=== PATIENT | female | born 1950 | race Caucasian/White ===

== ENCOUNTER 2022-03-14 08:00 | Outpatient (RCR) | payer MEDICARE, BC, SELFPAY | END 2022-05-22 15:00 | disposition home or self-care (01) | PROVIDERS: Visit Provider Orthopaedic Surgery | DX: M17.0 Bilateral primary osteoarthritis of knee (principal); Z51.89 Encounter for other specified aftercare | CPT/HCPCS: 97110; 97162; 97535 ==

== ENCOUNTER 2022-03-28 15:24 | Outpatient (CLI) | payer MEDICARE, BC, SELFPAY ==
[2022-03-28 12:07] LABS: Iron* 64 ug/dL (37-170)
[2022-03-28 12:11] LABS: Albumin* 3.7 g/dL (3.3-5.0); Chloride* 104 mmol/L (96-114); Sodium* 138 mmol/L (135-149)
[2022-03-28 12:12] LABS: Potassium* 4.8 mmol/L (3.6-5.1)
[2022-03-28 12:14] LABS: Carbon Dioxide* 26 mmol/L (20-32); Creatinine* 1.6 mg/dL (0.5-1.5); Estimated Glomerular Filt Rate 34 ml/min
[2022-03-28 12:15] LABS: Blood Urea Nitrogen* 35 mg/dL (7-30); Calcium* 9.3 mg/dL (8.4-10.6); Glucose* 98 mg/dL (60-115); Uric Acid* 5.7 mg/dL (2.2-8.4)
[2022-03-28 12:17] LABS: Percent Iron Saturation 17 % (20-50); Total Iron Binding Capacity 381 ug/dL (265-497)
[2022-03-28 13:12] LABS: Creatinine Urine 82.2 mg/dL
[2022-03-28 13:17] LABS: Microalbumin Creatinine Ratio 20 mg/g (0-30); Microalbumin Urine 2 mg/dL
== END 2022-03-28 15:25 | disposition home or self-care (01) ==
PROVIDERS: Visit Provider Internal Medicine Nephrology
DX: I12.9 Hypertensive chronic kidney disease with stage 1 through stage 4 chronic kidney disease, or unspecified chronic kidney disease (principal); N18.4 Chronic kidney disease, stage 4 (severe); E11.22 Type 2 diabetes mellitus with diabetic chronic kidney disease; D64.9 Anemia, unspecified; N25.0 Renal osteodystrophy; R82.90 Unspecified abnormal findings in urine
CPT/HCPCS: 80069; 82043; 82570; 83540; 83550; 84550; 87086

== ENCOUNTER 2022-09-18 08:14 | Outpatient (CLI) | payer MEDICARE, BC, SELFPAY ==
[2022-09-18 10:08] LABS: Albumin* 4.1 g/dL (3.3-5.0); Chloride* 108 mmol/L (96-114)
[2022-09-18 10:09] LABS: Potassium* 4.6 mmol/L (3.6-5.1); Sodium* 142 mmol/L (135-149)
[2022-09-18 10:11] LABS: Carbon Dioxide* 26 mmol/L (20-32); Cholesterol* 185 mg/dL (90-199); Creatinine* 1.7 mg/dL (0.5-1.5); Estimated Glomerular Filt Rate 31 ml/min
[2022-09-18 10:12] LABS: Alanine Aminotransferase* 14 U/L (4-35); Aspartate Amino Transferase* 26 U/L (12-35); Blood Urea Nitrogen* 37 mg/dL (7-30); Glucose* 128 mg/dL (60-115); Uric Acid* 4.6 mg/dL (2.2-8.4)
[2022-09-18 10:13] LABS: Calcium* 9.7 mg/dL (8.4-10.6); HDL Cholesterol* 91 mg/dL (>=50); LDL Cholesterol Calculated 69 mg/dL (<100); Phosphorus* 4.9 mg/dL (2.5-4.5); Triglycerides* 123 mg/dL (40-149)
[2022-09-18 10:19] LABS: C Reactive Protein* < 0.5 mg/dL (0.5-1.0)
== END 2022-09-18 08:15 | disposition home or self-care (01) ==
PROVIDERS: Visit Provider Internal Medicine Nephrology
DX: D64.9 Anemia, unspecified (principal); E11.9 Type 2 diabetes mellitus without complications; N18.9 Chronic kidney disease, unspecified; Z13.6 Encounter for screening for cardiovascular disorders; R82.90 Unspecified abnormal findings in urine
CPT/HCPCS: 80061; 80069; 84450; 84460; 84550; 86140; 87086

== ENCOUNTER 2023-03-25 07:36 | Outpatient (CLI) | payer MEDICARE, BC, SELFPAY | END 2023-03-25 07:37 | disposition home or self-care (01) | LOC: NFLDREF 03-27 12:29 | PROVIDERS: Visit Provider Internal Medicine Nephrology | DX: D64.9 Anemia, unspecified (principal); E11.9 Type 2 diabetes mellitus without complications; N18.9 Chronic kidney disease, unspecified; R82.90 Unspecified abnormal findings in urine | CPT/HCPCS: 80061; 80069; 82043; 82306; 82310; 82570; 82728; 83540; 83550; 83970; 84450; 84460; 84550; 87086 ==

== ENCOUNTER 2023-09-30 07:42 | Outpatient (CLI) | payer MEDICARE, BC, SELFPAY ==
--- OUTSIDE RECORDS SUMMARY | 2023-09-30 11:36 | XMS_ITS | Clinical Summary ---
Author Name Unknown Organization [facility] Address [address] [place] [address] Care Team Providers Care College Service Officer Name Role Phone Brennen Winchester M.D. Primary Care Provider Source Comments Patient records contain information from all sites at [facility]. For routine questions regarding patient records, call [phone] during business hours, M-F 8:00 AM - 5:00 PM Central Time. 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 Test once daily. 1 each 0 08/22/2020 Active blood glucose ctl high,nml,low solutionIndications :Diabetes Mellitus Type 2 With Diabetic Chronic Kidney Disease (HCC) Glucose control solution provides an easy way to ensure accurate blood glucose testing. 1 each 0 08/22/2020 Active blood sugar diagnostic strips (Contour Next Test Strips)Indications: Diabetes Mellitus Type 2 With Diabetic Chronic Kidney Disease (HCC) 1 test daily. 90 test 3 10/18/2022 10/18/2023 Active acetaminophen (TYLENOL) 500 mg capsule Take 2 capsules (1,000 mg total) by mouth every 6 (six) hours as needed for pain. Take on a schedule while using opioids. Once opioid use has stopped, adjust to as needed 0 12/08/2022 Active lancets (Microlet Lancet)Indications: Diabetes Mellitus Type 2 With Diabetic Chronic Kidney Disease (HCC) Use to test glucose once daily 100 each 3 01/16/2023 Active simvastatin (ZOCOR) 20 mg tabletIndications:H ypercholesterolemia Take 1 tablet (20 mg total) by mouth at bedtime. 90 tablet 3 01/31/2023 Active lisinopril-hydroCHL OROthiazide (PRINZIDE,ZESTORETI C) 10-12.5 mg per tabletIndications:H ypertension And Chronic Kidney Disease Stage 4 (HCC) Take 1 tablet by mouth at bedtime. HOLD until follow up with primary care provider 90 tablet 3 01/31/2023 Active metFORMIN XR (GLUCOPHAGE-XR) 500 mg 24 hr tabletIndications:D iabetes Mellitus Type 2 With Diabetic Chronic Kidney Disease (HCC) Take 2 tablets (1,000 mg total) by mouth daily with breakfast. 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 10/11/2020 Spondylosis Lumbar Without Myelopathy 09/26/2020 Anxiety 03/30/2020 Constipation 03/30/2020 History Of Falling 03/08/2020 Trigger Finger Ring Right 08/09/2019 Primary Osteoarthritis Knee Bilateral 08/03/2019 Anemia Iron Deficiency 12/09/2018 Hypertensive Chronic Kidney Disease (CKD) Stage 3b Glomerular Filtration Rate (GFR) 30 To 44 11/21/2016 Diabetes Mellitus Type 2 Wit h Diabetic Chronic Kidney Disease 11/21/2016 Hypercholesterolemia 11/21/2016 Keratosis Seborrheic 08/10/2016 Vitiligo 08/10/2016 Loss Hearing Sensorineural Bilateral 10/26/2015 Tinnitus Bilateral 10/20/2015 Stenosis Spinal 12/30/2013 Overview: epidural injections Arthropathy 10/17/2011 Osteopenia 09/27/2009 Pain Low Back Unspecified Resolved Problems Problem Noted Date Diagnosed Date Resolved Date Alzheimer's Disease 09/07/2021 04/01/20 Diabetes Mellitus Type 2 03/23/202009/2020 Unspecified Dislocation Of Right Hip Initial 0 02/17/2020 Fracture Femur Trochanteric Closed Initial Right 02/10/2020 03/08/2020 Fracture Femur Neck Closed Initial Right 01/18/2020 02/09/2020 Tear Knee Lateral Meniscus C urrent Subsequent Right 06/01/2019 02/01/2020 Primary Osteoarthritis Knee Right 03/23/2019 02/01/2020 Encounters Date Type Department Care Team Description 09/06/2023 2:45 PM SWIMMER Office Visit Department of Orthopedic Surgery in [place], [place] [address] [place] [address] Latrell Antunez M.D. Trigger Finger Ring Right (Primary Dx) 09/02/2023 10:09 AM SWIMMER - 09/02/2023 11:59 PM SWIMMER Hospital Encounter Department of Laboratory Medicine in [address] [phone] Brennen Winchester M.D. Diabetes Mellitus Type 2 With Diabetic Chronic Kidney Disease (HCC) Discharge Disposition: Home or Self Care 09/02/2023 Clinical Communication Department of [facility], [address] [phone] Brennen Winchester M.D. Results 08/20/2023 Orders Only [facility] PCP TH OCTAVIOT Brennen Winchester M.D. Screening Mammogram Breast Cancer; Diabetes Mellitus Type 2 With Diabetic Chronic Kidney Disease (HCC) 08/15/2023 Refill Department of [facility], in [address] [address] Brennen Winchester M.D. Med Refill 08/13/2023 Clinical Communication Department of [facility], in [address] [phone] Angela Spivey P.A.-C. 08/13/2023 Clinical Communication Department of [facility], [facility], in [place], [place] [address] [place] [phone] Brennen Winchester M.D. Results 08/09/2023 2:00 PM SWIMMER Telemedicine Department of Family Medicine, [facility], in [address] [address] Angela Spivey P.A.-C. No Show 08/09/2023 9:10 AM SWIMMER - 08/09/2023 11:59 PM SWIMMER Hospital Encounter Department of Laboratory Medicine in [place], [place] [address] [place] [address] Angela Spivey P.A.-CJuan Dysuria Discharge Disposition: Home or Self Care 08/09/2023 Orders Only Department of Family Medicine, [facility], in [place], [place] [address] [address] [place] [address] Angela Spivey P.A.-CJuan Dysuria (Primary Dx) 08/09/2023 Nurse Triage Department of Family Medicine, [facility], in [place], [place] [address] [place] [address] Michelle Fountain, RJuanN. Urinary Symptom 07/24/2023 11:00 AM SWIMMER Office Visit Department of Orthopedic Surgery in [place], [place] [address] [place] [address] Latrell Antunez M.D. Trigger Finger Ring Right (Primary Dx) from Last 3 Months Immunizations Name Administration Dates Next Due DT, Pediatric 09/25/2004 H1N1 All Forms 07/03/2009 HZV (ZOSTAVAX) 03/30/2013 Influenza high dose QV(65 ye ars or older) (PF) 05/10/2020 Influenza, Quadrivalent, Adj uvanted, Preservative Free 04/30/2022 Influenza, Seasonal, Injectable 05/14/20 11,05/19/2010,07/12/2008,2006 Influenza, Unspecified 05/22/2017,2015,05/03/2016,2014,05/09/2015,05/28/2014,06/02/2013,1 ,06/02/2011,07/03/2010, 010,07/03/2009 PCV13 04/13/2015 PPSV23(Discontinued) 11/25/2017,10/14/2007 RZV (SHINGRIX) 01/07/2019,05/01/2018 SARS-COV-2 (COVID-19) - MODERNA(Discontinued) 11/18/2020,10/19/2020 Td (Adult), adsorbed 12/08/1988 Tdap 12/06/2012 influenza high dose (65 year s or older) (PF) 05/28/2018 influenza vaccine quad (FLUZONE/FLUARIX) (6 months and older)(PF) 05/19/2021,05/27/2019,05/20/2014,2012 Family History Medical History Relation Name Comments Diabetes Brother Richie Crespo Hyperlipidemia Brother Richie Crespo Hypertension Brother Richie Crespo Arthritis Father Clark Crespo Coronary artery disease Father Clark Crespo ca use of Dementia Father Clark Crespo Heart attack Father Clark Crespo Arthritis Mother Damaris Crespo Back pain Mother Damaris Crespo Breast cancer Mother Damaris Crespo age 63 Depression Mother Damaris Crespo Hypertension Mother Damaris Crespo Lung cancer Mother Damaris Crespo Cause of jesus th Nicotine dependence Mother Damaris Crespo Ovarian cancer Paternal Grandmother Britney Crespo ca use of ADD Son Justin Sands Relation Name Status Comments Brother Richie Crespo Father Clark Crespo Mother Damaris Crespo Paternal Grandmother Britney Crespo Son Justin Sands Social History Tobacco Use Types Packs/Day Years Used Date Smoking Tobacco: Never Smokeless Tobacco: Never Tobacco Cessation:Counseling Given: Not Answered Comments:None! Alcohol Use Standard Drinks/Week Comments No 0 (1 standard drink = 0.6 oz pur e alcohol) Humiliation, Afraid, Rape, and Kick questionnair e Answer Date Recorded Within the last year, have y ou been afraid of your partner or ex-partner? No 09/07/2022 Within the last year, have y ou been humiliated or emotionally abused in other ways by your partner or ex-partner? No Within the last year, have y ou been kicked, hit, slapped, or otherwise physically hurt by your partner or ex-partner? No 09/07/2022 Within the last year, have y ou been raped or forced to have any kind of sexual activity by your partner or ex-partner? No 09/07/2022 Social Connection and Isolat ion Panel [NHANES] Answer Date Recorded In a typical week, how many times do you talk on the phone with family, friends, or neighbors? Twice a week 09/07/2022 How often do you get togethe r with friends or relatives? Three times a week 09/07/2022 How often do you attend chur ch or yarsanism services? More than 4 times per year 09/07/2022 Do you belong to any clubs o r organizations such as mormonism groups, unions, fraternal or athletic groups, or school groups? Yes 09/07/2022 How often do you attend meet ings of the clubs or organizations you belong to? More than 4 times per year 09/07/2022 Are you , , di vorced, , never , or living with a partner? 09/07/2022 AUDIT-C Answer Date Recorded Q1: How often do you have a drink containing alc ohol? Never 09/07/2022 Average Number of Drinks Not on file 023 Frequency of Binge Drinking Not on file 08/20 Overall Financial Resource Strain (CARDIA) Answe r Date Recorded How hard is it for you to pa y for the very basics like food, housing, medical care, and heating? Not hard at all 09/07/2022 PHQ-2 Answer Date Recorded PHQ-2 Score 0 01/18/2021 [facility] [place] [facility] Occupat ional Health - Occupational Stress Questionnaire Answer Date Recorded Do you feel stress - tense, restless, nervous, or anxious, or unable to sleep at night because your mind is troubled all the time - these days? To some extent 09/07/2022 Exercise Vital Sign Answer Date Recorde d On average, how many days pe r week do you engage in moderate to strenuous exercise (like a brisk walk)? 5 days 09/07/2022 On average, how many minutes do you engage in exercise at this level? 30 min 09/07/2022 Hunger Vital Sign Answer Date Recorded Within the past 12 months, y ou worried that your food would run out before you got the money to buy more. Never true 09/07/19 23 Within the past 12 months, t he food you bought just didn't last and you didn't have money to get more. Never true 09/07/2022 PRAPARE - Transportation Answer Date Re corded In the past 12 months, has l ack of transportation kept you from medical appointments or from getting medications? Yes 08/20 In the past 12 months, has l ack of transportation kept you from meetings, work, or from getting things needed for daily living? No 09/07/2022 Housing Stability Vital Sign Answer Clarke e Recorded In the last 12 months, was t here a time when you were not able to pay the mortgage or rent on time? No 09/07/2022 In the last 12 months, how many places have you lived? 1 09/07/2022 In the last 12 months, was t here a time when you did not have a steady place to sleep or slept in a chcf (including now)? No 09/07/2022 Nutrition Answer Date Recorded Nutrition: EVOO Fat Source No 09/07 On average, how many serving s of fruits and vegetables do you eat per day (serving size is equal to 1 cup or approximately the size of a tennis ball)? 2-3 09/07/2022 Dental Answer Date Recorded Dental: Regular Dentist Yes 10/10/19 Employment Answer Date Recorded Employment status Retired 09/07/2022 Education Answer Date Recorded What is the highest level of school you have completed or the highest degree you have received? Doctorate 03/19/2019 Sex and Gender Information Value Date Recorded Sex Assigned at Female 05/16/2020 4:06 PM CDT Gender Identity Female 11/20/2017 8:45 PM CDT Sexual Orientation Straight 11/20/2017 8: 45 PM CDT Last Filed Vital Signs Vital Sign Reading Time Taken Comments Blood Pressure 140/80 2023 12:58 PM CDT Pulse 78 2023 12:58 PM CDT Temperature 36.5 ??C (97.7 ??F) 03/29/2023 8:50 AM CD T Respiratory Rate 19 03/29/2023 9:15 AM CDT Oxygen Saturation 100% 03/29/2023 9:15 AM CDT Inhaled Oxygen Concentration - - Weight 58.5 kg (128 lb 15.5 oz) 023 12:58 PM CDT Height 167.6 cm (5' 5.98) 2023 1 2:58 PM CDT Body Mass Index 20.83 2023 12:58 PM CDT Plan of Treatment Upcoming Encounters Date Type Department Care Team (Latest Contact Info) Description 10/02/2023 1:30 PM SWIMMER Appointment Department of Radiology in [place], [place] [address] [place] [phone] Brennen Winchester M.D. [address] [place] [address] Discharge Disposition: Home or Self Care 11/08/2023 10:00 AM CDT Office Visit Department of Family Medicine, [facility], in [place], [place] [address] [place] [address] Brennen Winchester M.D. [address] [place] [phone] 11/22/2023 9:15 AM CDT Clinical Communication Virtual Review in [place], [place] [address] [place] [address] 11/25/2023 10:15 AM CDT Office Visit Department of Orthopedic Surgery in [place], [place] [address] [place] [phone] Latrell Antunez M.D. [address] [place] [phone] 11/28/2023 8:00 AM CDT Appointment Department of Laboratory Medicine and Pathology, [facility], in [place], [place] [address] [place] [phone] Sam Coburn M.D. [address] [place] [phone] 11/28/2023 8:45 AM CDT Appointment Department of Radiology, [facility], in [place], [place] [address] [place] [phone] Sam Coburn M.D. [address] [place] [phone] 11/28/2023 9:00 AM CDT Appointment Department of Radiology, [facility], in [place], [place] [address] [place] [phone] Sam Coburn M.D. [address] [place] [phone] 11/28/2023 10:00 AM CDT Office Visit Department of Orthopedic Surgery in [place], [place] [address] [place] [phone] Sam Coburn M.D. [address] [place] [phone] 11/29/2023 10:48 AM CDT Hospital Encounter [facility] 02 4 AM ADMIT [address] [place] [phone] Sam Coburn M.D. [address] [place] [phone] 11/29/2023 10:48 AM CDT - 11/29/2023 1:43 PM CDT Surgery [facility] [address] [place] [address] Sam Coburn M.D. [address] [place] [phone] ARTHROPLASTY REPLACEMENT TOTAL KNEE Scheduled Procedures Name Priority Associated Diagnoses Date/Ti me ARTHROPLASTY REPLACEMENT TOTAL KNEE Primary Osteoarthritis Knee Right 11/29/2023 10:48 AM CDT Health Maintenance Due Date Last Done Comments CT Colonography 1950 Cologuard 1950 Hepatitis C Screening 1950 Visit: Medicare Annual Wellness 1950 Hepatitis B Vaccines (1 of 3 - Risk 3-dose series) 2009 FIT 03/10/2019 03/10/2018 COVID-19 Vaccine ( - 2022-2 4 season) 2023 12/15/2022, 04/30/2022, 11/23/2021, Additional history exists Office Visit for Blood Press ure Check / Re-check 07/02/2023 2023 Mammogram 08/01/2023 08/01/2022, 02/2021, 07/20/2020, Additional history exists Fall Risk Screen (Annual) 08/19/2023 Diabetic Office Visit with F oot Exam 10/19/2023 10/18/2022, 08/08/2021, 07/18/2020, Additional history exists Creatinine Level (Kidney Fun ction Test) 01/31/2024 01/30/2023, 11/22/2022, 10/30/2022, Additional history exists Potassium Level 01/31/2024 01/30/2023, 04/0 01/2023, 10/30/2022, Additional history exists Sodium Level 01/31/2024 01/30/2023, 04/0 01/2023, 10/30/2022, Additional history exists Urine Albumin 01/31/2024 01/30/2023, 06/0 01/2022, 01/18/2021, Additional history exists Diabetes Education 02/01/2024 01/31/2023, 1 10/09/2020, 07/18/2020, Additional history exists Visit: Chronic Disease, age 18+ 02/01/2024 , 01/31/2023 Hemoglobin A1C 03/02/2024 09/02/2023, 04/19, 11/22/2022, Additional history exists Dilated Eye Exam 09/12/2024 09/12/2023 (Per formed elsewhere), 09/10/2022 (Performed elsewhere), 09/07/2021 (Performed elsewhere), Additional history exists Lipid (Cholesterol) Screening 11/23/2027, 06/16/2019, 11/25/2017, Additional history exists Colonoscopy 10/03/2031 10/03/2021, 12/11/2007 Colorectal Cancer Screening 10/03/2031 DTaP,Tdap,and Td Vaccines (4 - Td or Tdap) 01/31/2033 01/31/2023, 12/06/2012, 09/25/2004, Additional history exists Pneumococcal vaccine (65+ years) Completed 11/25/2017, 04/13/2015, 10/14/2007 Zoster Vaccines Completed 01/07/2019, 04/19, 03/30/2013 Influenza Vaccine Completed 05/06/2023, , 05/19/2021, Additional history exists Medical Devices Implanted Type Area Instructor Hairspring Device Identifier Shelf Expiration Date Model / Serial / Lot Cmnt Bn Smp 20gm - [id number] Implanted:Qty: 1 on 12/07/2022 by Sam Coburn M.D. at [facility] Bone Cement Left: Knee Goyo 6188-1-00 1 / / K-Wire-Ss 4 Smooth .045 - [id number] Implanted:Qty: 1 on 01/05/2014 Hardware e.g. pins/screws/ rods Mouth [place] [place] Description:Device Manufactu [facility] - [place] [place] Jr.. Device Status Text - [id number]. Hip Implant Hip Implant Right: Hip Description:2019 Persona Viavacit E Highly Crosslinked Polyethylene Left 10mm Use With Tibia E-F Cr Femur 8-11 Implanted:Qty: 1 on 12/07/2022 by Sam Coburn M.D. at [facility] Knee Implant Left: Knee [employer] [id number] 05/15/2027 [id number] Procedures Procedure Name Priority Date/Time Associated Diagnosis Comments HEMOGLOBIN A1C, B Routine 09/02/2023 10: 16 AM SWIMMER Diabetes Mellitus Type 2 With Diabetic Chronic Kidney Disease (HCC) URINALYSIS WITH MICROSCOPIC Routine 08/09/2023 9:18 AM SWIMMER Dysuria BACTERIAL CULTURE, AEROBIC + SUSC, URINE Routine 08/09/2023 9:18 AM SWIMMER Dysuria from Last 3 Months Results * (ABNORMAL) Hemoglobin A1c (09/02/2023 10:16 AM SWIMMER) Hemoglobin A1c, B 6.7(H) 4.2 - 5.6 % 09/02/2023 2:25 PM SWIMMER OWAT Comment: Hemoglobin A1c values greater than or equal to 6.5 percent are diagnostic for diabetes mellitus. ??Diagnosis should be confirmed by repeat testing. ??In diabetic patients, HbA1c goals should be discussed with healthcare provider. Blood (Blood, Venous) 09/02/2023 10:16 AM SWIMMER 09/02/2023 1:31 PM SWIMMER Brennen Winchester M.D. LAB BLOOD ADD-ON Performing Organization Address City/State/[facility] Co de Phone Number [facility] [address] [place] [address], [facility] OWAT [facility] in [place] [address] [place] [address] * (ABNORMAL) Bacterial Culture, Aerobic + Susceptibility, Urine (08/09/2023 9:18 AM SWIMMER) Urine Culture with mixed microbiota(A) 08/12/2023 6:59 AM SWIMMER MKTO Urine Culture ENTEROCOCCUS FAECALIS 10,000-100,000 cfu/mL (A) 08/12/2023 6:59 AM SWIMMER MKTO Urine (Urine, Midstream) 08/09/2023 9:18 AM SWIMMER 08/09/2023 2:27 PM SWIMMER Comment:Specimen Source Site : Urine Narrative Organism Antibiotic Method Susceptibility Enterococcus faecalis Ampicillin SUSCEPTIBI LITY, SHARRI (MCG/ML) <=2 mcg/mL: Susceptible Enterococcus faecalis Gent Synergy SUSCEPTIBI LITY, SHARRI (MCG/ML) SYN-S mcg/mL: Susceptible Enterococcus faecalis Strep Synergy SUSCEPTIBI LITY, SHARRI (MCG/ML) SYN-R mcg/mL: Resistant Enterococcus faecalis Ciprofloxacin SUSCEPTIBI LITY, SHARRI (MCG/ML) <=0.5 mcg/mL: Susceptible Enterococcus faecalis Levofloxacin SUSCEPTIBI LITY, SHARRI (MCG/ML) 1 mcg/mL: Susceptible Enterococcus faecalis Linezolid SUSCEPTIBI LITY, SHARRI (MCG/ML) 2 mcg/mL: Susceptible Enterococcus faecalis Daptomycin SUSCEPTIBI LITY, SHARRI (MCG/ML) 2 mcg/mL: Susceptible Enterococcus faecalis Vancomycin SUSCEPTIBI LITY, SHARRI (MCG/ML) 2 mcg/mL: Susceptible Enterococcus faecalis Tetracycline SUSCEPTIBI LITY, SHARRI (MCG/ML) >=16 mcg/mL: Resistant Enterococcus faecalis Nitrofurantoin SUSCEPTIBI LITY, SHARRI (MCG/ML) <=16 mcg/mL: Susceptible Angela Spivey P.A.-C. LAB MICROBIOLOGY - GENERAL ORDERABLES [facility] [place] [address], [facility] in [place] [address] [place] [address] * (ABNORMAL) Urinalysis with Microscopic: Urine, Midstream (08/09/2023 9:18 AM SWIMMER) Source Urine, Urine, Midstream 08/09/2023 9:45 AM SWIMMER FB60 Clarity Clear Clear 08/09/2023 9:47 AM SWIMMER FB60 Color Yellow 08/09/2023 9:47 AM SWIMMER FB60 Comment: ----REFERENCE VALUE---- Colorless Yellow Jaida Blood Trace(A) Negative 08/09/2023 9:47 AM SWIMMER FB60 Nitrite Negative Negative 08/09/2023 9:47 AM SWIMMER FB60 Leukocyte Esterase Trace(A) Negative 08/09/2023 9:47 AM SWIMMER FB60 Protein Trace mg/dL 08/09/2023 9:47 AM SWIMMER FB60 Comment: ----REFERENCE VALUE---- Negative Trace Glucose Negative Negative mg/dL 08/09/2023 9:47 AM SWIMMER FB60 Ketones, QI(U) Negative Negative mg/dL 08/09/2023 9:47 AM SWIMMER FB60 Bilirubin Negative Negative 08/09/2023 9:47 AM SWIMMER FB60 pH 5.0 5.0 - 8.0 08/09/2023 9:47 AM SWIMMER FB60 Specific Randolph 1.020 1.001 - 1.035 08/09/2023 9:47 AM SWIMMER FB60 Urobilinogen 0.2 0.2 - 1.0 mg/dL 08/09/2023 9:47 AM SWIMMER FB60 White Blood Cells Occ-3 /hpf 08/09/2023 9:56 AM SWIMMER FB60 Comment: ----REFERENCE VALUE---- Males: 0-3 Females: 0-10 Unknown: 0-10 Red Blood Cells None Seen 0 - 2 /hpf 9:56 AM SWIMMER FB60 Urine (Urine, Midstream) 08/09/2023 9:18 AM SWIMMER 08/09/2023 9:44 AM SWIMMER Angela Spivey P.A.-C. LAB URINE ORDERAB LES [facility] [address] [place] [address], [place] FB60 [facility] in [place] [address] [place] [address] from Last 3 Months Care Teams College Service Officer Relationship Specialty Start Date End Date Brennen Winchester M.D. [address] [place] [phone] PCP - General 04/05/22
--- OUTSIDE RECORDS SUMMARY | 2023-09-30 11:36 | XMS_ITS | Referral Summary ---
Author Name Unknown Organization [facility] Address [address] [place] [address] Care Team Providers Care Financial Compliance Officer Name Role Phone Brennen Winchester M.D. Primary Care Provider Source Comments Patient records contain information from all sites at [facility]. For routine questions regarding patient records, call [phone] during business hours, M-F 8:00 AM - 5:00 PM Central Time. Record requests for emergency care only can be directed to [phone] at any time.[facility] Encounters Date Type Department Care Team Description 09/06/2023 2:45 PM CHIEF HOSPITAL ADMINISTRATOR Office Visit Department of Orthopedic Surgery in [place], [place] [address] [place] [address] Latrell Antunez M.D. Trigger Finger Ring Right (Primary Dx) 09/02/2023 Clinical Communication Department of Family Medicine, [facility], in [place], [place] [address] [place] [address] Brennen Winchester M.D. Results 09/02/2023 10:09 AM CHIEF HOSPITAL ADMINISTRATOR - 09/02/2023 11:59 PM CHIEF HOSPITAL ADMINISTRATOR Hospital Encounter Department of Laboratory Medicine in [place], [place] [address] [place] [phone] Brennen Winchester M.D. 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 Screening Mammogram Breast Cancer; Diabetes Mellitus Type 2 With Diabetic Chronic Kidney Disease (HCC) 08/15/2023 Refill Department of Family Medicine, [facility], in [address] [address] Brennen Winchester M.D. Med Refill 08/13/2023 Clinical Communication Department of [facility], [facility], in [address] [phone] Angela Spivey P.A.-C. 08/13/2023 Clinical Communication Department of [facility], [facility], in [address] [phone] Brennen Winchester M.D. Results 08/09/2023 2:00 PM CHIEF HOSPITAL ADMINISTRATOR Telemedicine Department of [facility], [facility], in [place], [place] [address] [address] Angela Spivey P.A.-C. No Show 08/09/2023 9:10 AM CHIEF HOSPITAL ADMINISTRATOR - 08/09/2023 11:59 PM CHIEF HOSPITAL ADMINISTRATOR Hospital Encounter Department of Laboratory Medicine in [address] [phone] Angela Spivey P.A.-C. Dysuria Discharge Disposition: Home or Self Care 08/09/2023 Orders Only Department of Family Medicine, [facility], in [place], [place] [address], [place] [address] Angela Spivey, P.A.-C. Dysuria (Primary Dx) 08/09/2023 Nurse Triage Department of [facility], [facility], in [address] [phone] Michelle Fountain R.N. Urinary Symptom 07/24/2023 11:00 AM CHIEF HOSPITAL ADMINISTRATOR Office Visit Department of Orthopedic Surgery in [place], [place] [address] [place] [address] Latrell Antunez M.D. Trigger Finger Ring Right (Primary Dx) from Last 3 Months Allergies Active Allergy Reactions Criticality Noted Date [...] Date Resolved Date Alzheimer's Disease 09/07/2021 04/01/20 23 Diabetes Mellitus Type 2 03/23/202009/2020 Unspecified Dislocation Of Right Hip Initial 0 02/17/2020 Fracture Femur Trochanteric Closed Initial Right 02/10/2020 03/08/2020 Fracture Femur Neck Closed Initial Right 01/18/2020 02/09/2020 Tear Knee Lateral Meniscus C urrent Subsequent Right 06/01/2019 02/01/2020 Primary Osteoarthritis Knee Right 03/23/2019 02/01/2020 Immunizations Name Administration Dates Next Due DT, [...] quad (FLUZONE/FLUARIX) (6 months and older)(PF) 05/19/2021,05/27/2019,05/20/2014,2012 Social History Tobacco Use Types Packs/Day Years [...] week 09/07/2022 How often do you attend [facility] or [facility] services? More than 4 times per year 09/07/2022 Do you belong to any clubs o r organizations such as restoration groups, unions, fraternal or athletic groups, or [...] Answer Date Recorded PHQ-2 Score 0 01/18/2021 [facility] of Occupat ional [facility] - Occupational Stress Questionnaire Answer Date Recorded [...] place to sleep or slept in a mcfp (including now)? No 09/07/2022 Nutrition Answer Date [...] (Latest Contact Info) Description 10/02/2023 1:30 PM CHIEF HOSPITAL ADMINISTRATOR Appointment Department of Radiology in [place], [place] [address] [place] [address] Brennen Winchester M.D. [address] [place] [phone] Discharge Disposition: Home or Self Care 11/08/2023 10:00 AM CDT Office Visit Department of Family Medicine, [facility], in [place], [place] [address] [place] [phone] Brennen Winchester M.D. [address] [place] [phone] 11/22/2023 9:15 AM CDT Clinical Communication Virtual Review in [place], [place] [address] [place] [address] 11/25/2023 10:15 AM CDT Office Visit Department of Orthopedic Surgery in [place], [place] [address] [place] [phone] Latrell Antunez M.D. [address] [place] [phone] 11/28/2023 8:00 AM CDT Appointment Department of Laboratory Medicine and Pathology, [facility] in [place], [place] [address] [place] [phone] Sam Coburn M.D. [address] [place] [phone] 11/28/2023 8:45 AM CDT Appointment Department of Radiology, [facility], in [place], [place] [address] [place] [phone] Sam Coburn M.D. [address] [place] [phone] 11/28/2023 9:00 AM CDT Appointment Department of Radiology, [facility], in [place], [place] [address] [place] [phone] Sam Coburn M.D. [address] [place] [phone] 11/28/2023 10:00 AM CDT Office Visit Department of Orthopedic Surgery in [place], [place] [address] [place] [address] Sam Coburn M.D. [address] [place] [phone] 11/29/2023 10:48 AM CDT Hospital Encounter [facility] 02 4 AM ADMIT [address] [place] [address] Sam Coburn M.D. [address] [place] [phone] 11/29/2023 10:48 AM CDT - 11/29/2023 1:43 PM CDT Surgery [facility] MAIN OR [address] [place] [address] Sam Coburn M.D. [address] [place] [address] ARTHROPLASTY REPLACEMENT TOTAL KNEE Scheduled Procedures Name Priority Associated Diagnoses Date/Ti ma ARTHROPLASTY REPLACEMENT TOTAL KNEE Primary Osteoarthritis Knee Right 11/29/2023 10:48 AM CDT Medical Devices Implanted Type Area Pig Breeder Device Identifier Shelf Expiration Date Model / Serial / Lot Cmnt Bn Smp 20gm - [id number] Implanted:Qty: 1 on 12/07/2022 by Sam Coburn M.D. at [facility] Bone Cement Left: Knee Goyo 6188-1-00 1 / / K-Wire-Ss 4 Smooth .045 - Kerr [id number] Implanted:Qty: 1 on 01/05/2014 Hardware e.g. pins/screws/ rods Mouth [place] Description:Device Manufactu [facility] - [place] Jr.. Device Status Text - HARDWARE-872. Hip Implant Hip Implant Right: Hip Description:2019 Persona Viavacit E Highly Crosslinked Polyethylene Left 10mm Use With Tibia E-F Cr Femur 8-11 Implanted:Qty: 1 on 12/07/2022 by Sam Coburn M.D. at [facility] Knee Implant Left: Knee [employer] [id number] 05/15/2027 [id number] 03-28 [id number] Procedures Procedure Name Priority Date/Time Associated Diagnosis Comments HEMOGLOBIN A1C, B Routine 09/02/2023 10: 16 AM CHIEF HOSPITAL ADMINISTRATOR Diabetes Mellitus Type 2 With Diabetic Chronic Kidney Disease (HCC) URINALYSIS WITH MICROSCOPIC Routine 08/09/2023 9:18 AM CHIEF HOSPITAL ADMINISTRATOR Dysuria BACTERIAL CULTURE, AEROBIC + SUSC, URINE Routine 08/09/2023 9:18 AM CHIEF HOSPITAL ADMINISTRATOR Dysuria from Last 3 Months Results * (ABNORMAL) Hemoglobin A1c (09/02/2023 10:16 AM CHIEF HOSPITAL ADMINISTRATOR) Hemoglobin A1c, B 6.7(H) 4.2 - 5.6 % 09/02/2023 2:25 PM CHIEF HOSPITAL ADMINISTRATOR OWAT Comment: Hemoglobin A1c values greater than or equal to 6.5 percent are diagnostic for diabetes mellitus. ??Diagnosis should be confirmed by repeat testing. ??In diabetic patients, HbA1c goals should be discussed with healthcare provider. Blood (Blood, Venous) 09/02/2023 10:16 AM CHIEF HOSPITAL ADMINISTRATOR 09/02/2023 1:31 PM CHIEF HOSPITAL ADMINISTRATOR Brennen Winchester M.D. LAB BLOOD ADD-ON [facility] [address] [place] [address], [facility] OWAT [facility] in [place] [address] [place] [address] * (ABNORMAL) Bacterial Culture, Aerobic + Susceptibility, Urine (08/09/2023 9:18 AM CHIEF HOSPITAL ADMINISTRATOR) Urine Culture with mixed microbiota(A) 08/12/2023 6:59 AM CHIEF HOSPITAL ADMINISTRATOR MKTO Urine Culture ENTEROCOCCUS FAECALIS 10,000-100,000 cfu/mL (A) 08/12/2023 6:59 AM CHIEF HOSPITAL ADMINISTRATOR [facility] Urine (Urine, Midstream) 08/09/2023 9:18 AM CHIEF HOSPITAL ADMINISTRATOR 08/09/2023 2:27 PM CHIEF HOSPITAL ADMINISTRATOR Comment:Specimen Source Site : Urine Narrative Organism [...] Spivey P.A.-C. LAB MICROBIOLOGY - GENERAL ORDERABLES [facility] [address] [place] [address], [facility] [address] * (ABNORMAL) Urinalysis with Microscopic: Urine, Midstream (08/09/2023 9:18 AM CHIEF HOSPITAL ADMINISTRATOR) Source Urine, Urine, Midstream 08/09/2023 9:45 AM CHIEF HOSPITAL ADMINISTRATOR FB60 Clarity Clear Clear 08/09/2023 9:47 AM CHIEF HOSPITAL ADMINISTRATOR FB60 Color Yellow 08/09/2023 9:47 AM CHIEF HOSPITAL ADMINISTRATOR FB60 Comment: ----REFERENCE VALUE---- Colorless Yellow Jaida Blood Trace(A) Negative 08/09/2023 9:47 AM CHIEF HOSPITAL ADMINISTRATOR FB60 Nitrite Negative Negative 08/09/2023 9:47 AM CHIEF HOSPITAL ADMINISTRATOR FB60 Leukocyte Esterase Trace(A) Negative 08/09/2023 9:47 AM CHIEF HOSPITAL ADMINISTRATOR FB60 Protein Trace mg/dL 08/09/2023 9:47 AM CHIEF HOSPITAL ADMINISTRATOR FB60 Comment: ----REFERENCE VALUE---- Negative Trace Glucose Negative Negative mg/dL 08/09/2023 9:47 AM CHIEF HOSPITAL ADMINISTRATOR FB60 Ketones, QI(U) Negative Negative mg/dL 08/09/2023 9:47 AM CHIEF HOSPITAL ADMINISTRATOR FB60 Bilirubin Negative Negative 08/09/2023 9:47 AM CHIEF HOSPITAL ADMINISTRATOR FB60 pH 5.0 5.0 - 8.0 08/09/2023 9:47 AM CHIEF HOSPITAL ADMINISTRATOR FB60 Specific [place] 1.020 1.001 - 1.035 08/09/2023 9:47 AM CHIEF HOSPITAL ADMINISTRATOR FB60 Urobilinogen 0.2 0.2 - 1.0 mg/dL 08/09/2023 9:47 AM CHIEF HOSPITAL ADMINISTRATOR FB60 White Blood Cells Occ-3 /hpf 08/09/2023 9:56 AM CHIEF HOSPITAL ADMINISTRATOR FB60 Comment: ----REFERENCE VALUE---- Males: 0-3 Females: 0-10 Unknown: 0-10 Red Blood Cells None Seen 0 - 2 /hpf 9:56 AM CHIEF HOSPITAL ADMINISTRATOR FB60 Urine (Urine, Midstream) 08/09/2023 9:18 AM CHIEF HOSPITAL ADMINISTRATOR 08/09/2023 9:44 AM CHIEF HOSPITAL ADMINISTRATOR Angela Spivey P.A.-C. LAB URINE ORDERAB LES Performing Organization Address City/State/[facility] Co de Phone Number [facility] [address] [place] [address], [facility] FB60 [facility] in [place] [address] [place] [address] from Last 3 Months Care Teams Financial Compliance Officer Relationship Specialty Start Date End Date Brennen Winchester M.D. [address] [place] [address] [place] [phone] PCP - General 04/05/22
--- OUTSIDE RECORDS SUMMARY | 2023-09-30 11:37 | XMS_ITS | Encounter Summary ---
Author Name Unknown Organization [facility] Address [address] [place] [address] Care Team Providers Care Publications Manager Name Role Phone Brennen Winchester M.D. Primary Care Provider [phone] Reason for Referral * Outpatient (Routine) - Authorized Specialty Diagnoses / Procedures Referred By Sara schmid Referred To Contact Diagnoses Screening Mammogram Breast Cancer Procedures BI Breast Screening Bilateral with Tomosynthesis Brennen Winchester M.D. [address] [place] [address] [facility] Referral ID Status Reason Start Date Expiration Date V isits Requested Visits Authorized [id number] Authorized 08/20/2023 08/19/2024 1 1 RIAL STRESS TESTER Encounter Details Date Type Department Care Team (Late st Contact Info) Description 08/20/2023 Orders Only [facility] Brennen Winchester M.D. [address] [place] [address] Screening Mammogram Breast Cancer; Diabetes Mellitus Type 2 With Diabetic Chronic Kidney Disease (HCC) Social History Tobacco Use Types Packs/Day Years Used Date Smoking Tobacco: Never Smokeless Tobacco: Never Comments:None! Alcohol Use Standard Drinks/Week Comments No [...] often do you attend chur ch or rastafari services? More than 4 times per year 09/07/2022 Do you belong to any clubs o r organizations such as samaritan groups, unions, fraternal or athletic groups, or [...] Answer Date Recorded PHQ-2 Score 0 01/18/2021 [facility] of Occupat ional Health - Occupational Stress [...] place to sleep or slept in a intermediate (including now)? No 09/07/2022 Nutrition Answer Date Recorded Nutrition: EVOO Fat Source No 09/07 On average, how many serving s of fruits and vegetables do you eat per day (serving size is equal to 1 cup or approximately the size of a tennis ball)? 2-3 09/07/2022 Dental Answer Date Recorded Dental: Regular Dentist Yes 10/10/19 21 Employment Answer Date Recorded Employment status Retired 09/07/2022 Education Answer Date Recorded What is the highest level of school you have completed or the highest degree you have received? Doctorate 03/19/2019 Sex and Gender Information Value Date Recorded Sex Assigned at Female 05/16/2020 4:06 PM CDT Gender Identity Female 11/20/2017 8:45 PM CDT Sexual Orientation Straight 11/20/2017 8: 45 PM CDT documented as of this encounter Plan of Treatment Upcoming Encounters Date Type Department Care Team (Latest Contact Info) Description 10/02/2023 1:30 PM MATERIAL STRESS TESTER Appointment Department of Radiology in [place], [place] [address] [place] [phone] Brennen Winchester M.D. [address] [place] [phone] Discharge Disposition: Home or Self Care 11/08/2023 10:00 AM CDT Office Visit Department of Family Medicine, [facility], in [place], [place] [address] [place] [phone] Brennen Winchester M.D. [address] [place] [phone] 11/22/2023 9:15 AM CDT Clinical Communication Virtual Review in [place], [place] [address] [place] [address] 11/25/2023 10:15 AM CDT Office Visit Department of Orthopedic Surgery in [place], [place] [address] [place] [phone] Latrell Antunez M.D. [address] [place] [phone] 11/28/2023 8:00 AM CDT Appointment Department of Laboratory Medicine and Pathology, [facility] in [place], [place] [address] [place] [phone] Sam Coburn M.D. [address] [place] [phone] 11/28/2023 8:45 AM CDT Appointment Department of Radiology, [facility] in [place], [place] [address] [place] [phone] Sam Coburn M.D. [address] [place] [phone] 11/28/2023 9:00 AM CDT Appointment Department of Radiology, [facility], in [place], [place] [address] [place] [phone] Sam Coburn M.D. [address] [place] [phone] 11/28/2023 10:00 AM CDT Office Visit Department of Orthopedic Surgery in [place], [place] [address] [place] [phone] Sam Coburn M.D. [address] [place] [phone] 11/29/2023 10:48 AM CDT Hospital Encounter [facility] 02 4 AM ADMIT [address] [place] [phone] Sam Coburn M.D. [address] [place] [phone] 11/29/2023 10:48 AM CDT - 11/29/2023 1:43 PM CDT Surgery [facility] MAIN OR [address] [place] [address] Sam Coburn M.D. [address] [place] [phone] ARTHROPLASTY REPLACEMENT TOTAL KNEE Scheduled Orders Name Type Priority Associated Diagnoses Order Schedule BI Breast Screening Bilateral with Tomosynthesis Imaging RAD - Routine (most inpatients and all outpatients) Screening Mammogram Breast Cancer Expected: 09/19/2023, Expires: 02/16/2024 Scheduled Procedures Name Priority Associated Diagnoses Date/Ti me ARTHROPLASTY REPLACEMENT TOTAL KNEE Primary Osteoarthritis Knee Right 11/29/2023 10:48 AM CDT documented as of this encounter Results * (ABNORMAL) Hemoglobin A1c (09/02/2023 10:16 AM MATERIAL STRESS TESTER) Hemoglobin A1c, B 6.7(H) 4.2 - 5.6 % 09/02/2023 2:25 PM MATERIAL STRESS TESTER OWAT Comment: Hemoglobin A1c values greater than or equal to 6.5 percent are diagnostic for diabetes mellitus. ??Diagnosis should be confirmed by repeat testing. ??In diabetic patients, HbA1c goals should be discussed with healthcare provider. Blood (Blood, Venous) 09/02/2023 10:16 AM MATERIAL STRESS TESTER 09/02/2023 1:31 PM MATERIAL STRESS TESTER Brennen Winchester M.D. LAB BLOOD ADD-ON [facility] [address] [place] [address], [facility] OWAT [facility] in [place] [address] [place] [address] documented in this encounter Visit Diagnoses Diagnosis Screening Mammogram Breast Cancer Diabetes Mellitus Type 2 With Diabetic Chronic Kidney Disease (HCC) Primary Osteoarthritis Knee Right documented in this encounter Additional Health Concerns Assessment Noted Time PHQ-9 Depression Total Score: 0 11/22/19 17 8:37 AM CDT documented as of this encounter Care Teams Publications Manager Relationship Specialty Start Date End Date Brennen Winchester M.D. [address] [place] [phone] PCP - General 04/05/22 documented as of this encounter
--- OUTSIDE RECORDS SUMMARY | 2023-09-30 11:37 | XMS_ITS | Encounter Summary ---
Author Name Unknown Organization [facility] Address [address] [place] [address] Care Team Providers Care Customer Service Representative Name Role Phone Brennen Winchester M.D. Primary Care Provider [phone] Encounter Details Date Type Department Care Team (Late st Contact Info) Description 08/09/2023 2:00 PM CARE REP Telemedicine Department of Family Medicine, [facility], in [place], [place] [address] [phone] Angela Spivey P.A.-C. [address] [phone] No Show Social History Tobacco Use Types Packs/Day Years [...] often do you attend chur ch or protestant services? More than 4 times per year 09/07/2022 Do you belong to any clubs o r organizations such as latter-day groups, unions, fraternal or athletic groups, or [...] Answer Date Recorded PHQ-2 Score 0 01/18/2021 [facility] of Occupat ional Health - Occupational Stress [...] (Latest Contact Info) Description 10/02/2023 1:30 PM CARE REP Appointment Department of Radiology in [place], [place] [address] [place] [phone] Brennen Winchester M.D. [address] [place] [address] Discharge Disposition: Home or Self Care 11/08/2023 10:00 AM CDT Office Visit Department of Family Medicine, [facility], in [place], [place] 300 [facility] [phone] Brennen Winchester M.D. [address] [place] [phone] 11/22/2023 9:15 AM CDT Clinical Communication Virtual Review in [place], [place] 200 [place] [address] 11/25/2023 10:15 AM CDT Office Visit Department of Orthopedic Surgery in [place], [place] [address] [place] [phone] Latrell Antunez M.D. [address] [place] [phone] 11/28/2023 8:00 AM CDT Appointment Department of Laboratory Medicine and Pathology, [facility] in [place], [place] [address] [place] [phone] Sam Cobrun M.D. [address] [place] [phone] 11/28/2023 8:45 AM CDT Appointment Department of Radiology, [facility], in [place], [place] [address] [place] [phone] Sam Coburn M.D. [address] [place] [phone] 11/28/2023 9:00 AM CDT Appointment Department of Radiology, [facility], in [place], [place] [address] [place] [phone] Sam Coburn M.D. [address] [place] [phone] 11/28/2023 10:00 AM CDT Office Visit Department of Orthopedic Surgery in [place], [place] [address] [place] [phone] Sam Coburn M.D. [address] [place] [phone] 11/29/2023 10:48 AM CDT Hospital Encounter [facility] 02 4 AM ADMIT [address] [place] [phone] Sam Coburn M.D. [address] [place] [phone] 11/29/2023 10:48 AM CDT - 11/29/2023 1:43 PM CDT Surgery [facility] MAIN OR [address] [place] [address] Sam Coburn M.D. [address] [place] [phone] ARTHROPLASTY REPLACEMENT TOTAL KNEE Scheduled Procedures Name Priority Associated Diagnoses Date/Ti me ARTHROPLASTY REPLACEMENT TOTAL KNEE Primary Osteoarthritis Knee Right 11/29/2023 10:48 AM CDT documented as of this encounter Visit Diagnoses Not on filedocumented in this encounter Additional Health Concerns Assessment Noted Time PHQ-9 Depression Total Score: 0 11/22/19 17 8:37 AM CDT documented as of this encounter Care Teams Customer Service Representative Relationship Specialty Start Date End Date Brennen Winchester M.D. [address] [place] [phone] PCP - General 04/05/22 documented as of this encounter
--- OUTSIDE RECORDS SUMMARY | 2023-09-30 11:37 | XMS_ITS | Encounter Summary ---
Author Name Unknown Organization [facility] Address [address] [place] [address] Care Team Providers Care Web Application Dev Specialist Name Role Phone Brennen Winchester M.D. Primary Care Provider Reason for Visit * Reason Onset Date Comments Results 09/02/2023 Encounter Details Date Type Department Care Team (Late st Contact Info) Description 09/02/2023 Clinical Communication Department of Family Medicine, [facility], in [place], [place] 300 [place] [address] Brennen Winchester M.D. 300 [place] [address] Results Social History Tobacco Use Types Packs/Day Years [...] often do you attend chur ch or mosque services? More than 4 times per year 09/07/2022 Do you belong to any clubs o r organizations such as scientologist groups, unions, fraternal or athletic groups, or [...] Answer Date Recorded PHQ-2 Score 0 01/18/2021 [facility] Occupat ional Health - [...] place to sleep or slept in a assisted (including now)? No 09/07/2022 Nutrition Answer Date [...] PM CDT documented as of this encounter Miscellaneous Notes * Telephone Encounter - Preeti Flowers R.N. - 09/03/2023 2:47 PM CST Fiberglass Container Winding Operator relayed message from Dr. Winchester A1c continues to be at goal at 6.7. Please reassure the patient Patient was grateful to get the message, however voiced concern that the initial message madeher think something was wrong. In the future she would prefer a message be left to check her labs on her portal. INE PROGRAMMER * Telephone Encounter - Trina Lisa - 09/02/2023 2:59 PM CST Left message for patient to return call to clinic. Does the patient need to speak to nursing? no Action needed: A1c continues to be at goal at 6.7. Please reassure the patient INE PROGRAMMER documented in this encounter Plan of Treatment Upcoming Encounters Date Type Department Care Team (Latest Contact Info) Description 10/02/2023 1:30 PM MACHINE PROGRAMMER Appointment Department of Radiology in [address] [phone] Brennen Winchester M.D. 300 [place] [phone] Discharge Disposition: Home or Self Care 11/08/2023 10:00 AM CDT Office Visit Department of Family Medicine, [facility], in [address] [phone] Brennen Winchester M.D. 300 [place] [phone] 11/22/2023 9:15 AM CDT Clinical Communication Virtual Review in [place], [place] 200 [place], [place] [address] 11/25/2023 10:15 AM CDT Office Visit Department of Orthopedic Surgery in [place], [place] [address] [place] [phone] Latrell Antunez M.D. [address] [place] [phone] 11/28/2023 8:00 AM CDT Appointment Department of Laboratory Medicine and Pathology, [facility], in [address] [phone] Sam Coburn M.D. [address] [place] [phone] 11/28/2023 8:45 AM CDT Appointment Department of Radiology, [facility], in [place], [place] [address] [place] [phone] Sam Coburn M.D. [address] [place] [phone] 11/28/2023 9:00 AM CDT Appointment Department of Radiology, [facility], in [place], [place] [address] [place] [phone] Sam Coburn M.D. [address] [place] [phone] 11/28/2023 10:00 AM CDT Office Visit Department of Orthopedic Surgery in [place], [place] [address] [place] [phone] Sam Coburn M.D. [address] [place] [phone] 11/29/2023 10:48 AM CDT Hospital Encounter RST RO 02 4 AM ADMIT [address] [place] [phone] Sam Coburn M.D. [address] [place] [phone] 11/29/2023 10:48 AM CDT - 11/29/2023 1:43 PM CDT Surgery [facility] MAIN OR [address] [place] [address] Sam Coburn M.D. [address] [place] [phone] ARTHROPLASTY REPLACEMENT TOTAL KNEE Scheduled Procedures Name Priority Associated Diagnoses Date/Ti me ARTHROPLASTY REPLACEMENT TOTAL KNEE Primary Osteoarthritis Knee Right 11/29/2023 10:48 AM CDT documented as of this encounter Visit Diagnoses Not on filedocumented in this encounter Additional Health Concerns Assessment Noted Time PHQ-9 Depression Total Score: 0 11/22/19 17 8:37 AM CDT documented as of this encounter Care Teams Web Application Dev Specialist Relationship Specialty Start Date End Date Brennen Winchester M.D. [address] [place] [address] [place] [phone] PCP - General 04/05/22 documented as of this encounter
--- OUTSIDE RECORDS SUMMARY | 2023-09-30 11:37 | XMS_ITS ---
Author Name Unknown Organization [facility] Address [address] [place] [address] Care Team Providers Care Process Design Chemical Engineer Name Role Phone Unavailable Unavailable Unavailable Surgery Details Not on file Complications Check Surgery Details section. Procedure Estimated Blood Loss Check Surgery Details section. Procedure Findings Check Surgery Details section. Procedure Specimens Taken Check Surgery Details section.
--- OUTSIDE RECORDS SUMMARY | 2023-09-30 11:37 | XMS_ITS | Encounter Summary ---
Author Name Unknown Organization [facility] Address [address] [place] [address] Care Team Providers Care Criminal Justice Professor Name Role Phone Brennen Winchester M.D. Primary Care Provider Reason for Visit * Reason Comments Med Refill Encounter Details Date Type Department Care Team (Late st Contact Info) Description 08/15/2023 Refill Department of Family Medicine, [facility], in [place], [place] 300 [place] [address] Brennen Winchester M.D. 300 [place] [address] Med Refill Social History Tobacco Use Types Packs/Day Years [...] often do you attend chur ch or presybeterian services? More than 4 times per year 09/07/2022 Do you belong to any clubs o r organizations such as hoahaoism groups, unions, fraternal or athletic groups, or [...] Answer Date Recorded PHQ-2 Score 0 01/18/2021 [facility] Questionnaire Answer [...] place to sleep or slept in a long term (including now)? No 09/07/2022 Nutrition Answer Date [...] as of this encounter Miscellaneous Notes * Addendum Note - Yolette De La Cruz, L.P.N. - 08/20/2023 9:16 AM CSTAddended by: YOLETTE DE LA CRUZ on: 08/20/2023 09:16 AM Modules accepted: Orders NE FISHERIES TECHNICIAN documented in this encounter Plan of Treatment Upcoming Encounters Date Type Department Care Team (Latest Contact Info) Description 10/02/2023 1:30 PM MARINE FISHERIES TECHNICIAN Appointment Department of Radiology in [address] [phone] Brennen Winchester M.D. 300 [place] [phone] Discharge Disposition: Home or Self Care 11/08/2023 10:00 AM CDT Office Visit Department of Family Medicine, [facility], in [place], [place] 300 [place] [phone] Brennen Winchester M.D. 300 [place] [phone] 11/22/2023 9:15 AM CDT Clinical Communication Virtual Review in [place], [place] 200 [place] [address] 11/25/2023 10:15 AM CDT Office Visit Department of Orthopedic Surgery in [place], [place] [address] [place] [phone] Latrell Antunez M.D. [address] [place] [phone] 11/28/2023 8:00 AM CDT Appointment Department of Laboratory Medicine and Pathology, [facility] in [place], [place] [address] [place] [phone] Sma Coburn M.D. [address] [place] [phone] 11/28/2023 8:45 AM CDT Appointment Department of Radiology, [facility], in [place], [place] [address] [place] [phone] Sam Coburn M.D. [address] [place] [phone] 11/28/2023 9:00 AM CDT Appointment Department of Radiology, [facility], in [place], [place] [address] [place] [phone] Sam Coburn M.D. [address] [place] [phone] 11/28/2023 10:00 AM CDT Office Visit Department of Orthopedic Surgery in [place], [place] [address] [place] [phone] Sam Coburn M.D. [address] [place] [phone] 11/29/2023 10:48 AM CDT Hospital Encounter RST RO 02 4 AM ADMIT [address] [place] [phone] Sam Coburn M.D. [address] [place] [phone] 11/29/2023 10:48 AM CDT - 11/29/2023 1:43 PM CDT Surgery RST [facility] MAIN OR [address] [place] [phone] Sam Coburn M.D. [address] [place] [phone] ARTHROPLASTY REPLACEMENT TOTAL KNEE Scheduled Procedures Name Priority Associated Diagnoses Date/Ti me ARTHROPLASTY REPLACEMENT TOTAL KNEE Primary Osteoarthritis Knee Right 11/29/2023 10:48 AM CDT documented as of this encounter Visit Diagnoses Diagnosis Diabetes Mellitus Type 2 With Diabetic Chronic Kidney Disease (HCC) Primary Osteoarthritis Knee Right documented in this encounter Additional Health Concerns Assessment Noted Time PHQ-9 Depression Total Score: 0 11/22/19 17 8:37 AM CDT documented as of this encounter Care Teams Criminal Justice Professor Relationship Specialty Start Date End Date Brennen Winchester M.D. [address] [place] [phone] PCP - General 04/05/22 documented as of this encounter
--- OUTSIDE RECORDS SUMMARY | 2023-09-30 11:37 | XMS_ITS | Encounter Summary ---
Author Name Unknown Organization [facility] Address [address] [place] [address] Care Team Providers Care Line Runner Name Role Phone Brennen Winchester M.D. Primary Care Provider [phone] Encounter Details Date Type Department Care Team (Late st Contact Info) Description 08/09/2023 Orders Only Department of Family Medicine, [facility], in [place], [place] [address] [phone] Angela Spivey P.A.-C. [address], [place] [address] Dysuria (Primary Dx) Social History Tobacco Use Types Packs/Day Years [...] often do you attend chur ch or christian services? More than 4 times per year 09/07/2022 Do you belong to any clubs o r organizations such as hindu groups, unions, fraternal or athletic groups, or [...] Answer Date Recorded PHQ-2 Score 0 01/18/2021 [facility] of Occupat ional Health - Occupational Stress [...] place to sleep or slept in a senior care (including now)? No 09/07/2022 Nutrition Answer Date [...] (Latest Contact Info) Description 10/02/2023 1:30 PM MAT MAKING MACHINE TENDER Appointment Department of Radiology in [place], [place] 300 [place] [phone] Brennen Winchester M.D. 300 [place] [phone] Discharge Disposition: Home or Self Care 11/08/2023 10:00 AM CDT Office Visit Department of Family Medicine, [facility], in [place], [place] 300 [place] [phone] Brennen Winchester M.D. [address] [place] [phone] 11/22/2023 9:15 AM CDT Clinical Communication Virtual Review in [place], [place] 200 [place] [address] 11/25/2023 10:15 AM CDT Office Visit Department of Orthopedic Surgery in [place], [place] [address] [place] [phone] Latrell Antunez M.D. [address] [place] [phone] 11/28/2023 8:00 AM CDT Appointment Department of Laboratory Medicine and Pathology, [facility] in [place], [place] [address] [place] [phone] Sam Coburn M.D. [address] [place] [phone] 11/28/2023 8:45 AM CDT Appointment Department of Radiology, [facility], in [place], [place] [address] [place] [phone] Sam Coburn M.D. [address] [place] [phone] 11/28/2023 9:00 AM CDT Appointment Department of Radiology, [facility], in [place], [place] [address] [place] [phone] Sam Coburn M.D. [address] [place] [phone] 11/28/2023 10:00 AM CDT Office Visit Department of Orthopedic Surgery in [place], [place] [address] [place] [phone] Sam Coburn M.D. [address] [place] [address] 11/29/2023 10:48 AM CDT Hospital Encounter RST RO 02 4 AM ADMIT [address] [place] [address] Sam Coburn M.D. [address] [place] [address] 11/29/2023 10:48 AM CDT - 11/29/2023 1:43 PM CDT Surgery RST RO MAIN OR [address] [place] [address] Sam Coburn M.D. [address] [place] [address] ARTHROPLASTY REPLACEMENT TOTAL KNEE Scheduled Procedures Name Priority Associated Diagnoses Date/Ti me ARTHROPLASTY REPLACEMENT TOTAL KNEE Primary Osteoarthritis Knee Right 11/29/2023 10:48 AM CDT documented as of this encounter Results * (ABNORMAL) Bacterial Culture, Aerobic + Susceptibility, Urine (08/09/2023 9:18 AM MAT MAKING MACHINE TENDER) Urine Culture with mixed microbiota(A) 08/12/2023 6:59 AM MAT MAKING MACHINE TENDER MKTO Urine Culture ENTEROCOCCUS FAECALIS 10,000-100,000 cfu/mL (A) 08/12/2023 6:59 AM MAT MAKING MACHINE TENDER MKTO Urine (Urine, Midstream) 08/09/2023 9:18 AM MAT MAKING MACHINE TENDER 08/09/2023 2:27 PM MAT MAKING MACHINE TENDER Comment:Specimen Source Site : Urine Narrative Organism [...] Spivey P.A.-C. LAB MICROBIOLOGY - GENERAL ORDERABLES [facility] [address] [place] [address], [facility] MKTO [facility] [address] * (ABNORMAL) Urinalysis with Microscopic: Urine, Midstream (08/09/2023 9:18 AM MAT MAKING MACHINE TENDER) Source Urine, Urine, Midstream 08/09/2023 9:45 AM MAT MAKING MACHINE TENDER FB60 Clarity Clear Clear 08/09/2023 9:47 AM MAT MAKING MACHINE TENDER FB60 Color Yellow 08/09/2023 9:47 AM MAT MAKING MACHINE TENDER FB60 Comment: ----REFERENCE VALUE---- Colorless Yellow Jaida Blood Trace(A) Negative 08/09/2023 9:47 AM MAT MAKING MACHINE TENDER FB60 Nitrite Negative Negative 08/09/2023 9:47 AM MAT MAKING MACHINE TENDER FB60 Leukocyte Esterase Trace(A) Negative 08/09/2023 9:47 AM MAT MAKING MACHINE TENDER FB60 Protein Trace mg/dL 08/09/2023 9:47 AM MAT MAKING MACHINE TENDER FB60 Comment: ----REFERENCE VALUE---- Negative Trace Glucose Negative Negative mg/dL 08/09/2023 9:47 AM MAT MAKING MACHINE TENDER FB60 Ketones, QI(U) Negative Negative mg/dL 08/09/2023 9:47 AM MAT MAKING MACHINE TENDER FB60 Bilirubin Negative Negative 08/09/2023 9:47 AM MAT MAKING MACHINE TENDER FB60 pH 5.0 5.0 - 8.0 08/09/2023 9:47 AM MAT MAKING MACHINE TENDER FB60 Specific [place] 1.020 1.001 - 1.035 08/09/2023 9:47 AM MAT MAKING MACHINE TENDER FB60 Urobilinogen 0.2 0.2 - 1.0 mg/dL 08/09/2023 9:47 AM MAT MAKING MACHINE TENDER FB60 White Blood Cells Occ-3 /hpf 08/09/2023 9:56 AM MAT MAKING MACHINE TENDER FB60 Comment: ----REFERENCE VALUE---- Males: 0-3 Females: 0-10 Unknown: 0-10 Red Blood Cells None Seen 0 - 2 /hpf 9:56 AM MAT MAKING MACHINE TENDER FB60 Urine (Urine, Midstream) 08/09/2023 9:18 AM MAT MAKING MACHINE TENDER 08/09/2023 9:44 AM MAT MAKING MACHINE TENDER Angela Spivey P.A.-C. LAB URINE ORDERAB LES [facility] [address] [place] [address], [facility] FB60 [facility] in [place] [address] [place] [address] documented in this encounter Visit Diagnoses Diagnosis Dysuria- Primary Primary Osteoarthritis Knee Right documented in this encounter Additional Health Concerns Assessment Noted Time PHQ-9 Depression Total Score: 0 11/22/19 17 8:37 AM CDT documented as of this encounter Care Teams Line Runner Relationship Specialty Start Date End Date Brennen Winchester M.D. [address] [place] [phone] PCP - General 04/05/22 documented as of this encounter
--- OUTSIDE RECORDS SUMMARY | 2023-09-30 11:37 | XMS_ITS | Encounter Summary ---
Author Name Unknown Organization [facility] Address [address] [place] [address] Care Team Providers Care Gis Geographer Name Role Phone Brennen Winchester M.D. Primary Care Provider Encounter Details Date Type Department Care Team (Latest Contact Info) Description 08/09/2023 9:10 AM SOFTWARE ENGINEERING PROJECT MANAGER - 08/09/2023 11:59 PM [facility] Hospital Encounter Department of Laboratory Medicine in [address] [phone] Angela Spivey P.A.-C. [address] [phone] Dysuria Discharge Disposition: Home or Self Care Social History Tobacco Use Types Packs/Day Years [...] often do you attend chur ch or baptist services? More than 4 times per year 09/07/2022 Do you belong to any clubs o r organizations such as temple groups, unions, fraternal or athletic groups, or [...] Answer Date Recorded PHQ-2 Score 0 01/18/2021 [facility] of Occupat ional Health - Occupational [...] PM CDT documented as of this encounter Medications at Time of Discharge Medication Sig Dispensed Refills Start Date End Date acetaminophen (TYLENOL) 500 mg capsule Take 2 capsules (1,000 mg total) by mouth every 6 (six) hours as needed for pain. Take on a schedule while using opioids. Once opioid use has stopped, adjust to as needed 0 12/08/2022 blood glucose ctl high,nml,low solutionIndications:Di abetes Mellitus Type 2 With Diabetic Chronic Kidney Disease (HCC) Glucose control solution provides an easy way to ensure accurate blood glucose testing. 1 each 0 08/22/2020 blood sugar diagnostic strips (Contour Next Test Strips)Indications:Karlee betes Mellitus Type 2 With Diabetic Chronic Kidney Disease (HCC) 1 test daily. 90 test 3 10/18/2022 10/18/2023 blood-glucose meter miscIndications:Diabet es Mellitus Type 2 With Diabetic Chronic Kidney Disease (HCC) Contour Next One meter. Test once daily. 1 each 0 08/22/2020 lancets (Microlet Lancet)Indications:Karlee betes Mellitus Type 2 With Diabetic Chronic Kidney Disease (HCC) Use to test glucose once daily 100 each 3 01/16/2023 lisinopril-hydroCHLORO thiazide (PRINZIDE,ZESTORETIC) 10-12.5 mg per tabletIndications:Hype rtension And Chronic Kidney Disease Stage 4 (HCC) Take 1 tablet by mouth at bedtime. HOLD until follow up with primary care provider 90 tablet 3 01/31/2023 simvastatin (ZOCOR) 20 mg tabletIndications:Hype rcholesterolemia Take 1 tablet (20 mg total) by mouth at bedtime. 90 tablet 3 01/31/2023 metFORMIN XR (GLUCOPHAGE-XR) 500 mg 24 hr tabletIndications:Diab etes Mellitus Type 2 With Diabetic Chronic Kidney Disease (HCC) Take 2 tablets (1,000 mg total) by mouth daily with breakfast. 180 tablet 3 07/24/2022 08/19/2023 documented as of this encounter Plan of Treatment Upcoming Encounters Date Type Department Care Team (Latest Contact Info) Description 10/02/2023 1:30 PM SOFTWARE ENGINEERING PROJECT MANAGER Appointment Department of Radiology in [address] [phone] Brennen Winchester M.D. [address] [place] [address] Discharge Disposition: Home or Self Care 11/08/2023 10:00 AM CDT Office Visit Department of Family Medicine, [facility], in [place], [place] 300 [place] [phone] Brennen Winchester M.D. 300 [place] [phone] 11/22/2023 9:15 AM CDT Clinical Communication Virtual Review in [place], [place] 200 [place] [address] 11/25/2023 10:15 AM CDT Office Visit Department of Orthopedic Surgery in [place], [place] [address] [place] [phone] Latrell Antunez M.D. [address] [place] [phone] 11/28/2023 8:00 AM CDT Appointment Department of Laboratory Medicine and Pathology, [facility] in [address] [phone] Sam Coburn M.D. [address] [place] [phone] 11/28/2023 8:45 AM CDT Appointment Department of Radiology, [facility], in [address] [phone] Sam Coburn M.D. [address] [place] [phone] 11/28/2023 9:00 AM CDT Appointment Department of Radiology, [facility], in [address] [phone] Sam Coburn M.D. [address] [place] [phone] 11/28/2023 10:00 AM CDT Office Visit Department of Orthopedic Surgery in [address] [phone] Sam Coburn M.D. [address] [place] [phone] 11/29/2023 10:48 AM CDT Hospital Encounter [facility] 02 4 AM ADMIT [address] [place] [address] Sam Coburn M.D. [address] [place] [address] 11/29/2023 10:48 AM CDT - 11/29/2023 1:43 PM CDT Surgery [facility] MAIN OR [address] [place] [address] Sam Coburn M.D. [address] [place] [address] ARTHROPLASTY REPLACEMENT TOTAL KNEE Scheduled Procedures Name Priority Associated Diagnoses Date/Ti me ARTHROPLASTY REPLACEMENT TOTAL KNEE Primary Osteoarthritis Knee Right 11/29/2023 10:48 AM CDT documented as of this encounter Procedures Procedure Name Priority Date/Time Associated Diagnosis Comments BACTERIAL CULTURE, AEROBIC + SUSC, URINE Routine 08/09/2023 9:18 AM SOFTWARE ENGINEERING PROJECT MANAGER Dysuria URINALYSIS WITH MICROSCOPIC Routine 08/09/2023 9:18 AM SOFTWARE ENGINEERING PROJECT MANAGER Dysuria documented in this encounter Results * (ABNORMAL) Bacterial Culture, Aerobic + Susceptibility, Urine (08/09/2023 9:18 AM SOFTWARE ENGINEERING PROJECT MANAGER) Urine Culture with mixed microbiota(A) 08/12/2023 6:59 AM SOFTWARE ENGINEERING PROJECT MANAGER MKTO Urine Culture ENTEROCOCCUS FAECALIS 10,000-100,000 cfu/mL (A) 08/12/2023 6:59 AM SOFTWARE ENGINEERING PROJECT MANAGER MKTO Urine (Urine, Midstream) 08/09/2023 9:18 AM SOFTWARE ENGINEERING PROJECT MANAGER 08/09/2023 2:27 PM SOFTWARE ENGINEERING PROJECT MANAGER Comment:Specimen Source Site : Urine Narrative Organism [...] Spivey P.A.-C. LAB MICROBIOLOGY - GENERAL ORDERABLES [facility] [address] [place] [address], [facility] [place] [address] * (ABNORMAL) Urinalysis with Microscopic: Urine, Midstream (08/09/2023 9:18 AM SOFTWARE ENGINEERING PROJECT MANAGER) Source Urine, Urine, Midstream 08/09/2023 9:45 AM SOFTWARE ENGINEERING PROJECT MANAGER FB60 Clarity Clear Clear 08/09/2023 9:47 AM SOFTWARE ENGINEERING PROJECT MANAGER FB60 Color Yellow 08/09/2023 9:47 AM SOFTWARE ENGINEERING PROJECT MANAGER FB60 Comment: ----REFERENCE VALUE---- Colorless Yellow Jaida Blood Trace(A) Negative 08/09/2023 9:47 AM SOFTWARE ENGINEERING PROJECT MANAGER FB60 Nitrite Negative Negative 08/09/2023 9:47 AM SOFTWARE ENGINEERING PROJECT MANAGER FB60 Leukocyte Esterase Trace(A) Negative 08/09/2023 9:47 AM SOFTWARE ENGINEERING PROJECT MANAGER FB60 Protein Trace mg/dL 08/09/2023 9:47 AM SOFTWARE ENGINEERING PROJECT MANAGER FB60 Comment: ----REFERENCE VALUE---- Negative Trace Glucose Negative Negative mg/dL 08/09/2023 9:47 AM SOFTWARE ENGINEERING PROJECT MANAGER FB60 Ketones, QI(U) Negative Negative mg/dL 08/09/2023 9:47 AM SOFTWARE ENGINEERING PROJECT MANAGER FB60 Bilirubin Negative Negative 08/09/2023 9:47 AM SOFTWARE ENGINEERING PROJECT MANAGER FB60 pH 5.0 5.0 - 8.0 08/09/2023 9:47 AM SOFTWARE ENGINEERING PROJECT MANAGER FB60 Specific [place] 1.020 1.001 - 1.035 08/09/2023 9:47 AM SOFTWARE ENGINEERING PROJECT MANAGER FB60 Urobilinogen 0.2 0.2 - 1.0 mg/dL 08/09/2023 9:47 AM SOFTWARE ENGINEERING PROJECT MANAGER FB60 White Blood Cells Occ-3 /hpf 08/09/2023 9:56 AM SOFTWARE ENGINEERING PROJECT MANAGER FB60 Comment: ----REFERENCE VALUE---- Males: 0-3 Females: 0-10 Unknown: 0-10 Red Blood Cells None Seen 0 - 2 /hpf 9:56 AM SOFTWARE ENGINEERING PROJECT MANAGER FB60 Urine (Urine, Midstream) 08/09/2023 9:18 AM SOFTWARE ENGINEERING PROJECT MANAGER 08/09/2023 9:44 AM SOFTWARE ENGINEERING PROJECT MANAGER Angela Spivey P.A.-C. LAB URINE ORDERAB LES [facility] [address] [place] [address], [facility] FB60 [facility] in [place] [address] [place] [address] documented in this encounter Visit Diagnoses Diagnosis Dysuria Primary Osteoarthritis Knee Right documented in this encounter Additional Health Concerns Assessment Noted Time PHQ-9 Depression Total Score: 0 11/22/19 17 8:37 AM CDT documented as of this encounter Care Teams Gis Geographer Relationship Specialty Start Date End Date Brennen Winchester M.D. [address] [place] [phone] PCP - General 04/05/22 documented as of this encounter
--- OUTSIDE RECORDS SUMMARY | 2023-09-30 11:37 | XMS_ITS | Encounter Summary ---
Author Name Unknown Organization [facility] Address [address] [place] [address] Care Team Providers Care Car Top Bolter Name Role Phone Brennen Winchester M.D. Primary Care Provider [phone] Encounter Details Date Type Department Care Team (Late st Contact Info) Description 08/13/2023 Clinical Communication Department of Family Medicine, [facility], in [place], [place] [address] [place] [address] Angela Spivey, P.AJuan-Yola [address] [place] [address] Social History Tobacco Use Types Packs/Day Years [...] often do you attend chur ch or jewish services? More than 4 times per year [...] Answer Date Recorded PHQ-2 Score 0 01/18/2021 [facility] - Occupational Stress Questionnaire [...] encounter Miscellaneous Notes * Telephone Encounter - Fariba Stevens LJuanP.N. - 08/14/2023 3:16 PM TEST RACK OPERATOR I called her pharmacy in [place] and shred the EGFR was 41 in January of 2023 RACK OPERATOR documented in this encounter Plan of Treatment Upcoming Encounters Date Type Department Care Team (Latest Contact Info) Description 10/02/2023 1:30 PM TEST RACK OPERATOR Appointment Department of Radiology in [address] [phone] Brennen Winchester M.D. 300 [place] [phone] Discharge Disposition: Home or Self Care 11/08/2023 10:00 AM CDT Office Visit Department of Family Medicine, [facility], in [place], [place] 300 [place] [phone] Brennen Winchester M.D. 300 [place] [address] 11/22/2023 9:15 AM CDT Clinical Communication Virtual Review in [place], [place] 200 [place] [address] 11/25/2023 10:15 AM CDT Office Visit Department of Orthopedic Surgery in [place], [place] [address] [place] [phone] Latrell Antunez M.D. [address] [place] [phone] 11/28/2023 8:00 AM CDT Appointment Department of Laboratory Medicine and Pathology, [facility] in [place], [place] [address] [place] [phone] Sam Coburn M.D. [address] [place] [phone] 11/28/2023 8:45 AM CDT Appointment Department of Radiology, [facility], in [place], [place] [address] [place] [phone] Sam Coburn M.D. [address] [place] [phone] 11/28/2023 9:00 AM CDT Appointment Department of Radiology, [facility], in [place], [place] [address] [place] [phone] Sam Coburn M.D. [address] [place] [phone] 11/28/2023 10:00 AM CDT Office Visit Department of Orthopedic Surgery in [place], [place] [address] [place] [phone] Sam Coburn M.D. [address] [place] [phone] 11/29/2023 10:48 AM CDT Hospital Encounter [facility] 02 4 AM ADMIT [address] [place] [phone] Sam Coburn M.D. [address] [place] [phone] 11/29/2023 10:48 AM CDT - 11/29/2023 1:43 PM CDT Surgery RST RO MAIN OR [address] [place] [address] Sam Coburn M.D. [address] [place] [phone] ARTHROPLASTY REPLACEMENT TOTAL KNEE Scheduled Procedures Name Priority Associated Diagnoses Date/Ti me ARTHROPLASTY REPLACEMENT TOTAL KNEE Primary Osteoarthritis Knee Right 11/29/2023 10:48 AM CDT documented as of this encounter Visit Diagnoses Not on filedocumented in this encounter Additional Health Concerns Assessment Noted Time PHQ-9 Depression Total Score: 0 11/22/19 17 8:37 AM CDT documented as of this encounter Care Teams Car Top Bolter Relationship Specialty Start Date End Date Brennen Winchester M.D. [address] [place] [phone] PCP - General 04/05/22 documented as of this encounter
--- OUTSIDE RECORDS SUMMARY | 2023-09-30 11:37 | XMS_ITS | Encounter Summary ---
Author Name Unknown Organization [facility] Address [address] [place] [address] Care Team Providers Care It Help Desk Associate Name Role Phone Brennen Winchester M.D. Primary Care Provider Reason for Referral * Outpatient (Routine) - Authorized Specialty Diagnoses / Procedures Referred By Noelleac t Referred To Contact Orthopedic Surgery Latrell Antunez M.D. [address] [place] [phone] [facility] Referral ID Status Reason Start Date Expiration Date V isits Requested Visits Authorized [id number] Authorized 09/06/2023 03/07/2025 1 1 H CUTTER Reason for Visit * Outpatient (Routine) - Closed Specialty Diagnoses / Procedures Referred By Contac t Referred To Contact Orthopedic Surgery Latrell Antunez M.D. [address] [place] [phone] [facility] Referral ID Status Reason Start Date Expiration Date Visits Re quested Visits Authorized [id number] Closed 07/24/2023 07/23/2026 1 1 Encounter Details Date Type Department Care Team (Late st Contact Info) Description 09/06/2023 2:45 PM CLOTH CUTTER Office Visit Department of Orthopedic Surgery in [place], [place] [address] [place] [phone] Latrell Antunez M.D. [address] [place] [phone] Trigger Finger Ring Right (Primary Dx) Social History Tobacco Use Types [...] often do you attend chur ch or sikh services? More than 4 times per year 09/07/2022 Do you belong to any clubs o r organizations such as buddhism groups, unions, fraternal or athletic groups, or [...] Answer Date Recorded PHQ-2 Score 0 01/18/2021 [facility] - Occupational Stress Questionnaire Answer Date Recorded [...] money to buy more. Never true 09/07/19 Within the past 12 months, t he [...] place to sleep or slept in a half-way (including now)? No 09/07/2022 Nutrition Answer Date [...] PM CDT documented as of this encounter Progress Notes * Latrell Antunez M.D. - 09/06/2023 2:45 PM CST CHIEF COMPLAINT SUBJECTIVE Ms. Sands is a very pleasant 73 y.o. female returns follow-up of treatment of her right ring finger trigger finger. She is doing well. She is pleased report that the triggering has resolved. OBJECTIVE PHYSICAL EXAMINATION General: NAD, follows commands HEENT: NCAT CV: skin warm, dry, well perfused Pulm: unlabored Neuro: alert, appropriate Upper Extremity: She has really no pain with finger flexion extension today in his able to generatea full range of motion. ADDITIONAL STUDIES: Laboratory studies: No results for input(s): HGB, HCT, PTT, INR in the last 72 hours. No lab exists for component: WBCR, PLTR, PTI No results for input(s): NA, K, CL, CO2, GLU, CA, MG in the last 72 hours. No lab exists for component: UN, CREAT, PHOS No results for input(s): CRP in the last 72 hours. No lab exists for component: ESR, URIC Imaging: Relevant imaging, where available, was reviewed. Xray No results found. Electrodiagnostic studies: Relevant EMG/NCV studies were reviewed. ASSESSMENT / PLAN #1 Trigger Finger Ring Right Ms. Sands he is doing fairly well with her hands. We will plan to see her back when she returns to see Dr. Coburn in November. I have encouraged her to call for questions or concerns in the meantime. Thank you for the opportunity to participate in this patient's care. Please contact us with questions or concerns. All questions and concerns were answered on today's visit. There were no communication barriers present. Electronically signed by: Latrell Antunez M.D. 09/06/23 10:22 PM CLOTH CUTTER H CUTTER documented in this encounter Plan of Treatment Upcoming Encounters Date Type Department Care Team (Latest Contact Info) Description 10/02/2023 1:30 PM CLOTH CUTTER Appointment Department of Radiology in [place], [place] 300 [place] [phone] Brennen Winchester M.D. 300 [place] [phone] Discharge Disposition: Home or Self Care 11/08/2023 10:00 AM CDT Office Visit Department of Family Medicine, [facility], in [place], [place] 300 [place] [phone] Brennen Winchester M.D. 300 [place] [phone] 11/22/2023 9:15 AM CDT Clinical Communication Virtual Review in [place], [place] 200 [place] [address] 11/25/2023 10:15 AM CDT Office Visit Department of Orthopedic Surgery in [place], [place] [address] [place] [phone] Latrell Antunez M.D. [address] [place] [phone] 11/28/2023 8:00 AM CDT Appointment Department of Laboratory Medicine and Pathology, [facility] in [place], [place] [address] [place] [phone] Sam Coburn M.D. [address] [place] [phone] 11/28/2023 8:45 AM CDT Appointment Department of Radiology, [facility] in [place], [place] [address] [place] [phone] Sam Coburn M.D. [address] [place] [phone] 11/28/2023 9:00 AM CDT Appointment Department of Radiology, [facility], in [place], [place] [address] [place] [phone] Sam Coburn M.D. [address] [place] [phone] 11/28/2023 10:00 AM CDT Office Visit Department of Orthopedic Surgery in [place], [place] [address] [place] [phone] Sam Coburn M.D. [address] [place] [phone] 11/29/2023 10:48 AM CDT Hospital Encounter [facility] 02 4 AM ADMIT [address] [place] [phone] Sam Coburn M.D. [address] [place] [phone] 11/29/2023 10:48 AM CDT - 11/29/2023 1:43 PM CDT Surgery [facility] OR [address] [place] [address] Sam Coburn M.D. [address] [place] [phone] ARTHROPLASTY REPLACEMENT TOTAL KNEE Scheduled Procedures Name Priority Associated Diagnoses Date/Ti me ARTHROPLASTY REPLACEMENT TOTAL KNEE Primary Osteoarthritis Knee Right 11/29/2023 10:48 AM CDT Scheduled Referrals Name Type Priority Associated Diagnoses Order Schedule Orthopedic Surgery office visit (clinic) Outpatient Referral Routine Expected: 11/25/2023 (Approximate), Expires: 12/05/2024 documented as of this encounter Visit Diagnoses Diagnosis Trigger Finger Ring Right- Primary Primary Osteoarthritis Knee Right documented in this encounter Additional Health Concerns Assessment Noted Time PHQ-9 Depression Total Score: 0 11/22/19 17 8:37 AM CDT documented as of this encounter Care Teams It Help Desk Associate Relationship Specialty Start Date End Date Brennen Winchester M.D. [address] [place] [address] [place] [phone] PCP - General 04/05/22 documented as of this encounter
--- OUTSIDE RECORDS SUMMARY | 2023-09-30 11:37 | XMS_ITS | Encounter Summary ---
Author Name Unknown Organization [facility] Address [address] [place] [address] Care Team Providers Care Stenocaptioner Name Role Phone Brennen Winchester M.D. Primary Care Provider Encounter Details Date Type Department Care Team (Latest Contact Info) Description 09/02/2023 10:09 AM SERVICES REP - 09/02/2023 11:59 PM [facility] Hospital Encounter Department of Laboratory Medicine in [address] [phone] Brennen Winchester M.D. 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 More than 4 times per year 09/07/2022 Do you belong to any clubs o r organizations such as buddhist groups, unions, fraternal or athletic groups, or [...] Answer Date Recorded PHQ-2 Score 0 01/18/2021 [facility] of Occupat ional Health - Occupational Stress [...] primary care provider 90 tablet 3 01/31/2023 metFORMIN XR (GLUCOPHAGE-XR) 500 mg 24 hr tabletIndications:Diab etes Mellitus Type 2 With Diabetic Chronic Kidney Disease (HCC) Take 2 tablets (1,000 mg total) by mouth daily with breakfast. 180 tablet 3 08/20/2023 simvastatin (ZOCOR) 20 mg tabletIndications:Hype rcholesterolemia Take 1 tablet (20 mg total) by mouth at bedtime. 90 tablet 3 01/31/2023 documented as of this encounter Plan of Treatment Upcoming Encounters Date Type Department Care Team (Latest Contact Info) Description 10/02/2023 1:30 PM SERVICES REP Appointment Department of Radiology in [place], [place] 300 [place] [address] Brennen Winchester M.D. 300 [place] [phone] Discharge Disposition: Home or Self Care 11/08/2023 10:00 AM CDT Office Visit Department of Family Medicine, [facility] [place] [facility], in [place], [place] [address] [place] [phone] Brennen Winchester M.D. [address] [place] [phone] 11/22/2023 9:15 AM CDT Clinical Communication Virtual Review in [place], [place] 200 [place] [address] 11/25/2023 10:15 AM CDT Office Visit Department of Orthopedic Surgery in [place], [place] [address] [place] [phone] Latrell Antunez M.D. [address] [place] [phone] 11/28/2023 8:00 AM CDT Appointment Department of Laboratory Medicine and Pathology, [facility] in [place], [place] [address] [place] [phone] Sam Coburn M.D. [address] [place] [phone] 11/28/2023 8:45 AM CDT Appointment Department of Radiology, [facility], in [address] [phone] Sam Coburn M.D. [address] [place] [phone] 11/28/2023 9:00 AM CDT Appointment Department of Radiology, [facility], in [address] [phone] Sam Coburn M.D. [address] [place] [phone] 11/28/2023 10:00 AM CDT Office Visit Department of Orthopedic Surgery in [address] [phone] Sam Coburn M.D. [address] [place] [phone] 11/29/2023 10:48 AM CDT Hospital Encounter [facility] 02 4 AM ADMIT 200 [place] [address] Sam Coburn M.D. [address] [place] [address] 11/29/2023 10:48 AM CDT - 11/29/2023 1:43 PM CDT Surgery [facility] MAIN OR [address] [place] [address] Sam Coburn M.D. [address] [place] [address] ARTHROPLASTY REPLACEMENT TOTAL KNEE Scheduled Procedures Name Priority Associated Diagnoses Date/Ti me ARTHROPLASTY REPLACEMENT TOTAL KNEE Primary Osteoarthritis Knee Right 11/29/2023 10:48 AM CDT documented as of this encounter Procedures Procedure Name Priority Date/Time Associated Diagnosis Comments HEMOGLOBIN A1C, B Routine 09/02/2023 10: 16 AM SERVICES REP Diabetes Mellitus Type 2 With Diabetic Chronic Kidney Disease (HCC) documented in this encounter Results * (ABNORMAL) Hemoglobin A1c (09/02/2023 10:16 AM SERVICES REP) Hemoglobin A1c, B 6.7(H) 4.2 - 5.6 % 09/02/2023 2:25 PM SERVICES REP OWAT Comment: Hemoglobin A1c values greater than or equal to 6.5 percent are diagnostic for diabetes mellitus. ??Diagnosis should be confirmed by repeat testing. ??In diabetic patients, HbA1c goals should be discussed with healthcare provider. Blood (Blood, Venous) 09/02/2023 10:16 AM SERVICES REP 09/02/2023 1:31 PM SERVICES REP Brennen Winchester M.D. LAB BLOOD ADD-ON [facility] [address] [place] [address], [place] OWAT [facility] in [place] [address] [place] [address] documented in this encounter Visit Diagnoses Diagnosis Diabetes Mellitus Type 2 With Diabetic Chronic Kidney Disease (HCC) Primary Osteoarthritis Knee Right documented in this encounter Additional Health Concerns Assessment Noted Time PHQ-9 Depression Total Score: 0 11/22/19 17 8:37 AM CDT documented as of this encounter Care Teams Stenocaptioner Relationship Specialty Start Date End Date Brennen Winchester M.D. [address] [place] [phone] PCP - General 04/05/22 documented as of this encounter
--- OUTSIDE RECORDS SUMMARY | 2023-09-30 11:37 | XMS_ITS | Encounter Summary ---
Author Name Unknown Organization [facility] Address [address] [place] [address] Care Team Providers Care Certified Vehicle Fire Investigator Name Role Phone Brennen Winchester M.D. Primary Care Provider [phone] Reason for Visit * Reason Onset Date Comments Results 08/13/2023 Encounter Details Date Type Department Care Team (Late st Contact Info) Description 08/13/2023 Clinical Communication Department of Family Medicine, [facility], in [place], [place] 300 [place] [address] Brennen Winchester M.D. [address] [place] [address] Results Social History Tobacco Use [...] often do you attend chur ch or confucianist services? More than 4 times per year [...] Answer Date Recorded PHQ-2 Score 0 01/18/2021 [facility] Occupat ional Health - Occupational [...] encounter Miscellaneous Notes * Telephone Encounter - Humaira Holliday, L.P.N. - 08/13/2023 1:53 PM TINSEL MACHINE OPERATOR SUBJECTIVE CHIEF COMPLAINT / REASON FOR CALL Results Information Discussed Patient given recent lab findings along with advisement from provider per Angela BELTRE direction. PLAN Disposition/Recommendation: recommended continue engagement in self-management activities Information/Education: patient/caller able to teach back Caller agreeable to plan of care: yes The following references were used: Angela BELTRE EL MACHINE OPERATOR documented in this encounter Plan of Treatment Upcoming Encounters Date Type Department Care Team (Latest Contact Info) Description 10/02/2023 1:30 PM TINSEL MACHINE OPERATOR Appointment Department of Radiology in [place], [place] [address] [place] [phone] Brennen Winchester M.D. 300 [place] [phone] Discharge Disposition: Home or Self Care 11/08/2023 10:00 AM CDT Office Visit Department of Family Medicine, [facility], in [place], [place] [address] [place] [phone] Brennen Winchester M.D. [address] [place] [phone] 11/22/2023 9:15 AM CDT Clinical Communication Virtual Review in [place], [place] 200 [place] [address] 11/25/2023 10:15 AM CDT Office Visit Department of Orthopedic Surgery in [address] [phone] Latrell Antunez M.D. [address] [place] [phone] 11/28/2023 8:00 AM CDT Appointment Department of Laboratory Medicine and Pathology, [facility] in [place], [place] [address] [place] [phone] Sma Coburn M.D. [address] [place] [phone] 11/28/2023 8:45 AM CDT Appointment Department of Radiology, [facility] in [place], [place] [address] [place] [phone] Sam Coburn M.D. [address] [place] [phone] 11/28/2023 9:00 AM CDT Appointment Department of Radiology, [facility], in [place], [place] [address] [place] [address] Sam Coburn M.D. [address] [place] [phone] 11/28/2023 10:00 AM CDT Office Visit Department of Orthopedic Surgery in [place], [place] [address] [place] [address] Sam Coburn M.D. [address] [place] [phone] 11/29/2023 10:48 AM CDT Hospital Encounter R[facility] 02 4 AM ADMIT [address] [place] [phone] Sam Coburn M.D. [address] [place] [phone] 11/29/2023 10:48 AM CDT - 11/29/2023 1:43 PM CDT Surgery RST [facility] MAIN OR [address] [place] [address] Sam Coburn M.D. [address] [place] [phone] ARTHROPLASTY REPLACEMENT TOTAL KNEE Scheduled Procedures Name Priority Associated Diagnoses Date/Ti me ARTHROPLASTY REPLACEMENT TOTAL KNEE Primary Osteoarthritis Knee Right 11/29/2023 10:48 AM CDT documented as of this encounter Visit Diagnoses Diagnosis Acute Cystitis Without Hematuria- Primary Primary Osteoarthritis Knee Right documented in this encounter Additional Health Concerns Assessment Noted Time PHQ-9 Depression Total Score: 0 11/22/19 17 8:37 AM CDT documented as of this encounter Care Teams Certified Vehicle Fire Investigator Relationship Specialty Start Date End Date Brennen Winchester M.D. [address] [place] [address], [place] [phone] PCP - General 04/05/22 documented as of this encounter
--- OUTSIDE RECORDS SUMMARY | 2023-09-30 11:38 | XMS_ITS | Encounter Summary ---
Author Name Unknown Organization [facility] Address [address] [place] [address] Care Team Providers Care President & Ceo Name Role Phone Brennen Winchester M.D. Primary Care Provider Reason for Referral * Outpatient (Routine) - Closed Specialty Diagnoses / Procedures Referred By Sara t Referred To Contact Orthopedic Surgery Latrell Antunez M.D. [address] [place] [phone] [facility] Referral ID Status Reason Start Date Expiration Date Visits Re quested Visits Authorized [id number] Closed 05/10/2023 05/09/2026 1 1 Reason for Visit * Outpatient (Routine) - Closed Specialty Diagnoses / Procedures Referred By Sara schmid Referred To Contact Orthopedic Surgery Latrell Antunez M.D. [address] [place] [phone] [facility] Referral ID Status Reason Start Date Expiration Date Visits Re quested Visits Authorized [id number] Closed 04/11/2023 04/10/2026 1 1 Encounter Details Date Type Department Care Team (Late st Contact Info) Description 05/10/2023 3:00 PM CDT Office Visit Department of Orthopedic Surgery in [place], [place] [address] [place] [phone] Latrell Antunez M.D. [address] [place] [phone] Trigger Finger Ring Right (Primary Dx) Social [...] often do you attend chur ch or baptism services? More than 4 times per year 09/07/2022 Do you belong to any clubs o r organizations such as adventist groups, unions, fraternal or athletic groups, or [...] Answer Date Recorded PHQ-2 Score 0 01/18/2021 [facility] - Occupational Stress Questionnaire Answer Date Recorded [...] as of this encounter Progress Notes * Zhao Merino M.D. - 05/10/2023 3:00 PM CDT HAND SURGERY CLINIC NOTE SUBJECTIVE Ms. Sands returns today for follow up status post right ring trigger finger release on March 29, 2023. During her last clinic visit, the patient had persistent pain over the A1 polina despite release; therefore, we performed a steroid injection to decrease tendinopathy. Today, the patient states that the injection completely resolved all pain and extensor lag deficits. OBJECTIVE PHYSICAL EXAMINATION General: NAD, follows commands HEENT: NCAT CV: regular Pulm: unlabored Neuro: alert, appropriate Upper Extremity: On focused exam of the right hand reveals well-healing incision. There is no evidence of infection. The ring finger PIP joint has no extensor lag. Not tender at the surgical site. The patient has a full composite fist range of motion. Bilateral auxiliary power equipment operator strengths equal at 15 kg. Intactsensation on the radial and ulnar aspect of the ring finger DIAGNOSTICS IMAGING: None ASSESSMENT / PLAN In summary, Ms. Sands returns today for follow up status post right ring trigger finger release on March 29, 2023. The patient has recovered well after surgery. Her tendinopathy has resolved after the steroid injection. She will follow-up in 3 months. Patient was seen in conjunction with Dr. Antunez. Zhao Merino M.D. Hand Surgery Fellow 05/10/23 4:30 PM CDT Associated attestation - Latrell Antunez M.D. - 05/11/2023 11:35 AM CDT I saw and evaluated the patient, participating in the gillespie portions of the service. I reviewed the resident/fellow???s note. I agree with the resident/fellow???s findings and plan. I am pleased to see that Ms. Sands is doing well. We will plan to see her back in about 10-12 weeks for follow-up when she returns with her . I have asked her to call for questions or concerns in the meantime and she has my card and contact information. documented in this encounter Plan of Treatment Upcoming Encounters Date Type Department Care Team (Latest Contact Info) Description 10/02/2023 1:30 PM ADMINISTRATION CLERK Appointment Department of Radiology in [address] [phone] Brennen Winchester M.D. [address] [place] [phone] Discharge Disposition: Home or Self Care 11/08/2023 10:00 AM CDT Office Visit Department of Family Medicine, [facility], in [address] [phone] Brennen Winchester M.D. [address] [place] [phone] 11/22/2023 9:15 AM CDT Clinical Communication Virtual Review in [place], [place] 200 [place] [address] 11/25/2023 10:15 AM CDT Office Visit Department of Orthopedic Surgery in [address] [phone] Latrell Antunez M.D. [address] [place] [phone] 11/28/2023 8:00 AM CDT Appointment Department of Laboratory Medicine and Pathology, [facility], in [place], [place] [address] [place] [phone] Sam Coburn M.D. [address] [place] [phone] 11/28/2023 8:45 AM CDT Appointment Department of Radiology, [facility], in [place], [place] [address] [place] [phone] Sam Coburn M.D. [address] [place] [phone] 11/28/2023 9:00 AM CDT Appointment Department of Radiology, [facility], in [place], [place] [address] [place] [phone] Sam Coburn M.D. [address] [place] [phone] 11/28/2023 10:00 AM CDT Office Visit Department of Orthopedic Surgery in [place], [place] [address] [place] [phone] Sam Coburn M.D. [address] [place] [phone] 11/29/2023 10:48 AM CDT Hospital Encounter [facility] 02 4 AM ADMIT [address] [place] [phone] Sam Coburn M.D. [address] [place] [phone] 11/29/2023 10:48 AM CDT - 11/29/2023 1:43 PM CDT Surgery [facility] RO MAIN OR [address] [place] [phone] Sam Coburn M.D. [address] [place] [phone] ARTHROPLASTY REPLACEMENT TOTAL KNEE Scheduled Procedures Name Priority Associated Diagnoses Date/Ti me ARTHROPLASTY REPLACEMENT TOTAL KNEE Primary Osteoarthritis Knee Right 11/29/2023 10:48 AM CDT Scheduled Referrals Name Type Priority Associated Diagnoses Order Schedule Orthopedic Surgery office visit (clinic) Outpatient Referral Routine Expected: 08/09/2023 (Approximate), Expires: 08/09/2024 documented as of this encounter Visit Diagnoses Diagnosis Trigger Finger Ring Right- Primary Primary Osteoarthritis Knee Right documented in this encounter Additional Health Concerns Assessment Noted Time PHQ-9 Depression Total Score: 0 11/22/19 17 8:37 AM CDT documented as of this encounter Care Teams President & Ceo Relationship Specialty Start Date End Date Brennen Winchester M.D. [address] [place] [phone] PCP - General 04/05/22 documented as of this encounter
--- OUTSIDE RECORDS SUMMARY | 2023-09-30 11:38 | XMS_ITS | Encounter Summary ---
Author Name Unknown Organization [facility] Address [address] [place] [address] Care Team Providers Care Semiconductor Equipment Technician Name Role Phone Brennen Winchester M.D. Primary Care Provider Reason for Referral * Outpatient (Routine) - Closed Specialty Diagnoses / Procedures Referred By Sara schmid Referred To Contact Orthopedic Surgery Latrell Antunez M.D. [address] [place] [phone] [facility] Referral ID Status Reason Start Date Expiration Date Visits Re quested Visits Authorized [id number] Closed 07/24/2023 07/23/2026 1 1 WIRE STRINGER Reason for Visit * Outpatient (Routine) - Closed Specialty Diagnoses / Procedures Referred By Sara schmid Referred To Contact Orthopedic Surgery Latrell Antunez M.D. [address] [place] [phone] [facility] Referral ID Status Reason Start Date Expiration Date Visits Re quested Visits Authorized [id number] Closed 05/10/2023 05/09/2026 1 1 Encounter Details Date Type Department Care Team (Late st Contact Info) Description 07/24/2023 11:00 AM DROP WIRE STRINGER Office Visit Department of Orthopedic Surgery in [place], [place] [address] [place] [phone] Latrell Antunez M.D. [address] [place] [phone] Trigger Finger Ring Right (Primary Dx) Social [...] often do you attend chur ch or mormon services? More than 4 times per year 09/07/2022 Do you belong to any clubs o r organizations such as moravian groups, unions, fraternal or athletic groups, or [...] Answer Date Recorded PHQ-2 Score 0 01/18/2021 [facility] - Occupational Stress Questionnaire Answer Date Recorded [...] place to sleep or slept in a residential (including now)? No 09/07/2022 Nutrition Answer Date [...] Progress Notes * Latrell Antunez M.D. - 07/24/2023 11:00 AM CST CHIEF COMPLAINT SUBJECTIVE Ms. Sands is a very pleasant 73 y.o. female who is status post right ring finger A1 polina release. She is pleased report that she is regained all of her motion and there is no clicking or catching. OBJECTIVE PHYSICAL EXAMINATION General: NAD, follows commands HEENT: NCAT CV: skin warm, dry, well perfused Pulm: unlabored Neuro: alert, appropriate Upper Extremity: Her wound is nicely healed. There is no tenderness at the previous site of the A1 polina. She has excellent finger flexion extension. She is neurologically intact. ADDITIONAL STUDIES: Laboratory studies: No results for [...] / PLAN #1 Trigger Finger Ring Right I am delighted to see how well Ms. Sands has recovered. She is free to continue activity as tolerated. She is coming back in August for other visits and I would be happy to see her at that time. She has my card and contact information for questions or concerns in the meantime. Thank you for the opportunity to participate in this patient's care. Please contact us with questions or concerns. All questions and concerns were answered on today's visit. There were no communication barriers present. Electronically signed by: Latrell Antunez M.D. 07/24/23 9:11 PM DROP WIRE STRINGER WIRE STRINGER documented in this encounter Plan of Treatment Upcoming Encounters Date Type Department Care Team (Latest Contact Info) Description 10/02/2023 1:30 PM DROP WIRE STRINGER Appointment Department of Radiology in [address] [phone] Brennen Winchester M.D. [address] [place] [phone] Discharge Disposition: Home or Self Care 11/08/2023 10:00 AM CDT Office Visit Department of Family Medicine, [facility], in [address] [phone] Brennen Winchester M.D. [address] [place] [phone] 11/22/2023 9:15 AM CDT Clinical Communication Virtual Review in [place], [place] 200 [place] [address] 11/25/2023 10:15 AM CDT Office Visit Department of Orthopedic Surgery in [address] [phone] Latrell Antunez M.D. [address] [place] [phone] 11/28/2023 8:00 AM CDT Appointment Department of Laboratory Medicine and Pathology, [facility], in [place], [place] [address] [place] [phone] Sam Coburn M.D. [address] [place] [phone] 11/28/2023 8:45 AM CDT Appointment Department of Radiology, [facility], in [place], [place] [address] [place] [phone] Sam Coburn M.D. [address] [place] [phone] 11/28/2023 9:00 AM CDT Appointment Department of Radiology, [facility], in [place], [place] [address] [place] [phone] Sam Coburn M.D. [address] [place] [phone] 11/28/2023 10:00 AM CDT Office Visit Department of Orthopedic Surgery in [place], [place] [address] [place] [phone] Sam Coburn M.D. [address] [place] [phone] 11/29/2023 10:48 AM CDT Hospital Encounter [facility] 02 4 AM ADMIT [address] [place] [phone] Sam Coburn M.D. [address] [place] [phone] 11/29/2023 10:48 AM CDT - 11/29/2023 1:43 PM CDT Surgery [facility] MAIN OR [address] [place] [phone] Sam Coburn M.D. [address] [place] [phone] ARTHROPLASTY REPLACEMENT TOTAL KNEE Scheduled Procedures Name Priority Associated Diagnoses Date/Ti me ARTHROPLASTY REPLACEMENT TOTAL KNEE Primary Osteoarthritis Knee Right 11/29/2023 10:48 AM CDT Scheduled Referrals Name Type Priority Associated Diagnoses Order Schedule Orthopedic Surgery office visit (clinic) Outpatient Referral Routine Expected: 09/04/2023, Expires: 10/22/2024 documented as of this encounter Visit Diagnoses Diagnosis Trigger Finger Ring Right- Primary Primary Osteoarthritis Knee Right documented in this encounter Additional Health Concerns Assessment Noted Time PHQ-9 Depression Total Score: 0 11/22/19 17 8:37 AM CDT documented as of this encounter Care Teams Semiconductor Equipment Technician Relationship Specialty Start Date End Date Brennen Winchester M.D. [address] [place] [address] [place] [phone] PCP - General 04/05/22 documented as of this encounter
--- OUTSIDE RECORDS SUMMARY | 2023-09-30 11:38 | XMS_ITS | Encounter Summary ---
Author Name Unknown Organization [facility] Address [address] [place] [address] Care Team Providers Care Suture Gauger Name Role Phone Brennen Winchester M.D. Primary Care Provider Reason for Visit * Reason Onset Date Comments Urinary Symptom 08/09/2023 Encounter Details Date Type Department Care Team (Late st Contact Info) Description 08/09/2023 Nurse Triage Department of Family Medicine, [facility], in [place] [address] [place] [phone] Michelle Fountain, R.N. Urinary Symptom Social History Tobacco Use Types Packs/Day Years [...] often do you attend chur ch or sabianist services? More than 4 times per year 09/07/2022 Do you belong to any clubs o r organizations such as jew groups, unions, fraternal or athletic groups, or [...] Answer Date Recorded PHQ-2 Score 0 01/18/2021 [facility] Occupat ional Health - Occupational Stress [...] place to sleep or slept in a jail (including now)? No 09/07/2022 Nutrition Answer Date [...] encounter Miscellaneous Notes * Telephone Encounter - Michelle Fountain RJuanN. - 08/09/2023 7:57 AM MOBILE HOME INSTALLER Chief Complaint / Reason for Call Patient is a 73 y.o. female calling regarding Urinary Symptom. Assessment Concern: Patient has not had UTI since collage. Patient the last 7 days noticing on and off burningwith urination but the last day noticing it constantly. Patient having burning with urination rating 5/10, along with increase frequency. No fevers. No flank pain. Hx of Diabetes Mellitus Type 2. Patient hoping for UA do be done in [place] and once results are in a possible antibiotic sent to [facility] in [place]. Present for: 1 week. Home cares tried: pushing fluids. Calling to request: UA/Treatment The recommended disposition is See a health care provider within 4 hours. Does not qualify for RN Protocol [place] Provider Angela: Patric: Ordered UA/UC to be completed and provider will follow-up once results are in. VOD appointment set up: Went over instructions with patient. Patient does not get text message but email link will be sent for her to push to access video visit. [email or web address] Patient was warm transferred toGen[facility] Patient Appointment Hotbed Transfer Operator at the clinic for further assistance. Reason for Disposition Diabetes mellitus or weak immune system (e.g., HIV positive, cancer chemo, splenectomy, organ transplant, chronic steroids) Protocols used: Urination Pain - Ayeedb-GENAX-ES Care Advice Patient/Caregiver understands and will follow care advice?: Yes, able to teach back SEE HCP (OR PCP TRIAGE) WITHIN 4 HOURS: * IF OFFICE WILL BE OPEN: You need to be seen within the next 3 or 4 hours. Call your doctor (or PLANT ATTENDANT OR ASSISTANT OPERATOR/PA) now or as soon as the office opens. * IF OFFICE WILL BE CLOSED AND NO PCP (PRIMARY CARE PROVIDER) SECOND-LEVEL TRIAGE: You need to be seen within the next 3 or 4 hours. A nearby Urgent Care Center (UCC) is often a good source of care. Another choice is to go to the ED. Go sooner if you become worse. * IF OFFICE WILL BE CLOSED AND PCP SECOND-LEVEL TRIAGE REQUIRED: You may need to be seen. Your doctor (or PLANT ATTENDANT OR ASSISTANT OPERATOR/PA) will want to talk with you to decide what's best. I'll page the on-call provider now. If you haven't heard from the provider (or me) within 30 minutes, call again. NOTE: If on-call provider can't be reached, send to UCC or ED. NOTE TO TRIAGER: * Use nurse judgment to select the most appropriate source of care. * Consider both the urgency of the patient's symptoms AND what resources may be needed to evaluate and manage the patient. SOURCES OF CARE: * ED: Patients who may need surgery or hospital admission need to be sent to an ED. So do most patients with serious symptoms or complex medical problems. * UCC: Some UCCs can manage patients who are stable and have less serious symptoms (e.g., minor illnesses and injuries). The triager must know the [facility] capabilities before sending a patient there. If unsure, call ahead. * OFFICE: If patient sounds stable and not seriously ill, consult PCP (or follow your office policy) to see if patient can be seen NOW in office. CALL BACK IF: * You become worse CARE ADVICE given per Urination Pain - Female (Adult) guideline. LE HOME INSTALLER documented in this encounter Plan of Treatment Upcoming Encounters Date Type Department Care Team (Latest Contact Info) Description 10/02/2023 1:30 PM MOBILE HOME INSTALLER Appointment Department of Radiology in [address] [phone] Brennen Winchester M.D. [address] [place] [address] [phone] Discharge Disposition: Home or Self Care 11/08/2023 10:00 AM CDT Office Visit Department of Family Medicine, [facility], in [address] [phone] Brennen Winchester M.D. [address] [place] [phone] 11/22/2023 9:15 AM CDT Clinical Communication Virtual Review in [place], [place] 200 [place] [address] 11/25/2023 10:15 AM CDT Office Visit Department of Orthopedic Surgery in [place], [place] [address] [place] [phone] Latrell Antunez M.D. [address] [place] [phone] 11/28/2023 8:00 AM CDT Appointment Department of Laboratory Medicine and Pathology, [facility], in [address] [phone] Sam Coburn M.D. [address] [place] [phone] 11/28/2023 8:45 AM CDT Appointment Department of Radiology, [facility], in [place], [place] [address] [place] [phone] Sam Coburn M.D. [address] [place] [phone] 11/28/2023 9:00 AM CDT Appointment Department of Radiology, [facility], in [place], [place] [address] [place] [phone] Sam Coburn M.D. [address] [place] [phone] 11/28/2023 10:00 AM CDT Office Visit Department of Orthopedic Surgery in [place], [place] [address] [place] [phone] Sam Coburn M.D. [address] [place] [phone] 11/29/2023 10:48 AM CDT Hospital Encounter RST RO 02 4 AM ADMIT [address] [place] [phone] Sam Coburn M.D. [address] [place] [phone] 11/29/2023 10:48 AM CDT - 11/29/2023 1:43 PM CDT Surgery [facility] MAIN OR [address] [place] [phone] Sam Coburn M.D. [address] [place] [phone] ARTHROPLASTY REPLACEMENT TOTAL KNEE Scheduled Procedures Name Priority Associated Diagnoses Date/Ti me ARTHROPLASTY REPLACEMENT TOTAL KNEE Primary Osteoarthritis Knee Right 11/29/2023 10:48 AM CDT documented as of this encounter Visit Diagnoses Not on filedocumented in this encounter Additional Health Concerns Assessment Noted Time PHQ-9 Depression Total Score: 0 11/22/19 17 8:37 AM CDT documented as of this encounter Care Teams Suture Gauger Relationship Specialty Start Date End Date Brennen Winchester M.D. [address] [place] [phone] PCP - General 04/05/22 documented as of this encounter
--- OUTSIDE RECORDS SUMMARY | 2023-09-30 11:38 | XMS_ITS | Encounter Summary ---
Author Name Unknown Organization [facility] Address [address] [place] [id number] Care Team Providers Care Associate Accountant Name Role Phone Brennen Winchester M.D. Primary Care Provider Encounter Details Date Type Department Care Team (Late st Contact Info) Description 03/29/2023 7:35 AM CDT - 03/29/2023 8:28 AM CDT Surgery [facility] in [place], [place] [address] [place] [phone] Latrell Antunez M.D. [address] [place] [phone] RELEASE TRIGGER FINGER ring finger. Social History Tobacco Use Types Packs/Day Years [...] often do you attend chur ch or anabaptism services? More than 4 times per year 09/07/2022 Do you belong to any clubs o r organizations such as gnosticism groups, unions, fraternal or athletic groups, or [...] Answer Date Recorded PHQ-2 Score 0 01/18/2021 [facility] of Occupat ional Health - Occupational Stress [...] PM CDT documented as of this encounter Last Filed Vital Signs Vital Sign Reading Time Taken Comments Blood Pressure 134/64 03/29/2023 8:20 AM CDT Pulse 80 03/29/2023 8:20 AM CDT Temperature 36.4 ??C (97.5 ??F) 03/29/2023 7:16 AM CD T Respiratory Rate 15 03/29/2023 7:30 AM CDT Oxygen Saturation 99% 03/29/2023 8:20 AM CDT Inhaled Oxygen Concentration - - Weight 58.5 kg (128 lb 15.5 oz) 03/29/2023 7:16 AM CDT Height 166.5 cm (5' 5.55) 03/29/2023 7:16 AM CD T Body Mass Index 21.1 03/29/2023 7:16 AM CDT documented in this encounter Discharge Instructions * Discharge Instructions* Hair Landry APRN, C.N.P., D.N.P., M.S.N. - 03/29/2023 7:[address] Antunez Post-operative Instructions A follow-up appointment with Dr. Antunez has been made for you in one-two weeks. Please report to [facility] [address] to check-in. If you have any questions or concerns before this appointment, please do not hesitate to call Dr. Antunez's office: - medical associate - fax - appointments - after hours Wound Care: - Keep your splint clean and dry. - Keep your splint in place until your follow-up appointment. Activity: - Continue to elevate your arm, this will help to reduce swelling. - Continue to move your fingers while in splint, this will help to reduce stiffness. Infection: - If incision has increased pain or tenderness, redness, swelling, drainage, or areas of breakdown you may have a local infection. Please call our office to make an immediate follow-up appointment. - If you experience any systemic symptoms of infection including fever, chills, or malaise please contact our service as well. -Keeping your post-operative splint in place as well as clean and dry will decrease your risk for infection. Non-opioid Pain Management, Acetaminophen and Ibuprofen (Motrin): - The use of non-opioid medications (tylenol and motrin) are the preferred first line treatment forpost operative pain. - Consistent use on a schedule will limit the need for opioid pain medications. - Use acetaminophen (Tylenol) 1-2 tablets every 6 hours for pain. Adults 1000 mg dose every 6 hours, Children 10 mg per kilogram of body weight every 6 hours. - Avoid the use of Ibuprofen if you have a healing fracture or underwent a fusion surgery. - Use Ibuprofen 600mg every 6 hours as needed for pain (adults). Child dosing is 10 mg per kilogramof body weight every 6 hours. - For weight based dosing (children), the patients most recent documented weight is Weight: 58.5 kg(03/29/2023 7:16 AM) Height: 166.5 cm (03/29/2023 7:16 AM) . - It is usually helpful to stagger ibuprofen and tylenol dosing by 3 hours, to be able to take something every 3 hours. A staggered schedule will look like this- Tylenol 6am, 12pm, 6pm, Midnight Ibuprofen 3am, 9am, 3pm, 9pm - Do not exceed 4000 mg or 4 g of Tylenol or acetaminophen-containing products within a 24-hour period to avoid liver damage. - If pain is unrelieved, narcotic pain medication may be used. - To speed up the recovery process, the use of narcotic pain medication should be minimized. - Do not use aspirin or aspirin-containing products for at least three weeks after surgery or untilotherwise instructed by your doctor. - Some narcotic pain medications contain acetaminophen. Please make sure to ask your pharmacist or read the label carefully before taking any medications together. Pain Management With Opioids (Tramadol, Oxycodone, Hydrocodone, Hydromorphone) - If non-opioid pain medications are not relieving pain, taking opioids in addition to your non-opioids should improve pain. - Take opioid medication as instructed. - It is best to take pain medication before your pain becomes severe. This will allow you to take less medication yet have better pain relief. - For the first 2-3 days after surgery, it may be helpful to take your pain medication on a regularschedule and keep pain under control. - After the first couple days, you should begin to take less pain medication each day until you no longer need any. - Do not take opioid pain medication on an empty stomach; this may lead to nausea and vomiting. - Abstain from alcohol while taking narcotic pain medication. - Avoid taking opioid pain medications with other sedating medications. - Should not drive, operate heavy machinery, ride motorcycle or ATVs or take other drugs that make you tired or sleepy while taking narcotic pain medication. - Do not participate in dangerous activity while taking narcotic pain medication, as it can decrease your ability to make safe decisions. - May cause constipation requiring a stool softener while narcotic pain medication is being used. - Post-operative opioid prescriptions are limited to a supply of 3 days. Most patients are able to stop using opioid pain medications after 3 days. - If you feel you require a refill of opioid pain medication, please call Dr Antunez's medical associate during business hours, or the after hours number. You are also welcome to contact the team through the patient portal. Prior to calling, please try to maximize the use of scheduled non-opioid painmedications and non-medication relief measures listed below. - Excess opioids not used after surgery increase the risk of opioid related abuse and misuse if they remain in the home. Please discard of unused opioids at your local pharmacy. Non-Medication pain relief - Elevate operative extremity above the level of your hear - Applying ice packs over the splint may provide some cooling and pain relief. - Distraction and meditation may also help relieve pain. Preventing Constipation: - Avoid hard cheeses and refined grains such as rice and macaroni. - Drink plenty of water, juice and warm liquids. - Walking and activity is a good way to get your bowels moving. - An infm-ors-whrdzos laxative such as milk of magnesia may be necessary, however consult your doctor before starting to make sure its safe for you to take. Nutrition: - To optimize healing, it is essential to have adequate nutritional intake. - Studies have shown drastically improved outcomes for patients with a sound nutritional state. - It is recommended you take a multivitamin daily. - A balanced diet with recommended daily servings of lean protein, vegetables and grains can help ensure adequate nutrition. Bone / Wound Healing - Nicotine inhibits healing so it is advised you avoid tobacco products completely. - If you currently smoke cigarettes, cigars or pipes; chew tobacco; or have done so in the past 12 months, it is important to quit. Talk with your physician about different ways to stop smoking. For additional information about smoking cessation, go to http://www.[facility].org/stop-smoking/index. html or call 474.147.6920 Driving or Operating Machinery - You should not drive until you have stopped taking prescription pain medications for at least 24 hours. Seek Immediate Care if: - You have chest pain, trouble breathing or begin to wheeze. - You have trouble swallowing. Latrell Antunez MD Orthopedic Surgery [address] [place] [phone] medical associate fax appointments after hours Trigger Finger or Thumb Release Preparing for surgery: Follow fasting instructions as outlined in the pamphlet ???Checklist for Surgical Patients.?? Stopaspirin and fish oil 2 weeks before surgery if your medical doctor does not object. If you take blood thinner medicines such as Plavix, Coumadin, or Eliquis, ask Dr. Antunez's team for instructions about this. Washing your skin The day before and morning of surgery wash your arm using the surgical soap provided at your appointment. Use one packet of soap each time, and let the lather sit on your skin for 5 minutes before rinsing it off. Aftercare following surgery You will leave the hospital with a soft dressing on your hand and wrist. You must keep this on and clean and dry for 2 weeks after surgery. During these first 2 weeks, you may shower by covering yourarm with a shower bag if you feel safe, with assistance as needed. You should not lift, push, pull, or load dropper anything heavier than a comb, toothbrush, fork, or spoon with the affected hand until your next visit. Hand swelling Swelling of hand and fingers is common after surgery. You should keep the hand elevated above the level of your elbow to allow gravity to help pull fluid out of the hand. While sitting you must raiseyour hand on several pillows or rest it on a table to get it above your elbow. Throughout each day,gently bend your fingers into a fist and fully extend them to prevent finger swelling and stiffness. Finger exercises Throughout each day, gently bend your thumb and fingers into a fist and fully extend them to prevent finger swelling and stiffness. Repeat this 5 to 10 times each hour you are awake through the day. Return visits About 2 weeks after surgery you will have a return appointment to see Dr. Antunez's team. Your surgical dressing will be removed and stitches will be removed. Keep a small covering on incision for 1 day. You may slowly return to your usual activities after this appointment. Milestones of recovery after surgery: Leaving the hospital: The same day of surgery with a assembly line driver. Driving and operating machinery: is not advisable until at least your dressing and sutures are removed 2 weeks after surgery. You should not drive or operate machinery while you are on opioid pain medication and until you have full control of the vehicle/machine. Help needed during recovery: You will need help with dressing, bathing, and your daily activities at home for at least a few days. You should have family members at home for most of the day, or stay at someone else's home duringthis time. The first 2 weeks after surgery: You will have a soft dressing on your hand that needs to be kept clean and dry. You will need help with bathing for the first several days. You will not be able to wash dishes during that time. Plan on a return visit about 2 weeks after surgery: Do not soak your hand in water until at least 1 week later after your sutures have been removed. Scar Massage. It would be ideal to buy some aloe vera or vitamin E cream. You may begin massaging the incision area 1 week after the sutures are removed with some cream to help keep the scar area soft and mobile. documented in this encounter Medications at Time of Discharge Medication Sig Dispensed Refills Start Date End Date acetaminophen (TYLENOL) 500 mg capsule Take 2 capsules (1,000 mg total) by mouth every 6 (six) hours as needed for pain. Take on a schedule while using opioids. Once opioid use has stopped, adjust to as needed 0 12/08/2022 lisinopril-hydroCHLORO thiazide (PRINZIDE,ZESTORETIC) 10-12.5 mg per tabletIndications:Hype rtension And Chronic Kidney Disease Stage 4 (HCC) Take 1 tablet by mouth at bedtime. HOLD until follow up with primary care provider 90 tablet 3 01/31/2023 blood glucose ctl high,nml,low solutionIndications:Di abetes Mellitus [...] glucose once daily 100 each 3 01/16/2023 simvastatin (ZOCOR) 20 mg tabletIndications:Hype rcholesterolemia Take 1 tablet (20 mg total) by mouth at bedtime. 90 tablet 3 01/31/2023 metFORMIN XR (GLUCOPHAGE-XR) 500 mg 24 hr tabletIndications:Diab etes Mellitus Type 2 With Diabetic Chronic Kidney Disease (HCC) Take 2 tablets (1,000 mg total) by mouth daily with breakfast. 180 tablet 3 07/24/2022 08/19/2023 oxyCODONE (ROXICODONE) 5 mg immediate release tabletIndications:Acut e Pain Take 1 tablet (5 mg total) by mouth every 6 (six) hours as needed for severe pain or score 7-10 of 10 for up to 3 days Indication: Acute Pain. 5 tablet 0 03/29/2023 [address] tablet Take 1 tablet (81 mg total) by mouth 2 (two) times a day. 120 tablet 0 12/07/2022 08/09/2023 mirtazapine (REMERON) 7.5 mg tablet Take 1 tablet (7.5 mg total) by mouth at bedtime. 90 tablet 3 10/18/2022 08/09/2023 documented as of this encounter OR Notes * Op Note - Latrell Antunez M.D. - 03/29/2023 8:28 AM CDT Pre-op Diagnosis Trigger Finger Ring Right Post-op Diagnosis Trigger Finger Ring Right A expanded duty dental assistant actively participated and was necessary for one or more of the following: opening, exposure and visualization during the case, maintaining hemostasis, wound closure resulting in itssafe and expeditious completion. Findings As expected. Complications None Operative Note Narrative Ms. Sands was identified in the preop area and the appropriate operative site was marked and confirmed. She was then taken the operating room prepped and draped to expose her right hand and upper extremity. The appropriate procedural pause was performed and local anesthetic was administered. Oblique incision was made over the A1 polina of the right ring finger. Dissection was carried down through skin and subcutaneous tissues with care taken to protect the radial and ulnar neurovascular structures. The flexor tendon was visualized in the wound and its overlying a-1 polina. After exposing the polina, a tenotomy was used to release the polina in its entirety in an antegrade manner. Direct inspection of the tendon below revealed that it was moderately thickened and minimally frayed. The wound was then inspected proximally to ensure that there were no focal areas of constriction over the tendon. The patient was then asked to flex and extend her finger and revealed no evidence of clicking or catching with motion. She also had a full arc of motion. At this point the surgery was complete. The tourniquet was deflated and all bleeding was controlledwith pressure hemostasis and bipolar cautery. The wound was irrigated copiously. The skin was closed with interrupted 4-0 Prolene followed by Xeroform. A bulky soft dressing was then applied. She wasthen aroused, transferred to the bed, and transferred to recovery in stable condition. Latrell Antunez M.D. documented in this encounter Plan of Treatment Upcoming Encounters Date Type Department Care Team (Latest Contact Info) Description 10/02/2023 1:30 PM [employer] Appointment Department of Radiology in [address] [phone] Brennen Winchester M.D. [address] [place] [phone] Discharge Disposition: Home or Self Care 11/08/2023 10:00 AM CDT Office Visit Department of Family Medicine, [facility], in [address] [phone] Brennen Winchester M.D. [address] [place] [phone] 11/22/2023 9:15 AM CDT Clinical Communication Virtual Review in [place], [place] 200 [place] [address] 11/25/2023 10:15 AM CDT Office Visit Department of Orthopedic Surgery in [place], [place] [address] [place] [phone] Latrell Antunez M.D. [address] [place] [phone] 11/28/2023 8:00 AM CDT Appointment Department of Laboratory Medicine and Pathology, [facility] in [place], [place] [address] [place] [phone] Sam Coburn M.D. [address] [place] [phone] 11/28/2023 8:45 AM CDT Appointment Department of Radiology, [facility], in [place], [place] [address] [place] [phone] Sam Coburn M.D. [address] [place] [phone] 11/28/2023 9:00 AM CDT Appointment Department of Radiology, [facility] in [address] [phone] Sam Coburn M.D. [address] [place] [phone] 11/28/2023 10:00 AM CDT Office Visit Department of Orthopedic Surgery in [place], [place] [address] [place] [phone] Sam Coburn M.D. [address] [place] [phone] 11/29/2023 10:48 AM CDT Hospital Encounter [facility] 02 4 AM ADMIT [address] [place] [phone] Sam Coburn M.D. 200 [place] [phone] 11/29/2023 10:48 AM CDT - 11/29/2023 1:43 PM CDT Surgery [facility] [address] [place] [phone] Sam Coburn M.D. 200 [place] [phone] ARTHROPLASTY REPLACEMENT TOTAL KNEE Scheduled Procedures Name Priority Associated Diagnoses Date/Ti me ARTHROPLASTY REPLACEMENT TOTAL KNEE Primary Osteoarthritis Knee Right 11/29/2023 10:48 AM CDT documented as of this encounter Procedures Procedure Name Priority Date/Time Associated Diagnosis Comments GLUCOSE POCT, B Routine 03/29/2023 9:09 AM CDT RELEASE TRIGGER FINGER 03/29/2023 7:46 AM CDT Trigger Finger Ring Right GLUCOSE POCT, B Routine 03/29/2023 7:11 AM CDT documented in this encounter Results * Glucose, POCT (03/29/2023 9:09 AM CDT) Glucose, POCT, B 130 70 - 140 mg/dL 03/29/2023 9:19 AM CDT PCMO Site Capillary 03/29/2023 9:19 AM CDT PCMO Blood 03/29/2023 9:09 AM CDT 03/29/2023 9:19 AM CDT Unknown Provider LAB POCT ORDERABLES- MANUAL POC [facility] [address] [place] [address], [facility] 200 [place] [address] * Glucose, POCT (03/29/2023 7:11 AM CDT) Glucose, POCT, B 110 70 - 140 mg/dL 03/29/2023 7:38 AM CDT PCMO Site Capillary 03/29/2023 7:38 AM CDT PCMO Blood 03/29/2023 7:11 AM CDT 03/29/2023 7:38 AM CDT Unknown Provider LAB POCT ORDERABLES- MANUAL POC [facility] [address] [place] [address], [facility] PCMO [facility] [address] [place] [address] documented in this encounter Visit Diagnoses Diagnosis Trigger Finger Ring Right- Primary Trigger Finger Ring Right Primary Osteoarthritis Knee Right documented in this encounter Administered Medications Inactive Administered Medications - up to 3 most recent administrations Medication Order MAR Action Action Date Dose Rate Site ceFAZolin injection 2 g (ANCEF) 2 g, intravenous, Once, On Sat03/29/23 at 0715, For 1 dose, Intra-Op, Administer within 1 hour prior to surgical incision If needed, reconstitute vial per package insert instructions. See IVAG for administration guidelines., Drug Monitoring Program: Pharmacist to adjust medication dosing based on indication and drug clearance factors., Indications: Prophylaxis, surgical Given 03/29/2023 8:05 AM CDT 2 g chlorhexidine 0.12 % mouthwash 15 mL (PERIDEX) 15 mL, swish & spit, Once as needed, Chlorhexidine mouthwash (Peridex) should be given if patient did not complete oral care, if completion is greater than 4 hours prior to surgery or procedure start time and they do not have the opportunity to brush their teeth now (or at this time)., Starting on Sat03/29/23 at 0643, For 1 dose, Pre-Op, Instruct patient to swish entire content of Chlorhexidine 0.12% mouthwash (PERIDEX) 15 mL cup for 30 seconds, then spit, swish & spit. If patient is at risk for aspiration, apply Chlorhexidine 0.12% mouthwash to a swab and gently swab the patient's teeth and gums. Ensure swab is not oversaturated. insulin aspart U-100 injection 0-8 Units (NovoLOG) 0-8 Units, subcutaneous, Every 2 hour PRN, high blood sugar, Nurse to determine and administer dose., Starting on Sat03/29/23 at 0643, For 2 doses, Pre-Op, Nurse to administer Aspart (Novolog) Insulin subcutaneous as needed every 2 hours for up to 2 doses per correction scale. First dose STAT. Do not administer a correction Insulin dose if glucose is greater than 140 mg/dL and a) It is within 2 hours of any rapid acting or short acting Insulin and/or b) the patient has consumed sugar or carbohydrate containing food or beverage within the past 4 hours. For glucose less than or equal to 70 mg/dL - initiate treatment of hypoglycemia., Insulin Aspart: Correction Scale Insulin (For Diabetes Mellitus diagnosis), 71 - 139: 0 units, 140 - 179: 2 units, 180 - 219: 4 units, 220 - 259: 6 units, 260 - 299: 8 units, Greater than or equal to 300: Call provider managing diabetes lidocaine 10 mg/mL (1 %) injection (XYLOCAINE) As needed, Starting on Sat03/29/23 at 0828, Intra-Op Given 03/29/2023 8:28 AM CDT 6 mL Right Hand metoprolol tablet 12.5 mg (LOPRESSOR) 12.5 mg, oral, Once as needed, if patient did not take their last scheduled dose of beta mando prior to arrival, Starting on Sat03/29/23 at 0643, For 1 dose, Pre-Op, Do not give if patient does not take scheduled beta blockers, if patient is receiving intravenous vasopressors or inotropes, if heart rate is less than 50 beats per minute, if systolic blood pressure is less than 90 mmHg or if diastolic blood pressure is less than 40 mmHg, or if patient has an allergy to metoprolol. sodium chloride 0.9 % injection 10 mL 10 mL, intravenous, As needed, line care, Starting on Sat03/29/23 at 0643, Pre-Op, Peripheral Intravenous Catheter and Rapid Infusion Catheter, prior to blood sampling, post blood transfusion or post blood sampling sodium chloride 0.9 % injection 3 mL 3 mL, intravenous, As needed, line care, Starting on Sat03/29/23 at 0643, Pre-Op, Prior to and following infusion and between multiple consecutive infusions: sodium chloride 0.9 % injection sodium chloride 0.9 % injection 3 mL 3 mL, intravenous, Every 12 hours scheduled, First dose on Sat03/29/23 at 0900, Pre-Op, Peripheral Intravenous Catheter and Rapid Infusion Catheter, when no infusion to maintain patency documented in this encounter Active and Recently Administered Medications Times are shown in CDT. Scheduled Medication Order 03/27/2023 03/28/2023 03/29/2023 acetaminophen tablet 1,000 mg (TYLENOL) 1,000 mg, oral, Once, On Sat03/29/23 at 0700, For 1 dose, Pre-Op 0700 (Due) ceFAZolin injection 2 g (ANCEF) (COMPLETED) 2 g, intravenous, Once, On Sat03/29/23 at 0715, For 1 dose, Intra-Op, Administer within 1 hour prior to surgical incision If needed, reconstitute vial per package insert instructions. See IVAG for administration guidelines., Drug Monitoring Program: Pharmacist to adjust medication dosing based on indication and drug clearance factors., Indications: Prophylaxis, surgical 0805 (Given - Provid er: Ash Rubi, M.B.A., R.N.) sodium chloride 0.9 % injection 3 mL 3 mL, intravenous, Every 12 hours scheduled, First dose on Sat03/29/23 at 0900, Pre-Op, Peripheral Intravenous Catheter and Rapid Infusion Catheter, when no infusion to maintain patency 0900 (Due) sodium chloride 0.9 % injection 3 mL 3 mL, intravenous, Every 12 hours scheduled, First dose on Sat03/29/23 at 0900, Pre-Op, Peripheral Intravenous Catheter and Rapid Infusion Catheter, when no infusion to maintain patency 0900 (Due) Continuous Medication Order 03/27/2023 03/28/2023 03/29/2023 lactated ringers 20 mL/hr, intravenous, Continuous, Starting on Sat03/29/23 at 0700, Pre-Op 0700 (Due) PRN Medication Order 03/27/2023 03/28/2023 03/29/2023 chlorhexidine 0.12 % mouthwash 15 mL (PERIDEX) 15 mL, swish & spit, Once as needed, Chlorhexidine mouthwash (Peridex) should be given if patient did not complete oral care, if completion is greater than 4 hours prior to surgery or procedure start time and they do not have the opportunity to brush their teeth now (or at this time)., Starting on Sat03/29/23 at 0643, For 1 dose, Pre-Op, Instruct patient to swish entire content of Chlorhexidine 0.12% mouthwash (PERIDEX) 15 mL cup for 30 seconds, then spit, swish & spit. If patient is at risk for aspiration, apply Chlorhexidine 0.12% mouthwash to a swab and gently swab the patient's teeth and gums. Ensure swab is not oversaturated. insulin aspart U-100 injection 0-8 Units (NovoLOG) 0-8 Units, subcutaneous, Every 2 hour PRN, high blood sugar, Nurse to determine and administer dose., Starting on Sat03/29/23 at 0643, For 2 doses, Pre-Op, Nurse to administer Aspart (Novolog) Insulin subcutaneous as needed every 2 hours for up to 2 doses per correction scale. First dose STAT. Do not administer a correction Insulin dose if glucose is greater than 140 mg/dL and a) It is within 2 hours of any rapid acting or short acting Insulin and/or b) the patient has consumed sugar or carbohydrate containing food or beverage within the past 4 hours. For glucose less than or equal to 70 mg/dL - initiate treatment of hypoglycemia., Insulin Aspart: Correction Scale Insulin (For Diabetes Mellitus diagnosis), 71 - 139: 0 units, 140 - 179: 2 units, 180 - 219: 4 units, 220 - 259: 6 units, 260 - 299: 8 units, Greater than or equal to 300: Call provider managing diabetes lidocaine 10 mg/mL (1 %) injection (XYLOCAINE) (CANCELED) As needed, Starting on Sat03/29/23 at 0828, Intra-Op 0828 (Given - Provid er: Latrell Antunez M.D.) metoprolol tablet 12.5 mg (LOPRESSOR) 12.5 mg, oral, Once as needed, if patient did not take their last scheduled dose of beta mando prior to arrival, Starting on Sat03/29/23 at 0643, For 1 dose, Pre-Op, Do not give if patient does not take scheduled beta blockers, if patient is receiving intravenous vasopressors or inotropes, if heart rate is less than 50 beats per minute, if systolic blood pressure is less than 90 mmHg or if diastolic blood pressure is less than 40 mmHg, or if patient has an allergy to metoprolol. sodium chloride 0.9 % injection 10 mL 10 mL, intravenous, As needed, line care, Starting on Sat03/29/23 at 0643, Pre-Op, Peripheral Intravenous Catheter and Rapid Infusion Catheter, prior to blood sampling, post blood transfusion or post blood sampling sodium chloride 0.9 % injection 10 mL 10 mL, intravenous, As needed, line care, Starting on Sat03/29/23 at 0631, Pre-Op, Peripheral Intravenous Catheter and Rapid Infusion Catheter, prior to blood sampling, post blood transfusion or post blood sampling sodium chloride 0.9 % injection 3 mL 3 mL, intravenous, As needed, line care, Starting on Sat03/29/23 at 0643, Pre-Op, Prior to and following infusion and between multiple consecutive infusions: sodium chloride 0.9 % injection sodium chloride 0.9 % injection 3 mL 3 mL, intravenous, As needed, line care, Starting on Sat03/29/23 at 0631, Pre-Op, Prior to and following infusion and between multiple consecutive infusions: sodium chloride 0.9 % injection documented in this encounter Additional Health Concerns Assessment Noted Time PHQ-9 Depression Total Score: 0 11/22/19 17 8:37 AM CDT documented as of this encounter Care Teams Associate Accountant Relationship Specialty Start Date End Date Brennen Winchester M.D. [address] [place] [address] [place] [phone] PCP - General 04/05/22 documented as of this encounter
--- OUTSIDE RECORDS SUMMARY | 2023-09-30 11:38 | XMS_ITS | Encounter Summary ---
Author Name Unknown Organization [facility] Address [address] [place] [address] Care Team Providers Care Digital Music Instructor Name Role Phone Brennen Winchester M.D. Primary Care Provider [phone] Reason for Referral * Outpatient (Routine) - Authorized Specialty Diagnoses / Procedures Referred By Contac t Referred To Contact Diagnoses Trigger Finger Ring Right Procedures hand-wrist Latrell Antunez M.D. [address] [place] [phone] [facility] Referral ID Status Reason Start Date Expiration Date V isits Requested Visits Authorized [id number] Authorized 04/11/2023 04/10/2024 1 1 * Outpatient (Routine) - Closed Specialty Diagnoses / Procedures Referred By Contac t Referred To Contact Orthopedic Surgery Latrell Antunez M.D. [address] [place] [phone] [facility] Referral ID Status Reason Start Date Expiration Date Visits Re quested Visits Authorized [id number] Closed 04/11/2023 04/10/2026 1 1 Reason for Visit * Outpatient (Routine) - Closed Specialty Diagnoses / Procedures Referred By Contac t Referred To Contact Orthopedic Surgery Hair Landry APRN, C.N.P., D.N.P., M.S.N. [address] [place] [phone] [facility] Referral ID Status Reason Start Date Expiration Date Visits Re quested Visits Authorized [id number] Closed 03/20/2023 03/19/2026 1 1 Encounter Details Date Type Department Care Team (Late st Contact Info) Description 04/11/2023 10:00 AM CDT Office Visit Department of Orthopedic Surgery in [place], [place] [address] [place] [address] Latrell Antunez M.D. [address] [place] [address] Trigger Finger Ring Right (Primary Dx) Social [...] How often do you attend chur or buddhist services? More than 4 times per year 09/07/2022 Do you belong to any clubs o r organizations such as sikhism groups, unions, fraternal or athletic groups, or [...] Answer Date Recorded PHQ-2 Score 0 01/18/2021 [facility] - [...] Progress Notes * Zhao Merino M.D. - 04/11/2023 10:00 AM CDT HAND SURGERY CLINIC VISIT SUBJECTIVE Ms. Sands returns today for follow up status post right ring trigger finger release on March 29, 2023. The patient denies any clicking but states that she never experienced any triggering from her trigger finger. The main motivation behind trigger release was pain of the ring finger. She states that the finger is still painful. She also complains of a weak farm demonstrator of the right hand. OBJECTIVE PHYSICAL EXAMINATION General: NAD, follows commands HEENT: NCAT CV: regular Pulm: unlabored Neuro: alert, appropriate Upper Extremity: On focused exam of the right hand reveals incision that is well-approximated with Prolene suture. There is no evidence of infection. The ring finger PIP joint has a slight extensor lag of approximately 20??. The patient does have a full composite fist range of motion. But the left farm demonstrator strength is 20 kg in the right farm demonstrator strength is 14 kg. Intact sensation on the radial and ulnaraspect of the ring finger DIAGNOSTICS IMAGING: None ASSESSMENT / PLAN In summary, Ms. Sands returns today for follow up status post right ring trigger finger release on March 29, 2023. Overall the patient is healing appropriately after surgery. Because the patient continues to have ongoing pain, we suspect there might be some residual tendinopathy around the flexor tendons of the ring finger. For this we elected to inject steroid injection around the ring finger tendons. The patient will return in 6 weeks for close follow up. Patient was seen in conjunction with Dr. Antunez. Zhao Merino M.D. Associated attestation - Latrell Antunez M.D. - 04/11/2023 9:36 PM CDT I saw and evaluated the patient, participating in the gillespie portions of the service. I reviewed the resident/fellow???s note. I agree with the resident/fellow???s findings and plan. I am pleased that the wound is healed nicely. She still has pain and some swelling along the flexortendon sheath. We discussed the possibility of an injection and she was agreeable to this. I injected her today uneventfully. We will plan to see her back in about a month or so for follow-up but I have asked her to call for questions or concerns in the meantime. documented in this encounter Procedure Notes * Latrell Antunez M.D. - 04/11/2023 10:00 AM CDTAssociated Order(s): hand-wrist Post-Procedure Diagnose(s): Trigger Finger Ring Right R ring trigger finger volar tendon sheath injection, : injection only Hand-wrist Performed by: Latrell Antunez M.D. Authorized by: Latrell Antunez M.D. PROCEDURE DETAILS Procedure performed: injection only Hand-Wrist procedure site: R ring trigger finger volar tendon sheath injection, PROCEDURE MEDICATIONS Local anesthetics: 2 mL lidocaine 10 mg/mL (1 %) Corticosteroid: 10 mg triamcinolone acetonide 10 mg/mL CONSENT Consent obtained: written (Risks, benefits and alternatives were discussed and a written Informed Consent was obtained. Please see Informed Consent form for further details.) PRE-PROCEDURE DETAILS Procedure purpose: therapeutic Site preparation: chlorhexidine POST-PROCEDURE DETAILS Procedure outcome: successful procedure Complications: no apparent complications Post-procedure instructions: post-procedure activity instructions provided Discharge instruction provided: per nursing education record documented in this encounter Plan of Treatment Upcoming Encounters Date Type Department Care Team (Latest Contact Info) Description 10/02/2023 1:30 PM VOCATIONAL COUNSELOR Appointment Department of Radiology in [address] [phone] Brennen Winchester M.D. [address] [place] [phone] Discharge Disposition: Home or Self Care 11/08/2023 10:00 AM CDT Office Visit Department of Family Medicine, [facility], in [address] [phone] Brennen Winchester M.D. [address] [place] [phone] 11/22/2023 9:15 AM CDT Clinical Communication Virtual Review in [place], [place] 200 [place] [address] 11/25/2023 10:15 AM CDT Office Visit Department of Orthopedic Surgery in [address] [phone] Latrell Antunez M.D. [address] [place] [phone] 11/28/2023 8:00 AM CDT Appointment Department of Laboratory Medicine and Pathology, [facility] in [place], [place] [address] [place] [phone] Sam Coburn M.D. [address] [place] [phone] 11/28/2023 8:45 AM CDT Appointment Department of Radiology, [facility] in [place], [place] [address] [place] [address] Sam Coburn M.D. [address] [place] [phone] 11/28/2023 9:00 AM CDT Appointment Department of Radiology, [facility], in [place], [place] [address] [place] [address] Sam Coburn M.D. [address] [place] [phone] 11/28/2023 10:00 AM CDT Office Visit Department of Orthopedic Surgery in [place], [place] [address] [place] [phone] Sam Coburn M.D. [address] [place] [phone] 11/29/2023 10:48 AM CDT Hospital Encounter RST RO 02 4 AM ADMIT [address] [place] [phone] Sam Coburn M.D. [address] [place] [phone] 11/29/2023 10:48 AM CDT - 11/29/2023 1:43 PM CDT Surgery RST RO MAIN OR [address] [place] [address] Sam Coburn M.D. [address] [place] [phone] ARTHROPLASTY REPLACEMENT TOTAL KNEE Scheduled Procedures Name Priority Associated Diagnoses Date/Ti me ARTHROPLASTY REPLACEMENT TOTAL KNEE Primary Osteoarthritis Knee Right 11/29/2023 10:48 AM CDT Scheduled Referrals Name Type Priority Associated Diagnoses Order Schedule Orthopedic Surgery office visit (clinic) Outpatient Referral Routine Expected: 05/23/2023, Expires: 07/12/2024 documented as of this encounter Procedures Procedure Name Priority Date/Time Associated Diagnosis Comments SMALL JOINT INJECTION HAND/WRIST Routine 04/11/2023 10:00 AM CDT Trigger Finger Ring Right documented in this encounter Results * hand-wrist (04/11/2023 10:00 AM CDT) Narrative Latrell Antunez M.D. - 04/11/2023 10:00 AM CDT Latrell Antunez M.D. ? 04/11/2023 ??9:39 PM R ring trigger finger volar tendon sheath injection, : injection only Hand-wrist Performed by: Latrell Antunez M.D. Authorized by: Latrell Antunez M.D. ?? PROCEDURE DETAILS Procedure performed: injection only Hand-Wrist procedure site: ?? R ring trigger finger volar tendon sheath injection, PROCEDURE MEDICATIONS Local anesthetics: 2 mL lidocaine 10 mg/mL (1 %) Corticosteroid: 10 mg triamcinolone acetonide 10 mg/mL CONSENT Consent obtained: written (Risks, benefits and alternatives were discussed and a written Informed Consent was obtained. Please see Informed Consent form for further details.) PRE-PROCEDURE DETAILS Procedure purpose: therapeutic Site preparation: chlorhexidine POST-PROCEDURE DETAILS Procedure outcome: ??successful procedure Complications: no apparent complications Post-procedure instructions: post-procedure activity instructions provided Discharge instruction provided: per nursing education record Latrell Antunez M.D. PROCEDURE/MINOR SURG ICAL ORDERABLES documented in this encounter Visit Diagnoses Diagnosis Trigger Finger Ring Right- Primary Primary Osteoarthritis Knee Right documented in this encounter Administered Medications Inactive Administered Medications - up to 3 most recent administrations Medication Order MAR Action Action Date Dose Rate Site lidocaine 10 mg/mL (1 %) injection 2 mL (XYLOCAINE) 2 mL, injection, One-Time Injection, Starting on Bonny 04/11/23 at 1000, For 1 dose Given 04/11/2023 10:00 AM CDT 2 mL triamcinolone acetonide injection 10 mg (KENALOG) 10 mg, intra-articular, One-Time Injection, Starting on Bonny 04/11/23 at 1000, For 1 dose Given 04/11/2023 10:00 AM CDT 10 mg documented in this encounter Additional Health Concerns Assessment Noted Time PHQ-9 Depression Total Score: 0 11/22/19 17 8:37 AM CDT documented as of this encounter Care Teams Digital Music Instructor Relationship Specialty Start Date End Date Brennen Winchester M.D. [address] [place] [address] [place] [phone] PCP - General 04/05/22 documented as of this encounter
--- OUTSIDE RECORDS SUMMARY | 2023-09-30 11:38 | XMS_ITS | Encounter Summary ---
Author Name Unknown Organization [facility] Address [address] [place] [address] Care Team Providers Care Column Precaster Name Role Phone Brennen Winchester M.D. Primary Care Provider Reason for Referral * Outpatient (Routine) - Closed Specialty Diagnoses / Procedures Referred By Contac t Referred To Contact Orthopedic Surgery Hair Landry APRN, C.N.P., Sukhi.N.P., M.S.N. [address] [place] [phone] [facility] Referral ID Status Reason Start Date Expiration Date Visits Re quested Visits Authorized [id number] Closed 03/20/2023 03/19/2026 1 1 Scheduling Instructions 2 week post op Reason for Visit * Outpatient (Routine) - Closed Specialty Diagnoses / Procedures Referred By Contac t Referred To Contact Orthopedic Surgery Latrell Antunez M.D. [address] [place] [phone] [facility] Referral ID Status Reason Start Date Expiration Date Visits Re quested Visits Authorized [id number] Closed 01/08/2023 01/07/2026 1 1 Encounter Details Date Type Department Care Team (Late st Contact Info) Description 03/20/2023 2:45 PM CDT Office Visit Department of Orthopedic Surgery in [place], [place] [address] [place] [phone] Latrell Antunez M.D. [address] [place] [address] Trigger Finger Ring Right (Primary Dx) Social [...] How often do you attend chur or faith services? More than 4 times per year 09/07/2022 Do you belong to any clubs o r organizations such as orthodox groups, unions, fraternal or athletic groups, or [...] Answer Date Recorded PHQ-2 Score 0 01/18/2021 [facility] [...] Progress Notes * Latrell Antunez M.D. - 03/20/2023 2:45 PM CDT CHIEF COMPLAINT SUBJECTIVE Ms. Sands is a very pleasant 72 y.o. female who returns follow-up of her prior trigger fingers as well as shoulder injections. She currently is having more difficulty with her right ring finger. She underwent injection about a year and a half ago which was successful up until recently. OBJECTIVE PHYSICAL EXAMINATION General: NAD, follows commands HEENT: NCAT CV: skin warm, dry, well perfused Pulm: unlabored Neuro: alert, appropriate Upper Extremity: She does have tenderness at the A1 polina with crepitus but no obvious locking. She has good overall range of motion. ADDITIONAL STUDIES: Laboratory studies: [...] Relevant imaging, where available, was reviewed. Xray DX Knee Left Standing 3 Views Result Date: 03/20/2023 Narrative: EXAM: DX KNEE LEFT STANDING 3 VIEWS Impression: Demineralization. Left total knee arthroplasty without findings of loosening. Small left knee joint effusion and/or synovitis. Presumed osteocartilaginous bodies projected along the medial femoral condyle. Anterior soft tissue swelling. Arterial calcification. Electrodiagnostic studies: Relevant EMG/NCV studies were reviewed. ASSESSMENT / PLAN #1 Trigger Finger Ring Right I had a lengthy discussion with Ms. Sands and she is at a point where she would like to consider surgery for the trigger finger. I am agreeable to this. We have added her on for surgery next week. Therisks and benefits were reviewed and consent was obtained. Thank you for the opportunity to participate in this patient's care. Please contact us with questions or concerns. All questions and concerns were answered on today's visit. There were no communication barriers present. Electronically signed by: Latrell Antunez M.D. 03/20/23 10:23 PM CDT Answers submitted by the patient for this visit: General Review of Systems (Submitted on 11/12/2022) No general issues: Yes No eye issues: Yes Difficulty hearing: Yes No heart issues: Yes No respiratory issues: Yes Diarrhea: Yes Pain or stiffness in the joints: Yes Back pain/stiffness: Yes No skin issues: Yes No neurologic issues: Yes No mental health issues: Yes Bruises/bleeds easily: Yes No blood/lymph issues: Yes No urinary/reproductive issues: Yes documented in this encounter Plan of Treatment Upcoming Encounters Date Type Department Care Team (Latest Contact Info) Description 10/02/2023 1:30 PM MACHINE I ENGRAVER Appointment Department of Radiology in [address] [phone] Brennen Winchester M.D. [address] [place] [phone] Discharge Disposition: Home or Self Care 11/08/2023 10:00 AM CDT Office Visit Department of Family Medicine, [facility], in [address] [phone] Brennen Winchester M.D. [address] [place] [phone] 11/22/2023 9:15 AM CDT Clinical Communication Virtual Review in [address] [phone] 11/25/2023 10:15 AM CDT Office Visit Department of Orthopedic Surgery in [place], [place] [address] [place] [phone] Latrell Antunez M.D. [address] [place] [phone] 11/28/2023 8:00 AM CDT Appointment Department of Laboratory Medicine and Pathology, [facility] in [place], [place] [address] [place] [phone] Sam Coburn M.D. [address] [place] [phone] 11/28/2023 8:45 AM CDT Appointment Department of Radiology, [facility] in [place], [place] [address] [place] [phone] Sam Coburn M.D. [address] [place] [phone] 11/28/2023 9:00 AM CDT Appointment Department of Radiology, [facility] in [place], [place] [address] [place] [phone] Sam Coburn M.D. [address] [place] [phone] 11/28/2023 10:00 AM CDT Office Visit Department of Orthopedic Surgery in [place], [place] [address] [place] [phone] Sam Coburn M.D. [address] [place] [phone] 11/29/2023 10:48 AM CDT Hospital Encounter RST ROEI 02 4 AM ADMIT [address] [place] [phone] Sam Coburn M.D. [address] [place] [phone] 11/29/2023 10:48 AM CDT - 11/29/2023 1:43 PM CDT Surgery [facility]ST [facility] MAIN OR [address] [place] [address] Sam Coburn M.D. [address] [place] [address] ARTHROPLASTY REPLACEMENT TOTAL KNEE Scheduled Procedures Name Priority Associated Diagnoses Date/Ti me ARTHROPLASTY REPLACEMENT TOTAL KNEE Primary Osteoarthritis Knee Right 11/29/2023 10:48 AM CDT Scheduled Referrals Name Type Priority Associated Diagnoses Order Schedule Orthopedic Surgery Post Op (clinic) Outpatient Referral Routine Expected: 04/11/2023, Expires: 06/20/2024 documented as of this encounter Visit Diagnoses Diagnosis Trigger Finger Ring Right- Primary Primary Osteoarthritis Knee Right documented in this encounter Additional Health Concerns Assessment Noted Time PHQ-9 Depression Total Score: 0 11/22/19 17 8:37 AM CDT documented as of this encounter Care Teams Column Precaster Relationship Specialty Start Date End Date Brennen Winchester M.D. [address] [place] [phone] PCP - General 04/05/22 documented as of this encounter
--- OUTSIDE RECORDS SUMMARY | 2023-09-30 11:38 | XMS_ITS | Encounter Summary ---
Author Name Unknown Organization [facility] Address [address] [place] [address] Care Team Providers Care Bridge Leverman Name Role Phone Brennen Winchester M.D. Primary Care Provider Reason for Referral * Medication Prior Authorization - Closed Specialty Diagnoses / Procedures Referred By Sara t Referred To Contact Hair Landry APRN, C.N.Suzy, Sukhi.N.PJuan, M.S.N. [address] [place] [phone] Referral ID Status Reason Start Date Expiration Date Visits Re quested Visits Authorized [id number] Closed 1 1 Encounter Details Date Type Department Care Team (Latest Contact Info) Description 03/29/2023 6:16 AM CDT - 03/29/2023 9:26 AM CDT Hospital Encounter Outpatient Procedure Center in [place], [place] [address] [place] [phone] Latrell Antunez M.D. [address] [place] [phone] Trigger Finger Ring Right (Primary Dx) Discharge Disposition: Home or Self Care Social [...] How often do you attend chur or uatsdin services? More than 4 times per year 09/07/2022 Do you belong to any clubs o r organizations such as catholic groups, unions, fraternal or athletic groups, or [...] Answer Date Recorded PHQ-2 Score 0 01/18/2021 [facility] of Occupat ional Health - Occupational Stress [...] Sign Reading Time Taken Comments Blood Pressure 160/83 03/29/2023 9:15 AM CDT Pulse 86 03/29/2023 9:15 AM CDT Temperature 36.5 ??C (97.7 ??F) 03/29/2023 [...] you in one-two weeks. Please report to [facility] Desk E to check-in. If you have any questions or concerns before this appointment, please do not hesitate to call Dr. Antunez's office: - medical practice assistant - fax - appointments - after hours [...] pain medication, please call Dr Antunez's medical practice assistant during business hours, or the after hours [...] to get your bowels moving. - An nywh-[id number] laxative such as milk of magnesia may [...] additional information about smoking cessation, go to [email or web address]/index. html or call [phone] Driving or Operating Machinery - You should not drive until you have stopped taking prescription pain medications for at least 24 hours. Seek Immediate Care if: - You have chest pain, trouble breathing or begin to wheeze. - You have trouble swallowing. Latrell Antunez MD Orthopedic Surgery 200 [place] [address] medical practice assistant fax appointments after hours Trigger Finger or [...] You should not lift, push, pull, or director of assisted living anything heavier than a comb, toothbrush, fork, [...] The same day of surgery with a livery car driver. Driving and operating machinery: is not [...] Post-op Diagnosis Trigger Finger Ring Right A airline pilot/first officer actively participated and was necessary for one [...] (Latest Contact Info) Description 10/02/2023 1:30 PM CREDIT CONTROL MANAGER Appointment Department of Radiology in [address] [phone] Brennen Winchester M.D. 300 [place] [phone] Discharge Disposition: Home or Self Care 11/08/2023 10:00 AM CDT Office Visit Department of Family Medicine, [facility], in [place], [place] 300 [place] [phone] Brennen Winchester M.D. 300 [place] [phone] 11/22/2023 9:15 AM CDT Clinical Communication Virtual Review in [place], [place] 200 [place] [address] 11/25/2023 10:15 AM CDT Office Visit Department of Orthopedic Surgery in [place], [place] [address] [place] [phone] Latrell Antunez M.D. [address] [place] [phone] 11/28/2023 8:00 AM CDT Appointment Department of Laboratory Medicine and Pathology, [facility] in [place], [place] [address] [place] [phone] Sam Coburn M.D. [address] [place] [phone] 11/28/2023 8:45 AM CDT Appointment Department of Radiology, [facility], in [place], [place] [address] [place] [phone] Sam Coburn M.D. [address] [place] [phone] 11/28/2023 9:00 AM CDT Appointment Department of Radiology, [facility], in [place], [place] [address] [place] [phone] Sam Coburn M.D. [address] [place] [address] 11/28/2023 10:00 AM CDT Office Visit Department of Orthopedic Surgery in [place], [place] [address] [place] [address] Sam Coburn M.D. [address] [place] [phone] 11/29/2023 10:48 AM CDT Hospital Encounter [facility] 02 4 AM ADMIT [address] [place] [address] Sam Coburn M.D. [address] [place] [phone] 11/29/2023 10:48 AM CDT - 11/29/2023 1:43 PM CDT Surgery RST RO MAIN OR [address] [place] [address] Sam Coburn M.D. [address] [place] [address] ARTHROPLASTY REPLACEMENT TOTAL KNEE Scheduled Procedures Name [...] CDT Unknown Provider LAB POCT ORDERABLES- MANUAL Performing Organization Address City/[facility] Co de Phone Number POC [facility] 200 [place] [place] [address] 200 [place] [address] * Glucose, POCT (03/29/2023 7:11 AM CDT) Glucose, POCT, B 110 70 - 140 mg/dL 03/29/2023 7:38 AM CDT PCMO Site Capillary 03/29/2023 7:38 AM CDT PCMO Blood 03/29/2023 7:11 AM CDT 03/29/2023 7:38 AM CDT Unknown Provider LAB POCT ORDERABLES- MANUAL Performing Organization Address [facility] de Phone Number POC [facility] 200 [place] [address], [facility] P[facility] 200 [place] [address] documented in this encounter Visit Diagnoses Diagnosis [...] equal to 300: Call provider managing diabetes metoprolol tablet 12.5 mg (LOPRESSOR) 12.5 mg, [...] Prophylaxis, surgical 0805 (Given - Provid er: Sukh Rubi., M.B.A., R.N.) sodium chloride 0.9 % injection [...] documented as of this encounter Care Teams Bridge Leverman Relationship Specialty Start Date End Date Brennen Winchester M.D. [address] [place] [phone] PCP - General 04/05/22 documented as of this encounter
--- OUTSIDE RECORDS SUMMARY | 2023-09-30 11:38 | XMS_ITS | Encounter Summary ---
Author Name Unknown Organization [facility] Address [address] [place] [address] Care Team Providers Care Mitigation Supervisor Name Role Phone Brennen Winchester M.D. Primary Care Provider [phone] Reason for Visit * Reason Onset Date Comments Pre-visit Intake 05/07/2023 Encounter Details Date Type Department Care Team (Latest Contact Info) Description 05/07/2023 8:45 AM CDT Clinical Communication Virtual Review in [place], [place] 200 [place], [place] [phone] Pre-visit Intake Social History Tobacco Use Types Packs/Day Years [...] often do you attend chur ch or christianity services? More than 4 times per year 09/07/2022 Do you belong to any clubs o r organizations such as mandaeism groups, unions, fraternal or athletic groups, or [...] Answer Date Recorded PHQ-2 Score 0 01/18/2021 [facility] Occupat ional [facility] - Occupational Stress Questionnaire Answer Date Recorded [...] No 09/07/2022 Housing Stability Vital Sign Answer Clarek e Recorded In the last 12 months, [...] (Latest Contact Info) Description 10/02/2023 1:30 PM DOMESTIC FREIGHT FORWARDER Appointment Department of Radiology in [place], [place] 300 [place] [address] Brennen Winchester M.D. 300 [place] [address] Discharge Disposition: Home or Self Care 11/08/2023 10:00 AM CDT Office Visit Department of Family Medicine, [facility], in [place], [place] 300 [place] [phone] Brnenen Winchester M.D. 300 [place] [phone] 11/22/2023 9:15 AM CDT Clinical Communication Virtual Review in [place], [place] 200 [place] [address] 11/25/2023 10:15 AM CDT Office Visit Department of Orthopedic Surgery in [address] [phone] Latrell Antunez M.D. [address] [place] [phone] 11/28/2023 8:00 AM CDT Appointment Department of Laboratory Medicine and Pathology, [facility] in [address] [phone] Sam Coburn M.D. [address] [place] [phone] 11/28/2023 8:45 AM CDT Appointment Department of Radiology, [facility] in [address] [phone] Sam Coburn M.D. [address] [place] [phone] 11/28/2023 9:00 AM CDT Appointment Department of Radiology, [facility] in [address] [phone] Sam Coburn M.D. [address] [place] [phone] 11/28/2023 10:00 AM CDT Office Visit Department of Orthopedic Surgery in [address] [phone] Sam Coburn M.D. [address] [place] [phone] 11/29/2023 10:48 AM CDT Hospital Encounter RST RO 02 4 AM ADMIT [address] [place] [address] Sam Coburn M.D. [address] [place] [address] 11/29/2023 10:48 AM CDT - 11/29/2023 1:43 PM CDT Surgery RST RO MAIN OR [address] [place] [address] Sam Coburn M.D. [address] [place] [address] ARTHROPLASTY REPLACEMENT TOTAL KNEE Scheduled Procedures Name Priority Associated Diagnoses Date/Ti me ARTHROPLASTY REPLACEMENT TOTAL KNEE Primary Osteoarthritis Knee Right 11/29/2023 10:48 AM CDT documented as of this encounter Visit Diagnoses Not on filedocumented in this encounter Additional Health Concerns Assessment Noted Time PHQ-9 Depression Total Score: 0 11/22/19 17 8:37 AM CDT documented as of this encounter Care Teams Mitigation Supervisor Relationship Specialty Start Date End Date Brennen Winchester M.D. [address] [place] [phone] PCP - General 04/05/22 documented as of this encounter
--- OUTSIDE RECORDS SUMMARY | 2023-09-30 11:38 | XMS_ITS | Encounter Summary ---
Author Name Unknown Organization [facility] Address [address] [place] [address] Care Team Providers Care Miter Operator Name Role Phone Bernnen Winchester M.D. Primary Care Provider Reason for Visit * Appointment Request (Routine) - Closed Specialty Diagnoses / Procedures Referred By Sara schmid Referred To Contact Nephrology and Hypertension Referral ID Status Reason Start Date Expiration Date Visits Re quested Visits Authorized [id number] Closed 02/08/2023 02/08/2024 1 1 Encounter Details Date Type Department Care Team (Latest Contact Info) Description 2023 1:00 PM CDT External Outreach Division of Nephrology and Hypertension in [place], [place] [address] [place] [address] Checo Aguirre Jr., D.O. [address] [place] [address] Hypertensive Chronic Kidney Disease (CKD) Stage 3b Glomerular Filtration Rate (GFR) 30 To 44 (HCC) (Primary Dx); Hyperparathyroidism Renal Secondary (HCC); Diabetes Mellitus Type 2 (HCC); Anemia Iron Deficiency; Hypercholesterolemia Social History Tobacco Use Types Packs/Day Years [...] How often do you attend chur or restorationism services? More than 4 times per year [...] Answer Date Recorded PHQ-2 Score 0 01/18/2021 [facility] [place] of Occupat ional Health - Occupational Stress [...] place to sleep or slept in a mcc (including now)? No 09/07/2022 Nutrition Answer Date [...] Pulse 78 2023 12:58 PM CDT Temperature - - Respiratory Rate - - Oxygen Saturation - - Inhaled Oxygen Concentration - - Weight 58.5 kg (128 lb 15.5 oz) 023 12:58 PM CDT Height 167.6 cm (5' 5.98) 2023 1 2:58 PM CDT Body Mass Index 20.83 2023 12:58 PM CDT documented in this encounter Progress Notes * Checo Aguirre Jr., D.Chantal. - 2023 1:00 PM CDT Referring Provider: Brennen Winchester M.D. SUBJECTIVE REASON FOR VISIT [facility] Follow-up regards CKD HISTORY OF PRESENT ILLNESS Ms. Sands is a 73 y.o. female who presents with a history of nephrosclerosis on the background of heavy NSAID use, hypertension, and diabetes mellitus. With respect to her diabetes she has had no hypoglycemic events in her hemoglobin A1c is 6.6%. She is no neuropathic issues and she does not have microalbuminuria. Her home blood pressures been in the 120s over 70s without orthostatic issues or lower extremity swelling. She is feeling well, no chest pain no other constitutional or cardiovascular complaints. She is gotten rid of the NSAIDs, using Tylenol only for pain relief. She is bearing quite a bit of discomfort, particularly her right knee. She is recently status post left total knee arthroplasty and in fact last week underwent tendon repair in her right hand. She is sleeping well, and has no other complaints. Past Medical History: Diagnosis Date Cataract 2013 Diabetes Mellitus Type 2 (HCC) 11/21/2016 DM II (or NOS), controlled Diabetes Mellitus Type 2 With Diabetic Chronic Kidney Disease (HCC) 11/21/2016 DM II (or NOS), controlled Hypercholesterolemia 11/21/2016 Hypertension And Chronic Kidney Disease Stage 4 (HCC) 11/21/2016 Hypertension (HTN) Essential Primary NOS Hypertension Essential Primary 11/21/2016 Hypertension (HTN) Essential Primary NOS Loss Hearing Sensorineural Bilateral 10/26/2015 Osteopenia 09/27/2009 Other Injury Of Unspecified Body Region Right hip, 01/17/20 JACKIE Other Specified Health Status arthritis Post Operative Nausea/Vomiting Vitiligo 08/10/2016 Current Outpatient Medications: acetaminophen (TYLENOL) 500 mg capsule, Take 2 capsules (1,000 mg total) by mouth every 6 (six) hours as needed for pain. Take on a schedule while using opioids. Once opioid use has stopped, adjust to as needed, Disp: , Rfl: aspirin [address] tablet, Take 1 tablet (81 mg total) by mouth 2 (two) times a day., Disp: 120 tablet, Rfl: 0 blood glucose ctl high,nml,low solution, Glucose control solution provides an easy way to ensure accurate blood glucose testing., Disp: 1 each, Rfl: 0 blood sugar diagnostic strips (Contour Next Test Strips), 1 test daily., Disp: 90 test, Rfl: 3 blood-glucose meter misc, Contour Next One meter. Test once daily., Disp: 1 each, Rfl: 0 lancets (Microlet Lancet), Use to test glucose once daily, Disp: 100 each, Rfl: 3 lisinopril-hydroCHLOROthiazide (PRINZIDE,ZESTORETIC) 10-12.5 mg per tablet, Take 1 tablet by mouth at bedtime. HOLD until follow up with primary care provider, Disp: 90 tablet, Rfl: 3 metFORMIN XR (GLUCOPHAGE-XR) 500 mg 24 hr tablet, Take 2 tablets (1,000 mg total) by mouth daily with breakfast. (Patient taking differently: Take 1,000 mg by mouth at bedtime.), Disp: 180 tablet, Rfl: 3 mirtazapine (REMERON) 7.5 mg tablet, Take 1 tablet (7.5 mg total) by mouth at bedtime., Disp: 90 tablet, Rfl: 3 oxyCODONE (ROXICODONE) 5 mg immediate release tablet, Take 1 tablet (5 mg total) by mouth every 6 (six) hours as needed for severe pain or score 7-10 of 10 for up to 3 days Indication: Acute Pain., Disp: 5 tablet, Rfl: 0 simvastatin (ZOCOR) 20 mg tablet, Take 1 tablet (20 mg total) by mouth at bedtime., Disp: 90 tablet, Rfl: 3 REVIEW OF SYSTEMS All other systems reviewed and are negative. OBJECTIVE BP 140/80 Pulse 78 Ht 167.6 cm Wt 58.5 kg BMI 20.83 kg/m?? PHYSICAL EXAMINATION General: Awake alert oriented HEENT: NEHEMIAS, EOMI, Mucous membranes moist, no oral lesions Neck: No Masses, No Bruits Lungs: Clear to ascultation Heart: Regular Rate and Rhythm, No ectopy Murmurs or rubs Abdomen: Soft, Non-tender Extremities: No cyanosis, No clubbing: Trace pedal edema, soft cast on her right hand Neuro: Cranial Nerves intact, Gait is normal, strength grossly normal Skin: no suspicious lesions identified Psychiatric: Normal affect DIAGNOSTICS Note hemoglobin A1c 6.6%, creatinine 1.5 mg/dL, no microalbuminuria, normal CBC, normal electrolytes with acceptable PTH calcium and phosphorus ASSESSMENT / PLAN #1 Hypertensive Chronic Kidney Disease (CKD) Stage 3b Glomerular Filtration Rate (GFR) 30 To 44 ([facility]) Goal blood pressure slightly above target today, she is having some pain, and is immediately postop. Going forward: Continue to avoid NSAIDs and [place] 2 inhibitors we discussed topical therapies, and acetaminophen total dosage of 3000 mg per day Plenty of hydration Goal hemoglobin A1c less than 7.5% Return to clinic in 6 months Monitor home blood pressure, goals less than 130/80 #2 Hyperparathyroidism Renal Secondary ([facility]) Satisfactory calcium and phosphorus, her vitamin-D levels are slightly low we will monitor. #3 Diabetes Mellitus Type 2 ([facility]) Excellent glycemic control on metformin alone. #4 Anemia Iron Deficiency Her present saturation slightly below target we will continue to monitor. Hemoglobin is normal #5 Hypercholesterolemia Lipid levels are acceptable Total time: 35 minutes Counseling Time: 25 minute Checo Aguirre Jr., D.O. documented in this encounter Plan of Treatment Upcoming Encounters Date Type Department Care Team (Latest Contact Info) Description 10/02/2023 1:30 PM HEALTHCARE ADMINISTRATOR Appointment Department of Radiology in [address] [phone] Brennen Winchester M.D. 300 [place] [address] Discharge Disposition: Home or Self Care 11/08/2023 10:00 AM CDT Office Visit Department of Family Medicine, [facility], in [address] [phone] Brennen Winchester M.D. 300 [place] [address] 11/22/2023 9:15 AM CDT Clinical Communication Virtual Review in [place], [place] 200 [place] [address] 11/25/2023 10:15 AM CDT Office Visit Department of Orthopedic Surgery in [place], [place] [address] [place] [phone] Latrell Antunez M.D. [address] [place] [phone] 11/28/2023 8:00 AM CDT Appointment Department of Laboratory Medicine and Pathology, [facility] in [address] [phone] Sam Coburn M.D. [address] [place] [phone] 11/28/2023 8:45 AM CDT Appointment Department of Radiology, [facility], in [address] [phone] Sam Coburn M.D. [address] [place] [phone] 11/28/2023 9:00 AM CDT Appointment Department of Radiology, [facility], in [address] [phone] Sam Coburn M.D. [address] [place] [phone] 11/28/2023 10:00 AM CDT Office Visit Department of Orthopedic Surgery in [place], [place] [address] [place] [phone] Sma Coburn M.D. [address] [place] [phone] 11/29/2023 10:48 AM CDT Hospital Encounter [facility] 02 4 AM ADMIT [address] [place] [address] Sam Coburn M.D. [address] [place] [address] 11/29/2023 10:48 AM CDT - 11/29/2023 1:43 PM CDT Surgery [facility] MAIN OR [address] [place] [address] Sam Coburn M.D. [address] [place] [address] ARTHROPLASTY REPLACEMENT TOTAL KNEE Scheduled Procedures Name Priority Associated Diagnoses Date/Ti me ARTHROPLASTY REPLACEMENT TOTAL KNEE Primary Osteoarthritis Knee Right 11/29/2023 10:48 AM CDT documented as of this encounter Visit Diagnoses Diagnosis Hypertensive Chronic Kidney Disease (CKD) Stage 3b Glomerular Filtration Rate (GFR) 30 To 44 (HCC)- Primary Hyperparathyroidism Renal Secondary (HCC) Diabetes Mellitus Type 2 (HCC) Anemia Iron Deficiency Hypercholesterolemia Primary Osteoarthritis Knee Right documented in this encounter Additional Health Concerns Assessment Noted Time PHQ-9 Depression Total Score: 0 11/22/19 17 8:37 AM CDT documented as of this encounter Care Teams Miter Operator Relationship Specialty Start Date End Date Brennen Winchester M.D. [address] [place] [phone] PCP - General 04/05/22 documented as of this encounter
--- OUTSIDE RECORDS SUMMARY | 2023-09-30 11:38 | XMS_ITS | Encounter Summary ---
Author Name Unknown Organization [facility] Address [address] [place] [address] Care Team Providers Care Poultryman Name Role Phone Brennen Winchester M.D. Primary Care Provider Encounter Details Date Type Department Care Team (Latest Contact Info) Description 05/03/2023 8:03 AM CDT - 05/03/2023 11:59 PM CDT Hospital Encounter Department of Laboratory Medicine in [address] [phone] Brennen Winchester M.D. [address] [place] [phone] Diabetes Mellitus Type 2 (HCC) Discharge Disposition: Home or Self Care [...] often do you attend chur ch or anabaptist services? More than 4 times per year 09/07/2022 Do you belong to any clubs o r organizations such as jewish groups, unions, fraternal or athletic groups, or [...] Answer Date Recorded PHQ-2 Score 0 01/18/2021 [facility]at ional [facility] - [...] mouth at bedtime. 90 tablet 3 01/31/[address] tablet Take 1 tablet (81 mg total) by mouth 2 (two) times a day. 120 tablet 0 12/07/2022 08/09/2023 metFORMIN XR (GLUCOPHAGE-XR) 500 mg 24 hr tabletIndications:Diab etes Mellitus Type 2 With Diabetic Chronic Kidney Disease (HCC) Take 2 tablets (1,000 mg total) by mouth daily with breakfast. 180 tablet 3 07/24/2022 08/19/2023 mirtazapine (REMERON) 7.5 mg tablet Take 1 tablet (7.5 mg total) by mouth at bedtime. 90 tablet 3 10/18/2022 08/09/2023 documented as of this encounter Plan of Treatment Upcoming Encounters Date Type Department Care Team (Latest Contact Info) Description 10/02/2023 1:30 PM MEDICAL ASSISTING INSTRUCTOR Appointment Department of Radiology in [place], [place] [address] [place] [phone] Brennen Winchester M.D. [address] [place] [phone] Discharge Disposition: Home or Self Care 11/08/2023 10:00 AM CDT Office Visit Department of Family Medicine, [facility], in [place], [place] [address] [place] [phone] Brennen Winchester M.D. [address] [place] [phone] 11/22/2023 9:15 AM CDT Clinical Communication Virtual Review in [place], [place] 200 [place] [address] 11/25/2023 10:15 AM CDT Office Visit Department of Orthopedic Surgery in [place], [place] [address] [place] [phone] Latrell Antunez M.D. [address] [place] [phone] 11/28/2023 8:00 AM CDT Appointment Department of Laboratory Medicine and Pathology, [facility] in [place], [place] [address] [place] [phone] Sam Coburn M.D. [address] [place] [phone] 11/28/2023 8:45 AM CDT Appointment Department of Radiology, [facility], in [place], [place] [address] [place] [phone] Sam Coburn M.D. [address] [place] [phone] 11/28/2023 9:00 AM CDT Appointment Department of Radiology, [facility], in [place], [place] [address] [place] [phone] Sam Coburn M.D. [address] [place] [phone] 11/28/2023 10:00 AM CDT Office Visit Department of Orthopedic Surgery in [place], [place] [address] [place] [address] Sam Coburn M.D. [address] [place] [phone] 11/29/2023 10:48 AM CDT Hospital Encounter RST RO 02 4 AM ADMIT [address] [place] [address] Sam Coburn M.D. [address] [place] [phone] 11/29/2023 10:48 AM CDT - 11/29/2023 1:43 PM CDT Surgery RST [facility] MAIN OR [address] [place] [address] Sam Coburn M.D. [address] [place] [phone] ARTHROPLASTY REPLACEMENT TOTAL KNEE Scheduled Procedures Name Priority Associated Diagnoses Date/Ti me ARTHROPLASTY REPLACEMENT TOTAL KNEE Primary Osteoarthritis Knee Right 11/29/2023 10:48 AM CDT documented as of this encounter Procedures Procedure Name Priority Date/Time Associated Diagnosis Comments HEMOGLOBIN A1C, B Routine 05/03/2023 8:2 1 AM CDT Diabetes Mellitus Type 2 (HCC) documented in this encounter Results * (ABNORMAL) Hemoglobin A1c (05/03/2023 8:21 AM CDT) Hemoglobin A1c, B 6.8(H) 4.2 - 5.6 % 05/03/2023 11:59 AM CDT OWAT Comment: Hemoglobin A1c values greater than or equal to 6.5 percent are diagnostic for diabetes mellitus. ??Diagnosis should be confirmed by repeat testing. ??In diabetic patients, HbA1c goals should be discussed with healthcare provider. Blood (Blood, Venous) 05/03/2023 8:21 AM CDT 05/03/2023 11:10 AM CDT Brennen Winchester M.D. LAB BLOOD ADD-ON [facility] [address] [place] [address], [place] [facility] in [place] [address] [place] [address] documented in this encounter Visit Diagnoses Diagnosis Diabetes Mellitus Type 2 (HCC) Primary Osteoarthritis Knee Right documented in this encounter Additional Health Concerns Assessment Noted Time PHQ-9 Depression Total Score: 0 11/22/19 17 8:37 AM CDT documented as of this encounter Care Teams Poultryman Relationship Specialty Start Date End Date Brennen Winchester M.D. [address] [place] [phone] PCP - General 04/05/22 documented as of this encounter
--- OUTSIDE RECORDS SUMMARY | 2023-09-30 11:39 | XMS_ITS | Encounter Summary ---
Author Name Unknown Organization [facility] Address [address] [place] [address] Care Team Providers Care Scroll Shear Operator Name Role Phone Brennen Winchester M.D. Primary Care Provider [phone] Encounter Details Date Type Department Care Team (Latest Contact Info) Description 01/30/2023 8:24 AM CDT - 01/30/2023 11:59 PM CDT Hospital Encounter Department of Laboratory Medicine in [place], [place] [address] [place] [phone] Brennen Winchester M.D. [address] [place] [phone] Monitoring For Therapeutic Drug Therapy Discharge Disposition: Home or Self Care Social [...] often do you attend chur ch or gnosticist services? More than 4 times per year 09/07/2022 Do you belong to any clubs o r organizations such as hinduism groups, unions, fraternal or athletic groups, or [...] Answer Date Recorded PHQ-2 Score 0 01/18/2021 [facility] of Occupat ional Health - Occupational [...] glucose once daily 100 each 3 01/16/[address] tablet Take 1 tablet (81 mg total) by mouth 2 (two) times a day. 120 tablet 0 12/07/2022 08/09/2023 lisinopril-hydroCHLORO thiazide (PRINZIDE,ZESTORETIC) 10-12.5 mg per tabletIndications:Hype rtension And Chronic Kidney Disease Stage 4 (HCC) Take 1 tablet by mouth at bedtime. HOLD until follow up with primary care provider 0 12/08/2022 01/31/2023 metFORMIN XR (GLUCOPHAGE-XR) 500 mg 24 hr tabletIndications:Diab etes Mellitus Type 2 With Diabetic Chronic Kidney Disease (HCC) Take 2 tablets (1,000 mg total) by mouth daily with breakfast. 180 tablet 3 07/24/2022 08/19/2023 mirtazapine (REMERON) 7.5 mg tablet Take 1 tablet (7.5 mg total) by mouth at bedtime. 90 tablet 3 10/18/2022 08/09/2023 oxyCODONE (ROXICODONE) 5 mg immediate release tabletIndications:Acut e Pain Exception Take 1 tablet (5 mg total) by mouth every 4 (four) hours as needed for severe pain or score 7-10 of 10 Indication: Acute Pain Exception. 15 tablet 0 12/07/2022 01/31/2023 simvastatin (ZOCOR) 20 mg tabletIndications:Hype rcholesterolemia TAKE ONE TABLET BY MOUTH EVERY DAY AT BEDTIME 90 tablet 3 02/27/2022 01/31/2023 traMADoL (ULTRAM) 50 mg tabletIndications:Acut e Pain Exception Take 1 tablet (50 mg total) by mouth every 6 (six) hours as needed for severe pain or score 7-10 of 10 Indications: Acute Pain Exception. 18 tablet 0 12/20/2022 01/31/2023 documented as of this encounter Plan of Treatment Upcoming Encounters Date Type Department Care Team (Latest Contact Info) Description 10/02/2023 1:30 PM BILINGUAL KINDERGARTEN TEACHER Appointment Department of Radiology in [place], [place] [address] [place] [phone] Brennen Winchester M.D. [address] [place] [phone] Discharge Disposition: Home or Self Care 11/08/2023 10:00 AM CDT Office Visit Department of Family Medicine, [facility], in [place] [address], [place] [address] [place] [phone] Brennen Winchester M.D. [address] [place] [phone] 11/22/2023 9:15 AM CDT Clinical Communication Virtual Review in [place], [place] 200 [place] [address] 11/25/2023 10:15 AM CDT Office Visit Department of Orthopedic Surgery in [place], [place] [address] [place] [phone] Latrell Antunez M.D. [address] [place] [phone] 11/28/2023 8:00 AM CDT Appointment Department of Laboratory Medicine and Pathology, [facility] in [place], [place] [address] [place] [phone] Sam Coburn M.D. [address] [place] [phone] 11/28/2023 8:45 AM CDT Appointment Department of Radiology, [facility] in [place], [place] [address] [place] [phone] Sam Coburn M.D. [address] [place] [phone] 11/28/2023 9:00 AM CDT Appointment Department of Radiology, [facility], in [place], [place] [address] [place] [phone] Sam Coburn M.D. [address] [place] [phone] 11/28/2023 10:00 AM CDT Office Visit Department of Orthopedic Surgery in [place], [place] [address] [place] [address] Sam Coburn M.D. [address] [place] [phone] 11/29/2023 10:48 AM CDT [facility] AM AD[facility] [address] [place] [phone] Sam Coburn M.D. [address] [place] [phone] 11/29/2023 10:48 AM CDT - 11/29/2023 1:43 PM CDT Surgery [facility] MAIN OR [address] [place] [address] Sam Coburn M.D. [address] [place] [phone] ARTHROPLASTY REPLACEMENT TOTAL KNEE Scheduled Procedures Name Priority Associated Diagnoses Date/Ti me ARTHROPLASTY REPLACEMENT TOTAL KNEE Primary Osteoarthritis Knee Right 11/29/2023 10:48 AM CDT documented as of this encounter Procedures Procedure Name Priority Date/Time Associated Diagnosis Comments BASIC METABOLIC PANEL, S/P Routine 01/30/2023 8:31 AM CDT Monitoring For Therapeutic Drug Therapy documented in this encounter Results * (ABNORMAL) Basic Metabolic Panel (01/30/2023 8:31 AM CDT) Potassium, P 5.1 3.6 - 5.2 mmol/L 01/30/2023 3:00 PM CDT OWAT Sodium, P 139 135 - 145 mmol/L 01/30/2023 3:00 PM CDT OWAT Chloride, P 105 98 - 107 mmol/L 01/30/2023 3:00 PM CDT OWAT Bicarbonate, P 20(L) 22 - 29 mmol/L 01/30/2023 3:00 PM CDT OWAT Anion Gap, P 14 7 - 15 01/30/2023 3:00 PM CDT OWAT BUN (Blood Urea Nitrogen), P 42(H) 6 - 21 mg/dL 01/30/2023 3:00 PM CDT OWAT Creatinine 1.35(H) 0.59 - 1.04 mg/dL 01/30/2023 3:00 PM CDT OWAT Estimated GFR (eGFR) 41(L) >=60 mL/min/BSA 01/30/2023 3:00 PM CDT OWAT Comment: Estimated GFR calculated using the 2020 CKD_EPI creatinine equation. Calcium, Total, P 9.5 8.8 - 10.2 mg/dL 01/30/2023 3:00 PM CDT OWAT Glucose, P 127 70 - 140 mg/dL 01/30/2023 3:00 PM CDT OWAT Blood (Blood, Venous) 01/30/2023 8:31 AM CDT 01/30/2023 11:23 AM CDT Brennen Winchester M.D. LAB BLOOD ADD-ON [facility] [address] [place] [address], [facility] [facility] in [place] [address] [place] [address] documented in this encounter Visit Diagnoses Diagnosis Monitoring For Therapeutic Drug Therapy Primary Osteoarthritis Knee Right documented in this encounter Additional Health Concerns Assessment Noted Time PHQ-9 Depression Total Score: 0 11/22/19 17 8:37 AM CDT documented as of this encounter Care Teams Scroll Shear Operator Relationship Specialty Start Date End Date Brennen Winchester M.D. [address] [place] [address] [place] [phone] PCP - General 04/05/22 documented as of this encounter
--- OUTSIDE RECORDS SUMMARY | 2023-09-30 11:39 | XMS_ITS | Encounter Summary ---
Author Name Unknown Organization [facility] Address [address] [place] [address] Care Team Providers Care Business Services Representative Name Role Phone Brennen Winchester M.D. Primary Care Provider Reason for Visit * Outpatient (Routine) - Closed Specialty Diagnoses / Procedures Referred By Sara schmid Referred To Contact Orthopedic Surgery Sam Coburn M.D. [address] [place] [phone] [facility] Referral ID Status Reason Start Date Expiration Date Visits Re quested Visits Authorized [id number] Closed 01/02/2023 01/01/2026 1 1 Encounter Details Date Type Department Care Team (Latest Contact Info) Description 03/20/2023 2:00 PM CDT Office Visit Department of Orthopedic Surgery in [address] [place] [phone] Sam Coburn M.D. [address] [place] [phone] Arthroplasty Total Knee Replacement Status Post Left (Primary Dx); Primary Osteoarthritis Knee Right Social History Tobacco Use Types Packs/Day Years [...] any clubs o r organizations such as sabianism groups, unions, fraternal or athletic groups, or [...] Answer Date Recorded PHQ-2 Score 0 01/18/2021 [facility] of Occupat ional Health - Occupational Stress [...] as of this encounter Progress Notes * Sam Coburn M.D. - 03/20/2023 2:00 PM CDT SUBJECTIVE REASON FOR VISIT Total knee arthroplasty follow-up evaluation HISTORY OF PRESENT ILLNESS Ekta Sands is a 72 y.o. female who presents approximately 3.5 months out from primary left total knee replacement doing well overall. Her preoperative pain is much improved. At this time, her activity is primarily limited by back pain and her contralateral knee arthritis. She is contemplating right total knee replacement in the spring. OBJECTIVE PHYSICAL EXAM General: Awake and alert. No acute distress Skin: Well-healed incision Extremities: Left knee flexion contracture of about 5?? with further flexion to at least 110??. Stability is excellent. Neurologic: Good quadriceps strength LABORATORY STUDIES / IMAGING Plain radiographs show well-fixed implants in good position. She has severe right knee DJD which isprimarily patellofemoral, with grade 4 changes in that compartment. ASSESSMENT / PLAN #1 Arthroplasty Total Knee Replacement Status Post Left #2 Primary Osteoarthritis Knee Right We had a good discussion regarding ongoing care, activity recommendations, and time intervals for routine follow-up. She will continue all of her current exercises on the left side. She will reach out to us approximately three months prior to her ideal time to consider right total knee replacement to allow for scheduling. The patient knows how to reach us any time with questions or concerns. PATIENT EDUCATION The problem and treatment options were explained. There were no apparent barriers limiting the patient's understanding of our discussion. documented in this encounter Plan of Treatment Upcoming Encounters Date Type Department Care Team (Latest Contact Info) Description 10/02/2023 1:30 PM LENS GAUGER Appointment Department of Radiology in [place], [place] [address] [place] [address] Brennen Winchester M.D. [address] [place] [phone] Discharge Disposition: Home or Self Care 11/08/2023 10:00 AM CDT Office Visit Department of Family Medicine, [facility], in [place], [place] [address] [place] [address] Brennen Winchester M.D. [address] [place] [phone] 11/22/2023 9:15 AM CDT Clinical Communication Virtual Review in 200 [place] [address] 11/25/2023 10:15 AM CDT Office Visit Department of Orthopedic Surgery in [address] [place] [phone] Latrell Antunez M.D. [address] [place] [phone] 11/28/2023 8:00 AM CDT Appointment Department of Laboratory Medicine and Pathology, [facility] in [address] [phone] Sam Coburn M.D. [address] [place] [phone] 11/28/2023 8:45 AM CDT Appointment Department of Radiology, [facility], in [address] [phone] Sam Coburn M.D. [address] [place] [phone] 11/28/2023 9:00 AM CDT Appointment Department of Radiology, [facility], in [address] [phone] Sam Coburn M.D. [address] [place] [phone] 11/28/2023 10:00 AM CDT Office Visit Department of Orthopedic Surgery in [address] [place] [phone] Sam Coburn M.D. [address] [place] [phone] 11/29/2023 10:48 AM CDT Hospital Encounter [facility] 02 4 AM ADMIT [address] [place] [phone] Sam Coburn M.D. [address] [place] [address] 11/29/2023 10:48 AM CDT - 11/29/2023 1:43 PM CDT Surgery [facility] MAIN OR [address] [place] [address] Sam Coburn M.D. 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 [address] [place] [phone] PCP - General 04/05/22 documented as of this encounter
--- OUTSIDE RECORDS SUMMARY | 2023-09-30 11:39 | XMS_ITS | Encounter Summary ---
Author Name Unknown Organization [facility] Address [address] [place] [address] Care Team Providers Care Vmware Architect Name Role Phone Brennen Winchester M.D. Primary Care Provider [phone] Reason for Visit * Reason Onset Date Comments Pre-visit Intake 03/18/2023 Encounter Details Date Type Department Care Team (Latest Contact Info) Description 03/18/2023 10:30 AM CDT Clinical Communication Virtual Review in [place], [place] 200 [place], [place] [address] Pre-visit Intake Social History Tobacco Use Types [...] often do you attend chur ch or hinduism services? More than 4 times per year 09/07/2022 Do you belong to any clubs o r organizations such as rastafarian groups, unions, fraternal or athletic groups, or [...] [facility] of Occupat ional [facility] - Occupational Stress Questionnaire Answer Date [...] place to sleep or slept in a fci (including now)? 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 [address] [place] [address] Discharge Disposition: Home or Self Care 11/08/2023 10:00 AM CDT Office Visit Department of Family Medicine, [facility], in [place], [place] [address] [place] [phone] Brennen Winchester M.D. [address] [place] [phone] 11/22/2023 9:15 AM CDT Clinical Communication Virtual Review in [place], [place] 200 [place] [address] 11/25/2023 10:15 AM CDT Office Visit Department of Orthopedic Surgery in [place], [place] [address] [place] [phone] Latrell Antunez M.D. [address] [place] [phone] 11/28/2023 8:00 AM CDT Appointment Department of Laboratory Medicine and Pathology, [facility] in [place], [place] [address] [place] [phone] Sam Coburn M.D. [address] [place] [phone] 11/28/2023 8:45 AM CDT Appointment Department of Radiology, [facility], in [place], [place] [address] [place] [phone] Sam Coburn M.D. [address] [place] [phone] 11/28/2023 9:00 AM CDT Appointment Department of Radiology, [facility], in [place], [place] [address] [place] [phone] Sam Coburn M.D. [address] [place] [phone] 11/28/2023 10:00 AM CDT Office Visit Department of Orthopedic Surgery in [place], [place] [address] [place] [phone] Sam Coburn M.D. [address] [place] [phone] 11/29/2023 10:48 AM CDT Hospital Encounter [facility] 02 4 AM ADMIT [address] [place] [address] Sam Coburn M.D. [address] [place] [address] 11/29/2023 10:48 AM CDT - 11/29/2023 1:43 PM CDT Surgery [facility] MAIN OR [address] [place] [address] Sam Coburn M.D. [address] [place] [address] ARTHROPLASTY REPLACEMENT TOTAL KNEE Scheduled Procedures Name Priority Associated Diagnoses Date/Ti me ARTHROPLASTY REPLACEMENT TOTAL KNEE Primary Osteoarthritis Knee Right 11/29/2023 10:48 AM CDT documented as of this encounter Visit Diagnoses Not on filedocumented in this encounter Additional Health Concerns Assessment Noted Time PHQ-9 Depression Total Score: 0 11/22/19 17 8:37 AM CDT documented as of this encounter Care Teams Vmware Architect Relationship Specialty Start Date End Date Brennen Winchester M.D. [address] [place] [phone] PCP - General 04/05/22 documented as of this encounter
--- OUTSIDE RECORDS SUMMARY | 2023-09-30 11:39 | XMS_ITS | Encounter Summary ---
Author Name Unknown Organization [facility] Address [address] [place] [phone] Care Team Providers Care Dag Sprayer Name Role Phone Brennen Winchester M.D. Primary Care Provider [phone] Reason for Referral * Outpatient (Routine) - Closed Specialty Diagnoses / Procedures Referred By Contac t Referred To Contact Diagnoses Arthroplasty Total Knee Replacement Status Post Left Procedures DX Knee Left Standing 3 Views Sam Coburn M.D. [address] [place] [phone] [facility] Referral ID Status Reason Start Date Expiration Date Visits Re quested Visits Authorized [id number] Closed 01/02/2023 01/02/2024 1 1 Reason for Visit * Outpatient (Routine) - Closed Specialty Diagnoses / Procedures Referred By Contac t Referred To Contact Diagnoses Arthroplasty Total Knee Replacement Status Post Left Procedures DX Knee Left Standing 3 Views Sam Coburn M.D. [address] [place] [phone] [facility] Referral ID Status Reason Start Date Expiration Date Visits Re quested Visits Authorized [id number] Closed 01/02/2023 01/02/2024 1 1 Encounter Details Date Type Department Care Team (Latest Contact Info) Description 03/20/2023 12:22 PM CDT - 03/20/2023 11:59 PM CDT Hospital Encounter Department of Radiology, [facility], in [place], [place] [address] [place] [phone] [place] [address] Arthroplasty Total Knee Replacement Status Post Left Discharge Disposition: Home or Self Care Social [...] How often do you attend chur or temple services? More than 4 times per year [...] Answer Date Recorded PHQ-2 Score 0 01/18/2021 [facility] of Occupat ional Health - Occupational Stress [...] place to sleep or slept in a penitentiary (including now)? No 09/07/2022 Nutrition Answer Date [...] mouth at bedtime. 90 tablet 3 01/31/2023 oxyCODONE (ROXICODONE) 5 mg immediate release tabletIndications:Acut [...] (Latest Contact Info) Description 10/02/2023 1:30 PM FINE GRADE OPERATOR Appointment Department of Radiology in [address] [phone] Brennen Winchester M.D. 300 [place] [address] Discharge Disposition: Home or Self Care 11/08/2023 10:00 AM CDT Office Visit Department of Family Medicine, [facility], in [address] [phone] Brennen Winchester M.D. 300 [place] [address] 11/22/2023 9:15 AM CDT Clinical Communication Virtual Review in [place], [place] 200 [place] [address] 11/25/2023 10:15 AM CDT Office Visit Department of Orthopedic Surgery in [address] [phone] Latrell Antunez M.D. [address] [place] [phone] 11/28/2023 8:00 AM CDT Appointment Department of Laboratory Medicine and Pathology, [facility] in [place], [place] [address] [place] [phone] Sam Coburn M.D. [address] [place] [phone] 11/28/2023 8:45 AM CDT Appointment Department of Radiology, [facility] in [place], [place] [address] [place] [phone] Sam Coburn M.D. [address] [place] [phone] 11/28/2023 9:00 AM CDT Appointment Department of Radiology, [facility] in [place], [place] [address] [place] [phone] Sam Coburn M.D. [address] [place] [phone] 11/28/2023 10:00 AM CDT Office Visit Department of Orthopedic Surgery in [place], [place] [address] [place] [phone] Sam Coburn M.D. [address] [place] [phone] 11/29/2023 10:48 AM CDT Hospital Encounter RST RO 02 4 AM ADMIT [address] [place] [phone] Sam Coburn M.D. [address] [place] [phone] 11/29/2023 10:48 AM CDT - 11/29/2023 1:43 PM CDT Surgery [facility] MAIN OR [address] [place] [address] Sam Coburn M.D. [address] [place] [address] ARTHROPLASTY REPLACEMENT TOTAL KNEE Scheduled Procedures Name Priority Associated Diagnoses Date/Ti me ARTHROPLASTY REPLACEMENT TOTAL KNEE Primary Osteoarthritis Knee Right 11/29/2023 10:48 AM CDT documented as of this encounter Procedures Procedure Name Priority Date/Time Associated Diagnosis Comments DX KNEE LEFT STANDING 3 VIEWS RAD - Routine (most inpatients and all outpatients) 03/20/2023 12:52 PM CDT Arthroplasty Total Knee Replacement Status Post Left documented in this encounter Results * DX Knee Left Standing 3 Views (03/20/2023 12:52 PM CDT) Anatomical Region Laterality Modality Lower Extremity, Knee, Muscu loskeletal RST LOS, Musculoskeletal ARZ LOS, Muskuloskeletal FLA LOS Left Digit al Radiography 03/20/2023 1:05 PM CDT Impressions 03/20/2023 1:06 PM CDT Demineralization. Left total knee arthroplasty without findings of loosening. Small left knee joint effusion and/or synovitis. Presumed osteocartilaginous bodies projected along the medial femoral condyle. Anterior soft tissue swelling. Arterial calcification. Narrative 03/20/2023 1:06 PM CDT EXAM: ??DX KNEE LEFT STANDING 3 VIEWS Procedure Note Bassem Amaya M.D. - 03/20/2023 EXAM: DX KNEE LEFT STANDING 3 VIEWS IMPRESSION: Demineralization. Left total knee arthroplasty without findings ofloosening. Small left knee joint effusion and/or synovitis. Presumed osteocartilaginousbodies projected along the medial femoral condyle. Anterior soft tissue swelling. Arterialcalcification. Sam Coburn M.D. IMG DIAGNOSTIC IMAGI NG PROCEDURES documented in this encounter Visit Diagnoses Diagnosis Arthroplasty Total Knee Replacement Status Post Left Primary Osteoarthritis Knee Right documented in this encounter Additional Health Concerns Assessment Noted Time PHQ-9 Depression Total Score: 0 11/22/19 17 8:37 AM CDT documented as of this encounter Care Teams Dag Sprayer Relationship Specialty Start Date End Date Brennen W[place] M.D. [address] [place] [address] [place] [phone] PCP - General 04/05/22 documented as of this encounter
--- OUTSIDE RECORDS SUMMARY | 2023-09-30 11:39 | XMS_ITS | Encounter Summary ---
Author Name Unknown Organization [facility] Address [address] [place] [address] Care Team Providers Care Pierce And Shave Press Operator Name Role Phone Brennen W[place] M.D. Primary Care Provider Encounter Details Date Type Department Care Team (Late st Contact Info) Description 02/26/2023 Orders Only [facility] [place] Brennen W[place] M.D. [address] [place] [phone] Social History Tobacco Use Types Packs/Day Years [...] often do you attend chur ch or temple services? More than 4 times [...] Answer Date Recorded PHQ-2 Score 0 01/18/2021 [facility] of Occupat ional [facility] - Occupational Stress Questionnaire Answer Date [...] place to sleep or slept in a longterm (including now)? 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 300 [place] [phone] Discharge Disposition: Home or Self Care 11/08/2023 10:00 AM CDT Office Visit Department of Family Medicine, [facility], in [place], [place] 300 [facility] [place] [phone] Brennen W[place] M.D. 300 [place] [address] 11/22/2023 9:15 AM CDT Clinical Communication Virtual Review in [place], [place] 200 [place] [address] 11/25/2023 10:15 AM CDT Office Visit Department of Orthopedic Surgery in [place], [place] [address] [place] [phone] Latrell Antunez M.D. [address] [place] [phone] 11/28/2023 8:00 AM CDT Appointment Department of Laboratory Medicine and Pathology, [facility] in [address] [phone] Sam Coburn M.D. [address] [place] [phone] 11/28/2023 8:45 AM CDT Appointment Department of Radiology, [facility], in [address] [phone] Sam Coburn M.D. [address] [place] [phone] 11/28/2023 9:00 AM CDT Appointment Department of Radiology, [facility], in [address] [phone] Sam Coburn M.D. [address] [place] [phone] 11/28/2023 10:00 AM CDT Office Visit Department of Orthopedic Surgery in [place], [place] [address] [place] [phone] Sam Coburn M.D. [address] [place] [phone] 11/29/2023 10:48 AM CDT Hospital Encounter [facility] 02 4 AM ADMIT [address] [place] [address] Sam Coburn M.D. [address] [place] [address] 11/29/2023 10:48 AM CDT - 11/29/2023 1:43 PM CDT Surgery [facility] MAIN OR [address] [place] [address] Sam Coburn M.D. [address] [place] [address] ARTHROPLASTY REPLACEMENT TOTAL KNEE Scheduled Procedures Name Priority Associated Diagnoses Date/Ti me ARTHROPLASTY REPLACEMENT TOTAL KNEE Primary Osteoarthritis Knee Right 11/29/2023 10:48 AM CDT documented as of this encounter Visit Diagnoses Not on filedocumented in this encounter Additional Health Concerns Assessment Noted Time PHQ-9 Depression Total Score: 0 11/22/19 17 8:37 AM CDT documented as of this encounter Care Teams Pierce And Shave Press Operator Relationship Specialty Start Date End Date Brennen W[place]ster M.D. [address] [place] [phone] PCP - General 04/05/22 documented as of this encounter
--- OUTSIDE RECORDS SUMMARY | 2023-09-30 11:39 | XMS_ITS | Encounter Summary ---
Author Name Unknown Organization [facility] Address [address] [place] [address] Care Team Providers Care Certified Hyperbaric Technician Name Role Phone Brennen Winchester M.D. Primary Care Provider Reason for Visit * Reason Comments Follow-up F/u from 10/18 for A1C recheck. * Outpatient (Routine) - Closed Specialty Diagnoses / Procedures Referred By Sara schmid Referred To Contact Family Medicine Brennen W[place] M.D. 300 [place] [address] [facility] Region Referral ID Status Reason Start Date Expiration Date Visits Re quested Visits Authorized [id number] Closed 07/24/2022 07/23/2025 1 1 Encounter Details Date Type Department Care Team (Late st Contact Info) Description 01/31/2023 9:30 AM CDT Office Visit Department of Family Medicine, [facility], in [place], [place] 300 [place] [address] Brennen [place] M.D. 300 [place] [address] Diabetes Mellitus Type 2 (HCC) (Primary Dx); Hypercholesterolemia; Hypertension And Chronic Kidney Disease Stage 4 (HCC); Anxiety Social History Tobacco Use Types Packs/Day Years [...] week 09/07/2022 How often do you attend [facility] or confucianist services? More than 4 times [...] Answer Date Recorded PHQ-2 Score 0 01/18/2021 [facility] of Occupat ional Health - Occupational [...] Sign Reading Time Taken Comments Blood Pressure 125/75 01/31/2023 9:12 AM CDT Pulse 77 01/31/2023 9:12 AM CDT Temperature 36 ??C (96.8 ??F) 01/31/2023 9:08 AM CDT Respiratory Rate 16 01/31/2023 9:08 AM CDT Oxygen Saturation - - Inhaled Oxygen Concentration - - Weight 56.7 kg (125 lb) 01/31/2023 9:08 AM CDT Height 165.5 cm (5' 5.16) 01/31/2023 9:08 AM CD T Body Mass Index 20.7 01/31/2023 9:08 AM CDT documented in this encounter Progress Notes * Brennen Winchester M.D. - 01/31/2023 9:30 AM CDT Progress Note type 2 diabetes, hypertension, CKD stage 4, hyperlipidemia, osteoarthritis, osteopenia, vitiligo who presented today to the clinic for her six-month follow- up. Patient recently had her left knee replacement eight weeks ago. She stated that her surgery went very well and she has been working with physical therapy. Diabetes Visit type: initial Diabetes type: type 2 Disease course: stable A1C target: <7 Associated symptoms: none Hypoglycemia symptoms: none Hypoglycemia complications: none Diabetic complications: none CAD risks: no known risk factors Current treatments: oral agent (monotherapy) Treatment compliance: all of the time Blood glucose trend: no change Weight trend: stable Current diet: generally healthy Meal planning: none Dietitian visit: no MAYO-I / ARB: is being taken Statins: is being taken Eye exam current: yes Foot exam current: yes Sees social science research assistant: no Allergies Allergen Reactions Crab Nausea And Vomiting Sulfa (Sulfonamide Antibiotics) Hives Current Outpatient Medications: acetaminophen (TYLENOL) 500 mg capsule, Take 2 capsules (1,000 mg total) by mouth every 6 (six) hours as needed for pain. Take on a schedule while using opioids. Once opioid use has stopped, adjust to as needed, Disp: , Rfl: blood glucose ctl high,nml,low solution, Glucose control [...] at bedtime., Disp: 90 tablet, Rfl: 3 simvastatin (ZOCOR) 20 mg tablet, Take 1 tablet (20 mg total) by mouth at bedtime., Disp: 90 tablet, Rfl: [address] tablet, Take 1 tablet (81 mg total) by mouth 2 (two) times a day., Disp: 120 tablet, Rfl: 0 Past Medical History: Diagnosis Date Cataract 2013 [...] Status arthritis Post Operative Nausea/Vomiting Vitiligo 08/10/2016 Social History Tobacco Use Smoking status: Never Smokeless tobacco: Never Tobacco comments: None! Vaping Use Vaping Use: never used Substance Use Topics Alcohol use: No Drug use: No REVIEW OF SYSTEMS Vitals: 01/31/23 0908 01/31/23 0912 BP: 137/76 125/75 BP Location: Left arm Left arm Patient Position: Sitting Sitting Cuff Size: Regular Regular Pulse: 78 77 Resp: 16 Temp: 36 ??C TempSrc: Temporal Weight: 56.7 kg Height: 165.5 cm Constitutional Appearance: She is well-developed. HENT Head: Normocephalic and atraumatic. Right Ear: External ear normal. Left Ear: External ear normal. Nose: Nose normal. Eyes Conjunctiva/sclera: Conjunctivae normal. Pupils: Pupils are equal, round, and reactive to light. Cardiovascular Rate and Rhythm: Normal rate and regular rhythm. Heart sounds: Normal heart sounds. Pulmonary Effort: Pulmonary effort is normal. No respiratory distress. Breath sounds: Normal breath sounds. Abdominal General: Bowel sounds are normal. There is no distension. Palpations: Abdomen is soft. There is no mass. Tenderness: There is no abdominal tenderness. There is no guarding. Musculoskeletal General: Normal range of motion. Cervical back: Normal range of motion and neck supple. Skin General: Skin is warm and dry. Neurological Mental Status: She is alert and oriented to person, place, and time. Deep Tendon Reflexes: Reflexes are normal and symmetric. Psychiatric Behavior: Behavior normal. Ekta was seen today for follow-up. Diagnoses and all orders for this visit: Diabetes Mellitus Type 2 (HCC) - Hemoglobin A1c; Future Lab Results Component Value Date HGBA1C 6.4 (H) 11/22/2022 HGBA1C 6.9 (H) 07/23/2022 HGBA1C 7.1 (H) 01/22/2022 Lab Results Component Value Date GLUCOSE 127 01/30/2023 GLUCOSEPOC 137 12/07/2022 ALBCREARATIO 21 01/30/2023 LDLCALC 90 11/22/2022 CREATININE 1.35 (H) 01/30/2023 Diabetes well controlled on metformin XR 2000 daily. She is up-to-date regarding diabetic eye exam and foot exam. She is currently on aspirin, Zocor and lisinopril. Will follow-up in 6 months. Hypercholesterolemia - simvastatin (ZOCOR) 20 mg tablet; Take 1 tablet (20 mg total) by mouth at bedtime. Simvastatin refill sent to the pharmacy. Hypertension And Chronic Kidney Disease Stage 4 (HCC) - lisinopril-hydroCHLOROthiazide (PRINZIDE,ZESTORETIC) 10-12.5 mg per tablet; Take 1 tablet by mouth at bedtime. Blood pressure well controlled. She will continue on lisinopril hydrochlorothiazide 10/12.5 mg p.r.n. a kidney function has been stable. Anxiety She is currently on mirtazapine 7.5 mg daily. Contracted safety. Other orders - Family Medicine office visit (clinic) documented in this encounter Plan of Treatment Upcoming Encounters Date Type Department Care Team (Latest Contact Info) Description 10/02/2023 1:30 PM INTERIM CONTROLLER Appointment Department of Radiology in [address] [phone] Brennen W[place]ster M.D. 300 [place] [address] Discharge Disposition: Home or Self Care 11/08/2023 10:00 AM CDT Office Visit Department of Family Medicine, [facility], in [place], [place] 300 [place] [address] Brennen W[place]ster M.D. [address] [place] [phone] 11/22/2023 9:15 AM CDT Clinical Communication Virtual Review in [place], [place] 200 [place] [address] 11/25/2023 10:15 AM CDT Office Visit Department of Orthopedic Surgery in [place], [place] [address] [place] [phone] Latrell Antunez M.D. [address] [place] [phone] 11/28/2023 8:00 AM CDT Appointment Department of Laboratory Medicine and Pathology, [facility], in [place], [place] [address] [place] [phone] Sam Coburn M.D. [address] [place] [phone] 11/28/2023 8:45 AM CDT Appointment Department of Radiology, [facility], in [place], [place] [address] [place] [phone] Sam Coburn M.D. [address] [place] [phone] 11/28/2023 9:00 AM CDT Appointment Department of Radiology, [facility], in [place], [place] [address] [place] [phone] Sam Coburn M.D. [address] [place] [phone] 11/28/2023 10:00 AM CDT Office Visit Department of Orthopedic Surgery in [place], [place] [address] [place] [phone] Sam Coburn M.D. [address] [place] [phone] 11/29/2023 10:48 AM CDT Hospital Encounter [facility] 02 4 AM ADMIT [address] [place] [phone] Sam Coburn M.D. [address] [place] [phone] 11/29/2023 10:48 AM CDT - 11/29/2023 1:43 PM CDT Surgery RST RO MAIN OR [address] [place] [address] Sam Coburn M.D. [address] [place] [phone] ARTHROPLASTY REPLACEMENT TOTAL KNEE Scheduled Procedures Name [...] CDT Brennen Winchester M.D. LAB BLOOD ADD-ON Performing Organization Address City/State/[facility] Co de Phone Number [facility] [address] [place] [address], [facility] in [place] [address] [place] [address] documented in this encounter Visit Diagnoses Diagnosis Diabetes Mellitus Type 2 (HCC)- Primary Hypercholesterolemia Hypertension And Chronic Kidney Disease Stage 4 (HCC) Anxiety Primary Osteoarthritis Knee Right documented in this encounter Additional Health Concerns Assessment Noted Time PHQ-9 Depression Total Score: 0 11/22/19 17 8:37 AM CDT documented as of this encounter Care Teams Certified Hyperbaric Technician Relationship Specialty Start Date End Date Brennen Winchester M.D. [address] [place] [phone] PCP - General 04/05/22 documented as of this encounter
--- OUTSIDE RECORDS SUMMARY | 2023-09-30 11:39 | XMS_ITS | Encounter Summary ---
Author Name Unknown Organization [facility] Address [address] [place] [address] Care Team Providers Care Electorate Officer Name Role Phone Brennen W[place] M.D. Primary Care Provider Reason for Referral * Outpatient (Routine) - Closed Specialty Diagnoses / Procedures Referred By Sara schmid Referred To Contact Orthopedic Surgery Latrell Antunez M.D. [address] [place] [phone] [facility] Referral ID Status Reason Start Date Expiration Date Visits Re quested Visits Authorized [id number] Closed 01/08/2023 01/07/2026 1 1 Encounter Details Date Type Department Care Team (Late st Contact Info) Description 01/08/2023 Orders Only Department of Orthopedic Surgery in [place], [place] [address] [place] [phone] Latrell Antunez M.D. [address] [place] [phone] Social History Tobacco Use Types Packs/Day Years [...] often do you attend chur ch or scientology services? More than 4 times per year 09/07/2022 Do you belong to any clubs o r organizations such as holiness groups, unions, fraternal or athletic groups, or [...] Answer Date Recorded PHQ-2 Score 0 01/18/2021 [facility] of Occupat ional Health - Occupational Stress [...] place to sleep or slept in a long-term (including now)? No 09/07/2022 Nutrition Answer Date [...] Contact Info) Description 10/02/2023 1:30 PM MACHINE WELDER Appointment Department of Radiology in [place] [address] [place] [address] Brennen W[place]ster M.D. 300 [place] [phone] Discharge Disposition: Home or Self Care 11/08/2023 10:00 AM CDT Office Visit Department of Family Medicine, [facility], in [place], [place] 300 [place] [phone] Brennen W[place] M.D. 300 [place] [phone] 11/22/2023 9:15 AM CDT Clinical Communication Virtual Review in [place], [place] 200 [place] [address] 11/25/2023 10:15 AM CDT Office Visit Department of Orthopedic Surgery in [place], [place] [address] [place] [phone] Latrell Antunez M.D. [address] [place] [phone] 11/28/2023 8:00 AM CDT Appointment Department of Laboratory Medicine and Pathology, [facility] in [place], [place] [address] [place] [phone] Sam Coburn M.D. [address] [place] [phone] 11/28/2023 8:45 AM CDT Appointment Department of Radiology, [facility] in [place], [place] [address] [place] [phone] Sam Coburn M.D. [address] [place] [phone] 11/28/2023 9:00 AM CDT Appointment Department of Radiology, [facility], in [place], [place] [address] [place] [phone] Sam Coburn M.D. [address] [place] [phone] 11/28/2023 10:00 AM CDT Office Visit Department of Orthopedic Surgery in [place], [place] [address] [place] [phone] Sam Coburn M.D. [address] [place] [phone] 11/29/2023 10:48 AM CDT Hospital Encounter RST RO 02 4 AM ADMIT [address] [place] [phone] Sam Coburn M.D. [address] [place] [phone] 11/29/2023 10:48 AM CDT - 11/29/2023 1:43 PM CDT Surgery RST RO MAIN OR [address] [place] [address] Sam Coburn M.D. [address] [place] [phone] ARTHROPLASTY REPLACEMENT TOTAL KNEE Scheduled Procedures Name Priority Associated Diagnoses Date/Ti me ARTHROPLASTY REPLACEMENT TOTAL KNEE Primary Osteoarthritis Knee Right 11/29/2023 10:48 AM CDT Scheduled Referrals Name Type Priority Associated Diagnoses Order Schedule Orthopedic Surgery office visit (clinic) Outpatient Referral Routine Expected: 03/20/2023, Expires: 04/10/2024 documented as of this encounter Visit Diagnoses Not on filedocumented in this encounter Additional Health Concerns Assessment Noted Time PHQ-9 Depression Total Score: 0 11/22/19 17 8:37 AM CDT documented as of this encounter Care Teams Electorate Officer Relationship Specialty Start Date End Date Brennen Winchester M.D. [address] [place] [phone] PCP - General 04/05/22 documented as of this encounter
--- OUTSIDE RECORDS SUMMARY | 2023-09-30 11:39 | XMS_ITS | Encounter Summary ---
Author Name Unknown Organization [facility] Address [address] [place] [address] Care Team Providers Care Automotive Service Advisor Name Role Phone Brennen Winchester M.D. Primary Care Provider [phone] Reason for Referral * Outpatient (Routine) - Closed Specialty Diagnoses / Procedures Referred By Contac t Referred To Contact Diagnoses Arthroplasty Total Knee Replacement Status Post Left Procedures DX Knee Left Standing 3 Views Sam Coburn M.D. [address] [place] [phone] [facility] Referral ID Status Reason Start Date Expiration Date Visits Re quested Visits Authorized [id number] Closed 01/02/2023 01/02/2024 1 1 * Outpatient (Routine) - Closed Specialty Diagnoses / Procedures Referred By Contac t Referred To Contact Orthopedic Surgery Sam Coburn M.D. [address] [place] [phone] [facility] Referral ID Status Reason Start Date Expiration Date Visits Re quested Visits Authorized [id number] Closed 01/02/2023 01/01/2026 1 1 Reason for Visit * Reason Onset Date Comments 3-4 Week Post-OpCall 01/02/2023 Left TKA Encounter Details Date Type Department Care Team (Latest Contact Info) Description 01/02/2023 Clinical Communication Department of Orthopedic Surgery in [place], [place] [address] [place] [address] Tricia Wilburn R.N. [address] [place] [address] 3-4 Week Post-OpCall (Left TKA 12/07/22) Social History Tobacco Use Types Packs/Day Years [...] How often do you attend chur or yarsani services? More than 4 times per year [...] Average Number of Drinks Not on file 01/20/2 023 Frequency of Binge Drinking Not on file 08/20 Overall Financial Resource Strain (CARDIA) Answe r Date Recorded How hard is it for you to pa y for the very basics like food, housing, medical care, and heating? Not hard at all 09/07/2022 PHQ-2 Answer Date Recorded PHQ-2 Score 0 01/18/2021 [facility] - Occupational Stress Questionnaire Answer Date [...] place to sleep or slept in a [place] health care facility (including now)? No 09/07/2022 Nutrition Answer Date [...] encounter Miscellaneous Notes * Telephone Encounter - Tricia Wilburn RJuanN. - 01/02/2023 3:31 PM CDT SUBJECTIVE CHIEF COMPLAINT / REASON FOR CALL 3-4 Week Post-OpCall (Left TKA 12/07/22) Ekta responded to call by responding to Patient Online Service message sent to her. See the message for details. documented in this encounter Plan of Treatment Upcoming Encounters Date Type Department Care Team (Latest Contact Info) Description 10/02/2023 1:30 PM CARROT TIER Appointment Department of Radiology in [address] [phone] Brennen Winchester M.D. 300 [place] [phone] Discharge Disposition: Home or Self Care 11/08/2023 10:00 AM CDT Office Visit Department of Family Medicine, [facility], in [place], [place] 300 [place] [address] Brennen Winchester M.D. 300 [place] [address] 11/22/2023 9:15 AM CDT Clinical Communication Virtual Review in [address] [id number] 11/25/2023 10:15 AM CDT Office Visit Department of Orthopedic Surgery in [place], [place] [address] [place] [phone] Latrell Antunez M.D. [address] [place] [phone] 11/28/2023 8:00 AM CDT Appointment Department of Laboratory Medicine and Pathology, [facility] in [place], [place] [address] [place] [phone] Sam Coburn M.D. [address] [place] [phone] 11/28/2023 8:45 AM CDT Appointment Department of Radiology, [facility] in [place], [place] [address] [place] [phone] Sam Coburn M.D. [address] [place] [phone] 11/28/2023 9:00 AM CDT Appointment Department of Radiology, [facility] in [place], [place] [address] [place] [phone] Sam Coburn M.D. [address] [place] [phone] 11/28/2023 10:00 AM CDT Office Visit Department of Orthopedic Surgery in [place], [place] [address] [place] [phone] Sam Coburn M.D. [address] [place] [phone] 11/29/2023 10:48 AM CDT Hospital Encounter [facility] 02 4 AM ADMIT [address] [place] [phone] Sam Coburn M.D. [address] [place] [phone] 11/29/2023 10:48 AM CDT - 11/29/2023 1:43 PM CDT Surgery [facility] OR [address] [place] [address] Sam Coburn M.D. [address] [place] [address] ARTHROPLASTY REPLACEMENT TOTAL KNEE Scheduled Procedures Name Priority Associated Diagnoses Date/Ti me ARTHROPLASTY REPLACEMENT TOTAL KNEE Primary Osteoarthritis Knee Right 11/29/2023 10:48 AM CDT Scheduled Referrals Name Type Priority Associated Diagnoses Order Schedule Orthopedic Surgery Post Op (clinic) Outpatient Referral Routine Expected: 03/08/2023 (Approximate), Expires: 04/04/2024 documented as of this encounter Results * DX Knee Left [...] Total Knee Replacement Status Post Left- Primary Arthroplasty Total Knee Replacement Status Post Left Primary Osteoarthritis Knee Right documented in this encounter Additional Health Concerns Assessment Noted Time PHQ-9 Depression Total Score: 0 11/22/19 17 8:37 AM CDT documented as of this encounter Care Teams Automotive Service Advisor Relationship Specialty Start Date End Date Brennen Winchester M.D. [address] [place] [address] [place] [address] PCP - General 04/05/22 documented as of this encounter
--- OUTSIDE RECORDS SUMMARY | 2023-09-30 11:39 | XMS_ITS | Encounter Summary ---
Author Name Unknown Organization [facility] Address [address] [place] [address] Care Team Providers Care Paver Installer Name Role Phone Brennen Winchester M.D. Primary Care Provider [phone] Reason for Visit * Reason Comments Med Refill Encounter Details Date Type Department Care Team (Late st Contact Info) Description 01/16/2023 Refill Department of Family Medicine, [facility], in [place], [place] [address] [place] [address] Brennen Winchester M.D. 300 [place] [address] Med Refill Social History Tobacco [...] any clubs o r organizations such as uatsdin groups, unions, fraternal or athletic groups, or [...] Answer Date Recorded PHQ-2 Score 0 01/18/2021 [facility] - Occupational Stress Questionnaire Answer [...] (Latest Contact Info) Description 10/02/2023 1:30 PM WEIGHT ANALYST Appointment Department of Radiology in [place], [place] [address] [place] [address] Brennen Winchester M.D. 300 [place] [address] Discharge Disposition: Home or Self Care 11/08/2023 10:00 AM CDT Office Visit Department of Family Medicine, [facility], in [address] [place] [phone] Brennen Winchester M.D. 300 [place] [phone] 11/22/2023 9:15 AM CDT Clinical Communication Virtual Review in [place], [place] 200 [place] [address] 11/25/2023 10:15 AM CDT Office Visit Department of Orthopedic Surgery in [place], [place] [address] [place] [phone] Latrell Antuenz M.D. [address] [place] [phone] 11/28/2023 8:00 AM CDT Appointment Department of Laboratory Medicine and Pathology, [facility] in [place], [place] [address] [place] [phone] Sam Coburn M.D. [address] [place] [phone] 11/28/2023 8:45 AM CDT Appointment Department of Radiology, [facility], in [place], [place] [address] [place] [phone] Sam Coburn M.D. [address] [place] [phone] 11/28/2023 9:00 AM CDT Appointment Department of Radiology, [facility], in [place], [place] [address] [place] [phone] Sam Coburn M.D. [address] [place] [phone] 11/28/2023 10:00 AM CDT Office Visit Department of Orthopedic Surgery in [place], [place] [address] [place] [phone] Sam Coburn M.D. [address] [place] [phone] 11/29/2023 10:48 AM CDT Hospital Encounter [facility] 02 4 AM ADMIT [address] [place] [phone] Sam Coburn M.D. [address] [place] [phone] 11/29/2023 10:48 AM CDT - 11/29/2023 1:43 PM CDT Surgery [facility] MAIN OR [address] [place] [address] Sam Coburn M.D. [address] [place] [phone] ARTHROPLASTY REPLACEMENT TOTAL KNEE Scheduled Procedures Name [...] documented as of this encounter Care Teams Paver Installer Relationship Specialty Start Date End Date Brennen Winchester M.D. [address] [place] [phone] PCP - General 04/05/22 documented as of this encounter
--- OUTSIDE RECORDS SUMMARY | 2023-09-30 11:39 | XMS_ITS | Encounter Summary ---
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 Primary Care Provider Encounter Details Date Type Department Care Team (Latest Contact Info) Description 01/30/2023 8:24 AM CDT - 01/30/2023 11:59 PM CDT Hospital Encounter Department of Laboratory Medicine in [address] [phone] Natacha Casillas, BRO, C.N.P., R.N. Diabetes Mellitus Type 2 With Diabetic Chronic [...] often do you attend chur ch or amish services? More than 4 times per year 09/07/2022 Do you belong to any clubs o r organizations such as druze groups, unions, fraternal or athletic groups, or [...] Answer Date Recorded PHQ-2 Score 0 01/18/2021 [facility] - Occupational Stress Questionnaire Answer Date [...] (Latest Contact Info) Description 10/02/2023 1:30 PM AIR LIAISON AND SPECIAL STAFF Appointment Department of Radiology in [place], [place] 300 [place] [phone] Brennen Winchester M.D. 300 [place] [phone] Discharge Disposition: Home or Self Care 11/08/2023 10:00 AM CDT Office Visit Department of Family Medicine, [facility], in [place], [place] 300 [place] [phone] Brennen Winchester M.D. 300 [place] [phone] 11/22/2023 9:15 AM CDT Clinical Communication Virtual Review in [place], [place] 200 [place] [address] 11/25/2023 10:15 AM CDT Office Visit Department of Orthopedic Surgery in [place], [place] [address] [place] [phone] Latrell Antunez M.D. [address] [place] [phone] 11/28/2023 8:00 AM CDT Appointment Department of Laboratory Medicine and Pathology, [facility] in [place], [place] [address] [place] [phone] Sam Coburn M.D. [address] [place] [phone] 11/28/2023 8:45 AM CDT Appointment Department of Radiology, [facility] in [place], [place] [address] [place] [phone] Sam Coburn M.D. [address] [place] [phone] 11/28/2023 9:00 AM CDT Appointment Department of Radiology, [facility], in [place], [place] [address] [place] [phone] Sam Coburn M.D. [address] [place] [phone] 11/28/2023 10:00 AM CDT Office Visit Department of Orthopedic Surgery in [place], [place] [address] [place] [address] Sam Coburn M.D. [address] [place] [phone] 11/29/2023 10:48 AM CDT Hospital Encounter [facility] 02 4 AM ADMIT [address] [place] [phone] Sam Coburn M.D. [address] [place] [phone] 11/29/2023 10:48 AM CDT - 11/29/2023 1:43 PM CDT Surgery [facility] OR [address] [place] [address] Sam Coburn M.D. [address] [place] [phone] ARTHROPLASTY REPLACEMENT TOTAL KNEE Scheduled Procedures Name Priority Associated Diagnoses Date/Ti me ARTHROPLASTY REPLACEMENT TOTAL KNEE Primary Osteoarthritis Knee Right 11/29/2023 10:48 AM CDT documented as of this encounter Procedures Procedure Name Priority Date/Time Associated Diagnosis Comments ALBUMIN, RANDOM, U Routine 01/30/2023 8: 27 AM CDT Diabetes Mellitus Type 2 With Diabetic Chronic Kidney Disease (HCC) documented in this encounter Results * Albumin, Random, Urine (01/30/2023 8:27 AM CDT) Microalbumin 20.0 mg/L 01/30/2023 2:34 PM CDT OWAT Creatinine 94 mg/dL 01/30/2023 2:34 PM CDT [facility] Albumin/Creatinin e Ratio 21 <25 mg/g 01/30/2023 2:34 PM CDT [facility] Urine (Urine, Midstream) 01/30/2023 8:27 AM CDT 01/30/2023 11:21 AM CDT Natacha Casillas APRN, C.N.P., R.N. 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 NPJohn: [phone] [address] [place] [phone] PCP - General 04/05/22 documented as of this encounter
--- OUTSIDE RECORDS SUMMARY | 2023-09-30 11:40 | XMS_ITS | Encounter Summary ---
Author Name Unknown Organization [facility] Address [address] [place] [address] Care Team Providers Care Wire Straightener Name Role Phone Brennen Winchester M.D. Primary Care Provider [phone] Encounter Details Date Type Department Care Team (Late st Contact Info) Description 12/07/2022 11:50 AM CDT Anesthesia Event [facility] OR [address] [place] [address] Jayesh Vasquez M.D. [address] [place] [address] Anesthesia Record Procedure Summary Procedure Name Responsible Anesthesiologist Anesthesia Start Time Anesthesia Stop Time Cemented Total Knee Arthroplasty With Patellar Resurfacing (Left: Knee) Jayesh Vasquez M.D. 12/07/22 1150 12/07/22 1423 Events Date Time Event Comment 12/07/2022 1045 1106 Block Start Documented by n haleighing staff 1108 Block End Documented by n haleighing staff 1150 An Start Machine/Equipme nt Checked Infection Precautions Followed Procedure/Site Verified NPO Status Verified Supine Standard ASA Monitors Applied 1155 An Induction 1158 Turnover to Proceduralist 1200 An Intubation 1237 Proc Start 1358 Proc Fin 1405 Turnover to ANE Staff 1405 Airway Removal Criteria Met 1405 Extubation/Airway Removed 1409 an stop data 1423 An End I completed my handoff to the receiving staff during which we 1. Identified the patient 2. Identified the responsible provider 3. Reviewed the pertinent medical history 4. Discussed the surgical course 5. Reviewed intra-op anesthesia management and issues during anesthesia 6. Set expectations for post-procedure period 7. Allowed opportunity for questions and acknowledgement of understanding. Meds Name Total BUPivacaine-EPINEPHrine (MARCAINE w/ EPI ) PF injection 0.5%-1:200,000 10 mL midazolam 1 mg/mL injection 2 mg fentanyl injection 50 mcg/mL 100 mcg lidocaine 2% (mg) injection 120 mg propofol 10 mg/mL 150 mg propofol 10 mg/mL infusion 1,029.08 mg rocuronium 10 mg/mL injection 20 mg phenylephrine 100 mcg/mL injection 100 m cg ondansetron 4 mg/2 mL injection 4 mg sugammadex 100 mg/mL injection 100 mg dexAMETHasone (DECADRON) injection 4 mg/ mL 8 mg tranexamic acid in NaCl IVPB 1,000 mg (C YKLOKAPRON) 2 g ceFAZolin injection 2,000 mg (ANCEF) 2 g HYDROmorphone PF 2 mg/mL injection 2 mg Lactated Ringers Free Drip 1,800 mL * Agents No agents on file. * Blood No blood administrations on file. Lines, Drains, and Airways Type Details Placement Removal Wound 12/07/22; Incision; Knee; Anterior, Left 12/07/22 0000 by Amy Mandujano, RJuanNJuan Peripheral IV Placement Date: 11/18 09/10; Placement Time: 0828; Catheter Size: 20 G; Orientation: Anterior, Distal, Lower, Right; Location: Forearm; Site Prep: Chlorhexidine (Preferred); Inserted by: heb; Insertion Attempts: 1; Removal Date: 12/08/22; Removal Time: 1021; Removal Reason: Patient discharged 12/07/22 0828 by Davida Bennett 12/08/22 1021 by Jemma Gold, R.N., C.M.S.R.N. ETT Placement Date: 11/18 09/10; Placement Time: 1200 (created via procedure documentation); Mask Ventilation: Easy mask; Type: Standard ETT; Single Lumen Tube Size: 7 mm; Cuffed: Yes; Blade Size: Alba 2; Location: Oral; Grade View: Grade 1; Placement Verification: Bilateral breath sounds, Positive ETCO2, Symmetrical chest wall movement; Removal Date: 12/07/22; Removal Time: 1405 12/07/22 1200 by Berry Reynolds APRN, KRISTIAN 12/07/22 1405 by Saravanan Fuentes APRN, CRNA documented in this encounter Social History Tobacco Use Types Packs/Day Years [...] How often do you attend chur or nondenominational services? More than 4 times per year [...] Answer Date Recorded PHQ-2 Score 0 [facility]2021 [facility] - Occupational Stress Questionnaire Answer [...] place to sleep or slept in a alf (including now)? No 09/07/2022 Nutrition Answer Date [...] PM CDT documented as of this encounter OR Notes * Anesthesia Postprocedure Evaluation - Jayesh Vasquez M.D. - 12/07/2022 2:24 PM CDT Patient: Ekta Sands Procedure Summary Date: 12/07/22 Room / Location: [address] [facility] / [facility] in [place], [place] Anesthesia Start: 1150 Anesthesia Stop: 1423 Procedure: Cemented Total Knee Arthroplasty With Patellar Resurfacing (Left: Knee) Diagnosis: Primary Osteoarthritis Knee Left (Primary Osteoarthritis Knee Left.) Providers: Sam Coburn M.D. Responsible Provider: Jayesh Vasquez M.D. Anesthesia Type: general with pain block ASA Status: 3 Anesthesia Type: general with pain block Last vitals Vitals Value Taken Time BP 148/77 12/07/22 1418 Temp Pulse 95 12/07/22 1424 Resp 14 12/07/22 1424 SpO2 96 % 12/07/22 1424 Vitals shown include unvalidated device data. Please reference Vitals flowsheet for most recent vital signs. Anesthesia Post Evaluation Patient Disposition: general care unit Cardiovascular status: hemodynamics (HR & BP) acceptable Respiratory status: patent airway with spontaneous effort Temperature: normothermic Oxygen requirements: room air Level of consciousness: awake Pain score: pain adequately controlled and/or at baseline Post Op nausea/vomiting: none Hydration status: euvolemic * Anesthesia Procedure Notes - Berry Reynolds APRN, CRNA - 12/07/2022 12:00 PM CDTAssociated Order(s): Airway Airway Date/Time: 12/07/2022 12:00 PM Performed by: Berry Reynolds APRN, CRNA Authorized by: Jayesh Vasquez M.D. Patient location during procedure: OR / Procedure Area PROCEDURE DETAILS: Mask difficulty assessment: easy mask Final airway type: direct laryngoscopy, intubation Laryngeal Manipulation: no Final airway difficulty of direct laryngoscopy (DL): 0-easy Final best view of glottic structures - Cormack/Lehane Score: grade 1 ETT location: oral Adult blade type: Alba 2 Adult tube size: 7 Adult ETT distance at teeth/gum: 20 Oral tube type: standard ETT Cuffed: yes Airway confirmation: bilateral breath sounds, positive ETCO2 and bilateral chest rise Other previous techniques attempted: none PRE PROCEDURE DETAILS: Pre evaluation for airway management: procedure Urgency: elective Preoxygenation: bag valve mask SEDATION / ANESTHESIA Anesthesia method: anesthesia POST PROCEDURE DETAILS: Procedure outcome: successful * Anesthesia Procedure Notes - Trina Campos M.D. - 12/07/2022 11:12 AM CDT Associated Order(s): Regional Block Regional Block Date/Time: 12/07/2022 11:13 AM Performed by: Trina Campos M.D. Authorized by: Luis Alberto Fritz M.B., Ch.B. Location: Pre Op / PACU PROCEDURE DETAILS: Block Indication: post-op pain block Block indication comment: Post-Op pain block at request of surgeon Block Type - Lower extremity: adductor canal Positioning: supine Laterality: left Block technique: ultrasound guided Ultrasound image guidance used to localize target, identify at risk structures, and dynamically used to direct therapy to the target. Procedure was performed under sterile conditions.Image(s) acquired and saved Injection technique: single injection Needle type: insulated Gauge: 21G Length: 10 Test dose: yes- negative test dose Incremental injection of local anesthetic with aspiration every:5cc Pain with needle advancement or injection of local anesthetic: no Injected Medications: Injection(s), anesthetic agent(s) and/or steroid; See MAR Comments: Comments: R/B/A discussed with patient and family and consented to procedure. Anatomy and perineural spread easily visualized under dynamic ultrasound imaging. Painless incremental injection. Patienttolerated well without any immediate complications. UNIVERSAL PROTOCOL All relevant documentation and testing were reviewed and available. All required blood products, implants, devices and or special equipment were made available as applicable. Pre-procedure verification was conducted and the correct site was marked if required. A fire risk assessment was done as applicable. The procedural time-out to verify correct patient, correct side/site, and procedure was conducted prior to performing the procedure and confirmed in a procedural pause. PRE-PROCEDURE DETAILS: Appropriate hand hygiene, gown, cap, mask, protective eyewear, sterile gloves, skin preparation, sterile drape, and strict aseptic technique were utilized as applicable for the procedure.: yes Skin prep: chlorhexidine / alcohol SEDATION / ANESTHESIA Anesthesia method: local infiltration and moderate sedation Local infiltrate type: lidocaine POST-PROCEDURE DETAILS: Procedure completed successfully: successful procedure Other complications: none ATTESTATION STATEMENT A resident or fellow participated in the procedure, and the compensation consultant was present for the entire procedure. * Anesthesia Preprocedure Evaluation - Jayesh Vsaquez M.D. - 12/07/2022 10:43 AM CDT Preprocedure Anesthesia & H&P Assessment Procedure Summary Date/Time: 12/07/22 1042 Procedure: ARTHROPLASTY REPLACEMENT TOTAL KNEE. (Left: Knee) Diagnosis: Primary Osteoarthritis Knee Left [M17.12] Pre-op diagnosis: Primary Osteoarthritis Knee Left. Location: [place] [address] / [facility] in [place], [place] Providers: Sam Coburn M.D. Pertinent components of the patient's history including current problem list, medical history, surgical history, family history, social history, medications and allergies were reviewed. Present illness and pre-op diagnosis were confirmed. The planned surgery / procedure was verified with the patient / legal guardian. The patient's general health condition remains unchanged RELEVANT COMORBID CONDITIONS CV (+) Hypertension And Chronic Kidney Disease Stage 4 (HCC) RENAL/REPRO (+) Diabetes Mellitus Type 2 With Diabetic Chronic Kidney Disease (HCC) (+) Hypertension And Chronic Kidney Disease Stage 4 (HCC) (+) Osteodystrophy Renal ENDO (+) Diabetes Mellitus Type 2 With Diabetic Chronic Kidney Disease (HCC) NEURO (+) Alzheimer's Disease (HCC) HEME (+) Anemia Iron Deficiency Musculoskeletal (+) Arthropathy (+) Spondylosis Lumbar Without Myelopathy Endocrine/Metabolic (+) Hypercholesterolemia (+) Hyperparathyroidism Renal Secondary (HCC) Other (+) Anxiety (+) Primary Osteoarthritis Knee Bilateral (+) Stenosis Spinal OBJECTIVE PHYSICAL EXAMINATION Airway (HEENT) Mallampati: II TM Distance: >3 FB Neck ROM: Full Mouth Opening: >3 cm Upper Lip Bite Test Class: I Cardiovascular Rhythm: Regular Rate: Normal Cardiovascular Assessment: murmur Functional Capacity: >4 METS Pulmonary Pulmonary Assessment: Clear General / Constitutional Constitutional Assessment: Normal General State of Health:: healthy appearing and calm Neurological Neurologic Assessment:??alert and alert and oriented x 3 Dental Dental Assessment: dentition intact ASSESSMENT / PLAN ANESTHESIA PLAN ASA: 3 Anesthesia Plan: general with pain block Note previous unsuccessful spinal at [place]. Spinal stenosis history. Patient seen and allergies reviewed, anesthesia plan and risks discussed directly with patient /legal guardian or through an precision lens centerer and edger. Risks/Benefits/Alternatives of Blood transfusion discussed with patient / legal guardian, includingan opportunity to ask questions and/or decline some or all transfusion therapies. The patient / legal guardian consented to the use of all blood products, as deemed medically necessary Approval to Proceed: approved for anesthesia documented in this encounter Miscellaneous Notes * Addendum Note - Leisa Patel M.D. - 12/07/2022 5:54 PM CDT Addendum created 12/07/22 175 by Leisa Patel M.D. Order Reconciliation Section accessed, Order list changed, Pharmacy for encounter modified * Addendum Note - Leisa Patel M.D. - 12/07/2022 4:37 PM CDT Addendum created 12/07/22 1637 by Leisa Patel M.D. Intraprocedure Meds edited * Addendum Note - Jayesh Vasquez M.D. - 12/07/2022 3:23 PM CDT Addendum created 12/07/22 152 by Jayesh Vasquez M.D. Order Reconciliation Section accessed, Order list changed, Pharmacy for encounter modified * Addendum Note - Jayesh Vasquez M.D. - 12/07/2022 3:22 PM CDT Addendum created 12/07/22 152 by Jayesh Vasquez M.D. Order Reconciliation Section accessed, Order list changed, Pharmacy for encounter modified documented in this encounter Plan of Treatment Upcoming Encounters Date Type Department Care Team (Latest Contact Info) Description 10/02/2023 1:30 PM CONDOMINIUM MANAGER Appointment Department of Radiology in [address] [phone] Brennen Winchester M.D. [address] [place] [address] Discharge Disposition: Home or Self Care 11/08/2023 10:00 AM CDT Office Visit Department of Family Medicine, [facility], in [place], [place] [address] [place] [address] Brennen Winchester M.D. [address] [place] [address] 11/22/2023 9:15 AM CDT Clinical Communication Virtual Review in [address] [id number] 11/25/2023 10:15 AM CDT Office Visit Department of Orthopedic Surgery in [place] [address] [place] [phone] Latrell Antunez M.D. [address] [place] [phone] 11/28/2023 8:00 AM CDT Appointment Department of Laboratory Medicine and Pathology, [facility] in [place], [place] [address] [place] [phone] Sam Coburn M.D. [address] [place] [phone] 11/28/2023 8:45 AM CDT Appointment Department of Radiology, [facility] in [place], [place] [address] [place] [phone] Sam Coburn M.D. [address] [place] [phone] 11/28/2023 9:00 AM CDT Appointment Department of Radiology, [facility] in [place], [place] [address] [place] [phone] Sam Coburn M.D. [address] [place] [phone] 11/28/2023 10:00 AM CDT Office Visit Department of Orthopedic Surgery in [place], [place] [address] [place] [phone] Sam Coburn M.D. [address] [place] [phone] 11/29/2023 10:48 AM CDT Hospital Encounter [facility] 02 4 AM ADMIT [address] [place] [phone] Sam Coburn M.D. [address] [place] [phone] 11/29/2023 10:48 AM CDT - 11/29/2023 1:43 PM CDT Surgery [facility] [address] [place] [address] Sam Coburn M.D. [address] [place] [address] ARTHROPLASTY REPLACEMENT TOTAL KNEE Scheduled Procedures Name Priority Associated Diagnoses Date/Ti me ARTHROPLASTY REPLACEMENT TOTAL KNEE Primary Osteoarthritis Knee Right 11/29/2023 10:48 AM CDT documented as of this encounter Procedures Procedure Name Priority Date/Time Associated Diagnosis Comments LDA ANE ENDOTRACHEAL AIRWAY Routine 12/07/2022 12:00 PM CDT ME INJ ANES FEM NERVE W GUIDANCE Routine 12/07/2022 11:13 AM CDT documented in this encounter Results * LDA ANE ENDOTRACHEAL AIRWAY (12/07/2022 12:00 PM CDT) Narrative Berry Reynolds APRN, CRNA - 12/07/2022 12:00 PM CDT eBrry Reynolds APRN, CRNA ? 12/07/2022 12:01 PM Airway Date/Time: 12/07/2022 12:00 PM Performed by: Berry Reynolds APRN, CRNA Authorized by: Jayesh Vasquez M.D. ?? Patient location during procedure: OR / Procedure Area PROCEDURE DETAILS: Mask difficulty assessment: easy mask Final airway type: direct laryngoscopy, intubation Laryngeal Manipulation: no ?? Final airway difficulty of direct laryngoscopy (DL): 0-easy Final best view of glottic structures - Cormack/Lehane Score: grade 1 ETT location: oral Adult blade type: Alba 2 Adult tube size: 7 Adult ETT distance at teeth/gum: 20 Oral tube type: standard ETT Cuffed: yes Airway confirmation: bilateral breath sounds, positive ETCO2 and bilateral chest rise Other previous techniques attempted: none PRE PROCEDURE DETAILS: Pre evaluation for airway management: procedure Urgency: elective Preoxygenation: bag valve mask SEDATION / ANESTHESIA Anesthesia method: anesthesia POST PROCEDURE DETAILS: ? Procedure outcome: successful ?? Jayesh Vasquez M.D. ANESTHESIA ORDERABL ES * ME INJ ANES FEM NERVE W GUIDANCE (12/07/2022 11:13 AM CDT) Narrative Luis Alberto Fritz M.B., Ch.B. - 12/07/2022 11:13 AM CDT Trina Campos M.D. ? 12/07/2022 11:14 AM Regional Block Date/Time: 12/07/2022 11:13 AM Performed by: Trina Campos M.D. Authorized by: Luis Alberto Fritz M.B., Ch.B. ?? Location: Pre Op / PACU PROCEDURE DETAILS: Block Indication: post-op pain block ?? Block indication comment: Post-Op pain block at request of surgeon Block Type - Lower extremity: adductor canal Positioning: supine ?? Laterality: left Block technique: ultrasound guided ?? Ultrasound image guidance used to localize target, identify at risk structures, and dynamically used to direct therapy to the target. Procedure was performed under sterile conditions.Image(s) acquired and saved Injection technique: single injection Needle type: insulated Gauge: 21G Length: 10 Test dose: yes- negative test dose ?? Incremental injection of local anesthetic with aspiration every:5cc Pain with needle advancement or injection of local anesthetic: no ?? Injected Medications: Injection(s), anesthetic agent(s) and/or steroid; See MAR Comments: Comments: R/B/A discussed with patient and family and consented to procedure. Anatomy and perineural spread easily visualized under dynamic ultrasound imaging. Painless incremental injection. Patient tolerated well without any immediate complications. UNIVERSAL PROTOCOL All relevant documentation and testing were reviewed and available. All required blood products, implants, devices and or special equipment were made available as applicable. Pre-procedure verification was conducted and the correct site was marked if required. A fire risk assessment was done as applicable. The procedural time-out to verify correct patient, correct side/site, and procedure was conducted prior to performing the procedure and confirmed in a procedural pause. PRE-PROCEDURE DETAILS: ?? Appropriate hand hygiene, gown, cap, mask, protective eyewear, sterile gloves, skin preparation, sterile drape, and strict aseptic technique were utilized as applicable for the procedure.: yes ?? Skin prep: chlorhexidine / alcohol SEDATION / ANESTHESIA Anesthesia method: local infiltration and moderate sedation Local infiltrate type: lidocaine POST-PROCEDURE DETAILS: Procedure completed successfully: successful procedure Other complications: none ATTESTATION STATEMENT A resident or fellow participated in the procedure, and the compensation consultant was present for the entire procedure. Luis Alberto Azevedo Ch.B. PROCEDURE/FL NOR SURGICAL ORDERABLES documented in this encounter Visit Diagnoses Not on filedocumented in this encounter Administered Medications Inactive Administered Medications - up to 3 most recent administrations Medication Order MAR Action Action Date Dose Rate Site BUPivacaine-EPINEPHrine (PF) 0.5 %-1:200,000 injection (MARCAINE w/EPI) peripheral nerve block, As needed, Starting on Sat12/07/22 at 1108, Anesthesia Intra-op Given 12/07/2022 11:08 AM CDT 10 mL ceFAZolin injection 2,000 mg (ANCEF) 2,000 mg (rounded from 1,452.5 mg = 25 mg/kg ? 58.1 kg), intravenous, Once, On Sat12/07/22 at 0815, For 1 dose, Intra-Op, Preoperatively within 1 hour prior to surgical incision If needed, reconstitute vial per package insert instructions. See IVAG for administration guidelines. , Drug Monitoring Program: Pharmacist to adjust medication dosing based on indication and drug clearance factors., Indications: Prophylaxis, surgical Given 12/07/2022 12:32 PM CDT 2 g dexAMETHasone injection (DECADRON) intravenous, As needed, Starting on Sat12/07/22 at 1204, Anesthesia Intra-op Given 12/07/2022 12:04 PM CDT 8 mg fentaNYL injection (SUBLIMAZE) intravenous, As needed, Starting on Sat12/07/22 at 1155, Anesthesia Intra-op Given 12/07/2022 12:37 PM CDT 50 mcg Given 12/07/2022 11:55 AM CDT 50 mcg HYDROmorphone (PF) injection (DILAUDID) intravenous, As needed, Starting on Sat12/07/22 at 1237, Anesthesia Intra-op Given 12/07/2022 12:50 PM CDT 0.6 mg Given 12/07/2022 12:37 PM CDT 1.4 mg lactated ringers intravenous, Continuous Infusion: Per Instructions PRN, Starting on Sat12/07/22 at 1150, Anesthesia Intra-op New Bag 12/07/2022 12:30 PM CDT New Bag 12/07/2022 11:55 AM CDT New Bag 12/07/2022 11:50 AM CDT lidocaine (PF) (cardiac) injection intravenous, As needed, Starting on Sat12/07/22 at 1155, Anesthesia Intra-op Given 12/07/2022 4:29 PM CDT 60 mg Given 12/07/2022 11:55 AM CDT 60 mg midazolam (PF) injection (VERSED) intravenous, As needed, Starting on Sat12/07/22 at 1217, Anesthesia Intra-op Given 12/07/2022 12:17 PM CDT 2 mg ondansetron (PF) injection (ZOFRAN) intravenous, As needed, Starting on Sat12/07/22 at 1217, Anesthesia Intra-op Given 12/07/2022 12:17 PM CDT 4 mg phenylephrine injection intravenous, As needed, Starting on Sat12/07/22 at 1333, Anesthesia Intra-op Given 12/07/2022 1:33 PM CDT 100 mcg propofol 10 mg/mL infusion (DIPRIVAN) intravenous, Continuous Infusion: Per Instructions PRN, Starting on Sat12/07/22 at 1158, Anesthesia Intra-op Rate/Dose Change 12/07/2022 1:40 PM CDT 75 mcg/kg/min 25.965 mL/hr Rate/Dose Change 12/07/2022 1:30 PM CDT 125 mcg/kg/min 43. 275 mL/hr Rate/Dose Change 12/07/2022 12:50 PM CDT 150 mcg/kg/min 51 .93 mL/hr propofoL injection (DIPRIVAN) intravenous, As needed, Starting on Sat12/07/22 at 1157, Anesthesia Intra-op Given 12/07/2022 11:57 AM CDT 150 mg rocuronium injection (ZEMURON) intravenous, As needed, Starting on Sat12/07/22 at 1157, Anesthesia Intra-op Given 12/07/2022 11:57 AM CDT 20 mg sugammadex injection (BRIDION) intravenous, As needed, Starting on Sat12/07/22 at 1346, Anesthesia Intra-op Given 12/07/2022 1:46 PM CDT 100 mg tranexamic acid in NaCl IVPB 1,000 mg (CYKLOKAPRON) 1,000 mg (1 g), intravenous, at 300 mL/hr, Administer over 20 Minutes, Once, On Sat12/07/22 at 0815, For 1 dose, Intra-Op, Administer in OR upon induction Given 12/07/2022 1:35 PM CDT 1 g Given 12/07/2022 12:05 PM CDT 1 g documented in this encounter Additional Health Concerns Assessment Noted Time PHQ-9 Depression Total Score: 0 11/22/19 17 8:37 AM CDT documented as of this encounter Care Teams Wire Straightener Relationship Specialty Start Date End Date Brennen Winchester M.D. [address] [place] [phone] PCP - General 04/05/22 documented as of this encounter
--- OUTSIDE RECORDS SUMMARY | 2023-09-30 11:40 | XMS_ITS | Encounter Summary ---
Author Name Unknown Organization [facility] Address [address] [place] [address] Care Team Providers Care Physical Laboratory Assistant Name Role Phone Brennen Winchester M.D. Primary Care Provider [phone] Encounter Details Date Type Department Care Team (Latest Contact Info) Description 12/07/2022 7:59 AM CDT - 12/08/2022 10:58 AM CDT Hospital Encounter [facility], Eighth Floor [address] [place] [address] Sam Coburn M.D. [address] [place] [address] Difficulty Walking Orthopedic Knee Cause [R26.2 (ICD-10-CM)] (Primary Dx); Hypertension And Chronic Kidney Disease Stage 4 (HCC) Discharge Disposition: Home or Self Care [...] often do you attend chur ch or church services? More than 4 times per year 09/07/2022 Do you belong to any clubs o r organizations such as sikh groups, unions, fraternal or athletic groups, or [...] Date Recorded PHQ-2 Score 0 01/18/2021 [facility] - Occupational [...] to sleep or slept in a senior living (including now)? No 09/07/2022 Nutrition Answer Date [...] Sign Reading Time Taken Comments Blood Pressure 128/74 12/08/2022 10:20 AM CDT Pulse 95 12/08/2022 10:20 AM CDT Temperature 36 ??C (96.8 ??F) 12/08/2022 10:20 AM CDT Respiratory Rate 18 12/08/2022 10:20 AM CDT Oxygen Saturation 98% 12/08/2022 10:20 AM CDT Inhaled Oxygen Concentration - - Weight 57.7 kg (127 lb 3.3 oz) 12/07/2022 8:48 A M CDT Height 164 cm (5' 4.57) 12/07/2022 8:48 AM CDT Body Mass Index 21.45 12/07/2022 8:48 AM CDT documented in this encounter Discharge Summaries * Aleksandr Rodríguez M.D. - 12/07/2022 3:43 PM CDT DISCHARGE SUMMARY BRIEF OVERVIEW Hospital: [facility] Discharge Provider: Sam Coburn M.D. Primary Team: [facility] Orthopedic Surgery - [facility] Primary Care Providers: Brennen Winchester M.D. ([facility]) [address] [place] [phone] Primary Care Provider Primary Care Provider Other Providers: None Admission Date: 12/07/2022 Discharge Date: 12/08/2022 PRINCIPAL DIAGNOSIS Primary osteoarthritis of the left knee SECONDARY DIAGNOSES Active Problems: No Active Problems: There are no active problems currently on the Problem List. Please update the Problem List and refresh. Resolved Problems: * No resolved hospital problems. * Surgery Information This Encounter Past and Present Procedures (12/07/2021 to Today) Date Procedures Providers Location 12/07/2022 Cemented Total Knee Arthroplasty With Patellar Resurfacing Sam Coburn M.D.Berdis, Galen E, M.D. [facility] OR DISCHARGE DISPOSITION Home or Self Care [1] ACTIVE ISSUES REQUIRING FOLLOW UP OUTPATIENT FOLLOW UP For appointment details refer to your Patient Appointment Guide. TEST RESULTS PENDING AT DISCHARGE Pending Labs None DETAILS OF HOSPITAL STAY REASON FOR ADMISSION Primary Osteoarthritis Knee Left HOSPITAL COURSE The patient was admitted and underwent the above stated procedure . The procedure was tolerated without any difficulty. Please see operative note for full details of the procedure. Antibiotics were given in the perioperative period. Following surgery, pain was controlled with intravenous medications and these were weaned to oral medications as the patient tolerated. Physical therapy was consultedfor assistance with mobilization. The patient was maintained on appropriate DVT/PE prophylaxis. Theremainder of the hospital course was uncomplicated. At the time of dismissal, vitals signs were stable, a general diet was tolerated, pain was controlled with oral agents and all discharge criteria were met. CONSULTS ORDERED DURING THIS ADMISSION None CONDITION AT DISCHARGE stable Discharge instructions were provided to the patient and caregiver(s). Total time spent in discharge services today: minutes. documented in this encounter Discharge Instructions * Discharge Instr - Activity* Margo Henderson P.T., D.P.T. - 12/08/2022 9:46 AM CDT Physical Therapy Discharge Summary MOBILITY RESTRICTIONS/PRECAUTIONS: Left lower extremity weight-bearing as tolerated PROTOCOL TKA WBAT REHABILITATION AFTER KNEE REPLACEMENT SURGERY WEIGHT BEARING STATUS and GAIT AID -Weight Bearing as Tolerated with walker or crutches. -Unless directed otherwise by your surgeon, advance to a cane when steady on your feet and you can walk pain-free without a limp. -If limping, when using cane or one crutch, return to using the more supportive gait aid. EXERCISES/EDUCATION -Active assisted to active knee range of motion -Seated knee flexion stretch -Supine or seated knee extension stretch -Supine quad sets -Seated quad sets to antigravity -Straight leg raises -NO aggressive strengthening/range of motion for the first twelve weeks -Limit knee range of motion, 0-100 degrees, until discharge from hospital. RECOMMENDATIONS: PT to evaluate and treat in the event that surgeon wants patient to have any further therapy, with frequency and duration to be determined by evaluating therapist or surgeon Discharge information provided on 12/08/2022 [facility] in this [facility] Medications at Time [...] Test once daily. 1 each 0 08/22/2020 lisinopril-hydroCHLORO thiazide (PRINZIDE,ZESTORETIC) 10-12.5 mg per tabletIndications:Hype [...] at bedtime. 90 tablet 3 10/18/2022 08/09/2023 simvastatin (ZOCOR) 20 mg tabletIndications:Hype rcholesterolemia TAKE ONE TABLET BY MOUTH EVERY DAY AT BEDTIME 90 tablet 3 02/27/2022 01/31/2023 sennosides-docusate sodium (Senna with Docusate Sodium) 8.6-50 mg per tablet Take 1 tablet by mouth 2 (two) times a day for 14 days. 28 tablet 0 12/07/2022 12/21/2022 traMADoL (ULTRAM) 50 mg tabletIndications:Acut e Pain Exception Take 1 tablet (50 mg total) by mouth every 6 (six) hours as needed for moderate pain or score 4-6 of 10 for up to 7 days Indications: Acute Pain Exception. 25 tablet 0 12/07/2022 12/15/[address] tablet Take 1 tablet (81 mg total) by mouth 2 (two) times a day. 120 tablet 0 12/07/2022 08/09/2023 Microlet LancetIndications:Diab etes Mellitus Type 2 With Diabetic Chronic Kidney Disease (HCC) USE TO TEST BLOOD GLUCOSE ONCE DAILY 100 each 3 10/24/2021 01/16/2023 oxyCODONE (ROXICODONE) 5 mg immediate release tabletIndications:Acut e Pain Exception Take 1 tablet (5 mg total) by mouth every 4 (four) hours as needed for severe pain or score 7-10 of 10 Indication: Acute Pain Exception. 15 tablet 0 12/07/2022 01/31/2023 documented as of this encounter Progress Notes * Kostas Alvarado L.I.C.S.W., M.S.W. - 12/08/2022 10:58 AM CDT SUBJECTIVE Referral Source: Service/Provider Referral Type: Discharge Planning Current Condition is: Stable to Discharge. Patient is able to participate in assessment. Ekta Sands is a 72 y/o female who was admitted on 12/07/2022 in preporation for primary left total knee arthroplasty which occurred the same day without complication. Weekend social work met with patient and spouse at hospital bedside for a discharge planning consult and travel writer introduced the role of Social Work to provide supportive counseling and assistance withdischarge planning. Additionally, social work discussed caregiving, lodging, and coping/mood. Patient was under the understanding that she was returning home self-care and she would have home PT/OT in two weeks as her preferred company is two weeks out for new admits. Social work and unit nurse identified that home healthcare has not been arranged by [facility] social work. It was explained that if this is needed and desired that she would need to remain inpatient until Saturday12/10/22 at the latest. Ekta explained she desires to discharge and she states she will seek PT/OT orders from her primary physician on Saturday12/10/2022. Hr Systems Analyst and unit nurse extended apologies for home healthcare not being completed and Ekta states she not upset 'things happen.' Social work double checked that Ekta is safe and is 100% sure she desires discharge today vs. Remaining inpatient until this can be formally set-up. She again expresses how she desires to discharge and she was able to teach-back how she will set-up her home pt/ot. OBJECTIVE Discussed patient's progress and plan of care at multidisciplinary rounds this morning. For more complete psychosocial history, please see prior social work clinical notes. COPING Discussion occurred today regarding mood and Ekta cites her mood is positive and she has no concerns. Numerical Control Operator provided psychotherapeutic support as needed. ASSESSMENT / PLAN Ekta presents as relaxed and was receptive to the visit with social work today. She seems to be coping adequately in context of hospitalization and does not endorse mood symptoms. Ekta is independent at baseline, living with her spouse. Ekta agrees to seek PT/OT orders for home-going PT/OT from her primary physician on Saturday12/10/2022. Caregiver Name: Domenic Sands Caregiver Relationship: INTERVENTIONS Education regarding role of social work and discharge planning., Supportive counseling using empathetic and reflective listening with focus on building rapport, problem solving, and resilience promotion. Set expectations surrounding discharge planning, Assessed needs, identified risk and protective factors, Provided supportive, strengths-based counseling related to hospitalization, PATIENT NEEDS/PLAN Social work will remain available throughout the continuum of hospitalization. Naomy Day, M.S.W. 12/08/2022 * Tiffanie Mak M.D. - 12/08/2022 8:43 AM CDT SUBJECTIVE Ms. Sands is doing well. Pain well controlled. Did not work with PT yesterday due to late arrival onthe floor. Hopeful for discharge home today. VITALS Temperature: [36.5 ??C-36.9 ??C] 36.7 ??C Heart Rate: [60-102] 86 Resp Rate: [0-47] 16 Blood Pressure: (99-161)/(49-92) 100/53 SpO2: [81 %-100 %] 97 % Flow Rate (L/min): [0 L/min-2 L/min] 0 L/min Pulse Rate: [61-101] 69 PHYSICAL EXAM Exam of left lower extremity reveals dressing to be clean and dry. Soft RJ removed, Aquacel c/d/I. Fires TA, GSC, EHL, FHL. SILT DPN, SPN and Tibial nerve distributions - at her baseline. 2+ DP and PT pulses. Foot WWP. LABS Lab Results Component Value Date HGB 12.8 11/22/2022 WBC 5.3 11/22/2022 PLT 269 11/22/2022 CREATININE 1.47 (H) 11/22/2022 NA 143 11/22/2022 INR 1.1 01/17/2020 IMPRESSION & REPORT Left total knee arthroplasty 12/07/2022 Principle Diagnosis: Comorbidities: Patient Active Problem List Diagnosis Hypertension And Chronic Kidney Disease Stage 4 (HCC) Diabetes Mellitus Type 2 With Diabetic Chronic Kidney Disease (HCC) Arthropathy Hypercholesterolemia Keratosis Seborrheic Loss Hearing Sensorineural Bilateral Osteopenia Stenosis Spinal Tinnitus Bilateral Vitiligo Anemia Iron Deficiency Primary Osteoarthritis Knee Bilateral Trigger Finger Ring Right Pain Low Back Unspecified History Of Falling Anxiety Constipation Spondylosis Lumbar Without Myelopathy Arthroplasty 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 Physical therapy to mobilize. - Antibiotics: Perioperative cefazolin x2 doses. - Blood: Hemodynamically stable; currently asymptomatic. - Cultures: None. - Diet: ADAT to general diet. - Drains: None. - DVT Prophylaxis: SCD's and early mobilization. Aspirin 81 mg BID. - Pain: acetaminophen, tramadol, and oxycodone - Urinary: No urinary catheter. - Post-op xrays: reviewed and are unremarkable - Disposition: Anticipate discharge to home. We discussed that she will hold her home lisinopril-HCTZ until PCP follow-up on Saturday as her pressures are soft this morning. For any questions or concerns from 6 am until 6 pm, please page the enterprise resource planning consultant's service. For urgent matters from 6 pm until 6 am, please page [facility] [place]. * Aleksandr Rodríguez M.D. - 12/07/2022 4:55 PM CDT SUBJECTIVE Ms. Sands was seen in afternoon rounds in PACU. Had some postoperative nausea. Has some difficulty initially with pain control however this has resolved. Still feeling some pressure about the knee. Neurovascularly intact on exam. VITALS Temperature: [36.5 ??C] 36.5 ??C Heart Rate: [60-98] 74 Resp Rate: [0-47] 9 Blood Pressure: (105-161)/(53-92) 129/85 SpO2: [81 %-100 %] 99 % Flow Rate (L/min): [2 L/min] 2 L/min Pulse Rate: [61-99] 76 PHYSICAL EXAM Exam of left lower extremity reveals dressing to be clean and dry. Fires TA, GSC, EHL, FHL. SILT DPN, SPN and Tibial nerve distributions. 2+ DP and PT pulses. Foot WWP. LABS Lab Results Component Value Date HGB 12.8 11/22/2022 WBC 5.3 11/22/2022 PLT 269 11/22/2022 CREATININE 1.47 (H) 11/22/2022 NA 143 11/22/2022 INR 1.1 01/17/2020 IMPRESSION & REPORT Left total knee arthroplasty 12/07/2022 Principle Diagnosis: Comorbidities: Patient Active Problem List Diagnosis Hypertension And Chronic Kidney Disease Stage 4 (HCC) Diabetes Mellitus Type 2 With Diabetic Chronic Kidney Disease (HCC) Arthropathy Hypercholesterolemia Keratosis Seborrheic Loss Hearing Sensorineural Bilateral Osteopenia Stenosis Spinal Tinnitus Bilateral Vitiligo Anemia Iron Deficiency Primary Osteoarthritis Knee Bilateral Trigger Finger Ring Right Pain Low Back Unspecified History Of Falling Anxiety Constipation Spondylosis Lumbar Without Myelopathy Arthroplasty 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 PLAN - Activity: As tolerated. Physical therapy to mobilize. - Antibiotics: Perioperative cefazolin x2 doses. - Blood: Hemodynamically stable; currently asymptomatic. - Cultures: None. - Diet: ADAT to general diet. - Drains: None. - DVT Prophylaxis: SCD's and early mobilization. Aspirin 81 mg BID. - Pain: acetaminophen, tramadol, and oxycodone - Urinary: No urinary catheter. - Post-op xrays: reviewed and are unremarkable - Disposition: Anticipate discharge to home. For any questions or concerns from 6 am until 6 pm, please page the enterprise resource planning consultant's service. For urgent matters from 6 pm until 6 am, please page [facility]. * Chandrakant Powers - 12/07/2022 9:11 AM CDT [facility] Spiritual Care Progress Note Patient: Ekta Sands Age:72 y.o. Location: [id number] Reason(s) for encounter: AM Admit Spiritual and psychosocial support as part of the interdisciplinary care team. Spiritual Assessment Christian Identification / Spiritual Practices: [facility] Spiritual Needs and/or Concerns: None expressed at this time. Spiritual Care Plan / Recommendations: No further spiritual care requested or required at this time. Chaplains can be contacted by paging [phone] ([place]) or [phone] ([place]). * Halle Moreno, PharmJuanD., R.Ph. - 12/07/2022 8:23 AM CDT Images from the original note were not included. Admission Medication History Note Adherence issues: No concerns Medication list source: Patient Medication related information: Patient would like discharge prescriptions sent to [facility] Prior to Admission Medications Med List Status: Pharmacy Complete Set By: Halle Moreno Pharm.D., R.Ph. at 12/07/2022 8:22 AM Taking? Last Dose Informant Start Date End Date LT acetaminophen (TYLENOL) 500 mg capsule 12/06/2022 at 2100 -- -- -- Take 2 capsules by mouth every 6 (six) hours as needed for pain. blood glucose ctl high,nml,low solution -- -- 08/22/20 -- Glucose control solution provides an easy way to ensure accurate blood glucose testing. Notes: DX: Diabetes Mellitus Type 2 - E11.9. Pharmacist may substitute brand, needle/syringe size of diabetic supply or adjust quantities down per patient preference or insurance coverage. blood sugar diagnostic strips (Contour Next Test Strips) -- -- 10/18/22 10/18/23 1 test daily. Notes: ICD-10: E11.22 Length of Need:Lifetime, Insulin Dependent: No Last Office Visit:08/08/21 Last A1c 7.1 on 07/25/21 Pharmacy may substitute brand/adjust qty per pt preference or insurance coverage [place] [facility] [place] -- 08/22/20 -- Contour Next One meter. Test once daily. Notes: DX: Diabetes Mellitus Type 2 - E11.9. Pharmacist may substitute brand, needle/syringe size of diabetic supply or adjust quantities down per patient preference or insurance coverage. lisinopril-hydroCHLOROthiazide (PRINZIDE,ZESTORETIC) 10-12.5 mg per tablet 12/06/2022 at 2100 -- 05/03/22 -- TAKE ONE TABLET BY MOUTH EVERY DAY Patient taking differently: Take 1 tablet by mouth at bedtime. metFORMIN XR (GLUCOPHAGE-XR) 500 mg 24 hr tablet 12/06/2022 at 2100 -- 07/24/22 -- Take 2 tablets (1,000 mg total) by mouth daily with breakfast. Patient taking differently: Take 1,000 mg by mouth at bedtime. Microlet Lancet -- -- 10/24/21 -- USE TO TEST BLOOD GLUCOSE ONCE DAILY Notes: ICD-10: E11.22 Length of Need:Lifetime, Insulin Dependent: No Last Office Visit:09/12/21 [id number] 7.1 on 07/25/21 Pharmacy may substitute brand/adjust qty per pt preference or insurance coverage mirtazapine (REMERON) 7.5 mg tablet 12/06/2022 at 2100 -- 10/18/22 -- Take 1 tablet (7.5 mg total) by mouth at bedtime. simvastatin (ZOCOR) 20 mg tablet 12/06/2022 at 2100 -- 02/27/22 -- TAKE ONE TABLET BY MOUTH EVERY DAY AT BEDTIME documented in this encounter H&P Notes * Sam Coburn M.D. - 12/07/2022 12:21 PM CDT INTERVAL HISTORY AND PHYSICAL PRE-PROCEDURE UPDATE H&P reviewed. The patient was examined and there are no significant changes to the H&P. Sam Coburn M.D. Source Note - Brennen Winchester M.D. - 11/20/2022 3:30 PM CDT Chief Complaints: 1. Preanesthetic Medical Consultation Date of Surgery: 12/07/2022 Requesting Physician: Dr. Coburn History of Present Illness Patient is 72 years old female with past medical history significant for type 2 diabetes, hypertension, CKD stage 4, hyperlipidemia, osteoarthritis, osteopenia, vitiligo comes in for a preanesthetic medical consultation for left knee replacement. She presents at her baseline health and declines any symptoms of chest pain, shortness of breath orexercise intolerance. She is able to conduct her regular activities including going up and down thestairs without any issues. She also declines any past issues with abnormal bleeding, clotting or problems with anesthesia. Past Medical History Past Medical History: Diagnosis Date Cataract 2013 [...] 01/17/20 JACKIE Other Specified Health Status arthritis Vitiligo 08/10/2016 Past Surgical History Past Surgical History: Procedure Laterality Date CARPAL TUNNEL RELEASE Right 01/05/2014 CHOLECYSTECTOMY N/A 06/28/2008 Cholecystectomy GALLBLADDER SURGERY 2010 Emergency basis HAND THUMB CARPOMETACARPAL RECONSTRUCTION LRTI Left 11/23/2014 hand thumb carpometacarpal reconstruction LRTI Notes: Ligament reconstruction, tendon interposition JOINT REPLACEMENT 01/2020 and 03/2020 OTHER CONVERTED SHX (SEE COMMENT) N/A 01/05/2014 >Right thumb ligament reconstruction, tendon interposition. OTHER CONVERTED SHX (SEE COMMENT) N/A 01/03/2015 >1. Cast removal. 2. Examination. OTHER CONVERTED SHX (SEE COMMENT) N/A 12/01/2014 >1. Splint adjustment. 2. Examination. OTHER CONVERTED SHX (SEE COMMENT) N/A 12/06/2014 >1. Splint removal. 2. Examination. OTHER CONVERTED SHX (SEE COMMENT) N/A 01/19/2014 >1. Splint removal. 2. Examination. OTHER CONVERTED SHX (SEE COMMENT) N/A 02/16/2014 >Cast removal, examination, graduation to removable splint, and initiation of therapy. OTHER SURGICAL HISTORY 2013 and 2015 LRTI for both thumbs Family History Family History Problem Relation Age of Onset Lung cancer Mother Cause of Hypertension Mother Nicotine dependence Mother Depression Mother Arthritis Mother Breast cancer Mother age 63 Back pain Mother Dementia Father Arthritis Father Heart attack Father Coronary artery disease Father cause of Hyperlipidemia Brother Diabetes Brother Hypertension Brother Ovarian cancer Paternal Grandmother cause of ADD Son Social History Social History Socioeconomic History Marital status: Spouse name: Not on file Number of children: Not on file Years of education: Not on file Highest education level: Doctorate Occupational History Not on file Tobacco Use Smoking status: Never Smokeless tobacco: Never Tobacco comments: None! Substance and Sexual Activity Alcohol use: No Drug use: No Sexual activity: Not Currently Partners: Male control/protection: Post-menopausal Other Topics Concern Not on file Social History Narrative Not on file Social Determinants of Health Financial Resource Strain: Low Risk Difficulty of Paying Living Expenses: Not hard at all Food Insecurity: No Food Insecurity Worried About Running Out of Food in the Last Year: Never true Ran Out of Food in the Last Year: Never true Transportation Needs: Unmet Transportation Needs Lack of Transportation (Medical): Yes Lack of Transportation (Non-Medical): No Physical Activity: Sufficiently Active Days of Exercise per Week: 5 days Minutes of Exercise per Session: 30 min Stress: Stress Concern Present Feeling of Stress : To some extent Social Connections: Socially Integrated Frequency of Communication with Friends and Family: Twice a week Frequency of Social Gatherings with Friends and Family: Three times a week Attends Christian Services: More than 4 times per year Active Member of Clubs or Organizations: Yes Attends Club or Organization Meetings: More than 4 times per year Marital Status: Intimate Partner Violence: Not At Risk Fear of Current or Ex-Partner: No Emotionally Abused: No Physically Abused: No Sexually Abused: No Housing Stability: Low Risk Unable to Pay for Housing in the Last Year: No Number of Places Lived in the Last Year: 1 Unstable Housing in the Last Year: No Current Medications Current Outpatient Medications Medication Sig Dispense Refill acetaminophen (TYLENOL) 500 mg capsule Take 2 capsules by mouth every 6 (six) hours as needed. amoxicillin (AMOXIL) 500 mg capsule Take four capsules one hour prior to any dental procedure or cleaning blood glucose ctl high,nml,low solution Glucose control solution provides an easy way to ensure accurate blood glucose testing. 1 each 0 blood sugar diagnostic strips (Contour Next Test Strips) 1 test daily. 90 test 3 [place] [facility] [place] Next One meter. Test once daily. 1 each 0 lisinopril-hydroCHLOROthiazide (PRINZIDE,ZESTORETIC) 10-12.5 mg per tablet TAKE ONE TABLET BY MOUTHEVERY DAY 90 tablet 3 metFORMIN XR (GLUCOPHAGE-XR) 500 mg 24 hr tablet Take 2 tablets (1,000 mg total) by mouth daily with breakfast. 180 tablet 3 Microlet Lancet USE TO TEST BLOOD GLUCOSE ONCE DAILY 100 each 3 mirtazapine (REMERON) 7.5 mg tablet Take 1 tablet (7.5 mg total) by mouth at bedtime. 90 tablet 3 simvastatin (ZOCOR) 20 mg tablet TAKE ONE TABLET BY MOUTH EVERY DAY AT BEDTIME 90 tablet 3 No current facility-administered medications for this visit. Allergies Allergies Allergen Reactions Crab Nausea And Vomiting Sulfa (Sulfonamide Antibiotics) Hives Review of Systems: All systems reviewed and otherwise negative unless noted above. Specifically, no fevers, chills or sweats. No chest pain and no increasing shortness of breath on exertion. Physical Examination: Vitals: BP 130/77 (BP Location: Right arm, Patient Position: Sitting, Cuff Size: Regular) Comment: average Pulse 75 Temp 36 ??C (Temporal) Resp 16 Ht 165.4 cm Wt 58 kg BMI 21.22 kg/m?? GENERAL: In no apparent distress, comfortable and cooperative. EYES: NEHEMIAS, EOMI, no conjunctival injection. ENT: Normal tympanic membrane, normal light reflex, bony landmarks visible. External nares normal and patent with no erythema or discharge. Oropharynx appears normal with no lesions. Uvula is midlineand there is no significant tonsillar swelling. NECK: Supple with no lymphadenopathy. There is no apparent thyroid enlargement or masses. CARDIOVASCULAR: Heart sounds are normal S1, S2, no S3 or S4. Regular rate and rhythm, no murmurs orrubs. RESPIRATORY: Clear to auscultation, no wheezes. Air entry is equal bilaterally. ABDOMEN: Generally normal to inspection, palpation, percussion, and auscultation. There is no apparent hepatosplenomegaly. MUSCULOSKELETAL: No digital clubbing, cyanosis or edema. Full range of motion at all joints. NEUROLOGICAL: Alert and oriented x3. Cranial nerves II-XII grossly normal. Normal symmetrical reflexes, tone, power, and sensation. VASCULAR: Peripheral pulses generally normal and symmetrical. No peripheral cyanosis or edema. SKIN: Normal with no acute lesions. PSYCH: Mental status appears normal. Lab Results Component Value Date WBC 6.5 10/30/2022 HGB 13.8 10/30/2022 HCT 43.8 10/30/2022 MCV 94.2 10/30/2022 PLT 285 10/30/2022 Lab Results Component Value Date NA 144 10/30/2022 KSERUM 5.0 10/30/2022 KPLASMA 4.7 09/12/2021 CL 109 (H) 10/30/2022 BICARB 24 10/30/2022 CREATININE 1.65 (H) 10/30/2022 EGFRBLKAA 32 (L) 09/12/2021 EGFRNONBLKAA 28 (L) 09/12/2021 EGFR 33 (L) 10/30/2022 BUN 36 (H) 10/30/2022 ANIONGAP 11 10/30/2022 GLUCOSE 134 10/30/2022 GLUCOSEPOC 117 11/23/2014 CALCIUM 10.0 10/30/2022 Impression / Report / Plan Ekta was seen today for pre-op exam. Diagnoses and all orders for this visit: Diabetes Mellitus Type 2 (HCC) - Hemoglobin A1c; Future Primary Osteoarthritis Knee Left - Primary Care - [facility] consult (clinic) Preoperative Exam - Primary Care - [facility] consult (clinic) Hypertension And Chronic Kidney Disease Stage 4 (HCC) Diabetes Mellitus Type 2 With Diabetic Chronic Kidney Disease (HCC) Ekta Sands is a 72 y.o. female considered a low risk patient undergoing a moderate risk procedure. Her physical activity is currently above 4 mets and she currently declines any issues. she is currently medically optimized for the procedure. Patient appears capable of doing at least 4 METs of activity. There is no chest pain and no increasing shortness of breath with activity. There is no evidence of symptomatic obstructive sleep apnea. We will advise patient to take relevant medications with a sip of water the morning of procedure andotherwise be fasting from midnight the night before. Blood thinners including aspirin will be held o ne week prior, unless patient requires anticoagulation for hypercoaguability, or artificial heart valve, in which case patient will be bridged with low molecular weight heparin with 1/2 dose the day prior to procedure. Overall patient appears optimized for the procedure. (Christ LA et al. ACC/AHA 2007 Guidelines on Perioperative Cardiovascular Evaluation and Care forNoncardiac Surgery: A Report of the [place] [employer] /[place] [employer] Association TaskForce on Practice Guidelines. Journal of the [place] College [employer]iology 2007; 50: [id number]) documented in this encounter Consult Notes * Margo Henderson P.T., D.P.T. - 12/08/2022 10:18 AM CDT Physical Therapy Inpatient Evaluation/Treatment By co-signing this note, the provider certifies the therapy being provided to this patient is reasonable and necessary for the diagnosis or treatment of this patient. SUBJECTIVE Patient's Name: Ekta Sands Referring/Attending Provider: Sam Coburn M.D. Medical Diagnosis: Primary Osteoarthritis Knee Left [M17.12] Reason for Referral: PT Evaluate and Treat PT evaluate and treat; left lower extremity weight-bearing as tolerated, knee arthroplasty protocol Onset Date: 12/07/22 Payor: MEDICARE / Plan: MEDICARE A AND B / Product Type: Medicare / PERTINENT MEDICAL / SURGICAL HISTORY: Patient Active Problem List Diagnosis Hypertension And Chronic Kidney Disease Stage 4 (HCC) Diabetes Mellitus Type 2 With Diabetic Chronic Kidney Disease (HCC) Arthropathy Hypercholesterolemia Keratosis Seborrheic Loss Hearing Sensorineural Bilateral Osteopenia Stenosis Spinal Tinnitus Bilateral Vitiligo Anemia Iron Deficiency Primary Osteoarthritis Knee Bilateral Trigger Finger Ring Right Pain Low Back Unspecified History Of Falling Anxiety Constipation Spondylosis Lumbar Without Myelopathy Arthroplasty 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 OTHER CONVERTED SHX (SEE COMMENT) N/A 01/03/2015 >1. Cast removal. 2. Examination. OTHER CONVERTED SHX (SEE COMMENT) N/A 12/01/2014 >1. Splint adjustment. 2. Examination. OTHER CONVERTED SHX (SEE COMMENT) N/A 12/06/2014 >1. Splint removal. 2. Examination. OTHER CONVERTED SHX (SEE COMMENT) N/A 01/19/2014 >1. Splint removal. 2. Examination. OTHER CONVERTED SHX (SEE COMMENT) N/A 02/16/2014 >Cast removal, examination, graduation to removable splint, and initiation of therapy. 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, 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, 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 Interests: 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, part of choirs, reading Prior Mobility/Functional Transfers Level of [place]: Independent Home Equipment Gait Devices Owned: Front-wheeled walker, Cane Other DME Equipment : Other (Comment) (Flat bed) Bathroom Equipment: Grab bars in shower, Other (Comment), Tub transfer bench (Has a tub transfer bench that she chooses to use outside of her tub, because she likes to fully close her curtain.) Home Living Type of Home: House Home Layout: Able to live on main level with bedroom/bathroom, Laundry in basement Home Access: Stairs to enter with rails Entrance Stairs: Rails: Left Entrance Stairs: Number of Steps: 3 Bathroom Shower/Tub: Tub/shower unit Tub/shower unit location: Main floor Tub/shower unit enclosure type: Curtain Bathroom Toilet: Comfort height Home Living Comments: Has a right grab bar and a left window sill to use for arm support next to the toilet. She sits on her tub transfer bench outside of the tub shower for drying off and dressing. Family/Caregiver Present: Yes (Spouse, Domenic) Patient/Caregiver Goals: Dismiss to home with care of spouse Patient Comments: Left knee pain 5/10 after recent medication and patient anxious to have physical therapy so she can leave; 01/26 after physical therapy session Precautions Weight Bearing Status: Left lower extremity weight-bearing as tolerated Other Precautions: Patient reports right broken hip and revision surgery 3 years ago, as well as left arthritic knee and chronic back pain Fall Risk (65 and older) Fall in the last 12 months: Yes (1, slipped on ice) Did you have an injury with the fall?: No Are you fearful of falling?: No Fall Risk Comments: ???I would not say that I am fearful, but I am careful. OBJECTIVE Ekta's NO HARM modalities were used during their therapy session. Vitals monitored throughout session; within normal ranges. Cognition Orientation: Oriented X4 Vision/Sensation Basic Assessment Light Touch: No deficits General ROM / Strength Screening ROM - Upper Extremity Screen: Addressed, no concerns noted ROM - Lower Extremity Screen: Impaired right & left ROM - Lower Extremity Screen Comments: Left surgical knee 0-94 degrees, measured with goniometer; right nonsurgical knee 0-104 degrees, measured with a goniometer Strength - Upper Extremity Screen: Addressed, no concerns noted Strength - Lower Extremity Screen: Impaired right & left Bed Mobility - Supine to Sit # of Assistants: 1 Level of Assistance: Supervision/Set-up, Independent Device: None Bed Mobility - Sit to Supine # of Assistants: 1 Level of Assistance: Supervision/Set-up, Independent Device: None Sit to Stand Transfers # of Assistants: 1 Transfer Surface: Bed, Chair Transfer Equipment: Gait belt, Front wheeled walker Level of Assistance: Contact guard assistance Assessment/Delivery: Assessed, Instructed Comments: Verbal cues for hand placement and surgical leg forward Stand to Sit Transfers # of Assistants: 1 Transfer Surface: Bed, Chair Transfer Equipment: Front wheeled walker Level of Assistance: Contact guard assistance Assessment/Delivery: Assessed, Instructed Comments: Verbal cues for hand placement and surgical leg forward Car Transfers Comments: Educated in car transfer with illustrations in knee booklet; side sitting 1st and then spinning to face forward Gait Assessment/Training Distance (m): 50 m Surface: Even, Smooth/hard Device: Gait belt, Front-wheeled walker # of Assistants: 1 Level of Assistance: Contact guard assistance Stability: Good Assessment of Gait: Patient naturally walked with a step through pattern, but stated she could backed down to a step to pattern if needed due to pain or discomfort in her hip, knees or back Cueing Provided: Verbal, Tactile Training/Intervention: Educated in progression of gait aid principles with advancement to lesser gait aids if able given her other arthritic pains Response: No adverse symptoms Stairs/Curb # Stairs: 6 Curb Assessment: No Rails: 1 (Left) Device: Gait belt, Single point cane # of Assistants: 1 Level of Assistance: Contact guard assistance, Supervision/Set-up Stair Navigation Pattern-Ascending: Step-to pattern Stair Navigation Lead Foot-Ascending: Right Stair Navigation Pattern-Descending: Step-to pattern Stair Navigation Lead Foot-Descending: Left Cueing Provided: Verbal, Tactile Stability: Good Training/Intervention: Verbal cues for sequence/written instructions provided on step page of her knee booklet, with additional mention of use of a cane instead of crutches, which she will do Response: No adverse symptoms Exercise - Protocol Total Joints Exercise: Total knee Total Joints Exercise Comments: Patient sitting up in the chair with her legs extended on a chair height footstool when PT arrived: Ankle pumps, quad sets, simulated straight leg raise, quad sets with over pressure, long arc quad, left knee active assisted range of motion via sliding left foot on atowel on the smooth floor with and without a belt, knee flexion stretch with scooting forward with planted feet; did sub maximal repetitions and holds due to pain, patient will advance to parameters as per knee booklet when able; left surgical knee 0- 94 degrees and right nonsurgical knee 0-104 degrees, measured with a goniometer Handouts provided today: Rehabilitation After Knee Replacement ([id number]) Patient's nurse was contacted and patient's status was discussed Inpatient AVS Complete - PT: Yes Inpatient AVS Completion Date - PT: 12/08/22 Patient was left in bed at end of session with call light in reach, all needs met and questions answered. Outcome Measures [facility] Inpatient Short Form: -[facility] Basic Mobility (V.2) How much help from another person do you currently need???If the patient hasn't done an activity recently, how much help from another person do you think he/she would needif he/she tried? 1. Turning from your back to your side while in a flat bed without using bedrails?: None 2. Moving from lying on your back to sitting on the side of a flat bed without using bedrails?: None 3. Moving to and from a bed to a chair (including a wheelchair)?: A Little 4. Standing up from a chair using your arms (e.g., wheelchair, or bedside chair)?: A Little 5. To walk in hospital room?: A Little 6. Climbing 3-5 steps with a railing?: A Little AM-PAC Basic Mobility (V.2) Raw Score: 20 -[facility] Basic Mobility (V.2) Standardized Score: 43.99 Interpretation: Clinicians answer the -[facility] Inpatient Short Form based on observed patient activity and/or clinical judgement (ie. patient can be scored without physically performing each activity) Based on scoring guidelines using the raw score value: Those going to home had an average score at or above 18 Those going to facility had an average score at or below 17 Assessment Discharge Therapy Needs - PT: (Patient mentioned that she may have home health care/possible home or outpatient PT) Skilled therapy can include physical therapy provided by home health, outpatient clinic, or a post-acute facility. The location of these services is determined by the patient's care team in partnership with patient/family. Level of Care Needed - PT: Other (Comment) ( will assist patient as needed) Equipment Recommended - PT: Front-wheeled walker, Single-point cane Clinical Impression of today's session: Currently, patient presents with impairments including knee pain and stiffness resulting in the following functional deficits: Decreased knee range of motion and strength. Maximized mobility, measured knee range of motion with goniometer, monitored vitals, educated in home exercise program/transfers/gait/progression of gait aid principles. The skill of a physical therapist was needed today for evaluation and initiation appropriate treatment including protocol exercises to promote healing of thesurgical knee as well as fall prevention and safety techniques with the use of a front wheeled walker on level surfaces and a cane on steps with a railing. Rehab potential: Ms. Sands has Good potential to achieve established physical therapy goals within the time frame outlined below. Progress: All PT goals achieved Tiered PT Evaluation Codes: Comorbid Conditions: Arthritis, Other (Comment) (See medical record) Personal Factors: Needs assistive device Examination elements: 4+ Clinical Presentation: Stable Clinical Decision Making: Low complexity clinical decision making Functional Goals: PT Inpatient Goals PT Goal #1: Patient will be able to teach back with demonstration the home exercise program using her copy of Rehabilitation After Knee Replacement [id number]. PT Goal #1 Status: Achieved PT Goal #2: Patient will be able to transfer to and from all surfaces with contact guard assist or less as per home set-up. PT Goal #2 Status: Achieved PT Goal #3: Patient will be able to ambulate 45 m left weight bearing as tolerated with front wheeled walker and up and down 3 steps with cane and railing with contact guard assist. PT Goal #3 Status: Achieved PT Goal #4: Patient will be able to verbally teach back the progression of gait aid principles. PT Goal #4 Status: Achieved Plan Patient agrees with the plan of care and goals. Treatment Plan: Plan: Discontinue PT PT Frequency: One-time visit PT Inpatient Duration : Until goals are met or hospital discharge Requires Inpatient Follow-Up: No Treatment interventions may include: Treatment/Interventions: Therapeutic exercise, Therapeutic functional activity, Gait training Billing: Time Spent with Patient Evaluations PT Eval - Low Complexity: 8 min Therapeutic Interventions Therapeutic Activity (min): 21 min Therapeutic Exercise (min): 23 min Time Tracking Total Timed Units (min): 44 min Total Treatment Time (min): 52 min Margo Henderson P.T., D.P.T. documented in this encounter Nursing Notes * Jemma Gold R.N., C.M.S.R.N. - 12/08/2022 10:35 AM CDT Patient discharged from [facility] to Home Self Care. Transportation provided by family. Patient's dismissal medications:oxycodone, tramadol, aspirin, tylenol [facility]. * Jemma Gold R.N., DeandraS.R.N. - 12/08/2022 10:35 AM CDT Shift Goals: Clinical Goals for the Shift: Patient will be able to sit in the chair once this shift Identify possible barriers to meeting goals/advancing plan of care: none End of Shift Summary: patient was able to complete this goal and prepare for discharge Problem: SAFETY ADULT Goal: Maintain a safe environment Outcome: Progressing Problem: SAFETY ADULT - RISK FOR FALL AND OR FALL INJURY Goal: Patient remains free from fall/fall injury Outcome: Progressing Problem: PAIN - ADULT Goal: PT VERBALIZES/DEMONSTRATES ADEQUATE COMFORT LEVEL OR BASELINE Outcome: Progressing Problem: KNOWLEDGE DEFICIT Goal: Patient/family/caregiver demonstrates understanding of disease process, treatment plan, medications, and discharge instructions Outcome: Progressing Problem: INFECTION - ADULT Goal: Absence of infection during hospitalization Outcome: Progressing Problem: SKIN/TISSUE INTEGRITY Goal: Skin/Tissue integrity maintained or improved Outcome: Progressing Goal: Oral and Nasal mucous membranes remain intact Outcome: Progressing Problem: DISCHARGE PLANNING Goal: Patient discharge needs identified Outcome: Progressing documented in this encounter OR Notes * Op Note - Sam Coburn M.D. - 12/07/2022 10:42 AM CDT Pre-op Diagnosis Primary Osteoarthritis Knee Left Post-op Diagnosis Primary Osteoarthritis Knee Left A rn first assistant actively participated and was necessary for one or more of the following: opening, exposure and visualization during the case, maintaining hemostasis, wound closure resulting in itssafe and expeditious completion. Findings As expected. Complications None Operative Note Narrative Tourniquet: Tourniquet not used during any portion of the procedure After explaining the risks, benefits, and alternatives to the planned procedure, the patient agreedto proceed. The patient was taken to the operating room where appropriate anesthesia was provided by the Anesthesia staff. Intravenous antibiotics were administered. The patient was positioned supine, and all bony prominences were well-padded. The knee was then prepped and draped in sterile orthopedic fashion. A pre-surgical pause was performed to correctly identify the patient, procedure, and extremity, including verification of the signed surgical site. The knee was exposed through an anterior midline incision and medial parapatellar arthrotomy. Inspection of the joint revealed severe degenerative changes, especially within the patellofemoral compartment. The patella was evenly resected, sized, and prepared for a 32 mm round all- polyethylene patellar component. The distal femur was cut perpendicular to the mechanical axis using an intramedullary guide. Rotation was set according to a combination of the transepicondylar axis and the AP axis of the femur. Thefemur was then prepared to accept a Connor Persona Size 10 Narrow Cruciate-Retaining femoral component. The tibia was cut perpendicular to its mechanical axis using an extramedullary guide. The fat pad, menisci, osteophytes, and cruciate ligaments were then excised. Ligament balancing required a posterior capsular release to improve the flexion contracture. The trial components were placed. The patella was noted to track centrally. There was no requirement for alateral retinacular release. The knee was stable in all planes. Range of motion: 0?? extension and 130?? flexion. All trial components were then removed, and the tibia was prepared for a Size E tibial component with a 30 mm cemented stem for additional fixation in the setting of osteoporosis. Rotation was set atthe junction of the medial one-third and lateral two-thirds of the tibial tubercle. The knee was then thoroughly irrigated with sterile saline pulse lavage and dried. The real components were then cemented into position using antibiotic- impregnated cement. The knee was brought into extension and compressed. The knee was held firmly until all the cement had hardened and excess cement had been removed. The real 10 mm Medial Congruent (MC) liner was then inserted into the tibial component. Meticulous hemostasis was obtained. The arthrotomy was then closed with a combination of 0 Vicryl and No. 1 Vicryl. The subcutaneous tissues were closed with 0 Vicryl and 2-0 Monocryl. The skin was closed with a running subcuticular suture and Dermabond. A sterile compressive dressing was then applied. The patient tolerated the procedure well, and there were no known immediate complications. The patient received a single-shot adductor canal block and supplemental periarticular injection for postoperative pain management. Sam Coburn M.D. documented in this encounter Plan of Treatment Upcoming Encounters Date Type Department Care Team (Latest Contact Info) Description 10/02/2023 1:30 PM COST ESTIMATING MANAGER Appointment Department of Radiology in [address] [phone] Brennen Winchester M.D. [address] [place] [phone] Discharge Disposition: Home or Self Care 11/08/2023 10:00 AM CDT Office Visit Department of Family Medicine, [facility], in [address] [phone] Brennen Winchester M.D. [address] [place] [phone] 11/22/2023 9:15 AM CDT Clinical Communication Virtual Review in [address] [address] 11/25/2023 10:15 AM CDT Office Visit Department of Orthopedic Surgery in [address] [phone] Latrell Antunez M.D. [address] [place] [phone] 11/28/2023 8:00 AM CDT Appointment Department of Laboratory Medicine and Pathology, [facility] in [address] [phone] Sam Coburn M.D. [address] [place] [phone] 11/28/2023 8:45 AM CDT Appointment Department of Radiology, [facility], in [place], [place] [address] [place] [phone] Sam Coburn M.D. [address] [place] [phone] 11/28/2023 9:00 AM CDT Appointment Department of Radiology, [facility], in [place], [place] [address] [place] [phone] Sam Coburn M.D. [address] [place] [phone] 11/28/2023 10:00 AM CDT Office Visit Department of Orthopedic Surgery in [place], [place] [address] [place] [phone] Sam Coburn M.D. [address] [place] [phone] 11/29/2023 10:48 AM CDT Hospital Encounter [facility] 02 4 AM ADMIT [address] [place] [phone] Sam Coburn M.D. [address] [place] [phone] 11/29/2023 10:48 AM CDT - 11/29/2023 1:43 PM CDT Surgery [facility] [address] [place] [address] Sam Coburn M.D. [address] [place] [phone] ARTHROPLASTY REPLACEMENT TOTAL KNEE Scheduled Procedures Name Priority Associated Diagnoses Date/Ti me ARTHROPLASTY REPLACEMENT TOTAL KNEE Primary Osteoarthritis Knee Right 11/29/2023 10:48 AM CDT documented as of this encounter Procedures Procedure Name Priority Date/Time Associated Diagnosis Comments POCT NONINVASIVE HGB Routine 12/08/2022 4:31 AM CDT GLUCOSE POCT, B Routine 12/07/2022 9:00 PM CDT REMOTE OXIMETRY MONITORING CONT. Routine 12/07/2022 7:23 PM CDT REMOTE OXIMETRY MONITORING CONT. Routine 12/07/2022 7:23 PM CDT REMOTE OXIMETRY MONITORING CONT. Routine 12/07/2022 7:23 PM CDT ADULT OXYGEN THERAPY Routine 12/07/2022 7:23 PM CDT ADULT OXYGEN THERAPY Routine 12/07/2022 7:23 PM CDT ADULT OXYGEN THERAPY Routine 12/07/2022 7:23 PM CDT GLUCOSE POCT, B Routine 12/07/2022 7:02 PM CDT GLUCOSE POCT, B Routine 12/07/2022 4:55 PM CDT GLUCOSE POCT, B Routine 12/07/2022 2:24 PM CDT ADULT OXYGEN THERAPY Routine 12/07/2022 2:23 PM CDT DX KNEE LEFT 2 VIEWS RAD - Routine (most inpatients and all outpatients) 12/07/2022 2:18 PM CDT GLUCOSE POCT, B Routine 12/07/2022 12:12 PM CDT ARTHROPLASTY REPLACEMENT TOTAL KNEE 12/07/2022 11:34 AM CDT Primary Osteoarthritis Knee Left GLUCOSE POCT, B Routine 12/07/2022 8:54 AM CDT documented in this encounter Results * Noninvasive HGB, POCT (12/08/2022 4:31 AM CDT) Noninvasive HGB, POCT 12.7 11.6 - 15.0 g/dL Skin 12/08/2022 4:31 AM CDT Germania Morse M.D. LAB POCT ORDERABLE S-MANUAL * Glucose, POCT (12/07/2022 9:00 PM CDT) Glucose, POCT, B 137 70 - 140 mg/dL 12/07/2022 9:24 PM CDT PCDE Site Capillary 12/07/2022 9:24 PM CDT PCDE Blood 12/07/2022 9:00 PM CDT 12/07/2022 9:25 PM CDT Unknown Provider LAB POCT ORDERABLES- MANUAL Performing Organization Address City/[facility]/ZIP Co de Phone Number POC [facility] [address] [place] [address], [facility] PCDE [facility] POC [address] [place] [address] * (ABNORMAL) Glucose, POCT (12/07/2022 7:02 PM CDT) Glucose, POCT, B 144(H) 70 - 140 mg/dL 12/07/2022 7:05 PM CDT PCDE Site Capillary 12/07/2022 7:05 PM CDT PCDE Blood 12/07/2022 7:02 PM CDT 12/07/2022 7:06 PM CDT Unknown Provider LAB POCT ORDERABLES- MANUAL Performing Organization Address City/[facility]/ZIP Co de Phone Number POC [facility] [address] [place] [address], [facility] PCDE [facility] POC [address] [place] [address] * (ABNORMAL) Glucose, POCT (12/07/2022 4:55 PM CDT) Glucose, POCT, B 157(H) 70 - 140 mg/dL 12/07/2022 4:56 PM CDT PCDE Site Capillary 12/07/2022 4:56 PM CDT PCDE Blood 12/07/2022 4:55 PM CDT 12/07/2022 4:57 PM CDT Unknown Provider LAB POCT ORDERABLES- MANUAL Performing Organization Address City/[facility]/ZIP Co de Phone Number POC [facility] [address] [place] [address], [facility] PCDE [facility] POC [address] [place] [address] * (ABNORMAL) Glucose, POCT (12/07/2022 2:24 PM CDT) Glucose, POCT, B 166(H) 70 - 140 mg/dL 12/07/2022 2:25 PM CDT PCDE Site Capillary 12/07/2022 2:25 PM CDT PCDE Blood 12/07/2022 2:24 PM CDT 12/07/2022 2:25 PM CDT Unknown Provider LAB POCT ORDERABLES- MANUAL Performing Organization Address [facility] Co de Phone Number POC [facility] [address] [place] [address], [facility] PCDE [facility] POC [address] [place] [address] * DX Knee Left 2 Views (12/07/2022 2:18 PM CDT) Anatomical Region Laterality Modality Lower Extremity, Knee, Muscu loskeletal RST LOS, Musculoskeletal ARZ LOS, Muskuloskeletal FLA LOS Left Compu alissa Radiography 12/07/2022 2:56 PM CDT Impressions 12/07/2022 2:56 PM CDT Left TKA. Negative for postoperative purposes. Narrative 12/07/2022 2:56 PM CDT EXAM: ??DX KNEE LEFT 2 VIEWS Procedure Note Marlon Manrique M.D. - 12/07/2022 EXAM: DX KNEE LEFT 2 VIEWS IMPRESSION: Left TKA. Negative for postoperative purposes. Germania Morse M.D. IMG DIAGNOSTIC NIKKIE GING PROCEDURES * Glucose, POCT (12/07/2022 12:12 PM CDT) Glucose, POCT, B 114 70 - 140 mg/dL 12/07/2022 12:15 PM CDT PCDE Site Capillary 12/07/2022 12:15 PM CDT PCDE Blood 12/07/2022 12:1 2 PM CDT 12/07/2022 12:15 PM CDT Unknown Provider LAB POCT ORDERABLES- MANUAL Performing Organization Address City/[facility]/ZIP Co de Phone Number POC [facility] [address] [place] [address], [facility] PCDE [facility] POC [address] [place] [address] * Glucose, POCT (12/07/2022 8:54 AM CDT) Glucose, POCT, B 120 70 - 140 mg/dL 12/07/2022 8:55 AM CDT PCDE Site Capillary 12/07/2022 8:55 AM CDT PCDE Blood 12/07/2022 8:54 AM CDT 12/07/2022 8:56 AM CDT Unknown Provider LAB POCT ORDERABLES- MANUAL Performing Organization Address City/[facility] Co de Phone Number POC [facility] [address] [place] [address], [facility] PCDE [facility] POC [address] [place] [address] documented in this encounter Visit Diagnoses Diagnosis Difficulty Walking Orthopedic Knee Cause [R26.2 (ICD-10-CM)]- Primary Hypertension And Chronic Kidney Disease Stage 4 (HCC) Primary Osteoarthritis Knee Right documented in this encounter Administered Medications Inactive Administered Medications - up to 3 most recent administrations Medication Order MAR Action Action Date Dose Rate Site acetaminophen injection 1,000 mg 1,000 mg, intravenous, at 400 mL/hr, Administer over 15 Minutes, Once as needed, other, If patient has not received in previous 6 hours, Starting on Sat12/07/22 at 1422, For 1 dose, PACU (only), Oral unless RASS less than -1 or nausea/vomiting. Do not use if given in last 6 hours, Restriction Criteria (Pharmacy will review and approve if criteria met): Unable to take or tolerate medications administered via the enteral route or orally (not just NPO) New Bag 12/07/2022 4:15 PM CDT 1,000 mg 400 mL/hr acetaminophen tablet 1,000 mg (TYLENOL) 1,000 mg, oral, Every 6 hours, First dose on Sat12/07/22 at 2215 Given 12/08/2022 10:50 AM CDT 1,000 mg Given 12/08/2022 3:44 AM CDT 1,000 mg Given 12/07/2022 9:36 PM CDT 1,000 mg acetaminophen tablet 1,000 mg (TYLENOL) 1,000 mg, oral, Once, On Sat12/07/22 at 1015, For 1 dose, Pre-Op Given 12/07/2022 10:19 AM CDT 1,000 mg aspirin chewable tablet 81 mg 81 mg, oral, 2 times daily, First dose on Sat12/08/22 at 0900 Given 12/08/2022 8:34 AM CDT 81 mg atorvastatin tablet 20 mg (LIPITOR) 20 mg, oral, Daily at bedtime, First dose on Sat12/07/22 at 2100, atorvaSTATin 20 mg oral daily was interchanged for simvastatin 5-40 mg oral daily Given 12/07/2022 9:37 PM CDT 20 mg caffeine-sodium benzoate injection 250 mg 250 mg, intravenous, Once, On Sat12/07/22 at 1800, For 1 dose Given 12/07/2022 6:02 PM CDT 250 mg ceFAZolin in dextrose (iso osm) IVPB 2 g (ANCEF) 2 g, intravenous, at 200 mL/hr, Administer over 30 Minutes, Every 8 hours, First dose on Sat12/07/22 at 2000, For 2 doses, Start within 8 hours of last IV dose., Drug Monitoring Program: Pharmacist to adjust medication dosing based on indication and drug clearance factors., Indications: Prophylaxis, surgical New Bag 12/08/2022 3:44 AM CDT 2 g 200 mL/hr New Bag 12/07/2022 9:39 PM CDT 2 g 200 mL/hr D5W infusion 10-250 mL/hr, intravenous, As needed, Medications Incompatible with 0.9% NaCL, Starting on Sat12/07/22 at 1954, Infuse at the same rate as the piggyback until tubing clears or up to a volume of 20 mL pre and post infusion for medications incompatible with 0.9% NaCL. Use 100 mL bag then discard. fentaNYL injection 25 mcg (SUBLIMAZE) 25 mcg, intravenous, Every 2 min PRN, moderate pain or score 4-6 of 10, severe pain or score 7-10 of 10, Starting on Sat12/07/22 at 1422, PACU (only), Up to maximum total dose of 200 mcg Given 12/07/2022 3:00 PM CDT 25 mcg Given 12/07/2022 2:31 PM CDT 25 mcg fentaNYL injection 50 mcg (SUBLIMAZE) 50 mcg, intravenous, Every 2 min PRN, sedation, Starting on Sat12/07/22 at 1014, Pre-Op, Up to maximum total dose of 200 mcg Given 12/07/2022 11:03 AM CDT 50 mcg haloperidol lactate injection 1 mg (HALDOL) 1 mg, intravenous, Every 6 hours PRN, nausea, vomiting, Starting on Sat12/07/22 at 1422, PACU (only), Total of 3 doses in 24 hour period. RASS must be -2 or higher to administer. If nausea and vomiting persists, move to granisteron. (order of antiemetic administration - ondansetron then haloperidol then granisetron) Given 12/07/2022 3:05 PM CDT 1 mg insulin aspart U-100 injection 0-8 Units (NovoLOG FlexPen) 0-8 Units, subcutaneous, Every 2 hour PRN, high blood sugar, Nurse to determine and administer dose., Starting on Sat12/07/22 at 0809, For 2 doses, Pre-Op, Nurse to administer [...] equal to 300: Call provider managing diabetes Given 12/07/2022 7:08 PM CDT 2 Units Right Upper Arm (Back) insulin aspart U-100 injection 0-8 Units (NovoLOG FlexPen) 0-8 Units, subcutaneous, Every 2 hour PRN, high blood sugar, Nurse to determine and administer dose, Starting on Sat12/07/22 at 1422, For 2 doses, PACU (only), First dose at least 2 hours after any previous subcutaneous insulin. For glucose less than or equal to 70 mg/dL - initiate treatment of hypoglycemia. , Insulin Aspart: Correction Scale Insulin (For Diabetes Mellitus diagnosis), 71 - 139: 0 units, 140 - 179: 2 units, 180 - 219: 4 units, 220 - 259: 6 units, 260 - 299: 8 units, Greater than or equal to 300: Call anesthesia Given 12/07/2022 4:58 PM CDT 2 Units Left Upper Arm (Back) Given 12/07/2022 2:37 PM CDT 2 Units Le ft Lower Abdomen ketamine injection 5 mg (KETALAR) 5 mg, intravenous, Every 5 min PRN, For pain greater than 4 or pain sedation mismatch AND RASS score less than -1, Starting on Sat12/07/22 at 1522, For 2 doses, PACU (only) Given 12/07/2022 3:41 PM CDT 5 mg lactated ringers 75 mL/hr, intravenous, Continuous, Starting on Sat12/07/22 at 1930, Once tolerating oral intake may discontinue IV fluids. Rate/Dose Change 12/07/2022 10:00 PM CDT 20 mL/hr 20 mL/hr Restarted 12/07/2022 7:52 PM CDT 75 mL/hr 75 mL/hr lactated ringers 20 mL/hr, intravenous, Continuous, Starting on Sat12/07/22 at 1015, Pre-Op New Bag 12/07/2022 10:20 AM CDT 20 mL/hr 20 mL/ hr lactated ringers 20 mL/hr, intravenous, Continuous, Starting on Sat12/07/22 at 1345, PACU & Post-Op New Bag 12/07/2022 4:55 PM CDT 20 mL/hr 20 mL/hr Continued from OR 12/07/2022 2:30 PM CDT 20 mL/hr 20 mL/ hr meperidine (PF) injection 12.5 mg (DEMEROL) 12.5 mg, intravenous, Once, On Sat12/07/22 at 1530, For 1 dose, PACU (only), May repeat once, for 2 doses, Restriction Criteria (Pharmacy will review and approve if criteria met): Prevention or treatment of post-anesthesia shivering Given 12/07/2022 3:23 PM CDT 12.5 mg midazolam (PF) injection 1 mg (VERSED) 1 mg, intravenous, As needed, sedation, Starting on Sat12/07/22 at 1014, Pre-Op Given 12/07/2022 11:03 AM CDT 1 m g mirtazapine tablet 7.5 mg (REMERON) 7.5 mg, oral, Daily at bedtime, First dose on Sat12/07/22 at 2100 Given 12/07/2022 9:37 PM CDT 7.5 mg NaCl 0.9% infusion 10-250 mL/hr, intravenous, As needed, Between Consecutive Piggyback Medications, Starting on Sat12/07/22 at 1954, Infuse at the same rate as the piggyback until tubing clears or up to a volume of 20 mL. Select for IV medication administration when no maintenance IV available or when IV medications are not compatible with maintenance fluid. NaCl 0.9% infusion 10-250 mL/hr, intravenous, As needed, Post Medications (Hazardous/Low Fluid Volume), Starting on Sat12/07/22 at 1954, Infuse at the same rate as the medication until tubing cleared of medication, then discard. oxyCODONE IR tablet 10 mg (ROXICODONE) 10 mg, oral, Every 4 hours PRN, severe pain or score 7-10 of 10, Starting on Sat12/07/22 at 1921, Second line therapy. If patient is greater than 7 after 2 hours, call service for new order. oxyCODONE IR tablet 5 mg (ROXICODONE) 5 mg, oral, Every 4 hours PRN, moderate pain or score 4-6 of 10, Starting on Sat12/07/22 at 1921, Second line therapy Given 12/08/2022 8:34 AM CDT 5 mg oxyCODONE IR tablet 5 mg (ROXICODONE) 5 mg, oral, Once as needed, For pain 4 or greater, Starting on Sat12/07/22 at 1422, For 1 dose, PACU (only) Given 12/07/2022 2:26 PM CDT [address] tablet 40 mg (PROTONIX) 40 mg, oral, Daily before breakfast, First dose on Sat12/08/22 at 0700, Swallow whole. Do NOT crush, chew, or split tablet. Given 12/08/2022 6:39 AM CDT 40 mg sennosides-docusate sodium 8.6-50 mg per tablet 1 tablet (SENOKOT-S) 1 tablet, oral, 2 times daily, First dose on Sat12/07/22 at 2100, Do not give if patient has diarrhea. Given 12/08/2022 8:34 AM CDT 1 tablet sodium chloride 0.9 % injection 10 mL 10 mL, intravenous, As needed, line care, Peripheral Intravenous Catheter and Rapid Infusion Catheter, Starting on Sat12/07/22 at 1954, Prior to blood sampling, post blood transfusion or post blood sampling. sodium chloride 0.9 % injection 3 mL 3 mL, intravenous, As needed, line care, Peripheral Intravenous Catheter and Rapid Infusion Catheter, Starting on Sat12/07/22 at 1954, Prior to and following infusion and between multiple consecutive infusions. sodium chloride 0.9 % injection 3 mL 3 mL, intravenous, Every 12 hours scheduled, First dose on Sat12/07/22 at 2100, Peripheral Intravenous Catheter and Rapid Infusion Catheter: When no infusion to maintain patency. Given 12/08/2022 8:50 AM CDT 3 mL traMADoL tablet 100 mg (ULTRAM) 100 mg, oral, Every 6 hours PRN, severe pain or score 7-10 of 10, Starting on Sat12/07/22 at 1921, First line therapy or for pain greater than comfort goal (not to exceed 400 mg in 24 hours)., Restriction Criteria (Pharmacy will review and approve if criteria met): Use in adults 18 years and older traMADoL tablet 50 mg (ULTRAM) 50 mg, oral, Every 6 hours PRN, moderate pain or score 4-6 of 10, Starting on Sat12/07/22 at 1921, First line therapy, Restriction Criteria (Pharmacy will review and approve if criteria met): Use in adults 18 years and older documented in this encounter Active and Recently Administered Medications Times are shown in CDT. Scheduled Medication Order 12/06/2022 12/07/2022 12/08/2022 acetaminophen tablet 1,000 mg (TYLENOL) 1,000 mg, oral, Every 6 hours, First dose on Sat12/07/22 at 2215 2136 (Given - Provider: Isadora Amezquita R.N.) 0344 (Given - Provider: Isadora Amezquita R.N.)1050 (Given - Provider: Jemma Gold R.N., Saman.LorrieS.RJuanNJuan) acetaminophen tablet 1,000 mg (TYLENOL) (COMPLETED) 1,000 mg, oral, Once, On Sat12/07/22 at 1015, For 1 dose, Pre-Op 1019 (Given - Provider: Dolores Almanza R.N.) aspirin chewable tablet 81 mg 81 mg, oral, 2 times daily, First dose on Sat12/08/22 at 0900 0834 (Given - Provid er: Jemma Gold R.N., Saman.Conrad.S.RJuanNJuan) atorvastatin tablet 20 mg (LIPITOR) 20 mg, oral, Daily at bedtime, First dose on Sat12/07/22 at 2100, atorvaSTATin 20 mg oral daily was interchanged for simvastatin 5-40 mg oral daily 2136 (Given - Provider: Isadora Amezquita R.N.) BUPivacaine 0.25 % (2.5 mg/mL) injection 30 mL (MARCAINE) (COMPLETED) 30 mL, injection, Once, On Sat12/07/22 at 0815, For 1 dose, Intra-Op 0815 (Due)1317 (Given - Provider: Sam Coburn M.D.) caffeine-sodium benzoate injection 250 mg (COMPLETED) 250 mg, intravenous, Once, On Sat12/07/22 at 1800, For 1 dose 1802 (Given - Provider: Jadyn Grimaldo R.N.) ceFAZolin in dextrose (iso osm) IVPB 2 g (ANCEF) (COMPLETED) 2 g, intravenous, at 200 mL/hr, Administer over 30 Minutes, Every 8 hours, First dose on Sat12/07/22 at 2000, For 2 doses, Start within 8 hours of last IV dose., Drug Monitoring Program: Pharmacist to adjust medication dosing based on indication and drug clearance factors., Indications: Prophylaxis, surgical 2138 (New Bag - Provider: Isadora Amezquita R.N.) 0344 (New Bag - Provider: Isadora Amezquita R.N.) ceFAZolin injection 2,000 mg (ANCEF) (COMPLETED) 2,000 mg (rounded from 1,452.5 mg = 25 mg/kg ? 58.1 kg), intravenous, Once, On Sat12/07/22 at 0815, For 1 dose, Intra-Op, Preoperatively within 1 hour prior to surgical incision If needed, reconstitute vial per package insert instructions. See IVAG for administration guidelines. , Drug Monitoring Program: Pharmacist to adjust medication dosing based on indication and drug clearance factors., Indications: Prophylaxis, surgical 1232 (Given - Provider: Saravanan Fuentes APRN, STABILIZING MACHINE OPERATOR) insulin aspart U-100 injection 0-13 Units (NovoLOG FlexPen) 0-13 Units, subcutaneous, 3 times daily, First dose on Sat12/08/22 at 0800, Insulin Scale: Moderate Correction Scale, 140 - 179: 2 units, 180 - 219: 4 units, 220 - 259: 6 units, 260 - 299: 8 units, 300 - 339: 10 units, 340 - 379: 12 units, 380 - 399: 13 units, Greater than 399: Call service writing Insulin orders 0819 (Not Given - Provider: Jemma Gold R.N., C.M.S.R.N. - Reason: Other - Comment: ate snacks prior) meperidine (PF) injection 12.5 mg (DEMEROL) (COMPLETED) 12.5 mg, intravenous, Once, On Sat12/07/22 at 1530, For 1 dose, PACU (only), May repeat once, for 2 doses, Restriction Criteria (Pharmacy will review and approve if criteria met): Prevention or treatment of post-anesthesia shivering 1523 (Given - Provider: Jadyn Grimaldo R.N.) mirtazapine tablet 7.5 mg (REMERON) 7.5 mg, oral, Daily at bedtime, First dose on Sat12/07/22 at 2100 2137 (Given - Provider: Isadora Amezquita R.N.) pantoprazole DR tablet 40 mg (PROTONIX) 40 mg, oral, Daily before breakfast, First dose on Sat12/08/22 at 0700, Swallow whole. Do NOT crush, chew, or split tablet. 0639 (Given - Provid er: Silvia June R.N.) sennosides-docusate sodium 8.6-50 mg per tablet 1 tablet (SENOKOT-S) 1 tablet, oral, 2 times daily, First dose on Sat12/07/22 at 2100, Do not give if patient has diarrhea. 2136 (Not Given - Provider: Isadora Amezquita R.N. - Reason: Patient/family refused) 0834 (Given - Provider: Jemma Gold R.N., C.M.S.RJuanNJuan) sodium chloride 0.9 % injection 3 mL 3 mL, intravenous, Every 12 hours scheduled, First dose on Sat12/07/22 at 2100, Peripheral Intravenous Catheter and Rapid Infusion Catheter: When no infusion to maintain patency. 2136 (Not Given - Provider: Isadora Amezquita R.N. - Reason: Other - Comment: infusing) 0850 (Given - Provider: Jemma Gold R.N., C.M.S.R.NJuan) tranexamic acid in NaCl IVPB 1,000 mg (CYKLOKAPRON) (COMPLETED) 1,000 mg (1 g), intravenous, at 300 mL/hr, Administer over 20 Minutes, Once, On Sat12/07/22 at 0815, For 1 dose, Intra-Op, Administer in OR upon induction 1205 (Given - Provider: Berry Reynolds APRN, KRISTIAN)1335 (Given - Provider: Saravanan Fuentes APRN, KRISTIAN)1342 (Anesthesia Volume Adjustment - Provider: Saravanan Fuentes APRN, KRISTIAN) Continuous Medication Order 12/06/2022 12/07/2022 12/08/2022 lactated ringers 75 mL/hr, intravenous, Continuous, Starting on Sat12/07/22 at 1930, Once tolerating oral intake may discontinue IV fluids. 1951 (Restarted - Provider: Isadora Amezquita R.N.)2200 (Rate/Dose Change - Provider: Isadora Amezquita R.N.) 0645 (Stopped - Provider: Silvia June R.N.) lactated ringers (CANCELED) 20 mL/hr, intravenous, Continuous, Starting on Sat12/07/22 at 1015, Pre-Op 1020 (New Bag - Provider: Dolores Almanza R.N.)1951 (Stopped - Provider: Isadora Amezquita R.N.) lactated ringers 20 mL/hr, intravenous, Continuous, Starting on Sat12/07/22 at 1345, PACU & Post-Op 1430 (Continued from OR - Provider: Jadyn Grimaldo R.N. - Comment: 200 in bag)1655 (New Bag - Provider: Jadyn Grimaldo R.N.)1951 (Stopped - Provider: Isadora Amezquita R.N.) PRN Medication Order 12/06/2022 12/07/2022 12/08/2022 acetaminophen injection 1,000 mg (COMPLETED)(Linked Group 1) 1,000 mg, intravenous, at 400 mL/hr, Administer over 15 Minutes, Once as needed, other, If patient has not received in previous 6 hours, Starting on Sat12/07/22 at 1422, For 1 dose, PACU (only), Oral unless RASS less than -1 or nausea/vomiting. Do not use if given in last 6 hours, Restriction Criteria (Pharmacy will review and approve if criteria met): Unable to take or tolerate medications administered via the enteral route or orally (not just NPO) 1615 (New Bag - Provider: Jadyn Grimaldo R.N.) BUPivacaine PF 120 mg, cefuroxime 750 mg, EPINEPHrine 300 mcg, methylPREDNISolone acetate 40 mg, morphine 8 mg in NaCl 0.9% 60 mL injection (PERIARTICULAR) (COMPLETED) 60 mL, periarticular, Once in surgery, OR use only, Starting on Sat12/07/22 at 0813, For 1 dose, Intra-Op 1317 (Given - Provider: Sam Coburn M.D.) calcium carbonate chewable tablet 400 mg of calcium (TUMS) 400 mg of calcium, oral, Every 2 hour PRN, indigestion, Starting on Sat12/07/22 at 1921, Doses listed are in mg of elemental calcium. Take with food. 500 mg calcium carbonate contains 200 mg of elemental calcium. carboxymethylcellulose 0.5 % ophthalmic solution 2 drop (REFRESH PLUS) 2 drop, both eyes, 4 times daily PRN, dry eyes, Starting on Sat12/07/22 at 1921 D5W infusion 10-250 mL/hr, intravenous, As needed, Medications Incompatible with 0.9% NaCL, Starting on Sat12/07/22 at 1954, Infuse at the same rate as the piggyback until tubing clears or up to a volume of 20 mL pre and post infusion for medications incompatible with 0.9% NaCL. Use 100 mL bag then discard. fentaNYL injection 25 mcg (SUBLIMAZE) (CANCELED) 25 mcg, intravenous, Every 2 min PRN, moderate pain or score 4-6 of 10, severe pain or score 7-10 of 10, Starting on Sat12/07/22 at 1422, PACU (only), Up to maximum total dose of 200 mcg 1431 (Given - Provider: Jadyn Grimaldo RJuanN.)1500 (Given - Provider: Jadyn Grimaldo RJuanN.) fentaNYL injection 50 mcg (SUBLIMAZE) (CANCELED) 50 mcg, intravenous, Every 2 min PRN, sedation, Starting on Sat12/07/22 at 1014, Pre-Op, Up to maximum total dose of 200 mcg 1103 (Given - Provider: Dolores Almanza RJuanN.) gentamicin powder 1.2 g (for bone cement) (COMPLETED) 1.2 g (1 vial), miscellaneous, Once in surgery, OR use only, Starting on Sat12/07/22 at 0813, For 1 dose, Intra-Op, For bone cement - do not reconstitute. 1318 (Given - Provider: Sam Coburn M.D. - Comment: Mixed in cement.) haloperidol lactate injection 1 mg (HALDOL) 1 mg, intravenous, Every 6 hours PRN, nausea, vomiting, Starting on Sat12/07/22 at 1921, For 48 hours, Total of 3 doses in 24 hour period. RASS must be -2 or higher to administer. Reassess for nausea or vomiting after at least 10 minutes. If nausea or vomiting persists administer next ordered antiemetic medications (order for antiemetic medication administration ondansetron then haloperidol then prochlorperazine) haloperidol lactate injection 1 mg (HALDOL) (CANCELED) 1 mg, intravenous, Every 6 hours PRN, nausea, vomiting, Starting on Sat12/07/22 at 1422, PACU (only), Total of 3 doses in 24 hour period. RASS must be -2 or higher to administer. If nausea and vomiting persists, move to granisteron. (order of antiemetic administration - ondansetron then haloperidol then granisetron) 1505 (Given - Provider: Jadyn Grimaldo, R.N.) HYDROmorphone (PF) injection 0.2 mg (DILAUDID) 0.2 mg, intravenous, Every 2 hour PRN, severe pain or score 7-10 of 10, Starting on Sat12/07/22 at 1921, For 2 doses, May administer if pain is greater than 7 after scheduled and PRN regimen exhausted. If pain remains greater than 7, notify primary service. insulin aspart U-100 injection 0-8 Units (NovoLOG FlexPen) (CANCELED) 0-8 Units, subcutaneous, Every 2 hour PRN, high blood sugar, Nurse to determine and administer dose., Starting on Sat12/07/22 at 0809, For 2 doses, Pre-Op, Nurse to administer [...] equal to 300: Call provider managing diabetes 1908 (Given - Provider: Davida Barroso RJuanN.) insulin aspart U-100 injection 0-8 Units (NovoLOG FlexPen) (COMPLETED) 0-8 Units, subcutaneous, Every 2 hour PRN, high blood sugar, Nurse to determine and administer dose, Starting on Sat12/07/22 at 1422, For 2 doses, PACU (only), First dose at least 2 hours after any previous subcutaneous insulin. For glucose less than or equal to 70 mg/dL - initiate treatment of hypoglycemia. , Insulin Aspart: Correction Scale Insulin (For Diabetes Mellitus diagnosis), 71 - 139: 0 units, 140 - 179: 2 units, 180 - 219: 4 units, 220 - 259: 6 units, 260 - 299: 8 units, Greater than or equal to 300: Call anesthesia 1437 (Given - Provider: Jadyn Grimaldo RJuanN.)1658 (Given - Provider: Jadyn Grimaldo RJuanN.) ketamine injection 5 mg (KETALAR) (CANCELED) 5 mg, intravenous, Every 5 min PRN, For pain greater than 4 or pain sedation mismatch AND RASS score less than -1, Starting on Sat12/07/22 at 1522, For 2 doses, PACU (only) 1541 (Given - Provider: Jadyn Grimaldo RJuanN.) loratadine tablet 10 mg (CLARITIN) 10 mg, oral, Daily PRN, allergies, pruritus, Starting on Sat12/07/22 at 1921 menthol lozenge 1 lozenge 1 lozenge, oral, As needed, sore throat, Starting on Sat12/07/22 at 1921 midazolam (PF) injection 1 mg (VERSED) (CANCELED) 1 mg, intravenous, As needed, sedation, Starting on Sat12/07/22 at 1014, Pre-Op 1103 (Given - Provider: Dolores Almanza RJuanN.) NaCl 0.9% infusion 10-250 mL/hr, intravenous, As needed, Between Consecutive Piggyback Medications, Starting on Sat12/07/22 at 1954, Infuse at the same rate as the piggyback until tubing clears or up to a volume of 20 mL. Select for IV medication administration when no maintenance IV available or when IV medications are not compatible with maintenance fluid. NaCl 0.9% infusion 10-250 mL/hr, intravenous, As needed, Post Medications (Hazardous/Low Fluid Volume), Starting on Sat12/07/22 at 1954, Infuse at the same rate as the medication until tubing cleared of medication, then discard. naloxone injection 0.2 mg (NARCAN) 0.2 mg, intravenous, As needed, respiratory depression, Starting on Sat12/07/22 at 1921, For RASS Score -4 or less, respiratory rate of less than 8 breaths/min. Notify provider/service and rapid response team (if available at institution). ondansetron (PF) injection 4 mg (ZOFRAN) 4 mg, intravenous, Every 6 hours PRN, nausea, vomiting, Starting on Sat12/07/22 at 1921, For 48 hours, Reassess for nausea or vomiting after at least 10 minutes. If nausea or vomiting persists administer next ordered antiemetic medications (order for antiemetic medication administration ondansetron then haloperidol then prochlorperazine). oxyCODONE IR tablet 10 mg (ROXICODONE)(Linked Group 2) 10 mg, oral, Every 4 hours PRN, severe pain or score 7-10 of 10, Starting on Sat12/07/22 at 1921, Second line therapy. If patient is greater than 7 after 2 hours, call service for new order. 0834 (See Alternativ e - Provider: Jemma Gold R.N., C.M.S.R.N.) oxyCODONE IR tablet 5 mg (ROXICODONE)(Linked Group 2) 5 mg, oral, Every 4 hours PRN, moderate pain or score 4-6 of 10, Starting on Sat12/07/22 at 1921, Second line therapy 0834 (Given - Provider: Jemma Gold R.N., C.M.S.R.N.) oxyCODONE IR tablet 5 mg (ROXICODONE) (COMPLETED) 5 mg, oral, Once as needed, For pain 4 or greater, Starting on Sat12/07/22 at 1422, For 1 dose, PACU (only) 1426 (Given - Provider: Jadyn Grimaldo R.N.) polyethylene glycol powder packet 1 packet (MIRALAX) 1 packet, oral, Daily PRN, constipation, Starting on Sat12/07/22 at 1921, Ordered sequence of administration: polyethylene glycol, then bisacodyl until BM achieved. Avoid mixing with starch-based thickened liquids. povidone iodine 0.25% in NaCl 0.9% irrigation solution (COMPLETED) irrigation, Once in surgery, OR use only, Starting on Sat12/07/22 at 0813, For 1 dose, Intra-Op, IRRIGATION USE ONLY 1318 (Given - Provider: Sam Coburn M.D.) prochlorperazine injection 5 mg (COMPAZINE) 5 mg, intravenous, Every 6 hours PRN, nausea, vomiting, Starting on Sat12/07/22 at 1921, For 48 hours, RASS must be -2 or higher to administer. Reassess for nausea/vomiting after at least 10 minutes. If nausea or vomiting persists administer next ordered antiemetic medications (order for antiemetic medication administration ondansetron then haloperidol then prochlorperazine) sodium chloride 0.9 % injection 10 mL 10 mL, intravenous, As needed, line care, Peripheral Intravenous Catheter and Rapid Infusion Catheter, Starting on Sat12/07/22 at 1954, Prior to blood sampling, post blood transfusion or post blood sampling. sodium chloride 0.9 % injection 3 mL 3 mL, intravenous, As needed, line care, Peripheral Intravenous Catheter and Rapid Infusion Catheter, Starting on Sat12/07/22 at 1954, Prior to and following infusion and between multiple consecutive infusions. traMADoL tablet 100 mg (ULTRAM)(Linked Group 3) 100 mg, oral, Every 6 hours PRN, severe pain or score 7-10 of 10, Starting on Sat12/07/22 at 1921, First line therapy or for pain greater than comfort goal (not to exceed 400 mg in 24 hours)., Restriction Criteria (Pharmacy will review and approve if criteria met): Use in adults 18 years and older traMADoL tablet 50 mg (ULTRAM)(Linked Group 3) 50 mg, oral, Every 6 hours PRN, moderate pain or score 4-6 of 10, Starting on Sat12/07/22 at 1921, First line therapy, Restriction Criteria (Pharmacy will review and approve if criteria met): Use in adults 18 years and older Linked Groups Order Group 1: acetaminophen tablet 1,000 mg (TYLENOL) (COMPLETED) 1,000 mg, oral, Once as needed, other, If patient has not received in the previous 6 hours, Starting on Sat12/07/22 at 1422, For 1 dose, PACU (only), Oral unless RASS less than -1 or nausea/vomiting. Do not use if given in last 6 hours Or acetaminophen injection 1,000 mg (COMPLETED)Jump to med 1,000 mg, intravenous, at 400 mL/hr, Administer over 15 Minutes, Once as needed, other, If patient has not received in previous 6 hours, Starting on Sat12/07/22 at 1422, For 1 dose, PACU (only), Oral unless RASS less than -1 or nausea/vomiting. Do not use if given in last 6 hours, Restriction Criteria (Pharmacy will review and approve if criteria met): Unable to take or tolerate medications administered via the enteral route or orally (not just NPO) Group 2: oxyCODONE IR tablet 5 mg (ROXICODONE)Jump to med 5 mg, oral, Every 4 hours PRN, moderate pain or score 4-6 of 10, Starting on Sat12/07/22 at 1921, Second line therapy Or oxyCODONE IR tablet 10 mg (ROXICODONE)Jump to med 10 mg, oral, Every 4 hours PRN, severe pain or score 7-10 of 10, Starting on Sat12/07/22 at 1921, Second line therapy. If patient is greater than 7 after 2 hours, call service for new order. Group 3: traMADoL tablet 50 mg (ULTRAM)Jump to med 50 mg, oral, Every 6 hours PRN, moderate pain or score 4-6 of 10, Starting on Sat12/07/22 at 1921, First line therapy, Restriction Criteria (Pharmacy will review and approve if criteria met): Use in adults 18 years and older Or traMADoL tablet 100 mg (ULTRAM)Jump to med 100 mg, oral, Every 6 hours PRN, severe pain or score 7-10 of 10, Starting on Sat12/07/22 at 1921, First line therapy or for pain greater than comfort goal (not to exceed 400 mg in 24 hours)., Restriction Criteria (Pharmacy will review and approve if criteria met): Use in adults 18 years and older documented in this encounter Additional Health Concerns Assessment Noted Time PHQ-9 Depression Total Score: 0 11/22/19 17 8:37 AM CDT documented as of this encounter Care Teams Physical Laboratory Assistant Relationship Specialty Start Date End Date Brennen Winchester M.D. [address] [place] [address] [place] [phone] PCP - General 04/05/22 documented as of this encounter
--- OUTSIDE RECORDS SUMMARY | 2023-09-30 11:40 | XMS_ITS | Encounter Summary ---
Author Name Unknown Organization [facility] Address [address] [place] [id number] Care Team Providers Care Tack Picker Name Role Phone Brennen Winchester M.D. Primary Care Provider Reason for Visit * Outpatient (Routine) - Closed Specialty Diagnoses / Procedures Referred By Sara schmid Referred To Contact Social Work Diagnoses Primary Osteoarthritis Knee Left Sam Coburn M.D. [address] [place] [phone] [facility] Referral ID Status Reason Start Date Expiration Date Visits Re quested Visits Authorized [id number] Closed 12/03/2022 12/03/2023 1 1 Encounter Details Date Type Department Care Team (Late st Contact Info) Description 12/04/2022 1:30 PM CDT Virtual Visit Department of Social Work in [place], [place] [address] [place] [phone] Sam Coburn M.D. [address] [place] [phone] Vielka Sanchez L.G.S.W., M.S.W. Primary Osteoarthritis Knee Left Social History Tobacco Use Types Packs/Day Years [...] often do you attend chur ch or hoahaoism services? More than 4 times per year 09/07/2022 Do you belong to any clubs o r organizations such as mormon groups, unions, fraternal or athletic groups, or [...] Answer Date Recorded PHQ-2 Score 0 01/18/2021 [facility] Occupat ional [facility] - Occupational Stress [...] place to sleep or slept in a group home (including now)? No 09/07/2022 Nutrition Answer Date [...] PM CDT documented as of this encounter Consult Notes * Vielka Sanchez L.G.S.W., M.S.W. - 12/04/2022 1:30 PM CDT Psychosocial Assessment SUBJECTIVE DEMOGRAPHIC INFORMATION Referral Source: Service/Provider Referral Reason: Psychosocial Assessment Person(s) present during interview: Patient Previous Psychosocial Assessment : No Primary care clinic and provider: [facility] / Brennen Winchester M.D. They were advised of the various topics that will be assessed during this evaluation. They consented to proceed. The information provided in the assessment is based on review of the medical record aswell as the interview. They were advised that the content of this interview will be shared with the health care team. It was discussed that staff are mandated reporters and they reported understanding. 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 They have a pet cat. They have two sons, the younger son is in [place] and their other son is in [place], [place] and has a family. She lasted visited her son in [place] in Jul 2021, due to COVID. Spirituality / Advent / Culture: Yes, attends mormon and is apart of choir. History: None Employment: Retired Psychosocial Risk Factors impacting the patient: mental health Abuse, Neglect, Maltreatment, Trauma: Current: None reported. ENVIRONMENTAL SUPPORTS Current Living Situation: Private residences, there are steps. She did not identify any concerns with steps. She reports everything she will need is on one floor. She has removed all throw rugs and obstacles. Anticipated modifications to the patient's home environment: None FUNCTIONAL STATUS (ADL's and IADL's) Dressing: independent Feeding: independent Bathing: independent Grooming: independent Toileting: independent Transfer to/from Bed, Chair, Etc.: independent Mobility: independent Meal Prep: independent Medication Setup/Administration: independent Telephone Use: independent Housekeeping: independent Shopping: independent Managing Finances: independent It is anticipated that the patient will need assistance with meal preparation, housekeeping, shopping, transportation use (drive car, use taxi/bus), and tasks appropriate to the patient's age/development ASSISTIVE DEVICES Patient has the following equipment: cell phone and eyeglasses Patient anticipates potentially needing the following additional equipment: Dependent upon PT/OT recommendations Transportation needs: independent to drive and support from family/friends FORMAL AND INFORMAL RESOURCES Formal - previously set up with [facility] Informal - family, friends, pet, and mormon/choir FINANCES/INSURANCE Primary insurance: BCBS [employer] [employer] Secondary insurance: Financial concerns: No ADVANCE DIRECTIVES Not on file. Completed, plans to review and will bring a copy to her appointments OBJECTIVE Low dose of anxiety medication prior to surgery When my were tiny and was stressed out. Suicide Risk and Safety Risk Assessment: Suicidal: No Homicidal: No Current Stressors Her 's medical, her prior ORS experience, and isolation during COVID. Coping Skills/Strengths Large and accessible support system, pet cat, mormon/choir, previous experience and knowledge regarding surgery and recovery. ASSESSMENT / PLAN DISCUSSION The patient was referred to the social work lobby by ORS as part of her pre- operative appointments.She is scheduled for R-TKA with Dr. Coburn on 12/07/22. She is anticipating one night in the hospitalbefore discharging home with the support of her and C. The patient has undergone ORS previously and reflected upon her positive and negative recovery experiences. Due to her past experiences, she feels well prepared, as she has had time to prepare home and notify her preferred C agency of potential post op needs. She is well connected with friends and mormon supports, so she feels confident they will be available to as needed for any assistance. She is hopeful to start C services as soon as possible once she returns home. After her previous surgery, she noted a 4 day delay in the time she got home and the time she heard from the HHC. Social work stated referrals for HHC are made when she is in the hospital prior to discharge. Her preferred HHC is listed below and she provided the contact information for the director coordinator. IMPRESSION The patient is a 72 year old female, who presents alert and oriented over the phone. She is forthcoming with social work, as she openly discusses her discharge plan, feelings of isolation due to COVID, caring for her during his treatments, and making the hard decision to rehome her dog. Despite stressors shared during today's visit, she remains optimistic and highlights the positive aspects of her life frequently. There does not appear to be any barriers to her discharging home with thesupport of her . She is confident he will be able to provide assistance with meals, cleaning, transportation, etc., as his health has improved since his team changed up his cancer treatment. INTERVENTIONS Psychosocial assessment completed Discharge plans discussed Supportive counseling Strengths perspective utilized Solution focused discussion throughout visit PLAN The patient is scheduled for R-TKA on 12/07/[address] Coburn. She is anticipating up to a 1 night stay in the hospital before discharging home with support of her , Domenic. She is expecting HHC will be needed following her ORS, as she needed this previously. ORS service to send orders to [facility] at the time of discharge. The patient plans to follow up with [facility] to update them about her surgery and that the agency can expect a referral from [facility]. The patient is available to reach out to social work as needed. Social work is available for any questions or concerns. [facility] Preference: [facility] Contact: Wellingtonnicole Traci Email: [email or web address] Anticipated barriers to the transition of care/plan: none Saul North, M.S.W. 12/04/2022 documented in this encounter Plan of Treatment Upcoming Encounters Date Type Department Care Team (Latest Contact Info) Description 10/02/2023 1:30 PM CENTRIFUGE SEPARATOR TENDER Appointment Department of Radiology in [address] [phone] Brennen Winchester M.D. [address] [place] [phone] Discharge Disposition: Home or Self Care 11/08/2023 10:00 AM CDT Office Visit Department of Family Medicine, [facility], in [place], [place] [address] [place] [phone] Brennen Winchester M.D. [address] [place] [phone] 11/22/2023 9:15 AM CDT Clinical Communication Virtual Review in [place], [place] 200 [place] [address] 11/25/2023 10:15 AM CDT Office Visit Department of Orthopedic Surgery in [place], [place] [address] [place] [phone] Latrell Antunez M.D. [address] [place] [phone] 11/28/2023 8:00 AM CDT Appointment Department of Laboratory Medicine and Pathology, [facility] in [place], [place] [address] [place] [phone] Sam Coburn M.D. [address] [place] [phone] 11/28/2023 8:45 AM CDT Appointment Department of Radiology, [facility] in [place], [place] [address] [place] [phone] Sam Coburn M.D. [address] [place] [phone] 11/28/2023 9:00 AM CDT Appointment Department of Radiology, [facility], in [place], [place] [address] [place] [phone] Sam Coburn M.D. [address] [place] [phone] 11/28/2023 10:00 AM CDT Office Visit Department of Orthopedic Surgery in [place], [place] [address] [place] [phone] Sam Coburn M.D. [address] [place] [phone] 11/29/2023 10:48 AM CDT Hospital Encounter RST RO 02 4 AM ADMIT [address] [place] [phone] Sam Coburn M.D. [address] [place] [phone] 11/29/2023 10:48 AM CDT - 11/29/2023 1:43 PM CDT Surgery RST RO MAIN OR [address] [place] [address] Sam Coburn M.D. [address] [place] [phone] ARTHROPLASTY REPLACEMENT TOTAL KNEE Scheduled Procedures Name Priority Associated Diagnoses Date/Ti me ARTHROPLASTY REPLACEMENT TOTAL KNEE Primary Osteoarthritis Knee Right 11/29/2023 10:48 AM CDT documented as of this encounter Visit Diagnoses Diagnosis Primary Osteoarthritis Knee Left Primary Osteoarthritis Knee Right documented in this encounter Additional Health Concerns Assessment Noted Time PHQ-9 Depression Total Score: 0 11/22/19 17 8:37 AM CDT documented as of this encounter Care Teams Tack Picker Relationship Specialty Start Date End Date Brennen Winchester M.D. [address] [place] [phone] PCP - General 04/05/22 documented as of this encounter
--- OUTSIDE RECORDS SUMMARY | 2023-09-30 11:40 | XMS_ITS | Encounter Summary ---
Author Name Unknown Organization [facility] Address [address] [place] [address] Care Team Providers Care Pulp Screen Operator Name Role Phone Brennen Winchester M.D. Primary Care Provider [phone] Encounter Details Date Type Department Care Team (Latest Contact Info) Description 12/07/2022 10:40 AM CDT Ancillary Procedure Department of Anesthesiology Social History Tobacco Use Types Packs/Day Years [...] week 09/07/2022 How often do you attend [facility] or mosque services? More than 4 times per year 09/07/2022 Do you belong to any clubs o r organizations such as episcopal groups, unions, fraternal or athletic groups, or [...] Answer Date Recorded PHQ-2 Score 0 01/18/2021 [facility] Occupat ional [facility] - Occupational Stress Questionnaire Answer Date [...] place to sleep or slept in a halfway (including now)? No 09/07/2022 Nutrition Answer Date [...] (Latest Contact Info) Description 10/02/2023 1:30 PM FURNITURE DIPPER Appointment Department of Radiology in [place], [place] [address] [place] [phone] Brennen Winchester M.D. [address] [place] [phone] Discharge Disposition: Home or Self Care 11/08/2023 10:00 AM CDT Office Visit Department of Family Medicine, [facility], in [place], [place] [address] [place] [phone] Brennen Winchester M.D. [address] [place] [phone] 11/22/2023 9:15 AM CDT Clinical Communication Virtual Review in [place], [place] 200 [place] [address] 11/25/2023 10:15 AM CDT Office Visit Department of Orthopedic Surgery in [place], [place] [address] [place] [phone] Latrell Antunez M.D. [address] [place] [phone] 11/28/2023 8:00 AM CDT Appointment Department of Laboratory Medicine and Pathology, [facility] in [address] [phone] Sam Coburn M.D. [address] [place] [phone] 11/28/2023 8:45 AM CDT Appointment Department of Radiology, [facility] in [address] [phone] Sam Coburn M.D. [address] [place] [phone] 11/28/2023 9:00 AM CDT Appointment Department of Radiology, [facility] in [address] [phone] Sam Coburn M.D. [address] [place] [phone] 11/28/2023 10:00 AM CDT Office Visit Department of Orthopedic Surgery in [address] [phone] Sam Coburn M.D. [address] [place] [phone] 11/29/2023 10:48 AM CDT Hospital Encounter R[facility]I 02 4 AM ADMIT [address] [place] [phone] Sam Coburn M.D. [address] [place] [address] 11/29/2023 10:48 AM CDT - 11/29/2023 1:43 PM CDT Surgery [facility] MAIN OR [address] [place] [phone] Sam Coburn M.D. [address] [place] [address] ARTHROPLASTY REPLACEMENT TOTAL KNEE Scheduled Procedures Name Priority Associated Diagnoses Date/Ti me ARTHROPLASTY REPLACEMENT TOTAL KNEE Primary Osteoarthritis Knee Right 11/29/2023 10:48 AM CDT documented as of this encounter Procedures Procedure Name Priority Date/Time Associated Diagnosis Comments ANESTHESIOLOGY IMAGE EXAM Routine 12/07/2022 10:40 AM CDT documented in this encounter Results * Non-Radiology Image-Anesthesiology Image Exam (12/07/2022 10:40 AM CDT) Narrative [facility] - 12/11/2022 10:37 AM CDT This order has been created and auto-finalized to support the import of images acquired without order. The clinical documentation to support these images can be found on the encounter that produced images. Provider Not In System IMG NON RAD IMAGI NG PROCEDURES [facility] NA documented in this encounter Visit Diagnoses Not on filedocumented in this encounter Additional Health Concerns Assessment Noted Time PHQ-9 Depression Total Score: 0 11/22/19 17 8:37 AM CDT documented as of this encounter Care Teams Pulp Screen Operator Relationship Specialty Start Date End Date Brennen Winchester M.D. [address] [place] [phone] PCP - General 04/05/22 documented as of this encounter
--- OUTSIDE RECORDS SUMMARY | 2023-09-30 11:40 | XMS_ITS | Encounter Summary ---
Author Name Unknown Organization [facility] Address [address] [place] [address] Care Team Providers Care Drywall Professional Name Role Phone Brennen Winchester M.D. Primary Care Provider Encounter Details Date Type Department Care Team (Late st Contact Info) Description 12/03/2022 12:50 PM CDT Ancillary Procedure Department of Orthopedic Surgery Social History Tobacco Use Types Packs/Day Years [...] week 09/07/2022 How often do you attend [facility] or jehovah's witness services? More than 4 times per year 09/07/2022 Do you belong to any clubs o r organizations such as anabaptist groups, unions, fraternal or athletic groups, or [...] Date Recorded PHQ-2 Score 0 01/18/2021 [facility] of Occupat ional [facility] - Occupational Stress Questionnaire Answer Date [...] (Latest Contact Info) Description 10/02/2023 1:30 PM PLATE MOUNTER Appointment Department of Radiology in [place], [place] [address] [place] [address] Brennen Winchester M.D. [address] [place] [address] Discharge Disposition: Home or Self Care 11/08/2023 10:00 AM CDT Office Visit Department of Family Medicine, [facility], in [place], [place] [address] [place] [phone] Brennen Winchester M.D. [address] [place] [address] 11/22/2023 9:15 AM CDT Clinical Communication Virtual Review in [place], [place] [address] [place] [address] 11/25/2023 10:15 AM CDT Office Visit Department of Orthopedic Surgery in [place], [place] [address] [place] [phone] Latrell Antunez M.D. [address] [place] [phone] 11/28/2023 8:00 AM CDT Appointment Department of Laboratory Medicine and Pathology, [facility] in [address] [phone] Sam Coburn M.D. [address] [place] [phone] 11/28/2023 8:45 AM CDT Appointment Department of Radiology, [facility] in [address] [phone] Sam Coburn M.D. [address] [place] [phone] 11/28/2023 9:00 AM CDT Appointment Department of Radiology, [facility] in [address] [phone] Sam Coburn M.D. [address] [place] [phone] 11/28/2023 10:00 AM CDT Office Visit Department of Orthopedic Surgery in [address] [phone] Sam Coburn M.D. [address] [place] [phone] 11/29/2023 10:48 AM CDT Hospital Encounter [facility] 02 4 AM ADMIT [address] [place] [phone] Sam Coburn M.D. [address] [place] [address] 11/29/2023 10:48 AM CDT - 11/29/2023 1:43 PM CDT Surgery [facility] MAIN OR [address] [place] [address] Sam Coburn M.D. [address] [place] [address] ARTHROPLASTY REPLACEMENT TOTAL KNEE Scheduled Procedures Name Priority Associated Diagnoses Date/Ti me ARTHROPLASTY REPLACEMENT TOTAL KNEE Primary Osteoarthritis Knee Right 11/29/2023 10:48 AM CDT documented as of this encounter Procedures Procedure Name Priority Date/Time Associated Diagnosis Comments ORTHOPEDIC SURGERY IMAGE EXAM Routine 12/03/2022 12:50 PM CDT documented in this encounter Results * DX KNEE LEFT STANDING 3 VIEWS-Orthopedic Surgery Image Exam (12/03/2022 12:50 PM CDT) Narrative IIMS - 12/04/2022 11:51 AM CDT This order has been created and auto-finalized to support the import of images acquired without order. The clinical documentation to support these images can be found on the encounter that produced images. Provider Not In System IMG NON RAD IMAGI NG PROCEDURES IIKY NA documented in this encounter Visit Diagnoses Not on filedocumented in this encounter Additional Health Concerns Assessment Noted Time PHQ-9 Depression Total Score: 0 11/22/19 17 8:37 AM CDT documented as of this encounter Care Teams Drywall Professional Relationship Specialty Start Date End Date Brennen Winchester M.D. [address] [place] [phone] PCP - General 04/05/22 documented as of this encounter
--- OUTSIDE RECORDS SUMMARY | 2023-09-30 11:40 | XMS_ITS | Encounter Summary ---
Author Name Unknown Organization [facility] Address [address] [place] [address] Care Team Providers Care Registered Dietician Name Role Phone Brennen Winchester M.D. Primary Care Provider Reason for Referral * Outpatient (Routine) - Closed Specialty Diagnoses / Procedures Referred By Sara schmid Referred To Contact Social Work Diagnoses Primary Osteoarthritis Knee Left Sam Coburn M.D. [address] [place] [phone] [facility] Referral ID Status Reason Start Date Expiration Date Visits Re quested Visits Authorized [id number] Closed 12/03/2022 12/03/2023 1 1 Encounter Details Date Type Department Care Team (Late st Contact Info) Description 12/03/2022 Orders Only Department of Orthopedic Surgery in [place], [place] [address] [place] [phone] Tricia Wilburn, RJuanNJuan [address] [place] [phone] Primary Osteoarthritis Knee Left (Primary Dx) Social History Tobacco Use Types [...] often do you attend chur ch or jehovah's witness services? More than 4 times per year 09/07/2022 Do you belong to any clubs o r organizations such as anglican groups, unions, fraternal or athletic groups, or [...] Answer Date Recorded PHQ-2 Score 0 01/18/2021 [facility] of Occupat ional Health - Occupational Stress [...] (Latest Contact Info) Description 10/02/2023 1:30 PM PROGRAM MANAGEMENT INTERN Appointment Department of Radiology in [place], [place] [address] [place] [phone] Brennen Winchester M.D. 300 [facility] [place] [phone] Discharge Disposition: Home or Self Care 11/08/2023 10:00 AM CDT Office Visit Department of Family Medicine, [facility], in [place], [place] 300 [facility] [place] [phone] Brennen Winchester M.D. 300 [place] [phone] 11/22/2023 9:15 AM CDT Clinical Communication Virtual Review in [place], [place] [address] [place] [address] 11/25/2023 10:15 AM CDT Office Visit Department of Orthopedic Surgery in [place], [place] [address] [place] [phone] Latrell Antunez M.D. [address] [place] [phone] 11/28/2023 8:00 AM CDT Appointment Department of Laboratory Medicine and Pathology, [facility] in [place], [place] [address] [place] [phone] Sam Coburn M.D. [address] [place] [phone] 11/28/2023 8:45 AM CDT Appointment Department of Radiology, [facility] in [place], [place] [address] [place] [phone] Sam Coburn M.D. [address] [place] [phone] 11/28/2023 9:00 AM CDT Appointment Department of Radiology, [facility], in [place], [place] [address] [place] [phone] Sam Coburn M.D. [address] [place] [phone] 11/28/2023 10:00 AM CDT Office Visit Department of Orthopedic Surgery in [place], [place] [address] [place] [phone] Sam Coburn M.D. [address] [place] [phone] 11/29/2023 10:48 AM CDT Hospital Encounter [facility] 02 4 AM ADMIT [address] [place] [phone] Sam Coburn M.D. [address] [place] [phone] 11/29/2023 10:48 AM CDT - 11/29/2023 1:43 PM CDT Surgery [facility] MAIN OR [address] [place] [address] Sam Coburn M.D. [address] [place] [phone] ARTHROPLASTY REPLACEMENT TOTAL KNEE Scheduled Procedures Name Priority Associated Diagnoses Date/Ti me ARTHROPLASTY REPLACEMENT TOTAL KNEE Primary Osteoarthritis Knee Right 11/29/2023 10:48 AM CDT Scheduled Referrals Name Type Priority Associated Diagnoses Orde r Schedule Social Work - General consult (clinic) Outpatient Referral Routine Primary Osteoarthritis Knee Left Expected: 12/03/2022, Expires: 03/04/2024 documented as of this encounter Visit Diagnoses Diagnosis Primary Osteoarthritis Knee Left- Primary Primary Osteoarthritis Knee Right documented in this encounter Additional Health Concerns Assessment Noted Time PHQ-9 Depression Total Score: 0 11/22/19 17 8:37 AM CDT documented as of this encounter Care Teams Registered Dietician Relationship Specialty Start Date End Date Brennen Winchester M.D. [address] [place] [phone] PCP - General 04/05/22 documented as of this encounter
--- OUTSIDE RECORDS SUMMARY | 2023-09-30 11:40 | XMS_ITS | Encounter Summary ---
Author Name Unknown Organization [facility] Address [address] [place] [address] Care Team Providers Care Surgical Services Manager Name Role Phone Brennen Winchester M.D. Primary Care Provider Encounter Details Date Type Department Care Team (Late st Contact Info) Description 12/07/2022 10:42 AM CDT - 12/07/2022 1:39 PM CDT Surgery [facility] MAIN OR [address] [place] [address] Sam Coburn M.D. [address] [place] [address] Cemented Total Knee Arthroplasty With Patellar Resurfacing Social History Tobacco Use Types Packs/Day Years [...] any clubs o r organizations such as roman catholic groups, unions, fraternal or athletic groups, [...] Answer Date Recorded PHQ-2 Score 0 01/18/2021 [facility] - Occupational [...] place to sleep or slept in a prison (including now)? No 09/07/2022 Nutrition Answer Date [...] Sign Reading Time Taken Comments Blood Pressure 106/58 12/07/2022 11:45 AM CDT Pulse 71 12/07/2022 11:45 AM CDT Temperature 36.5 ??C (97.7 ??F) 12/07/2022 8:48 AM CD T Respiratory Rate 14 12/07/2022 11:45 AM CDT Oxygen Saturation 100% 12/07/2022 11:45 AM CDT Inhaled Oxygen Concentration - - Weight 57.7 kg (127 lb 3.3 oz) 12/07/2022 8:48 A M CDT Height 164 cm (5' 4.57) 12/07/2022 8:48 AM CDT Body Mass Index 21.45 12/07/2022 8:48 AM CDT documented in this encounter Discharge Summaries * Aleksandr Rodríguez M.D. - 12/07/2022 3:43 PM CDT DISCHARGE SUMMARY BRIEF OVERVIEW Hospital: [facility] Discharge Provider: Sam Coburn M.D. Primary Team: [facility] Orthopedic Surgery - [facility] Primary Care Providers: Brennen Winchester M.D. (General) [address] [place] [phone] Primary Care Provider Primary Care Provider Other [...] Resurfacing Sam Coburn M.D.Berdis, Galen E, M.D. [facility] OR DISCHARGE DISPOSITION Home or Self [...] Discharge information provided on 12/08/2022 Contact information: [facility], [place]ail 2, documented in this encounter Medications at [...] bedside for a discharge planning consult and communications writer introduced the role of Social Work [...] home healthcare has not been arranged by [facility] social work. It was explained that if this is needed and desired that she would need to remain inpatient until Saturday12/10/22 at the latest. Ekta explained she desires to discharge and she states she will seek PT/OT orders from her primary physician on Saturday12/10/2022. Transport Operations Inspector and unit nurse extended apologies for home [...] is positive and she has no concerns. Sheet Metal Operator provided psychotherapeutic support as needed. ASSESSMENT [...] am until 6 pm, please page the portrait consultant's service. For urgent matters from 6 pm until 6 am, please page [facility]. * Aleksandr Rodríguez M.D. - 12/07/2022 4:55 [...] am until 6 pm, please page the portrait consultant's service. For urgent matters from 6 pm until 6 am, please page [facility]. * Chandrakant Powers - 12/07/2022 9:11 AM CDT [facility] Spiritual Care Progress Note Patient: Ekta Sands Age:72 y.o. Location: [facility] Reason(s) for encounter: AM Admit Spiritual and psychosocial support as part of the interdisciplinary care team. Spiritual Assessment Sabianism Identification / Spiritual Practices: [place] [employer]. Spiritual Needs and/or Concerns: None expressed at this time. Spiritual Care Plan / Recommendations: No further spiritual care requested or required at this time. Chaplains can be contacted by paging [phone] ([place]) or [phone] ([place]). * Halle Moreno, Pharm.D., R.Ph. - 12/07/2022 8:23 AM CDT Images from the original note were not included. Admission Medication History Note Adherence issues: No concerns Medication list source: Patient Medication related information: Patient would like discharge prescriptions sent to [facility] Prior to Admission Medications Med List Status: Pharmacy Complete Set By: Halle Moreno, Pharm.D., R.Ph. at 12/07/2022 8:22 AM Taking? [...] pt preference or insurance coverage blood-glucose meter misc -- -- 08/22/20 -- Contour Next One [...] Need:Lifetime, Insulin Dependent: No Last Office Visit:09/12/21 AthqP0n 7.1 on 07/25/21 Pharmacy may substitute brand/adjust [...] and Family: Three times a week Attends Sabianism Services: More than 4 times per year [...] test daily. 90 test 3 blood-glucose meter mis Contour Next One meter. Test once daily. [...] patient appears optimized for the procedure. (Christ GUILLEN et al. ACC/AHA 2007 Guidelines on Perioperative Cardiovascular Evaluation and Care forNoncardiac Surgery: A Report of the [place] College of Cardiology /[place] Heart Association TaskForce on Practice Guidelines. Journal of the [place] College of Cardiology 2007; 50: [id number]) documented in this encounter Consult Notes * [...] choirs, reading Prior Mobility/Functional Transfers Level of [place]: Independent Home Equipment Gait Devices Owned: Front-wheeled [...] have physical therapy so she can leave; 10 after physical therapy session Precautions Weight Bearing [...] Handouts provided today: Rehabilitation After Knee Replacement ([id number]) Patient's nurse was contacted and patient's status was discussed Inpatient AVS Complete - PT: Yes Inpatient AVS Completion Date - PT: 12/08/22 Patient was left in bed at end of session with call light in reach, all needs met and questions answered. Outcome Measures AM-PAC Inpatient Short Form: -[facility] Basic Mobility (V.2) How much help [...] 3-5 steps with a railing?: A Little AM-[facility] Basic Mobility (V.2) Raw Score: 20 -[facility] Basic Mobility (V.2) Standardized Score: 43.99 Interpretation: Clinicians answer the -[facility] Inpatient Short Form based on observed [...] her copy of Rehabilitation After Knee Replacement [id number]. PT Goal #1 Status: Achieved PT Goal [...] medications:oxycodone, tramadol, aspirin, tylenol were filled at [facility] pharmacy. * Jemma Gold R.N., Cathy.S.R.N. - 12/08/2022 10:35 AM CDT Shift Goals: [...] Post-op Diagnosis Primary Osteoarthritis Knee Left A child care center assistant director actively participated and was necessary for one [...] (Latest Contact Info) Description 10/02/2023 1:30 PM HEAD TENNIS COACH Appointment Department of Radiology in [address] [phone] Brennen Winchester M.D. [address] [place] [phone] Discharge Disposition: Home or Self Care 11/08/2023 10:00 AM CDT Office Visit Department of Family Medicine, [facility], in [address] [phone] Brennen Winchester M.D. [address] [place] [phone] 11/22/2023 9:15 AM CDT Clinical Communication Virtual Review in [place], [place] [address] [place] [address] 11/25/2023 10:15 AM CDT Office Visit Department of Orthopedic Surgery in [address] [phone] Latrell Antunez M.D. [address] [place] [phone] 11/28/2023 8:00 AM CDT Appointment Department of Laboratory Medicine and Pathology, [facility], in [address] [phone] Sam Coburn M.D. [address] [place] [phone] 11/28/2023 8:45 AM CDT [facility]ment [facility] [place], [place] [address] [place] [phone] Sam Coburn M.D. [address] [place] [phone] 11/28/2023 9:00 AM CDT Appointment [facility], [facility] in [place], [place] [address] [place] [phone] Sam Coburn M.D. [address] [place] [phone] 11/28/2023 10:00 AM CDT Office Visit Department of Orthopedic Surgery in [place], [place] [address] [place] [phone] Sam Coburn M.D. [address] [place] [phone] 11/29/2023 10:48 AM CDT Hospital Encounter [facility] 02 4 AM ADMIT [address] [place] [phone] Sam Coburn M.D. [address] [place] [phone] 11/29/2023 10:48 AM CDT - 11/29/2023 1:43 PM CDT Surgery [facility] MAIN OR [address] [place] [address] Sam Coburn M.D. [address] [place] [phone] ARTHROPLASTY REPLACEMENT TOTAL KNEE Scheduled Procedures Name [...] Unknown Provider LAB POCT ORDERABLES- MANUAL [facility] [address] [place] [address], [facility] PCDE [facility] POC [address] [place] [address] * (ABNORMAL) Glucose, POCT (12/07/2022 7:02 PM CDT) Glucose, POCT, B 144(H) 70 - 140 mg/dL 12/07/2022 7:05 PM CDT PCDE Site Capillary 12/07/2022 7:05 PM CDT PCDE Blood 12/07/2022 7:02 PM CDT 12/07/2022 7:06 PM CDT Unknown Provider LAB POCT ORDERABLES- MANUAL Performing Organization Address City/[facility]/ZIP Co de Phone Number POC [facility] [address] [place] [address], [facility] PC[facility] POC [address] [place] [address] * (ABNORMAL) Glucose, POCT (12/07/2022 4:55 PM CDT) Glucose, POCT, B 157(H) 70 - 140 mg/dL 12/07/2022 4:56 PM CDT PCDE Site Capillary 12/07/2022 4:56 PM CDT PCDE Blood 12/07/2022 4:55 PM CDT 12/07/2022 4:57 PM CDT Unknown Provider LAB POCT ORDERABLES- MANUAL [facility] [address] [place] [address], [facility] PC[facility] POC [address] [place] [address] * (ABNORMAL) Glucose, POCT (12/07/2022 2:24 PM CDT) Glucose, POCT, B 166(H) 70 - 140 mg/dL 12/07/2022 2:25 PM CDT PCDE Site Capillary 12/07/2022 2:25 PM CDT PCDE Blood 12/07/2022 2:24 PM CDT 12/07/2022 2:25 PM CDT Unknown Provider LAB POCT ORDERABLES- MANUAL [facility] [address] [place] [address], [facility] POC [address] [place] [address] * DX Knee Left 2 Views (12/07/2022 [...] Unknown Provider LAB POCT ORDERABLES- MANUAL [facility] [address] [place] [address], [facility] POC [address] [place] [address] * Glucose, POCT (12/07/2022 8:54 AM CDT) Glucose, POCT, B 120 70 - 140 mg/dL 12/07/2022 8:55 AM CDT PCDE Site Capillary 12/07/2022 8:55 AM CDT PCDE Blood 12/07/2022 8:54 AM CDT 12/07/2022 8:56 AM CDT Unknown Provider LAB POCT ORDERABLES- MANUAL Performing Organization Address City/[facility] Co de Phone Number [facility] [address] [place] [address], [facility] PCDE [facility] POC [address] [place] [address] documented in this encounter Visit Diagnoses Diagnosis Difficulty Walking Orthopedic Knee Cause [R26.2 (ICD-10-CM)]- Primary Hypertension And Chronic Kidney Disease Stage 4 (HCC) Primary Osteoarthritis Knee Left Primary Osteoarthritis Knee [...] Given 12/07/2022 9:37 PM CDT 20 mg BUPivacaine 0.25 % (2.5 mg/mL) injection 30 mL (MARCAINE) 30 mL, injection, Once, On Sat12/07/22 at 0815, For 1 dose, Intra-Op Given 12/07/2022 1:17 PM CDT 30 mL Left Knee BUPivacaine PF 120 mg, cefuroxime 750 mg, EPINEPHrine 300 mcg, methylPREDNISolone acetate 40 mg, morphine 8 mg in NaCl 0.9% 60 mL injection (PERIARTICULAR) 60 mL, periarticular, Once in surgery, OR use only, Starting on Sat12/07/22 at 0813, For 1 dose, Intra-Op Given 12/07/2022 1:17 PM CDT 60 mL Left Knee caffeine-sodium benzoate injection 250 mg 250 mg, [...] Given 12/07/2022 11:03 AM CDT 50 mcg gentamicin powder 1.2 g (for bone cement) 1.2 g (1 vial), miscellaneous, Once in surgery, OR use only, Starting on Sat12/07/22 at 0813, For 1 dose, Intra-Op, For bone cement - do not reconstitute. Given 12/07/2022 1:18 PM CDT 1 vial Left Knee haloperidol lactate injection 1 mg (HALDOL) 1 [...] Pre-Op Given 12/07/2022 11:03 AM CDT 1 mg mirtazapine tablet 7.5 mg (REMERON) 7.5 mg, [...] Given 12/08/2022 6:39 AM CDT 40 mg povidone iodine 0.25% in NaCl 0.9% irrigation solution irrigation, Once in surgery, OR use only, Starting on Sat12/07/22 at 0813, For 1 dose, Intra-Op, IRRIGATION USE ONLY Given 12/07/2022 1:18 PM CDT 1,000 mL Left Knee sennosides-docusate sodium 8.6-50 mg per tablet 1 [...] R.N.)1050 (Given - Provider: Jemma Gold R.N., C.M.S.R.N.) acetaminophen tablet 1,000 mg (TYLENOL) (COMPLETED) 1,000 mg, oral, Once, On Sat12/07/22 at 1015, For 1 dose, Pre-Op 1019 (Given - Provider: Dolores Almanza R.N.) aspirin chewable tablet 81 mg 81 mg, oral, 2 times daily, First dose on Sat12/08/22 at 0900 0834 (Given - Provid er: Jemma Gold R.N., C.M.S.R.N.) atorvastatin tablet 20 mg (LIPITOR) 20 mg, [...] On Sat12/07/22 at 1800, For 1 dose 180 (Given - Provider: Jadyn Grimaldo R.N.) ceFAZolin [...] (New Bag - Provider: Isadora Amezquita R.N.) 4 (New Bag - Provider: Isadora Amezquita R.N.) [...] 1232 (Given - Provider: Saravanan Fuentes APRN, FINISHER SCREWDOWN) insulin aspart U-100 injection 0-13 Units (NovoLOG [...] than 399: Call service writing Insulin orders 08 (Not Given - Provider: Jemma Gold R.N., Saman.LorrieS.RJuanNJuan - Reason: Other - Comment: ate snacks prior) meperidine (PF) injection 12.5 mg (DEMEROL) (COMPLETED) 12.5 mg, intravenous, Once, On Sat12/07/22 at 1530, For 1 dose, PACU (only), May repeat once, for 2 doses, Restriction Criteria (Pharmacy will review and approve if criteria met): Prevention or treatment of post-anesthesia shivering 152 (Given - Provider: Jadyn Grimaldo R.N.) mirtazapine tablet 7.5 mg (REMERON) 7.5 mg, oral, Daily at bedtime, First dose on Sat12/07/22 at 2100 2136 (Given - Provider: Isadora Amezquita R.N.) pantoprazole [...] 0834 (Given - Provider: Jemma Gold R.N., Saman.M.S.R.NJuan) sodium chloride 0.9 % injection 3 mL 3 mL, intravenous, Every 12 hours scheduled, First dose on Sat12/07/22 at 2100, Peripheral Intravenous Catheter and Rapid Infusion Catheter: When no infusion to maintain patency. 2136 (Not Given - Provider: Isadora Amezquita R.N. - Reason: Other - Comment: infusing) 0850 (Given - Provider: Jemma Gold R.N., C.M.S.R.N.) tranexamic acid in NaCl IVPB 1,000 mg (CYKLOKAPRON) (COMPLETED) 1,000 mg (1 g), intravenous, at 300 mL/hr, Administer over 20 Minutes, Once, On Sat12/07/22 at 0815, For 1 dose, Intra-Op, Administer in OR upon induction 1205 (Given - Provider: Berry Reynolds APRN, FINISHER SCREWDOWN)1335 (Given - Provider: Saravanan Fuentes APRN, FINISHER SCREWDOWN)1342 (Anesthesia Volume Adjustment - Provider: Saravanan Fuentes APRN, FINISHER SCREWDOWN) Continuous Medication Order 12/06/2022 12/07/2022 12/08/2022 lactated [...] 1615 (New Bag - Provider: Jadyn Grimaldo REmanuel.) BUPivacaine PF 120 mg, cefuroxime 750 mg, [...] mcg 1431 (Given - Provider: Jadyn Grimaldo R.N.)1500 (Given - Provider: Jadyn Grimaldo R.N.) fentaNYL injection 50 mcg (SUBLIMAZE) (CANCELED) 50 [...] then granisetron) 1505 (Given - Provider: Jadyn Grimaldo R.N.) HYDROmorphone (PF) injection 0.2 mg (DILAUDID) [...] equal to 300: Call provider managing diabetes 190 (Given - Provider: Davida Barroso RLiang) insulin aspart U-100 injection 0-8 Units (NovoLOG [...] Jadyn Grimaldo RJuanN.)1658 (Given - Provider: Jadyn Grimaldo, R.N.) ketamine injection 5 mg (KETALAR) (CANCELED) 5 mg, intravenous, Every 5 min PRN, For pain greater than 4 or pain sedation mismatch AND RASS score less than -1, Starting on Sat12/07/22 at 1522, For 2 doses, PACU (only) 1541 (Given - Provider: Jadyn Grimaldo, R.N.) loratadine tablet 10 mg (CLARITIN) 10 mg, [...] 0834 (Given - Provider: Jemma Gold R.N., C.LorrieS.R.N.) oxyCODONE IR tablet 5 mg (ROXICODONE) (COMPLETED) [...] or score 4-6 of 10, Starting on 12/07/22 at 1921, First line therapy, Restriction Criteria [...] documented as of this encounter Care Teams Surgical Services Manager Relationship Specialty Start Date End Date Brennen Winchester M.D. [address] [place] [phone] PCP - General 04/05/22 documented as of this encounter
--- OUTSIDE RECORDS SUMMARY | 2023-09-30 11:41 | XMS_ITS | Encounter Summary ---
Author Name Unknown Organization [facility] Address [address] [place] [id number] Care Team Providers Care Industrial Maintenance Manager Name Role Phone Brennen Winchester M.D. Primary Care Provider Reason for Visit * Outpatient (Routine) - Closed Specialty Diagnoses / Procedures Referred By Sara schmid Referred To Contact Orthopedic Surgery Sam Coburn M.D. [address] [place] [phone] [facility] Referral ID Status Reason Start Date Expiration Date Visits Re quested Visits Authorized [id number] Closed 10/18/2022 10/17/2025 1 1 Encounter Details Date Type Department Care Team (Latest Contact Info) Description 11/19/2022 3:15 PM CDT Office Visit Department of Orthopedic Surgery in [place], [place] [address] [place] [phone] Sam Coburn M.D. [address] [place] [phone] Primary Osteoarthritis Knee Bilateral (Primary Dx) Social History Tobacco Use Types [...] often do you attend chur ch or sabianism services? More than 4 times per year [...] 0 01/18/2021 [facility] - Occupational Stress [...] place to sleep or slept in a care home (including now)? No 09/07/2022 Nutrition Answer [...] Progress Notes * Sam Coburn M.D. - 11/19/2022 3:15 PM CDT The patient returns today in preparation for left total knee replacement later this month. She had a number of questions regarding anticipated recovery and postoperative pain management that she wished to discuss. Her interval health has otherwise been stable, and she will be completing preoperative medical evaluations and another visit with me later this month. #1 Primary Osteoarthritis Knee Bilateral We had a very good discussion regarding the postoperative physical therapy recommendations. I thinkthat she will do very well. Given her chronic kidney disease, we will plan to avoid NSAIDs. She will receive the standard periarticular block intra-operatively, and we will plan to use scheduled acetaminophen and cold therapy postoperatively. We did discuss the potential use of a more formal ice machine for cryotherapy, andshe will take this into consideration. She has had difficulty with some opioid medications in the past, and we discussed the typical plan to start with a very low dose of opioids if needed, and escalate only as necessary. We will then work with her to balance pain control versus side effects of pain medication. All questions were answered today, and I will look forward to our next visit. documented in this encounter Plan of Treatment Upcoming Encounters Date Type Department Care Team (Latest Contact Info) Description 10/02/2023 1:30 PM RANGE MECHANIC Appointment Department of Radiology in [address] [phone] Brennen Winchester M.D. [address] [place] [phone] Discharge Disposition: Home or Self Care 11/08/2023 10:00 AM CDT Office Visit Department of Family Medicine, [facility], in [address] [phone] Brennen Winchester M.D. [address] [place] [phone] 11/22/2023 9:15 AM CDT Clinical Communication Virtual Review in [address] [address] 11/25/2023 10:15 AM CDT Office Visit Department of Orthopedic Surgery in [place], [place] [address] [place] [phone] Latrell Antunez M.D. [address] [place] [phone] 11/28/2023 8:00 AM CDT Appointment Department of Laboratory Medicine and Pathology, [facility] in [place], [place] [address] [place] [phone] Sam Coburn M.D. [address] [place] [phone] 11/28/2023 8:45 AM CDT Appointment Department of Radiology, [facility] in [place], [place] [address] [place] [phone] Sam Coburn M.D. [address] [place] [phone] 11/28/2023 9:00 AM CDT Appointment Department of Radiology, [facility] in [place], [place] [address] [place] [phone] Sam Coburn M.D. [address] [place] [phone] 11/28/2023 10:00 AM CDT Office Visit Department of Orthopedic Surgery in [place], [place] [address] [place] [phone] Sam Coburn M.D. [address] [place] [phone] 11/29/2023 10:48 AM CDT Hospital Encounter [facility] 02 4 AM ADMIT [address] [place] [phone] Sam Coburn M.D. [address] [place] [phone] 11/29/2023 10:48 AM CDT - 11/29/2023 1:43 PM CDT Surgery [facility] MAIN OR [address] [place] [address] Sam Coburn M.D. [address] [place] [phone] ARTHROPLASTY REPLACEMENT TOTAL KNEE Scheduled Procedures Name Priority Associated Diagnoses Date/Ti me ARTHROPLASTY REPLACEMENT TOTAL KNEE Primary Osteoarthritis Knee Right 11/29/2023 10:48 AM CDT documented as of this encounter Visit Diagnoses Diagnosis Primary Osteoarthritis Knee Bilateral- Primary Primary Osteoarthritis Knee Right documented in this encounter Additional Health Concerns Assessment Noted Time PHQ-9 Depression Total Score: 0 11/22/19 17 8:37 AM CDT documented as of this encounter Care Teams Industrial Maintenance Manager Relationship Specialty Start Date End Date Brennen Winchester M.D. [address] [place] [phone] PCP - General 04/05/22 documented as of this encounter
--- OUTSIDE RECORDS SUMMARY | 2023-09-30 11:41 | XMS_ITS | Encounter Summary ---
Author Name Unknown Organization [facility] Address [address] [place] [address] Care Team Providers Care Methods And Procedures Analyst Name Role Phone Brennen Winchester M.D. Primary Care Provider Reason for Visit * Reason Comments Pre-op Exam Left knee replaceflorin t. 12/07 Sam Coburn at [place] in [place]. * Outpatient (Routine) - Closed Specialty Diagnoses / Procedures Referred By Sara schmid Referred To Contact Family Medicine Diagnoses Primary Osteoarthritis Knee Left Preoperative Exam Sam Coburn M.D. [address] [place] [address] [facility] Region Referral ID Status Reason Start Date Expiration Date Visits Re quested Visits Authorized [id number] Closed 10/18/2022 10/18/2023 1 1 Encounter Details Date Type Department Care Team (Latest Contact Info) Description 11/20/2022 3:30 PM CDT Office Visit Department of Family Medicine, [facility], in [place], [place] [address] [place] [phone] Brennen Winchester M.D. [address] [place] [phone] Diabetes Mellitus Type 2 (HCC) (Primary Dx); Primary Osteoarthritis Knee Left; Preoperative Exam; Hypertension And Chronic Kidney Disease Stage 4 (HCC); Diabetes Mellitus Type 2 With Diabetic Chronic [...] often do you attend chur ch or voodoo services? More than 4 times per year 09/07/2022 Do you belong to any clubs o r organizations such as restorationism groups, unions, fraternal or athletic groups, or [...] Answer Date Recorded PHQ-2 Score 0 01/18/2021 [facility] - Occupational [...] Sign Reading Time Taken Comments Blood Pressure 130/77 11/20/2022 3:[address] rage Pulse 75 11/20/2022 3:01 PM CDT Temperature 36 ??C (96.8 ??F) 11/20/2022 3:01 PM CDT Respiratory Rate 16 11/20/2022 3:01 PM CDT Oxygen Saturation - - Inhaled Oxygen Concentration - - Weight 58 kg (127 lb 15.6 oz) 11/20/2022 3:01 PM CDT Height 165.4 cm (5' 5.12) 11/20/2022 3:01 PM CD T Body Mass Index 21.22 11/20/2022 3:01 PM CDT documented in this encounter H&P Notes * Brennen Winchester M.D. - 11/20/2022 3:30 PM [...] and Family: Three times a week Attends Adventism Services: More than 4 times per year [...] test daily. 90 test 3 blood-glucose meter [facility] Contour Next One meter. Test once daily. [...] Care forNoncardiac Surgery: A Report of the [place] [employer] /[place] [employer] TaskForce on Practice Guidelines. Journal of the [place] [employer] 2007; 50: [id number]) documented in this encounter Plan of Treatment Upcoming Encounters Date Type Department Care Team (Latest Contact Info) Description 10/02/2023 1:30 PM BODY LINER Appointment Department of Radiology in [address] [phone] Brennen Winchester M.D. [address] [place] [address] Discharge Disposition: Home or Self Care 11/08/2023 10:00 AM CDT Office Visit Department of Family Medicine, [facility], in [place], [place] [address] [place] [phone] Brennen Winchester M.D. [address] [place] [phone] 11/22/2023 9:15 AM CDT Clinical Communication Virtual Review in [place], [place] 200 [place] [address] 11/25/2023 10:15 AM CDT Office Visit Department of Orthopedic Surgery in [place], [place] [address] [place] [phone] Latrell Antunez M.D. [address] [place] [phone] 11/28/2023 8:00 AM CDT Appointment Department of Laboratory Medicine and Pathology, [facility] in [place], [place] [address] [place] [phone] Sam Coburn M.D. [address] [place] [phone] 11/28/2023 8:45 AM CDT Appointment Department of Radiology, [facility], in [place], [place] [address] [place] [phone] Sam Coburn M.D. [address] [place] [phone] 11/28/2023 9:00 AM CDT Appointment Department of Radiology, [facility], in [place], [place] [address] [place] [phone] Sam Coburn M.D. [address] [place] [phone] 11/28/2023 10:00 AM CDT Office Visit Department of Orthopedic Surgery in [place], [place] [address] [place] [phone] Sam Coburn M.D. [address] [place] [phone] 11/29/2023 10:48 AM CDT Hospital Encounter RST RO 02 4 AM ADMIT [address] [place] [phone] Sam Coburn M.D. [address] [place] [phone] 11/29/2023 10:48 AM CDT - 11/29/2023 1:43 PM CDT Surgery [facility] MAIN OR [address] [place] [address] Sam Coburn M.D. [address] [place] [phone] ARTHROPLASTY REPLACEMENT TOTAL KNEE Scheduled Procedures Name Priority Associated Diagnoses Date/Ti me ARTHROPLASTY REPLACEMENT TOTAL KNEE Primary Osteoarthritis Knee Right 11/29/2023 10:48 AM CDT documented as of this encounter Visit Diagnoses Diagnosis Diabetes Mellitus Type 2 (HCC)- Primary Primary Osteoarthritis Knee Left Preoperative Exam Hypertension And Chronic Kidney Disease Stage 4 (HCC) Diabetes Mellitus Type 2 With Diabetic Chronic Kidney Disease (HCC) Primary Osteoarthritis Knee Right documented in this encounter Additional Health Concerns Assessment Noted Time PHQ-9 Depression Total Score: 0 11/22/19 17 8:37 AM CDT documented as of this encounter Care Teams Methods And Procedures Analyst Relationship Specialty Start Date End Date Brennen Winchester M.D. [address] [place] [phone] PCP - General 04/05/22 documented as of this encounter
--- OUTSIDE RECORDS SUMMARY | 2023-09-30 11:41 | XMS_ITS | Encounter Summary ---
Author Name Unknown Organization [facility] Address [address] [place] [address] Care Team Providers Care Horse Race Starter Name Role Phone Brennen Winchester M.D. Primary Care Provider Reason for Visit * Outpatient (Routine) - Closed Specialty Diagnoses / Procedures Referred By Sara schmid Referred To Contact Orthopedic Surgery Latrell Antunez M.D. [address] [place] [phone] [facility] Referral ID Status Reason Start Date Expiration Date Visits Re quested Visits Authorized [id number] Closed 11/02/2022 11/01/2025 1 1 Encounter Details Date Type Department Care Team (Late st Contact Info) Description 11/30/2022 10:45 AM CDT Office Visit Department of Orthopedic Surgery in [place], [place] [address] [place] [phone] Latrell Antunez M.D. [address] [place] [phone] Pain Shoulder Right (Primary Dx) Social History Tobacco Use [...] How often do you attend chur or mu-ism services? More than 4 times per year 09/07/2022 Do you belong to any clubs o r organizations such as muslim groups, unions, fraternal or athletic groups, or [...] Answer Date Recorded PHQ-2 Score 0 01/18/2021 [facility] - Occupational Stress Questionnaire Answer Date [...] as of this encounter Progress Notes * Baldemar Lim M.D. - 11/30/2022 10:45 AM CDT HAND SURGERY CLINIC VISIT SUBJECTIVE Ms. Sands returns today for evaluation. At her last visit on 11/02/2022, she underwent a right subacromial bursa injection. She seemed to have a component of bursitis versus impingement. That injection helped tremendously in her pain is much improved. She has an upcoming knee replacement with Dr. Coburn. She has known Dr. Antunez for about 10 years and considers him her most trusted orthopedic surgeon and would like to discuss the knee replacement today. OBJECTIVE PHYSICAL EXAMINATION General: NAD, follows commands HEENT: NCAT CV: regular Pulm: unlabored Neuro: alert, appropriate Right Upper Extremity: The right shoulder seems to be much improved on inspection. She does not have any tenderness about the shoulder. ASSESSMENT / PLAN Left knee osteoarthritis Patient was seen in conjunction with Dr. Antunez. The patient and Dr. Antunez seem to have a very thoughtful, helpful discussion about her upcoming knee replacement. We will see her back on an as-needed basis. She knows how to get a hold of Dr. Antunez or reach out via the portal if she has any additional issues. Baldemar Lim M.D. Associated attestation - Latrell Antunez M.D. - 12/01/2022 7:55 AM CDT I saw and evaluated the patient, participating in the gillespie portions of the service. I reviewed the resident/fellow???s note. I agree with the resident/fellow???s findings and plan. I am pleased to see how well Ms. Sands is coming along following her shoulder injection. She does have an upcoming knee surgery next week. At this point, she will try to follow-up she returns for her knee visits. In the meantime, I have encouraged her to notify me for questions or concerns. documented in this encounter Plan of Treatment Upcoming Encounters Date Type Department Care Team (Latest Contact Info) Description 10/02/2023 1:30 PM INFORMATION SECURITY OFFICER Appointment Department of Radiology in [address] [phone] Brennen Winchester M.D. [address] [place] [phone] Discharge Disposition: Home or Self Care 11/08/2023 10:00 AM CDT Office Visit Department of Family Medicine, [facility], in [place], [place] [address] [place] [phone] Brennen Winchester M.D. [address] [place] [phone] 11/22/2023 9:15 AM CDT Clinical Communication Virtual Review in [place], [place] [address] [place] [address] 11/25/2023 10:15 AM CDT Office Visit Department of Orthopedic Surgery in [place], [place] [address] [place] [phone] Latrell Antunez M.D. [address] [place] [phone] 11/28/2023 8:00 AM CDT Appointment Department of Laboratory Medicine and Pathology, [facility] in [place], [place] [address] [place] [phone] Sam Coburn M.D. [address] [place] [phone] 11/28/2023 8:45 AM CDT Appointment Department of Radiology, [facility] in [place], [place] [address] [place] [phone] Sam Coburn M.D. [address] [place] [phone] 11/28/2023 9:00 AM CDT Appointment Department of Radiology, [facility] in [place], [place] [address] [place] [phone] Sam Coburn M.D. [address] [place] [phone] 11/28/2023 10:00 AM CDT Office Visit Department of Orthopedic Surgery in [place], [place] [address] [place] [phone] Sam Coburn M.D. [address] [place] [phone] 11/29/2023 10:48 AM CDT Hospital Encounter RST RO 02 4 AM ADMIT [address] [place] [phone] Sam Coburn M.D. [address] [place] [phone] 11/29/2023 10:48 AM CDT - 11/29/2023 1:43 PM CDT Surgery [facility]ST RO MAIN OR [address] [place] [phone] Sam Coburn M.D. [address] [place] [phone] ARTHROPLASTY REPLACEMENT TOTAL KNEE Scheduled Procedures Name Priority Associated Diagnoses Date/Ti me ARTHROPLASTY REPLACEMENT TOTAL KNEE Primary Osteoarthritis Knee Right 11/29/2023 10:48 AM CDT documented as of this encounter Visit Diagnoses Diagnosis Pain Shoulder Right- Primary Primary Osteoarthritis Knee Right documented in this encounter Additional Health Concerns Assessment Noted Time PHQ-9 Depression Total Score: 0 11/22/19 17 8:37 AM CDT documented as of this encounter Care Teams Horse Race Starter Relationship Specialty Start Date End Date Brennen Winchester M.D. [address] [place] [phone] PCP - General 04/05/22 documented as of this encounter
--- OUTSIDE RECORDS SUMMARY | 2023-09-30 11:41 | XMS_ITS | Encounter Summary ---
Author Name Unknown Organization [facility] Address [address] [place] [address] Care Team Providers Care Periodontist Name Role Phone Brennen Winchester M.D. Primary Care Provider Encounter Details Date Type Department Care Team (Late st Contact Info) Description 11/22/2022 Clinical Communication Department of Family Medicine, [facility], in [address] [phone] Brennen Winchester M.D. [address] [place] [phone] Social History Tobacco Use Types Packs/Day Years [...] any clubs o r organizations such as confucianist groups, unions, fraternal or athletic groups, or [...] Answer Date Recorded PHQ-2 Score 0 01/18/2021 [facility] - Occupational [...] encounter Miscellaneous Notes * Telephone Encounter - Danae Monterroso - 11/22/2022 2:02 PM CDT SUBJECTIVE CHIEF COMPLAINT / REASON FOR CALL No chief complaint on file. Information Discussed Patient returned our call and was informed of results and recommendations per Dr. Ranulfo M.D. PLAN Disposition/Recommendation: self-care . appropriate at this time, patient encouraged to call back with questions Information/Education: patient/caller able to teach back Caller agreeable to plan of care: yes The following references were used: provider Dr. Ranulfo M.D. * Telephone Encounter - Danae Monterroso - 11/22/2022 1:48 PM CDT Left message for patient to return call to clinic. Does the patient need to speak to nursing? yes Action needed: patient needs to be informed of the following information per Dr. Ranulfo M.D. Labs showed stable kidney function with slight improvement. A1c is down to 6.4. Please advised the patient to continue same current medication. Lipid panel andCBC are all normal. documented in this encounter Plan of Treatment Upcoming Encounters Date Type Department Care Team (Latest Contact Info) Description 10/02/2023 1:30 PM GORE INSERTER Appointment Department of Radiology in [address] [phone] Brennen Winchester M.D. [address] [place] [phone] Discharge Disposition: Home or Self Care 11/08/2023 10:00 AM CDT Office Visit Department of Family Medicine, [facility], in [address] [phone] Brennen Winchester M.D. [address] [place] [phone] 11/22/2023 9:15 AM CDT Clinical Communication Virtual Review in [address] [address] 11/25/2023 10:15 AM CDT Office Visit Department of Orthopedic Surgery in [address] [phone] Latrell Antunez M.D. [address] [place] [phone] 11/28/2023 8:00 AM CDT Appointment Department of Laboratory Medicine and Pathology, [facility] in [place], [place] [address] [place] [phone] Sam Coburn M.D. [address] [place] [phone] 11/28/2023 8:45 AM CDT Appointment Department of Radiology, [facility] in [place], [place] [address] [place] [address] Sam Coburn M.D. [address] [place] [phone] 11/28/2023 9:00 AM CDT Appointment Department of Radiology, [facility] in [place], [place] [address] [place] [phone] Sam Coburn M.D. [address] [place] [phone] 11/28/2023 10:00 AM CDT Office Visit Department of Orthopedic Surgery in [place], [place] [address] [place] [phone] Sam Coburn M.D. [address] [place] [phone] 11/29/2023 10:48 AM CDT Hospital Encounter T [facility] 02 4 AM ADMIT [address] [place] [phone] Sam Coburn M.D. [address] [place] [phone] 11/29/2023 10:48 AM CDT - 11/29/2023 1:43 PM CDT Surgery T [facility] MAIN OR [address] [place] [address] Sam Coburn M.D. [address] [place] [phone] ARTHROPLASTY REPLACEMENT TOTAL KNEE Scheduled Procedures Name Priority Associated Diagnoses Date/Ti me ARTHROPLASTY REPLACEMENT TOTAL KNEE Primary Osteoarthritis Knee Right 11/29/2023 10:48 AM CDT documented as of this encounter Visit Diagnoses Not on filedocumented in this encounter Additional Health Concerns Assessment Noted Time PHQ-9 Depression Total Score: 0 11/22/19 17 8:37 AM CDT documented as of this encounter Care Teams Periodontist Relationship Specialty Start Date End Date Brennen Winchester M.D. [address] [place] [phone] PCP - General 04/05/22 documented as of this encounter
--- OUTSIDE RECORDS SUMMARY | 2023-09-30 11:41 | XMS_ITS | Encounter Summary ---
Author Name Unknown Organization [facility] Address [address] [place] [id number] Care Team Providers Care Gold Nib Grinder Name Role Phone Brennen Winchester M.D. Primary Care Provider Reason for Referral * Outpatient (Routine) - Authorized Specialty Diagnoses / Procedures Referred By Contac t Referred To Contact Diagnoses Pain Shoulder Right Procedures uwl-ribb-rcqtlw-elbow: R subacromial bursa Latrell Antunez M.D. [address] [place] [phone] [facility] Referral ID Status Reason Start Date Expiration Date V isits Requested Visits Authorized [id number] Authorized 11/02/2022 11/02/2023 1 1 * Outpatient (Routine) - Closed Specialty Diagnoses / Procedures Referred By Contac t Referred To Contact Orthopedic Surgery Latrell Antunez M.D. [address] [place] [phone] [facility] Referral ID Status Reason Start Date Expiration Date Visits Re quested Visits Authorized [id number] Closed 11/02/2022 11/01/2025 1 1 Reason for Visit * Outpatient (Routine) - Closed Specialty Diagnoses / Procedures Referred By Contac t Referred To Contact Orthopedic Surgery Latrell Antunez M.D. [address] [place] [phone] [facility] Referral ID Status Reason Start Date Expiration Date Visits Re quested Visits Authorized [id number] Closed 10/14/2022 10/13/2025 1 1 Encounter Details Date Type Department Care Team (Late st Contact Info) Description 11/02/2022 11:45 AM CDT Office Visit Department of Orthopedic Surgery in [place], [place] [address] [place] [address] Latrell Antunez M.D. [address] [place] [address] Pain Shoulder Right (Primary Dx) Social History [...] often do you attend chur ch or jainism services? More than 4 times per year [...] Answer Date Recorded PHQ-2 Score 0 01/18/2021 [facility] - Occupational Stress [...] Progress Notes * Latrell Antunez M.D. - 11/02/2022 11:45 AM CDT CHIEF COMPLAINT: Right shoulder pain SUBJECTIVE Ms. Sands is a very pleasant 72 y.o. female who has pain in her right shoulder. She underwent injection approximately one year ago with excellent relief of symptoms. Unfortunately, her symptoms have returned. She is here in hope of another injection. OBJECTIVE PHYSICAL EXAMINATION General: NAD, follows commands HEENT: NCAT CV: skin warm, dry, well perfused Pulm: unlabored Neuro: alert, appropriate Upper Extremity: She does have pain at the supraspinatus insertion. She has limited abduction on the right compared to the left shoulder. She also has a positive Hawkin's sign on the right. ADDITIONAL STUDIES: Laboratory studies: No results for [...] where available, was reviewed. Xray DX Knee Right 4+ Views Result Date: 10/29/2022 Narrative: EXAM: DX KNEE RIGHT 4+ VIEWS Impression: Patchy osteopenia. Again seen is advanced bilateral patellofemoral degenerative arthritis with complete joint space loss and osteochondral irregularities, greater on the right. Lateral tilt and subluxation both patellae. Mild chondrocalcinosis, left knee. Stable loose bodies/chronic ossi fications left medial knee. There is a new subtle linear lucency about the right fibular head only seen on PA flexion view which is likely artifactual in the absence of any trauma or clinical symptoms, but does raise the possibility of a small nondisplaced fracture. Correlate clinically with point tenderness. Electrodiagnostic studies: Relevant EMG/NCV studies were reviewed. ASSESSMENT / PLAN #1 Pain Shoulder Right We did move forward with injection today for the right shoulder. She tolerated it well and will plan to see her back in about 6 weeks for follow-up. I have asked her to call for questions or concernsin the meantime she has my card and contact information. Thank you for the opportunity to participate in this patient's care. Please contact us with questions or concerns. All questions and concerns were answered on today's visit. There were no communication barriers present. Electronically signed by: Latrell Antunez M.D. 11/02/22 7:04 PM CDT Answers submitted by the patient for this visit: General Review of Symptoms (Submitted on 09/07/2022) No general issues: Yes No eye issues: Yes Difficulty hearing: Yes No heart issues: Yes No respiratory issues: Yes Diarrhea: Yes Pain or stiffness in the joints: Yes Back pain/stiffness: Yes No skin issues: Yes Numbness or shooting pain in hands, arms, legs or feet: Yes Feeling nervous, anxious or on edge: Yes Bruises/bleeds easily: Yes No urinary/reproductive issues: Yes documented in this encounter Procedure Notes * Latrell Antunez M.D. - 11/02/2022 11:45 AM CDTAssociated Order(s): ift-spgk-puyvfw-elbow: R subacromial bursa Post-Procedure Diagnose(s): Pain Shoulder Right Shoulder site - R subacromial bursa : injection only Performed by: Latrell Antunez M.D. Authorized by: Latrell Antunez M.D. PROCEDURE DETAILS Procedure Location shoulder Shoulder site: R subacromial bursa Patient position: seated Procedural approach: anterolateral Procedure performed: injection only Procedural Medication The following medications were administered at the target site(s) Local anesthetic: 10 mL lidocaine 10 mg/mL (1 %) Corticosteroid: 40 mg triamcinolone acetonide 40 mg/mL CONSENT Consent obtained: written (Risks, benefits and alternatives were discussed and a written Informed Consent was obtained. Please see Informed Consent form for further details.) UNIVERSAL PROTOCOL All relevant documentation and testing [...] and confirmed in a procedural pause. PRE-PROCEDURE DETAILS Procedure purpose: therapeutic Appropriate hand hygiene, gown, cap, mask, protective eyewear, sterile gloves, skin preparation, sterile drape, and strict aseptic technique were utilized as applicable for the procedure. Site preparation: chlorhexidine SEDATION / ANESTHESIA Anesthesia method: none POST-PROCEDURE DETAILS Procedure completed successfully: yes Complications: no apparent complications Discharge instructions: ice area as needed for comfort and follow-up with ordering provider documented in this encounter Plan of Treatment Upcoming Encounters Date Type Department Care Team (Latest Contact Info) Description 10/02/2023 1:30 PM NUCLEAR MEDICINE PET CT TECHNOLOGIST Appointment Department of Radiology in [address] [phone] Brennen Winchester M.D. [address] [place] [address] Discharge Disposition: Home or Self Care 11/08/2023 10:00 AM CDT Office Visit Department of Family Medicine, [facility], in [place], [place] [address] [place] [phone] Brennen Winchester M.D. [address] [place] [phone] 11/22/2023 9:15 AM CDT Clinical Communication Virtual Review in [place], [place] 200 [place] [address] 11/25/2023 10:15 AM CDT Office Visit Department of Orthopedic Surgery in [place], [place] [address] [place] [phone] Latrell Antunez M.D. [address] [place] [phone] 11/28/2023 8:00 AM CDT Appointment Department of Laboratory Medicine and Pathology, [facility] in [place], [place] [address] [place] [phone] Sam Coburn M.D. [address] [place] [phone] 11/28/2023 8:45 AM CDT Appointment Department of Radiology, [facility], in [place], [place] [address] [place] [phone] Sam Coburn M.D. [address] [place] [phone] 11/28/2023 9:00 AM CDT Appointment Department of Radiology, [facility], in [place], [place] [address] [place] [phone] Sam Coburn M.D. [address] [place] [phone] 11/28/2023 10:00 AM CDT Office Visit Department of Orthopedic Surgery in [place], [place] [address] [place] [phone] Sam Coburn M.D. [address] [place] [address] 11/29/2023 10:48 AM CDT Hospital Encounter RST RO 02 4 AM ADMIT [address] [place] [address] Sam Coburn M.D. [address] [place] [phone] 11/29/2023 10:48 AM CDT - 11/29/2023 1:43 PM CDT Surgery RST RO MAIN OR [address] [place] [address] Sam Coburn M.D. [address] [place] [address] ARTHROPLASTY REPLACEMENT TOTAL KNEE Scheduled Procedures Name Priority Associated Diagnoses Date/Ti me ARTHROPLASTY REPLACEMENT TOTAL KNEE Primary Osteoarthritis Knee Right 11/29/2023 10:48 AM CDT Scheduled Referrals Name Type Priority Associated Diagnoses Order Schedule Orthopedic Surgery office visit (clinic) Outpatient Referral Routine Expected: 12/14/2022, Expires: 02/03/2024 documented as of this encounter Procedures Procedure Name Priority Date/Time Associated Diagnosis Comments [place] ARTHCS ASP/INJ MJR JT WO US Routine 11/02/2022 11:45 AM CDT Pain Shoulder Right documented in this encounter Results * [place] ARTHCS ASP/INJ MJR JT WO US (11/02/2022 11:45 AM CDT) Narrative MMODAL - 11/02/2022 11:45 AM CDT Latrell Antunez M.D. ? 11/02/2022 10:28 PM Shoulder site - R subacromial bursa : injection only Performed by: Latrell Antunez M.D. Authorized by: Latrell Antunez M.D. PROCEDURE DETAILS Procedure Location shoulder Shoulder site: R subacromial bursa Patient position: seated Procedural approach: anterolateral Procedure performed: injection only Procedural Medication The following medications were administered at the target site(s) Local anesthetic: 10 mL lidocaine 10 mg/mL (1 %) Corticosteroid: 40 mg triamcinolone acetonide 40 mg/mL CONSENT Consent obtained: written (Risks, benefits and alternatives were discussed and a written Informed Consent was obtained. Please see Informed Consent form for further details.) UNIVERSAL PROTOCOL All relevant documentation and testing [...] and confirmed in a procedural pause. PRE-PROCEDURE DETAILS Procedure purpose: therapeutic Appropriate hand hygiene, gown, cap, mask, protective eyewear, sterile gloves, skin preparation, sterile drape, and strict aseptic technique were utilized as applicable for the procedure. Site preparation: chlorhexidine SEDATION / ANESTHESIA Anesthesia method: none POST-PROCEDURE DETAILS Procedure completed successfully: yes Complications: no apparent complications ?? Discharge instructions: ice area as needed for comfort and follow-up with ordering provider Latrell Antunez M.D. PROCEDURE/MINOR SURG ICAL ORDERABLES MMODAL NA documented in this encounter Visit Diagnoses Diagnosis Pain Shoulder Right- Primary Primary Osteoarthritis Knee Right documented in this encounter Administered Medications Inactive Administered Medications - up to 3 most recent administrations Medication Order MAR Action Action Date Dose Rate Site lidocaine 10 mg/mL (1 %) injection 10 mL (XYLOCAINE) 10 mL, injection, One-Time Injection, Starting on Sat11/02/22 at 1903, For 1 dose Given 11/02/2022 7:03 PM CDT 10 mL triamcinolone acetonide injection 40 mg (KENALOG-40) 40 mg, intra-articular, One-Time Injection, Starting on Sat11/02/22 at 1903, For 1 dose Given 11/02/2022 7:03 PM CDT 40 mg documented in this encounter Additional Health Concerns Assessment Noted Time PHQ-9 Depression Total Score: 0 11/22/19 8:37 AM CDT documented as of this encounter Care Teams Gold Nib Grinder Relationship Specialty Start Date End Date Brennen Winchester M.D. [address] [place], [place] [address] [phone] PCP - General 04/05/22 documented as of this encounter
--- OUTSIDE RECORDS SUMMARY | 2023-09-30 11:41 | XMS_ITS | Encounter Summary ---
Author Name Unknown Organization [facility] Address [address] [place] [address] Care Team Providers Care Metal Cleaner Name Role Phone Brennen Winchester M.D. Primary Care Provider Encounter Details Date Type Department Care Team (Latest Contact Info) Description 11/22/2022 7:29 AM CDT - 11/22/2022 11:59 PM CDT Hospital Encounter Department of Laboratory Medicine in [address] [phone] Brennen Winchester M.D. [address] [place] [phone] Hyperlipidemia; Diabetes Mellitus Type 2 With Diabetic Chronic [...] How often do you attend chur or pentecostal services? More than 4 times per year [...] Answer Date Recorded PHQ-2 Score 0 [facility] Answer Date [...] Test once daily. 1 each 0 08/22/2020 sennosides-docusate sodium (Senna with Docusate Sodium) 8.6-50 [...] Pain Exception. 25 tablet 0 12/07/2022 12/15/2022 acetaminophen (TYLENOL) 500 mg capsule Take 2 capsules by mouth every 6 (six) hours as needed for pain. 0 12/08/2022 acetaminophen (TYLENOL) 500 mg tablet Take 2 tablets (1,000 mg total) by mouth every 8 (eight) hours. 200 tablet 0 12/07/2022 12/08/2022 amoxicillin (AMOXIL) 500 mg capsule Take four capsules one hour prior to any dental procedure or cleaning 0 05/05/2020 12/07/[address] tablet Take 1 tablet (81 mg total) by mouth 2 (two) times a day. 120 tablet 0 12/07/2022 08/09/2023 lisinopril-hydroCHLORO thiazide (PRINZIDE,ZESTORETIC) 10-12.5 mg per tabletIndications:Hype rtension And Chronic Kidney Disease Stage 4 (HCC) TAKE ONE TABLET BY MOUTH EVERY DAY 90 tablet 3 05/03/2022 12/08/2022 lisinopril-hydroCHLORO thiazide (PRINZIDE,ZESTORETIC) 10-12.5 mg per [...] with breakfast. 180 tablet 3 07/24/2022 08/19/2023 Microlet LancetIndications:Diab etes Mellitus Type 2 With Diabetic Chronic Kidney Disease (HCC) USE TO TEST BLOOD GLUCOSE ONCE DAILY 100 each 3 10/24/2021 01/16/2023 mirtazapine (REMERON) 7.5 mg tablet Take 1 [...] AT BEDTIME 90 tablet 3 02/27/2022 01/31/2023 documented as of this encounter Plan of Treatment Upcoming Encounters Date Type Department Care Team (Latest Contact Info) Description 10/02/2023 1:30 PM MONTESSORI PARAPROFESSIONAL Appointment Department of Radiology in [place], [place] [address] [place] [address] Brennen Winchester M.D. [address] [place] [address] Discharge Disposition: Home or Self Care 11/08/2023 10:00 AM CDT Office Visit Department of Family Medicine, [facility], in [place], [place] [address] [place] [phone] Brennen Winchester M.D. [address] [place] [address] 11/22/2023 9:15 AM CDT Clinical Communication Virtual Review in [address] [place] [address] 11/25/2023 10:15 AM CDT Office Visit Department of Orthopedic Surgery in [place], [place] [address] [place] [phone] Latrell Antunez M.D. [address] [place] [phone] 11/28/2023 8:00 AM CDT Appointment [facility] [address] [phone] Sam Coburn M.D. [address] [place] [phone] 11/28/2023 8:45 AM CDT Appointment Department of Radiology, [facility] in [address] [phone] Sam Coburn M.D. [address] [place] [phone] 11/28/2023 9:00 AM CDT Appointment Department of Radiology, [facility] in [address] [phone] Sam Coburn M.D. [address] [place] [phone] 11/28/2023 10:00 AM CDT Office Visit Department of Orthopedic Surgery in [address] [phone] Sam Coburn M.D. [address] [place] [phone] 11/29/2023 10:48 AM CDT Hospital Encounter RST ROEI 02 4 AM ADMIT [address] [place] [phone] Sam Coburn M.D. [address] [place] [address] 11/29/2023 10:48 AM CDT - 11/29/2023 1:43 PM CDT Surgery [facility]ST [facility] MAIN OR [address] [place] [address] Sam Coburn M.D. [address] [place] [address] ARTHROPLASTY REPLACEMENT TOTAL KNEE Scheduled Procedures Name Priority Associated Diagnoses Date/Ti me ARTHROPLASTY REPLACEMENT TOTAL KNEE Primary Osteoarthritis Knee Right 11/29/2023 10:48 AM CDT documented as of this encounter Procedures Procedure Name Priority Date/Time Associated Diagnosis Comments LIPID PANEL, S Routine 11/22/2022 7:39 AM CDT Hyperlipidemia CBC WITH DIFFERENTIAL, B Routine 11/22/2022 7:39 AM CDT Diabetes Mellitus Type 2 With Diabetic Chronic Kidney Disease (HCC) HEMOGLOBIN A1C, B Routine 11/22/2022 7:3 9 AM CDT Diabetes Mellitus Type 2 With Diabetic Chronic Kidney Disease (HCC) BASIC METABOLIC PANEL, S/P Routine 11/22/2022 7:39 AM CDT Diabetes Mellitus Type 2 With Diabetic Chronic Kidney Disease (HCC) documented in this encounter Results * (ABNORMAL) Basic Metabolic Panel (11/22/2022 7:39 AM CDT) Potassium, P 5.2 3.6 - 5.2 mmol/L 11/22/2022 12:04 PM CDT OWAT Sodium, P 143 135 - 145 mmol/L 11/22/2022 12:04 PM CDT OWAT Chloride, P 109(H) 98 - 107 mmol/L 11/22/2022 12:04 PM CDT OWAT Bicarbonate, P 25 22 - 29 mmol/L 11/22/2022 12:04 PM CDT OWAT Anion Gap, P 9 7 - 15 11/22/2022 12:04 PM CDT OWAT BUN (Blood Urea Nitrogen), P 29(H) 6 - 21 mg/dL 11/22/2022 12:04 PM CDT OWAT Creatinine 1.47(H) 0.59 - 1.04 mg/dL 11/22/2022 12:04 PM CDT OWAT Estimated GFR (eGFR) 37(L) >=60 mL/min/BSA 11/22/2022 12:04 PM CDT OWAT Comment: Estimated GFR calculated using the 2020 CKD_EPI creatinine equation. Calcium, Total, P 9.6 8.8 - 10.2 mg/dL 11/22/2022 12:04 PM CDT OWAT Glucose, P 101 70 - 140 mg/dL 11/22/2022 12:04 PM CDT OWAT Blood (Blood, Venous) 11/22/2022 7:39 AM CDT 11/22/2022 11:19 AM CDT Brennen Winchester M.D. LAB BLOOD ADD-ON [facility] [address] [place] [address], [facility] OWAT [facility] [place] [address] [place] [phone] * CBC with Differential, Blood (11/22/2022 7:39 AM CDT) Hemoglobin 12.8 11.6 - 15.0 g/dL 11/22/2022 9:19 AM CDT FB60 Hematocrit 40.1 35.5 - 44.9 % 11/22/2022 9:19 AM CDT FB60 Erythrocytes 4.25 3.92 - 5.13 x10(12)/L 11/22/2022 9:19 AM CDT FB60 MCV 94.4 78.2 - 97.9 fL 11/22/2022 9:19 AM CDT FB60 RBC Distrib Width 13.9 12.2 - 16.1 % 11/22/2022 9:19 AM CDT FB60 Platelet Count 269 157 - 371 x10(9)/L 11/22/2022 9:19 AM CDT FB60 Leukocytes 5.3 3.4 - 9.6 x10(9)/L 11/22/2022 9:19 AM CDT FB60 Neutrophils 2.34 1.56 - 6.45 x10(9)/L 11/22/2022 9:19 AM CDT FB60 Lymphocytes 2.11 0.95 - 3.07 x10(9)/L 11/22/2022 9:19 AM CDT FB60 Monocytes 0.63 0.26 - 0.81 x10(9)/L 11/22/2022 9:19 AM CDT FB60 Eosinophils 0.15 0.03 - 0.48 x10(9)/L 11/22/2022 9:19 AM CDT FB60 Basophils 0.04 0.01 - 0.08 x10(9)/L 11/22/2022 9:19 AM CDT FB60 Blood (Blood, Venous) 11/22/2022 7:39 AM CDT 11/22/2022 7:39 AM CDT Brennen Winchester M.D. LAB BLOOD ADD-ON [facility] [address] [place] [address], [facility] FB60 [facility] [place] [address] [place] [address] * (ABNORMAL) Hemoglobin A1c (11/22/2022 7:39 AM CDT) Hemoglobin A1c, B 6.4(H) 4.2 - 5.6 % 11/22/2022 11:52 AM CDT OWAT Comment: Hemoglobin A1c values of 5.7-6.4 percent indicate an increased risk for developing diabetes mellitus. In diabetic patients, HbA1c goals should be discussed with healthcare provider. Blood (Blood, Venous) 11/22/2022 7:39 AM CDT 11/22/2022 11:20 AM CDT Brennen Winchester M.D. LAB BLOOD ADD-ON [facility] [address] [place] [address], [facility] OWAT [facility] [place] [address] [place] [address] * Lipid Panel (11/22/2022 7:39 AM CDT) Triglycerides 133 mg/dL 11/22/2022 12:04 PM CDT OWAT Comment: ----REFERENCE VALUE---- Normal: <150 mg/dL Borderline High: 150-199 mg/dL High: 200-499 mg/dL Very High: > or =500 mg/dL Cholesterol, Total 190 mg/dL 2022 12:04 PM CDT OWAT Comment: ----REFERENCE VALUE---- Desirable: < 200 mg/dL Borderline High: 200 - 239 mg/dL High: > or = 240 mg/dL Cholesterol, LDL, Calculated 90 mg/dL 11/22/2022 12:04 PM CDT OWAT Comment: ----REFERENCE VALUE---- Desirable: <100 mg/dL Above Desirable: 100-129 mg/dL Borderline High: 130-159 mg/dL High: 160-189 mg/dL Very High: >=190 mg/dL ----ADDITIONAL INFORMATION---- LDL cholesterol calculated using the Ley/NIH equation. Cholesterol, HDL 77 >=50 mg/dL 11/23/19 12:04 PM CDT OWAT Cholesterol, Non-HDL, Calculated 113 mg/dL 11/22/2022 12:04 PM CDT OWAT Comment: ----REFERENCE VALUE---- Desirable: <130 mg/dL Above Desirable: 130-159 mg/dL Borderline High: 160-189 mg/dL High: 190-219 mg/dL Very High: > or =220 mg/dL Fasting (8 HR or more) Yes 11/22/2022 11:19 AM CDT OWAT Blood (Blood, Venous) 11/22/2022 7:39 AM CDT 11/22/2022 11:19 AM CDT Brennen Winchester M.D. 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 [address] [place] [phone] PCP - General 04/05/22 documented as of this encounter
--- OUTSIDE RECORDS SUMMARY | 2023-09-30 11:41 | XMS_ITS | Encounter Summary ---
Author Name Unknown Organization [facility] Address [address] [place] [address] Care Team Providers Care Letter Sorting Machine Operator Name Role Phone Brennen Winchester M.D. Primary Care Provider [phone] Reason for Referral * Outpatient (Routine) - Closed Specialty Diagnoses / Procedures Referred By Noelleac t Referred To Contact Diagnoses Primary Osteoarthritis Knee Left Procedures DX Knee Left Standing 3 Views Sam Coburn M.D. [address] [place] [phone] [facility] Referral ID Status Reason Start Date Expiration Date Visits Re quested Visits Authorized [id number] Closed 10/18/2022 10/18/2023 1 1 Reason for Visit * Outpatient (Routine) - Closed Specialty Diagnoses / Procedures Referred By Contteresa schmid Referred To Contact Diagnoses Primary Osteoarthritis Knee Left Procedures DX Knee Left Standing 3 Views Sam Coburn M.D. [address] [place] [phone] [facility] Referral ID Status Reason Start Date Expiration Date Visits Re quested Visits Authorized [id number] Closed 10/18/2022 10/18/2023 1 1 Encounter Details Date Type Department Care Team (Latest Contact Info) Description 12/03/2022 12:48 PM CDT - 12/03/2022 11:59 PM CDT Hospital Encounter Department of Radiology, [facility], in [place], [place] [address] [place] [phone] Sam Coburn M.D. 200 [place] [address] Primary Osteoarthritis Knee Left Discharge Disposition: Home or Self Care [...] How often do you attend chur or zoroastrian services? More than 4 times per year 09/07/2022 Do you belong to any clubs o r organizations such as yazidism groups, unions, fraternal or athletic groups, or [...] Answer Date Recorded PHQ-2 Score 0 01/18/2021 [facility] - Occupational Stress Questionnaire Answer Date [...] (Latest Contact Info) Description 10/02/2023 1:30 PM TIRE TECHNICIAN Appointment Department of Radiology in [place], [place] 300 [place] [phone] Brennen Winchester M.D. 300 [place] [phone] Discharge Disposition: Home or Self Care 11/08/2023 10:00 AM CDT Office Visit Department of Family Medicine, [facility], in [place], [place] 300 [place] [phone] Brennen Winchester M.D. 300 [place] [phone] 11/22/2023 9:15 AM CDT Clinical Communication Virtual Review in [place], [place] 200 [place] [address] 11/25/2023 10:15 AM CDT Office Visit Department of Orthopedic Surgery in [place], [place] [address] [place] [phone] Latrell Antunez M.D. [address] [place] [phone] 11/28/2023 8:00 AM CDT Appointment Department of Laboratory Medicine and Pathology, [facility] in [place], [place] [address] [place] [phone] Sam Coburn M.D. [address] [place] [phone] 11/28/2023 8:45 AM CDT Appointment Department of Radiology, [facility] in [place], [place] [address] [place] [phone] Sam Coburn M.D. [address] [place] [phone] 11/28/2023 9:00 AM CDT Appointment Department of Radiology, [facility], in [place], [place] [address] [place] [address] Sam Coburn M.D. [address] [place] [phone] 11/28/2023 10:00 AM CDT Office Visit Department of Orthopedic Surgery in [place], [place] [address] [place] [address] Sam Coburn M.D. [address] [place] [phone] 11/29/2023 10:48 AM CDT Hospital Encounter R[facility] 02 4 AM ADMIT [address] [place] [phone] Sam Coburn M.D. [address] [place] [phone] 11/29/2023 10:48 AM CDT - 11/29/2023 1:43 PM CDT Surgery [facility] OR [address] [place] [address] Sam Coburn M.D. [address] [place] [phone] ARTHROPLASTY REPLACEMENT TOTAL KNEE Scheduled Procedures Name Priority Associated Diagnoses Date/Ti me ARTHROPLASTY REPLACEMENT TOTAL KNEE Primary Osteoarthritis Knee Right 11/29/2023 10:48 AM CDT documented as of this encounter Procedures Procedure Name Priority Date/Time Associated Diagnosis Comments DX KNEE LEFT STANDING 3 VIEWS RAD - Routine (most inpatients and all outpatients) 12/03/2022 1:25 PM CDT Primary Osteoarthritis Knee Left documented in this encounter Results * DX Knee Left Standing 3 Views (12/03/2022 1:25 PM CDT) Anatomical Region Laterality Modality Lower Extremity, Knee, Muscu loskeletal RST LOS, Musculoskeletal ARZ LOS, Muskuloskeletal FLA LOS Left Digit al Radiography 12/03/2022 1:33 PM CDT Impressions 12/03/2022 1:33 PM CDT Advanced degenerative arthritis both patellofemoral compartments. Lateral subluxation both patellae. Left knee joint effusion. Loose body along left medial femoral condyle. Osteopenia. Full-length view of both lower extremities obtained for orthopedic measurement purposes. Right JACKIE. Arterial calcifications. Narrative 12/03/2022 1:33 PM CDT EXAM: ??DX KNEE LEFT STANDING 3 VIEWS, DX HIP TO ANKLE STANDING Procedure Note Heidy Celis M.D. - 12/03/2022 EXAM: DX KNEE LEFT STANDING 3 VIEWS, DX HIP TO ANKLE STANDING IMPRESSION: Advanced degenerative arthritis both patellofemoral compartments. Lateralsubluxation both patellae. Left knee joint effusion. Loose body along left medialfemoral condyle. Osteopenia. Full-length view of both lower extremities obtained for orthopedicmeasurement purposes. Right JACKIE. Arterial calcifications. Sam Coburn M.D. IMG DIAGNOSTIC IMAGI NG PROCEDURES documented in this encounter Visit Diagnoses Diagnosis Primary Osteoarthritis Knee Left Primary Osteoarthritis Knee Right documented in this encounter Additional Health Concerns Assessment Noted Time PHQ-9 Depression Total Score: 0 11/22/19 17 8:37 AM CDT documented as of this encounter Care Teams Letter Sorting Machine Operator Relationship Specialty Start Date End Date Brennen Winchester M.D. [address] [place] [phone] PCP - General 04/05/22 documented as of this encounter
--- OUTSIDE RECORDS SUMMARY | 2023-09-30 11:41 | XMS_ITS | Encounter Summary ---
Author Name Unknown Organization [facility] Address [address] [place] [address] Care Team Providers Care Medication Reconciliation Technician Name Role Phone Brennen Winchester M.D. Primary Care Provider Reason for Visit * Reason Comments Pre-op Exam * Outpatient (Routine) - Closed Specialty Diagnoses / Procedures Referred By Contteresa t Referred To Contact Orthopedic Surgery Sam Coburn M.D. [address] [place] [phone] [facility] Referral ID Status Reason Start Date Expiration Date Visits Re quested Visits Authorized [id number] Closed 10/18/2022 10/17/2025 1 1 Encounter Details Date Type Department Care Team (Latest Contact Info) Description 12/03/2022 2:00 PM CDT Office Visit Department of Orthopedic Surgery in [place], [place] [address] [place] [phone] Sam Coburn M.D. [address] [place] [phone] Primary Osteoarthritis Knee Left (Primary Dx); Diabetes Mellitus Type 2 With Diabetic Chronic [...] Answer Date Recorded PHQ-2 Score 0 01/18/2021 [facility] [place] of Occupat ional Health - Occupational Stress [...] PM CDT documented as of this encounter H&P Notes * Sam Coburn M.D. - 12/03/2022 2:00 PM CDT SUBJECTIVE REASON FOR VISIT Ekta Sands is a 72 y.o. female who presents to the office today for a preoperative consultationin anticipation of primary left total knee arthroplasty December 07. Pain reported: Site 1 Pain Score: 6, Pain Location: Knee, Pain Orientation: Left, (12/03/22 1358 : Radha Jiménez) HISTORY OF PRESENT ILLNESS The patient returns with ongoing severe pain in the left knee, and feels ready to proceed with surgery. The pain can often reach 9/10 in intensity. She is taking acetaminophen twice daily, and had aninjection as recently as June 2022. Her interval health has been stable, and she has been deemed medically optimized to proceed. Please refer to my consultation in August 2022, and our follow-up visit earlier this month, for additional details. PERTINENT PAST MEDICAL HISTORY #1 Primary Osteoarthritis Knee Left #2 Diabetes [...] Disease (HCC) #23 Hyperparathyroidism Renal Secondary (HCC) OBJECTIVE Vital Signs BMI 21.22 PHYSICAL EXAMINATION Ortho Exam General: Awake and alert. No acute distress. Skin: Healthy skin over both knees Neurologic: Excellent quadriceps strength, with the remainder as per my previous examinations Vascular: Palpable pulses Extremities: Well-preserved knee range of motion with patellofemoral pain and crepitus. Excellent stability. DIAGNOSTICS Labs: Hemoglobin 12.8, creatinine 1.47 (near or better than baseline) Imaging: Plain radiographs demonstrate severe bilateral knee DJD, primarily patellofemoral, with mild patellar bone loss on the left ASSESSMENT / PLAN #1 Primary Osteoarthritis Knee Left #2 Diabetes Mellitus Type 2 With Diabetic Chronic Kidney Disease (HCC) We had a very good discussion regarding left total knee replacement surgery and recovery, and all of her questions were answered. We will try to connect her with our social contact worker group for discharge planning preparations. We will follow her renal function in the postoperative period, and will try to avoid nephrotoxic agents. Informed consent: The patient understands that the risks include but are not limited to , medical problems, infection, bleeding, nerve damage, blood clot problems, prosthetic loosening, wear or failure, knee stiffness, skin healing problems, ligament problems, instability problems, or ongoing pain. We discussed the potential for overlapping surgery and how we manage that effectively. We discussed the potential risks of opioid medications and strategies to reduce those risks. The patient understands the potential for perioperative transmission of COVID-19 virus and the systems in place tominimize that risk. documented in this encounter Plan of Treatment Upcoming Encounters Date Type Department Care Team (Latest Contact Info) Description 10/02/2023 1:30 PM AUTOMATION TECH Appointment Department of Radiology in [address] [phone] Brennen Winchester M.D. [address] [place] [phone] Discharge Disposition: Home or Self Care 11/08/2023 10:00 AM CDT Office Visit Department of Family Medicine, [facility], in [address] [phone] Brennen Winchester M.D. [address] [place] [phone] 11/22/2023 9:15 AM CDT Clinical Communication Virtual Review in [address] [address] 11/25/2023 10:15 AM CDT Office Visit Department of Orthopedic Surgery in [address] [phone] Latrell Antunez M.D. [address] [place] [phone] 11/28/2023 8:00 AM CDT Appointment Department of Laboratory Medicine and Pathology, [facility] in [place], [place] [address] [place] [phone] Sam Coburn M.D. [address] [place] [phone] 11/28/2023 8:45 AM CDT Appointment Department of Radiology, [facility] in [place], [place] [address] [place] [phone] Sam Coburn M.D. [address] [place] [phone] 11/28/2023 9:00 AM CDT Appointment Department of Radiology, [facility] in [place], [place] [address] [place] [phone] Sam Coburn M.D. [address] [place] [phone] 11/28/2023 10:00 AM CDT Office Visit Department of Orthopedic Surgery in [place], [place] [address] [place] [phone] Sam Coburn M.D. [address] [place] [phone] 11/29/2023 10:48 AM CDT Hospital Encounter RST RO 02 4 AM ADMIT [address] [place] [phone] Sam Coburn M.D. [address] [place] [phone] 11/29/2023 10:48 AM CDT - 11/29/2023 1:43 PM CDT Surgery RST RO MAIN OR [address] [place] [address] Sam Coburn M.D. [address] [place] [address] [place] [phone] ARTHROPLASTY REPLACEMENT TOTAL KNEE Scheduled Procedures Name Priority Associated Diagnoses Date/Ti me ARTHROPLASTY REPLACEMENT TOTAL KNEE Primary Osteoarthritis Knee Right 11/29/2023 10:48 AM CDT documented as of this encounter Visit Diagnoses Diagnosis Primary Osteoarthritis Knee Left- Primary Diabetes Mellitus Type 2 With Diabetic Chronic Kidney Disease (HCC) Primary Osteoarthritis Knee Right documented in this encounter Additional Health Concerns Assessment Noted Time PHQ-9 Depression Total Score: 0 11/22/19 17 8:37 AM CDT documented as of this encounter Care Teams Medication Reconciliation Technician Relationship Specialty Start Date End Date Brennen Winchester M.D. [address] [place] [phone] PCP - General 04/05/22 documented as of this encounter
--- OUTSIDE RECORDS SUMMARY | 2023-09-30 11:41 | XMS_ITS | Encounter Summary ---
Author Name Unknown Organization [facility] Address [address] [place] [address] Care Team Providers Care Commercial Finance Manager Name Role Phone Brennen Winchester M.D. Primary Care Provider Reason for Referral * Outpatient (Routine) - Closed Specialty Diagnoses / Procedures Referred By Sara schmid Referred To Contact Diagnoses Primary Osteoarthritis Knee Left Procedures DX Hip to Ankle Standing Sam Coburn M.D. [address] [place] [phone] [facility] Referral ID Status Reason Start Date Expiration Date Visits Re quested Visits Authorized [id number] Closed 10/18/2022 10/18/2023 1 1 Reason for Visit * Outpatient (Routine) - Closed Specialty Diagnoses / Procedures Referred By Sara schmid Referred To Contact Diagnoses Primary Osteoarthritis Knee Left Procedures DX Hip to Ankle Standing Sam Coburn M.D. [address] [place] [phone] [facility] Referral ID Status Reason Start Date Expiration Date Visits Re quested Visits Authorized [id number] Closed 10/18/2022 10/18/2023 1 1 Encounter Details Date Type Department Care Team (Latest Contact Info) Description 12/03/2022 12:48 PM CDT - 12/03/2022 11:59 PM CDT Hospital Encounter Department of Radiology, [facility], in [place], [place] [address] [place] [phone] Sam Coburn M.D. 200 [place] [address] Primary Osteoarthritis Knee Left Discharge Disposition: Home [...] often do you attend chur ch or buddhist services? More than 4 times per year 09/07/2022 Do you belong to any clubs o r organizations such as mandaen groups, unions, fraternal or athletic groups, or [...] Answer Date Recorded PHQ-2 Score 0 01/18/2021 [facility] of Occupat ional Health - Occupational Stress [...] (Latest Contact Info) Description 10/02/2023 1:30 PM OPERATIONAL METEOROLOGIST Appointment Department of Radiology in [place], [place] 300 [place] [phone] Brennen Winchester M.D. 300 [place] [phone] Discharge Disposition: Home or Self Care 11/08/2023 10:00 AM CDT Office Visit Department of Family Medicine, [facility], in [place], [place] 300 [place] [phone] Brennen Winchester M.D. 300 [place] [phone] 11/22/2023 9:15 AM CDT Clinical Communication Virtual Review in [place], [place] [address] [place] [address] 11/25/2023 10:15 AM CDT Office Visit Department of Orthopedic Surgery in [place], [place] [address] [place] [phone] Latrell Antunez M.D. [address] [place] [phone] 11/28/2023 8:00 AM CDT Appointment Department of Laboratory Medicine and Pathology, [facility] in [place], [place] [address] [place] [phone] Sam Coburn M.D. [address] [place] [phone] 11/28/2023 8:45 AM CDT Appointment Department of Radiology, [facility] in [place], [place] [address] [place] [phone] Sam Coburn M.D. [address] [place] [phone] 11/28/2023 9:00 AM CDT Appointment Department of Radiology, [facility], in [place], [place] [address] [place] [phone] Sam Coburn M.D. [address] [place] [phone] 11/28/2023 10:00 AM CDT Office Visit Department of Orthopedic Surgery in [place], [place] [address] [place] [phone] Sam Coburn M.D. [address] [place] [phone] 11/29/2023 10:48 AM CDT Hospital Encounter RST RO 02 4 AM ADMIT [address] [place] [phone] Sam Coburn M.D. [address] [place] [phone] 11/29/2023 10:48 AM CDT - 11/29/2023 1:43 PM CDT Surgery [facility]ST [facility] MAIN OR [address] [place] [address] Sam Coburn M.D. [address] [place] [phone] ARTHROPLASTY REPLACEMENT TOTAL KNEE Scheduled Procedures Name Priority Associated Diagnoses Date/Ti me ARTHROPLASTY REPLACEMENT TOTAL KNEE Primary Osteoarthritis Knee Right 11/29/2023 10:48 AM CDT documented as of this encounter Procedures Procedure Name Priority Date/Time Associated Diagnosis Comments DX HIP TO ANKLE STANDING RAD - Routine (most inpatients and all outpatients) 12/03/2022 1:26 PM CDT Primary Osteoarthritis Knee Left documented in this encounter Results * DX Hip to Ankle Standing (12/03/2022 1:26 PM CDT) Anatomical Region Laterality Modality Lower Extremity, Hip, Femur, Knee, TibFib, Ankle, Musculoskeletal RST LOS, Musculoskeletal ARZ LOS, Muskuloskeletal FLA LOS N/A Digital Radiography 12/03/2022 1:33 PM CDT Impressions 12/03/2022 [...] for orthopedicmeasurement purposes. Right JACKIE. Arterial calcifications. Authorizing Provider Result Yue Coburn M.D. IMG DIAGNOSTIC IMAGI NG PROCEDURES documented in this encounter Visit Diagnoses Diagnosis Primary Osteoarthritis Knee Left Primary Osteoarthritis Knee Right documented in this encounter Additional Health Concerns Assessment Noted Time PHQ-9 Depression Total Score: 0 11/22/19 17 8:37 AM CDT documented as of this encounter Care Teams Commercial Finance Manager Relationship Specialty Start Date End Date Brennen Winchester M.D. [address] [place] [phone] PCP - General 04/05/22 documented as of this encounter
--- OUTSIDE RECORDS SUMMARY | 2023-09-30 11:41 | XMS_ITS | Encounter Summary ---
Author Name Unknown Organization [facility] Address [address] [place] [address] Care Team Providers Care Professional Housing Consultant Name Role Phone Brennen Winchester M.D. Primary Care Provider Reason for Visit * Reason Onset Date Comments Pre-visit Intake 11/16/2022 Encounter Details Date Type Department Care Team (Latest Contact Info) Description 11/16/2022 11:15 AM CDT Clinical Communication Virtual Review in [place], [place] 200 [place], [place] [phone] Pre-visit Intake Social History Tobacco Use Types [...] any clubs o r organizations such as yazidi groups, unions, fraternal or athletic groups, or [...] 0 01/18/2021 [facility]at [facility] - Occupational Stress Questionnaire Answer Date [...] place to sleep or slept in a fpc (including now)? No 09/07/2022 Nutrition Answer Date [...] (Latest Contact Info) Description 10/02/2023 1:30 PM COMPUTER INFORMATION SYSTEMS INSTRUCTOR Appointment Department of Radiology in [place], [place] 300 [place] [address] Brennen Winchester M.D. 300 [place] [address] Discharge Disposition: Home or Self Care 11/08/2023 10:00 AM CDT Office Visit Department of Family Medicine, [facility], in [place], [place] 300 [place] [phone] Brennen Winchester M.D. 300 [place] [phone] 11/22/2023 9:15 AM CDT Clinical Communication Virtual Review in [place], [place] 200 [place] [address] 11/25/2023 10:15 AM CDT Office Visit Department of Orthopedic Surgery in [address] [phone] Latrell Antunez M.D. [address] [place] [phone] 11/28/2023 8:00 AM CDT Appointment Department of Laboratory Medicine and Pathology, [facility] in [address] [phone] Sam Coburn M.D. [address] [place] [phone] 11/28/2023 8:45 AM CDT Appointment Department of Radiology, [facility] in [address] [phone] Sam Coburn M.D. [address] [place] [phone] 11/28/2023 9:00 AM CDT Appointment Department of Radiology, [facility] in [address] [phone] Sam Coburn M.D. [address] [place] [phone] 11/28/2023 10:00 AM CDT Office Visit Department of Orthopedic Surgery in [address] [phone] Sam Coburn M.D. [address] [place] [phone] 11/29/2023 10:48 AM CDT Hospital Encounter RST RO 02 4 AM ADMIT [address] [place] [address] Sam Coburn M.D. [address] [place] [address] 11/29/2023 10:48 AM CDT - 11/29/2023 1:43 PM CDT Surgery RST RO MAIN OR [address] [place] [address] Sam Coburn M.D. [address] [place] [address] ARTHROPLASTY REPLACEMENT TOTAL KNEE Scheduled Procedures Name Priority Associated Diagnoses Date/Ti me ARTHROPLASTY REPLACEMENT TOTAL KNEE Primary Osteoarthritis Knee Right 11/29/2023 10:48 AM CDT documented as of this encounter Visit Diagnoses Not on filedocumented in this encounter Additional Health Concerns Assessment Noted Time PHQ-9 Depression Total Score: 0 11/22/19 17 8:37 AM CDT documented as of this encounter Care Teams Professional Housing Consultant Relationship Specialty Start Date End Date Brennen Winchester M.D. [address] [place] [phone] PCP - General 04/05/22 documented as of this encounter
--- OUTSIDE RECORDS SUMMARY | 2023-09-30 11:42 | XMS_ITS | Encounter Summary ---
Author Name Unknown Organization [facility] Address [address] [place] [id number] Care Team Providers Care General Service Technician Name Role Phone Brennen Winchester M.D. Primary Care Provider [phone] Reason for Referral * Outpatient (Routine) - Closed Specialty Diagnoses / Procedures Referred By Contac t Referred To Contact Diagnoses Primary Osteoarthritis Knee Left Procedures DX Hip to Ankle Standing Sam Coburn M.D. [address] [place] [phone] [facility] Referral ID Status Reason Start Date Expiration Date Visits Re quested Visits Authorized [id number] Closed 10/18/2022 10/18/2023 1 1 CTIONAL DRILLER * Outpatient (Routine) - Closed Specialty Diagnoses / Procedures Referred By Contac t Referred To Contact Orthopedic Surgery Sam Coburn M.D. [address] [place] [phone] [facility] Referral ID Status Reason Start Date Expiration Date Visits Re quested Visits Authorized [id number] Closed 10/18/2022 10/17/2025 1 1 Scheduling Instructions Please schedule return appt with Dr. Coburn after pt's already scheduled 11/19 1:30 pm appt. Appt is to discuss concerns regarding scheduled 12/07 left TKA. CTIONAL DRILLER * Outpatient (Routine) - Closed Specialty Diagnoses / Procedures Referred By Contac t Referred To Contact Diagnoses Primary Osteoarthritis Knee Left Procedures DX Knee Left Standing 3 Views Sam Coburn M.D. [address] [place] [phone] [facility] Referral ID Status Reason Start Date Expiration Date Visits Re quested Visits Authorized [id number] Closed 10/18/2022 10/18/2023 1 1 CTIONAL DRILLER * Outpatient (Routine) - Closed Specialty Diagnoses / Procedures Referred By Sara schmid Referred To Contact Orthopedic Surgery Sam Coburn M.D. [address] [place] [phone] [facility] Referral ID Status Reason Start Date Expiration Date Visits Re quested Visits Authorized [id number] Closed 10/18/2022 10/17/2025 1 1 Scheduling Instructions Please schedule for 12/03 with blood & imaging before. Thanks. CTIONAL DRILLER * Outpatient (Routine) - Closed Specialty Diagnoses / Procedures Referred By Sara schmid Referred To Contact Family Medicine Diagnoses Primary Osteoarthritis Knee Left Preoperative Exam Sam Coburn M.D. [address] [place] [phone] [facility] Referral ID Status Reason Start Date Expiration Date Visits Re quested Visits Authorized [id number] Closed 10/18/2022 10/18/2023 1 1 Scheduling Instructions If needed & if possible, please have PCP RAMIREZ completed before 12/03 TMM preop. CTIONAL DRILLER Reason for Visit * Reason Onset Date Comments Surgery Planning 10/18/2022 Left TKA Encounter Details Date Type Department Care Team (Latest Contact Info) Description 10/18/2022 Clinical Communication Department of Orthopedic Surgery in [place], [place] [address] [place] [phone] Tricia Wilburn R.N. [address] [place] [phone] Surgery Planning (Left TKA) Social History Tobacco Use Types Packs/Day Years [...] often do you attend chur ch or confucianism services? More than 4 times per year [...] Answer Date Recorded PHQ-2 Score 0 01/18/2021 [facility] - Occupational Stress Questionnaire Answer [...] encounter Miscellaneous Notes * Telephone Encounter - Wiliamleslie Tricia Mendoza R.N. - 10/18/2022 10:37 AM CST SUBJECTIVE CHIEF COMPLAINT / REASON FOR CALL Phone call to Ekta to discuss surgery planning for left TKA with Dr. Coburn. Medical history reviewed via [employer] and with Ekta. REVIEW OF SYSTEMS Prior DVT/PE: No. Diabetes Mellitus: Yes. Hgb A1C 6.9 on 07/23/22. Active tobacco use: No. Known bleeding disorder: No. Chronic anticoagulation: No. Immunosuppression: No. PCN/Cephalosporin Allergy: No. Last Left Knee Injection: 06/25/22 DENTAL Current dental issues: Denies. Recent dental care: No. Dental care scheduled: 11/19/22. DISMISSAL PLAN Home with assistance: Uncertain at this time. SNF/Rehab facility: Uncertain at this time. Ekta reports that her is being treated for metastatic cancer, so discharge plan will be dependent on his health status. Ekta verbalizes concerns regarding stability and pain management in regards to surgery. She requests a return appointment with Dr. Coburn a couple of weeks before surgery (11/19 if possible) to discussfurther with him. PLAN The following information was provided: Informed Ekta of available surgery dates and she requests 12/07/22 for left TKA with Dr. Coburn. Reassured her that the date can be changed any time if needed due to her 's health status. Informed Ekta that the scheduling team will work on coordinating the preoperative appointments. She willcheck her Patient Online Service Account for appointment information. Instructed Ekta to continue her prescription medications as directed until her preoperative appointments where she will be given further direction. Instructed her to stop vitamins/supplements 7-10 days before surgery, if possible. Informed her that vnli-vhu-antdoqd pain medications such as acetaminophen (Tylenol), ibuprofen (Advil), or naproxen (Aleve) may be taken as directed up to surgery date. Informed Ekta that her scheduled 4/3 dental cleaning is fine to complete, but to notify RN if there are any recommendations for treatment to prevent future dental infection. Instructed Ekta to contact Dr. Coburn/Team with any questions/concerns &/or changes in health/dental status prior to surgery date. Information/Education: patient/caller able to teach back The following references were used: nursing clinical judgement and provider Dr. Coburn CTIONAL DRILLER documented in this encounter Plan of Treatment Upcoming Encounters Date Type Department Care Team (Latest Contact Info) Description 10/02/2023 1:30 PM DIRECTIONAL DRILLER Appointment Department of Radiology in [address] [phone] Brennen Winchester M.D. [address] [place] [phone] Discharge Disposition: Home or Self Care 11/08/2023 10:00 AM CDT Office Visit Department of Family Medicine, [facility], in [address] [phone] Brennen Winchester M.D. [address] [place] [phone] 11/22/2023 9:15 AM CDT Clinical Communication Virtual Review in [place], [place] 200 [place] [address] 11/25/2023 10:15 AM CDT Office Visit Department of Orthopedic Surgery in [place], [place] [address] [place] [phone] Latrell Antunez M.D. [address] [place] [phone] 11/28/2023 8:00 AM CDT Appointment Department of Laboratory Medicine and Pathology, [facility], in [place], [place] [address] [place] [phone] Sam Coburn M.D. [address] [place] [phone] 11/28/2023 8:45 AM CDT Appointment Department of Radiology, [facility], in [place], [place] [address] [place] [phone] Sam Coburn M.D. [address] [place] [phone] 11/28/2023 9:00 AM CDT Appointment Department of Radiology, [facility], in [place], [place] [address] [place] [phone] Sam Coburn M.D. [address] [place] [phone] 11/28/2023 10:00 AM CDT Office Visit Department of Orthopedic Surgery in [place], [place] [address] [place] [phone] Sam Coburn M.D. [address] [place] [phone] 11/29/2023 10:48 AM CDT Hospital Encounter RST RO 02 4 AM ADMIT [address] [place] [phone] Sam Coburn M.D. [address] [place] [phone] 11/29/2023 10:48 AM CDT - 11/29/2023 1:43 PM CDT Surgery [facility] [address] [place] [phone] Sam Coburn M.D. [address] [place] [phone] ARTHROPLASTY REPLACEMENT TOTAL KNEE Scheduled Procedures Name Priority Associated Diagnoses Date/Ti me ARTHROPLASTY REPLACEMENT TOTAL KNEE Primary Osteoarthritis Knee Right 11/29/2023 10:48 AM CDT Scheduled Referrals Name Type Priority Associated Diagnoses Orde r Schedule Primary Care - RAMIREZ consult (clinic) Outpatient Referral Routine Primary Osteoarthritis Knee Left Preoperative Exam 1 Occurrences starting 10/18/2022 until 01/19/2024 Orthopedic Surgery Pre Op (clinic) Outpatient Referral Routine Expected: 12/03/2022, Expires: 01/19/2024 Orthopedic Surgery office visit (clinic) Outpatient Referral Routine Expected: 11/19/2022, Expires: 01/19/2024 documented as of this encounter Results * DX Hip to [...] HIP TO ANKLE STANDING Procedure Note Heidy Ceils M.D. - 12/03/2022 EXAM: DX KNEE LEFT STANDING 3 VIEWS, DX HIP TO ANKLE STANDING IMPRESSION: Advanced degenerative arthritis both patellofemoral compartments. Lateralsubluxation both patellae. Left knee joint effusion. Loose body along left medialfemoral condyle. Osteopenia. Full-length view of both lower extremities obtained for orthopedicmeasurement purposes. Right JACKIE. Arterial calcifications. Sam [facility] NG PROCEDURES * DX Knee Left Standing 3 Views [...] calcifications. Authorizing Provider Result Yue Coburn M.D. [facility] DIAGNOSTIC IMAGI NG PROCEDURES documented in this encounter Visit Diagnoses Diagnosis Primary Osteoarthritis Knee Left- Primary Preprocedural Lab Exam Preoperative Exam Primary Osteoarthritis Knee Left Primary Osteoarthritis Knee Left Primary Osteoarthritis Knee Right documented in this encounter Additional Health Concerns Assessment Noted Time PHQ-9 Depression Total Score: 0 11/22/19 8:37 AM CDT documented as of this encounter Care Teams General Service Technician Relationship Specialty Start Date End Date Brennen Winchester M.D. [address] [place] [phone] PCP - General 04/05/22 documented as of this encounter
--- OUTSIDE RECORDS SUMMARY | 2023-09-30 11:42 | XMS_ITS | Encounter Summary ---
Author Name Unknown Organization [facility] Address [address] [place] [address] Care Team Providers Care Technology Infusion Specialist Name Role Phone Brennen Winchester M.D. Primary Care Provider [phone] Reason for Visit * Outpatient (Routine) - Closed Specialty Diagnoses / Procedures Referred By Sara schmid Referred To Contact Pain Medicine Diagnoses Osteoarthritis Beka Arndt M.D. [address] [place] [phone] [facility] Referral ID Status Reason Start Date Expiration Date V isits Requested Visits Authorized [id number] Closed Specialty Services Required 09/25/2022 09/25/2023 1 1 Encounter Details Date Type Department Care Team (Latest Contact Info) Description 10/30/2022 9:30 AM CDT Comprehensive Visit Division of Pain Medicine in [place], [place] [address] [place] [phone] Beka Arndt M.D. [address] [place] [phone] Osteoarthritis Social History Tobacco Use Types Packs/Day Years [...] How often do you attend chur or judaism services? More than 4 times per year 09/07/2022 Do you belong to any clubs o r organizations such as faith groups, unions, fraternal or athletic groups, or [...] Score 0 01/18/2021 [facility] - Occupational Stress Questionnaire Answer Date [...] (Latest Contact Info) Description 10/02/2023 1:30 PM WEBMETHODS CONSULTANT Appointment Department of Radiology in [address] [phone] Brennen Winchester M.D. [address] [place] [phone] Discharge Disposition: Home or Self Care 11/08/2023 10:00 AM CDT Office Visit Department of Family Medicine, [facility], in [place], [place] 300 [place] [phone] Brennen Winchester M.D. [address] [place] [phone] 11/22/2023 9:15 AM CDT Clinical Communication Virtual Review in [place], [place] 200 [place] [address] 11/25/2023 10:15 AM CDT Office Visit Department of Orthopedic Surgery in [place], [place] [address] [place] [phone] Latrell Antunez M.D. [address] [place] [phone] 11/28/2023 8:00 AM CDT Appointment Department of Laboratory Medicine and Pathology, [facility] in [place], [place] [address] [place] [phone] Sam Coburn M.D. [address] [place] [phone] 11/28/2023 8:45 AM CDT Appointment Department of Radiology, [facility], in [place], [place] [address] [place] [phone] Sam Coburn M.D. [address] [place] [phone] 11/28/2023 9:00 AM CDT Appointment Department of Radiology, [facility], in [place], [place] [address] [place] [phone] Sam Coburn M.D. [address] [place] [phone] 11/28/2023 10:00 AM CDT Office Visit Department of Orthopedic Surgery in [place], [place] [address] [place] [phone] Sam Coburn M.D. [address] [place] [phone] 11/29/2023 10:48 AM CDT Hospital Encounter [facility] 02 4 AM ADMIT [address] [place] [phone] Sam Coburn M.D. [address] [place] [phone] 11/29/2023 10:48 AM CDT - 11/29/2023 1:43 PM CDT Surgery [facility] MAIN OR [address] [place] [phone] Sam Coburn M.D. [address] [place] [phone] ARTHROPLASTY REPLACEMENT TOTAL KNEE Scheduled Procedures Name Priority Associated Diagnoses Date/Ti me ARTHROPLASTY REPLACEMENT TOTAL KNEE Primary Osteoarthritis Knee Right 11/29/2023 10:48 AM CDT documented as of this encounter Visit Diagnoses Diagnosis Osteoarthritis Primary Osteoarthritis Knee Right documented in this encounter Additional Health Concerns Assessment Noted Time PHQ-9 Depression Total Score: 0 11/22/19 17 8:37 AM CDT documented as of this encounter Care Teams Technology Infusion Specialist Relationship Specialty Start Date End Date Brennen Winchester M.D. [address] [place] [phone] PCP - General 04/05/22 documented as of this encounter
--- OUTSIDE RECORDS SUMMARY | 2023-09-30 11:42 | XMS_ITS | Encounter Summary ---
Author Name Unknown Organization [facility] Address [address] [place] [address] Care Team Providers Care Instrument Lens Generator Name Role Phone Brennen Winchester M.D. Primary Care Provider Reason for Referral * Outpatient (Routine) - Closed Specialty Diagnoses / Procedures Referred By Contac t Referred To Contact Diagnoses Primary Osteoarthritis Knee Right Procedures DX Knee Right 4+ Views Beka Arndt M.D. [address] [place] [phone] [facility] Referral ID Status Reason Start Date Expiration Date Visits Re quested Visits Authorized [id number] Closed 10/23/2022 10/23/2023 1 1 Reason for Visit * Outpatient (Routine) - Closed Specialty Diagnoses / Procedures Referred By Sara schmid Referred To Contact Diagnoses Primary Osteoarthritis Knee Right Procedures DX Knee Right 4+ Views Beka Arndt M.D. [address] [place] [phone] [facility] Referral ID Status Reason Start Date Expiration Date Visits Re quested Visits Authorized [id number] Closed 10/23/2022 10/23/2023 1 1 Encounter Details Date Type Department Care Team (Latest Contact Info) Description 10/29/2022 12:50 PM CDT - 10/29/2022 11:59 PM CDT Hospital Encounter Department of Radiology, [facility], in [place], [place] [address] [place] [phone] Beka Arndt M.D. 200 [place] [address] Primary Osteoarthritis Knee Right Discharge Disposition: Home or Self Care Social [...] week 09/07/2022 How often do you attend [facility] or [facility] services? More than 4 times [...] Answer Date Recorded PHQ-2 Score 0 01/18/2021 [facility] - [...] needed 0 12/08/2022 blood glucose ctl high,nml,low solutionIndications :Diabetes Mellitus Type 2 With Diabetic Chronic Kidney Disease (HCC) Glucose control solution provides an easy way to ensure accurate blood glucose testing. 1 each 0 08/22/2020 blood sugar diagnostic strips (Contour Next Test Strips)Indications: Diabetes Mellitus Type 2 With Diabetic Chronic Kidney Disease (HCC) 1 test daily. 90 test 3 10/18/2022 10/18/2023 blood-glucose meter miscIndications:Karlee betes Mellitus Type 2 With Diabetic Chronic Kidney Disease (HCC) Contour Next One meter. Test once daily. 1 each 0 08/22/2020 sennosides-docusate sodium (Senna with Docusate Sodium) 8.6-50 mg per tablet Take 1 tablet by mouth 2 (two) times a day for 14 days. 28 tablet 0 12/07/2022 12/21/2022 traMADoL (ULTRAM) 50 mg tabletIndications:A cute Pain Exception Take 1 tablet (50 mg [...] a day. 120 tablet 0 12/07/2022 08/09/2023 lisinopril-hydroCHL OROthiazide (PRINZIDE,ZESTORETI C) 10-12.5 mg per tabletIndications:H ypertension And Chronic Kidney Disease Stage 4 (HCC) TAKE ONE TABLET BY MOUTH EVERY DAY 90 tablet 3 05/03/2022 12/08/2022 lisinopril-hydroCHL OROthiazide (PRINZIDE,ZESTORETI C) 10-12.5 mg per tabletIndications:H ypertension And Chronic Kidney Disease Stage 4 (HCC) Take 1 tablet by mouth at bedtime. HOLD until follow up with primary care provider 0 12/08/2022 02/01/20 metFORMIN XR (GLUCOPHAGE-XR) 500 mg 24 hr tabletIndications:D iabetes Mellitus Type 2 With Diabetic Chronic Kidney Disease (HCC) Take 2 tablets (1,000 mg total) by mouth daily with breakfast. 180 tablet 3 07/24/2022 08/19/2023 Microlet LancetIndications:D iabetes Mellitus Type 2 With Diabetic Chronic Kidney Disease (HCC) USE TO TEST BLOOD GLUCOSE ONCE DAILY 100 each 3 10/24/2021 01/16/2023 mirtazapine (REMERON) 7.5 mg tablet Take 1 tablet (7.5 mg total) by mouth at bedtime. 90 tablet 3 10/18/2022 08/09/2023 oxyCODONE (ROXICODONE) 5 mg immediate release tabletIndications:A cute Pain Exception Take 1 tablet (5 mg total) by mouth every 4 (four) hours as needed for severe pain or score 7-10 of 10 Indication: Acute Pain Exception. 15 tablet 0 12/07/2022 01/31/2023 Research IRB [id number] SL-1002 or placebo Provider to draw up and administer SL-1002 or placebo. Provider to administer a maximum injection volume of 6 mL of SL-1002 or placebo via administration of 1 mL to 6 distinct nerve locations on the index knee (SMGN, NVM, SLGN, TABCFN, IGN, and IPBSN). Vials are single use. Stopper should only be penetrated once. Do not fill more than one syringe from a single use vial. 2 vial 0 11/12/2022 11/05/2022 Research IRB [id number] SL-1002 or placeboIndications: Osteoarthritis Provider to draw up and administer SL-1002 or placebo. Provider to administer a maximum injection volume of 6 mL of SL-1002 or placebo via administration of 1 mL to 6 distinct nerve locations on the index knee (SMGN, NVM, SLGN, TABCFN, IGN, and IPBSN). Vials are single use. Stopper should only be penetrated once. Do not fill more than one syringe from a single use vial. 2 vial 0 11/12/2022 11/05/2022 simvastatin (ZOCOR) 20 mg tabletIndications:H ypercholesterolemia TAKE ONE TABLET BY MOUTH EVERY DAY AT BEDTIME 90 tablet 3 02/27/2022 01/31/2023 documented as of this encounter Plan of Treatment Upcoming Encounters Date Type Department Care Team (Latest Contact Info) Description 10/02/2023 1:30 PM DRYWALL WORKER Appointment Department of Radiology in [address] [phone] Brennen Winchester M.D. [address] [place] [address] Discharge Disposition: Home or Self Care 11/08/2023 10:00 AM CDT Office Visit Department of Family Medicine, [facility], in [place], [place] 300 [place] [address] Brennen Winchester M.D. 300 [place] [address] 11/22/2023 9:15 AM CDT Clinical Communication Virtual Review in [address] [address] 11/25/2023 10:15 AM CDT Office Visit Department of Orthopedic Surgery in [place], [place] [address] [place] [phone] Latrell Antunez M.D. [address] [place] [phone] 11/28/2023 8:00 AM CDT Appointment Department of Laboratory Medicine and Pathology, [facility] in [place], [place] [address] [place] [phone] Sam Coburn M.D. [address] [place] [phone] 11/28/2023 8:45 AM CDT Appointment Department of Radiology, [facility] in [place], [place] [address] [place] [phone] Sam Coburn M.D. [address] [place] [phone] 11/28/2023 9:00 AM CDT Appointment Department of Radiology, [facility] in [place], [place] [address] [place] [phone] Sam Coburn M.D. [address] [place] [phone] 11/28/2023 10:00 AM CDT Office Visit Department of Orthopedic Surgery in [place], [place] [address] [place] [phone] Sam Coburn M.D. [address] [place] [phone] 11/29/2023 10:48 AM CDT Hospital Encounter [facility] 02 4 AM ADMIT [address] [place] [phone] Sam Coburn M.D. [address] [place] [phone] 11/29/2023 10:48 AM CDT - 11/29/2023 1:43 PM CDT Surgery [facility] [address] [place] [address] Sam Coburn M.D. [address] [place] [address] ARTHROPLASTY REPLACEMENT TOTAL KNEE Scheduled Procedures Name Priority Associated Diagnoses Date/Ti me ARTHROPLASTY REPLACEMENT TOTAL KNEE Primary Osteoarthritis Knee Right 11/29/2023 10:48 AM CDT documented as of this encounter Procedures Procedure Name Priority Date/Time Associated Diagnosis Comments DX KNEE RIGHT 4+ VIEWS RAD - Routine (most inpatients and all outpatients) 10/29/2022 1:44 PM CDT Primary Osteoarthritis Knee Right documented in this encounter Results * DX Knee Right 4+ Views (10/29/2022 1:44 PM CDT) Anatomical Region Laterality Modality Lower Extremity, Knee, Muscu loskeletal RST LOS, Musculoskeletal ARZ LOS, Muskuloskeletal FLA LOS Right Digit al Radiography 10/29/2022 1:51 PM CDT Impressions 10/29/2022 1:55 PM CDT Patchy osteopenia. Again seen is advanced bilateral patellofemoral degenerative arthritis with complete joint space loss and osteochondral irregularities, greater on the right. Lateral tilt and subluxation both patellae. Mild chondrocalcinosis, left knee. Stable loose bodies/chronic ossifications left medial knee. There is a new subtle linear lucency about the right fibular head only seen on PA flexion view which is likely artifactual in the absence of any trauma or clinical symptoms, but does raise the possibility of a small nondisplaced fracture. Correlate clinically with point tenderness. Narrative 10/29/2022 1:55 PM CDT EXAM: ??DX KNEE RIGHT 4+ VIEWS Procedure Note Maciel Narvaez M.D. - 10/29/2022 EXAM: DX KNEE RIGHT 4+ VIEWS IMPRESSION: Patchy osteopenia. Again seen is advanced bilateral patellofemoraldegenerative arthritis with complete joint space loss and osteochondral irregularities,greater on the right. Lateral tilt and subluxation both patellae. Mild chondrocalcinosis, leftknee. Stable loose bodies/chronic ossifications left medial knee. There is a new subtlelinear lucency about the right fibular head only seen on PA flexion view which is likely artifactual inthe absence of any trauma or clinical symptoms, but does raise the possibility of a smallnondisplaced fracture. Correlate clinically with point tenderness. Beka [facility] PROCEDURES documented in this encounter Visit Diagnoses Diagnosis Primary Osteoarthritis Knee Right Primary Osteoarthritis Knee Right documented in this encounter Additional Health Concerns Assessment Noted Time PHQ-9 Depression Total Score: 0 11/22/19 17 8:37 AM CDT documented as of this encounter Care Teams Instrument Lens Generator Relationship Specialty Start Date End Date Brennen Winchester M.D. [address] [place] [phone] PCP - General 04/05/22 documented as of this encounter
--- OUTSIDE RECORDS SUMMARY | 2023-09-30 11:42 | XMS_ITS | Clinical Summary ---
Author Name Unknown Organization [facility] Address [place], [place] [address] Care Team Providers Care Blacking Machine Operator Name Role Phone Natacha Casillas NP Primary Care Provider Allergies Active Allergy Reactions Criticality Noted Date Comments Crab Nausea And Vomiting 09/16/2013 Sulfa (Sulfonamide Antibiotics) Hives 09/20 Medications Medication Sig Dispensed Refills Start Date End Date Status acetaminophen (TYLENOL EXTRA STRGTH) 500 mg tablet Take 1,000 mg by mouth every 6 hours if needed. Max acetaminophen dose: 4000mg in 24 hrs. 0 Active simvastatin (ZOCOR) 20 mg tablet Take 20 mg by mouth at bedtime. 0 Active amoxicillin (AMOXIL) 500 mg capsuleIndication s:Status post total hip replacement, right TAKE 4 CAPSULES BY MOUTH ONE HOUR BEFORE DENTAL APPOINTMENT 12 Capsule 3 07/24/2021 Active lisinopril-hydroc hlorothiazide (10-12.5 mg) tablet (PRINZIDE; ZESTORETIC) Take 1 Tablet by mouth once daily. 0 05/05/2021 Active metFORMIN (GLUCOPHAGE XR) 500 mg Extended-Release tablet Take 1,000 mg by mouth once daily. 0 08/16/2021 Active blood sugar diagnostic (Contour Next Test Strips) strip As directed. 0 10/18/2022 10/18/2023 Active lancets Use to test glucose once daily 0 01/16/2023 Active mirtazapine (REMERON) 7.5 mg tablet Take 7.5 mg by mouth. 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 11/21/2016 Overview: DM II (or NOS), controlled Hypercholesterolemia 11/21/2016 Hypertensive kidney disease, stage IV 11/21/2016 Overview: Hypertension (HTN) Essential Primary NOS Osteopenia 09/27/2009 Family History Medical History Relation Name Comments Stroke Father Cancer Mother Relation Name Status Comments Father Mother Social History Tobacco Use Types Packs/Day Years Used Date Smoking Tobacco: Never Smokeless Tobacco: Never Tobacco Cessation:Counseling Given: No Alcohol Use Standard Drinks/Week Comments Not Currently 0 (1 standard drink = 0.6 oz pur e alcohol) Social Connections Answer Date Recorded Frequency of Communication with Friends and Fami ly 0 04/15/2023 Financial Resource Strain Answer Date R ecorded Difficulty of Paying Living Expenses 3 04/15/2023 Difficulty of Paying Living Expenses Not on file 04/15/2023 Food Insecurity Answer Date Recorded Worried About Running Out of Food in the Last Ye ar 1 04/15/2023 Transportation Needs Answer Date Record ed Lack of Transportation (Medical) 1 04/15/2023 Housing Stability Answer Date Recorded Unable to Pay for Housing in the Last Year 1 04/15/2023 Sex and Gender Information Value Date Recorded Sex Assigned at Not on file Gender Identity Not on file Sexual Orientation Not on file Obstetrics History Last Filed Vital Signs Vital Sign Reading Time Taken Comments Blood Pressure 161/75 04/15/2023 1:36 PM CDT Pulse 96 04/15/2023 1:36 PM CDT Temperature 37.2 ??C (98.9 ??F) 04/15/2023 1:36 PM CD T Respiratory Rate 14 04/15/2023 1:36 PM CDT Oxygen Saturation 97% 04/15/2023 1:36 PM CDT Inhaled Oxygen Concentration - - Weight 59.7 kg (131 lb 11.2 oz) 04/15/2023 1:36 PM CDT Height 165 cm (5' 4.96) 10/03/2021 7:11 AM LINE CLEANER Body Mass Index 21.94 10/03/2021 7:11 AM LINE CLEANER Plan of Treatment Health Maintenance Due Date Last Done Comments Pneumococcal series for age 65+ (1 of 2 - PCV) 1955 Tdap 1960 Depression screening for age 12+ 1961 BMI (ht and wt on same day) for age 18+ 1967 Hepatitis C screening for ag e 18-79 1967 Tetanus booster 1969 Lipids for age 45-75 1994 Mammogram for age 45-75 1994 Zoster (shingles) series for age 50+ (1 of 2) 1999 DEXA/DXA scan for age 65+ 2014 Medicare Wellness for age 65+ 2014 COVID-19 vaccine series ( season) 2023 04/30/2022, 11/23/2021, 06/13/2021, Additional history exists Influenza for age 65+ 04/19/2023 Colonoscopy through age 75 10/03/2031 10/03/2021 Medical Devices Implanted Type Area Health Unit Coordinator Device Identifier Shelf Expiration Date Model / Serial / Lot [id number] - [id number] - Cromwell Head Bipolar Component Implanted:Qty: 1 on 01/18/2020 by Rangel Humphries MD at [facility] Ortho Total Joint Right: Hip [employer] 05/27/2024 [id number] / / [id number] - [id number] - Accolade Ii 127 Degree Neck Angle Hip Stem Implanted:Qty: 1 on 01/18/2020 by Rangel Humphries MD at [facility] Ortho Total Joint Right: Hip [employer] 05/12/2024 0433-2881 / / [id number] - [id number] - Biolox Delta Ceramic V40 Femoral Head Implanted:Qty: 1 on 01/18/2020 by Rangel Humphries MD at [facility] Ortho Total Joint Right: Hip [employer] 11/20/2022 6570-0-22 8 / / [id number] Screw Hip 6.5x15mm [employer]oyo Lowprofile Hex - [id number] Implanted:Qty: 1 on 03/23/2020 by Checo Phillips MD at [facility] Right: Hip [employer] 03/23/2024 [id number] # / / [id number] Screw Hip 6.5x15mm [employer]ellen Lowprofile Hex - [id number] Implanted:Qty: 1 on 03/23/2020 by Checo Phillips MD at [facility] Right: Hip [employer] 6108-5419 # / / 49HD Screw Hip 6.5x15mm [employer]ellen Lowprofile Hex - [id number] Implanted:Qty: 1 on 03/23/2020 by Checo Phillips MD at [facility] Right: Hip [employer] 04/04/2024 [id number] # / / 4CD Trident Ii Tritanium Multihole Acet Shell [id number] Implanted:Qty: 1 on 03/23/2020 by Checo Phillips MD at [facility] Right: Hip 03/16/2024 709-04-54 E / / [id number] Description:TRIDENT II TRITA NIUM MULTIHOLE ACET SHELL [id number] Liner Hip Id42mm Szb Mdmx3 Co Cr - [id number] Implanted:Qty: 1 on 03/23/2020 by Checo Phillips MD at [facility] Right: Hip [employer] 02/02/2025 626-00-42 E# / / [id number] Head Hip Od28mm +8 V40 Co Cr - [id number] Implanted:Qty: 1 on 03/23/2020 by Checo Phillips MD at [facility] Right: Hip [employer] 11/11/2022 6260-5-32 8# / / [id number] Liner Hip Id28 Od48mm Adm X3 Pe - [id number] Implanted:Qty: 1 on 03/23/2020 by Checo Phillips MD at [facility] Right: Hip [employer] 02/13/2025 1236-2-84 8# / / [id number] Screw Hip 6.5x40mm [employer]ellen Low Profile Hex - [id number] Implanted:Qty: 1 on 03/23/2020 by Checo Phillips MD at [facility] Right: Hip [employer] 03/18/2024 [id number] # / / [id number] Screw Hip 6.5x40mm [employer]ellen Low Profile Hex - [id number] Implanted:Qty: 1 on 03/23/2020 by Checo Phillips MD at [facility] Right: Hip [employer] 03/28/2024 [id number] # / / [id number] Explanted Type Area Health Unit Coordinator Device Identifier Shelf Expiration Date Model / Serial / Lot Explant Explanted:Qty: 1 on 03/23/2020 by Checo Phillips MD at [facility] Right: Hip Description:HEAD Advance Directives Latest Code Status on File Code Status Date Activated Date Inactivated Comments Full Code 10/03/2021 6:54 AM 10/03/2021 11:49 AM Question Answer Comments Code Status Discussion: Reviewed Preferences Code Status History Code Status Date Activated Date Inactivated Comments Full Code 03/23/2020 7:33 AM 03/28/2020 2:04 PM Full Code 02/16/2020 12:16 AM 02/16/2020 1:25 PM Full Code 02/13/2020 4:28 PM 02/15/2020 4:52 PM Question Answer Comments Code Status Discussion: Discussed Full Code 01/18/2020 1:06 AM 01/20/2020 5:02 PM Care Teams Blacking Machine Operator Relationship Specialty Start Date End Date Natacha Casillas NP [address] [place] [phone] PCP - General Nurse Practitioner 05/25/19
--- OUTSIDE RECORDS SUMMARY | 2023-09-30 11:42 | XMS_ITS | Continuity of Care Document ---
Author Name Unknown Organization [facility] Address [address] [place] [address] Phone Care Team Providers Care Baker Name Role Phone Cory Horner MD Unavailable Unavailable Procedures Procedure Date Office/Outpatient Visit,[facility] 2019 Advance Directives Directive Yes / No Effective Date File Name No Information Encounters Encounter Description Practice Location Reason(s) For Visit Diagnoses Date Provider Providers Copied on Encounter [facility], [address], [place], [place], [id number], [place] tel:[phone] [facility] No Information 2 Mehbod Amir. [facility], [address] [place] [address] [address], [place], [place], [id number] , [place]. tel:[phone] Office/Outpat ient Visit,[facility], [address], [place], [place], [id number], [place] tel:[phone] [facility] - [place] Spondylolisth esis, lumbar regionSpinal stenosis, lumbar region with neurogenic claudication 0 Mehbod Amir. [facility] [place], [address] [place] [address] [address], [place], [place], [id number] , [place]. tel:[phone] Referring Provider: Checo Jimenez, [facility] [address] [place] [address], [address]. tel:[phone] Family History Family Member Type Diagnosis Age At Onset No Information Payers Payer name Insurance type Covered constitution party ID Authorjared power(s) [facility] [id number] Medicare [facility] [id number] Social History Type Description Quantity Date Captured Comments Sex Female Smoking Status No Information Chief Complaint And Reason For Visit No Information Reason For Referral Reason For Referral No Information History Of Present Illness Encounter Date Complaint History Of Prese nt Illness No Information Functional Status Date Functional Assessmen t No Information Instructions Date Instruction Additional Infor mation No Information Assessments Type Assessment Date No Information Patient Care Teams Name Effective Dates (start - stop) Status Members No Information
--- OUTSIDE RECORDS SUMMARY | 2023-09-30 11:42 | XMS_ITS | Encounter Summary ---
Author Name Unknown Organization [facility] Address [address] [place] [address] Care Team Providers Care Autocad Technician Name Role Phone Brennen Winchester M.D. Primary Care Provider [phone] Reason for Visit * Reason Comments Med Management Needs refill on test strips. * Appointment Request (Routine) - Closed Specialty Diagnoses / Procedures Referred By Contac t Referred To Contact Family Medicine Referral ID Status Reason Start Date Expiration Date Visits Re quested Visits Authorized [id number] Closed 10/15/2022 10/15/2023 1 1 Encounter Details Date Type Department Care Team (Latest Contact Info) Description 10/18/2022 3:00 PM TRADER FIXED INCOME Office Visit Department of Family Medicine, [facility], in [place], [place] [address] [place] [phone] Brennen Winchester M.D. [address] [place] [phone] Hyperlipidemia (Primary Dx); Diabetes Mellitus Type 2 With Diabetic Chronic Kidney Disease (HCC); Anxiety; Insomnia Social History Tobacco Use Types Packs/Day Years [...] any clubs o r organizations such as cheondoism groups, unions, fraternal or athletic groups, or [...] Answer Date Recorded PHQ-2 Score 0 01/18/2021 [facility] of Occupat ional Health - Occupational Stress [...] Sign Reading Time Taken Comments Blood Pressure 124/76 10/18/2022 2:[address] FIXED INCOME [address] rage Pulse 73 10/18/2022 2:48 PM TRADER FIXED INCOME Temperature 35.9 ??C (96.6 ??F) 10/18/2022 2:48 PM CS T Respiratory Rate 16 10/18/2022 2:48 PM TRADER FIXED INCOME Oxygen Saturation - - Inhaled Oxygen Concentration - - Weight 56.8 kg (125 lb 3.5 oz) 10/18/2022 2:48 P M TRADER FIXED INCOME Height 166.4 cm (5' 5.51) 10/18/2022 2:48 PM CS T Body Mass Index 20.51 10/18/2022 2:48 PM TRADER FIXED INCOME documented in this encounter Progress Notes * Brennen Winchester M.D. - 10/18/2022 3:00 PM CST Progress Note Patient is 72 years old female with past medical history significant for type 2 diabetes, hypertension, CKD stage 4, hyperlipidemia, osteoarthritis, osteopenia, vitiligo who presented today to the clinic to follow-up with diabetes. She stated that she has history of anxiety. She continues to deal with her illness. She wason mirtazapine 7.5 mg in the past. She stated that helps with anxiety, appetite and insomnia. She would like to be resumed back on mirtazapine. Diabetes Visit type: follow-up Diabetes type: type 2 A1C target: <7 Associated symptoms: No blurred vision, no chest pain, no fatigue, no foot paresthesias, no foot ulcerations, no polydipsia, no polyphagia, no polyuria, no visual change, no weakness and no weight loss. Symptom course: stable Hypoglycemia symptoms: none Diabetic complications: Nephropathy and peripheral neuropathy. CAD risks: diabetes mellitus, dyslipidemia and hypertension Current treatments: oral agent (monotherapy) Treatment compliance: all of the time Blood glucose trend: no change Weight trend: stable Current diet: generally healthy Meal planning: none Dietitian visit: no Exercise: intermittently (WALKING) MAYO-I / ARB: is being taken Statins: is being taken Eye exam current: yes (scheduled next month) Foot exam current: yes Sees refueling rampman: no Allergies Allergen Reactions Crab Nausea And Vomiting Sulfa (Sulfonamide Antibiotics) Hives Current Outpatient Medications: acetaminophen (TYLENOL) 500 mg capsule, Take 2 capsules by mouth every 6 (six) hours as needed., Disp: , Rfl: amoxicillin (AMOXIL) 500 mg capsule, Take four capsules one hour prior to any dental procedure or cleaning, Disp: , Rfl: blood glucose ctl high,nml,low solution, Glucose control solution provides an easy way to ensure accurate blood glucose testing., Disp: 1 each, Rfl: 0 blood sugar diagnostic strips (Contour Next Test Strips), 1 test daily., Disp: 90 test, Rfl: 3 blood-glucose meter misc, Contour Next One meter. Test once daily., Disp: 1 each, Rfl: 0 lisinopril-hydroCHLOROthiazide (PRINZIDE,ZESTORETIC) 10-12.5 mg per tablet, TAKE ONE TABLET BY MOUTH EVERY DAY, Disp: 90 tablet, Rfl: 3 metFORMIN XR (GLUCOPHAGE-XR) 500 mg 24 hr tablet, Take 2 tablets (1,000 mg total) by mouth daily with breakfast., Disp: 180 tablet, Rfl: 3 Microlet Lancet, USE TO TEST BLOOD GLUCOSE ONCE DAILY, Disp: 100 each, Rfl: 3 [START ON 11/12/2022] Research IR[facility] [id number] SL-1002 or placebo, Provider to draw up and administer SL-1002 or placebo. Provider to administer a maximum injection volume of 6 mL of SL-1002 or placebo via administration of 1 mL to 6 distinct nerve locations on the index knee (SMGN, NVM, SLGN, TABCFN,IGN, and IPBSN). Vials are single use. Stopper should only be penetrated once. Do not fill more than one syringe from a single use vial., Disp: 2 vial, Rfl: 0 simvastatin (ZOCOR) 20 mg tablet, TAKE ONE TABLET BY MOUTH EVERY DAY AT BEDTIME, Disp: 90 tablet, Rfl: 3 mirtazapine (REMERON) 7.5 mg tablet, Take 1 tablet (7.5 mg total) by mouth at bedtime., Disp: 90 tablet, Rfl: 3 [START ON 11/12/2022] Research IRB [id number] SL-1002 or placebo, Provider to draw up and administer SL-1002 or placebo. Provider to administer a maximum injection volume of 6 mL of SL-1002 or placebo via administration of 1 mL to 6 distinct nerve locations on the index knee (SMGN, NVM, SLGN, TABCFN,IGN, and IPBSN). Vials are single use. Stopper should only be penetrated once. Do not fill more than one syringe from a single use vial., Disp: 2 vial, Rfl: 0 No current facility-administered medications for this visit. Past Medical History: Diagnosis Date Cataract 2013 [...] Other Specified Health Status arthritis Vitiligo 08/10/2016 Social History Tobacco Use Smoking status: Never Smokeless tobacco: Never Tobacco comments: None! Substance Use Topics Alcohol use: No Drug use: No All other systems reviewed and are negative. Vitals: 10/18/22 1448 BP: 124/76 BP Location: Left arm Patient Position: Sitting Cuff Size: Regular Pulse: 73 Resp: 16 Temp: (!) 35.9 ??C TempSrc: Temporal Weight: 56.8 kg Height: 166.4 cm Constitutional Appearance: She is well-developed. HENT [...] Behavior normal. Ekta was seen today for med management. Diagnoses and all orders for this visit: Hyperlipidemia - Lipid Panel; Future She is currently on simvastatin 20 mg daily. Will check her lipid panel. Diabetes Mellitus Type 2 With Diabetic Chronic Kidney Disease (HCC) - blood sugar diagnostic strips (Contour Next Test Strips); 1 test daily. - Hemoglobin A1c; Future - CBC with Differential, Blood; Future - Basic Metabolic Panel; Future Lab Results Component Value Date HGBA1C 6.9 (H) 07/23/2022 HGBA1C 7.1 (H) 01/22/2022 HGBA1C 7.1 (H) 07/25/2021 Lab Results Component Value Date GLUCOSE 134 10/30/2022 GLUCOSEPOC 117 11/23/2014 ALBCREARATIO 16 01/22/2022 LDLCALC 80 06/16/2019 CREATININE 1.65 (H) 10/30/2022 Continues to be at goal. Will check her A1c. She is currently on metformin XR 1000 daily. She is up-to-date regarding diabetic foot exam. She is up-to-date regarding diabetic eye exam, scheduled for her next eye exam next month. Will follow-up in 6 months. She is currently on statin and MAYO inhibitor. She does not tolerate aspirin. Diabetes: Goal for Diabetes is glycemic control including symptomatic hyperglycemia, and avoidance of hypoglycemia. No change in medication therapy at today's visit. I have advised self monitoring ofblood glucose levels, ADA diet, regular exercise, routine eye exams, daily foot care and podiatry foot exams yearly. Encouraged the patient to check shoes prior to putting on feet to help reduce potential injury. 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 Discussed side effects, drug interaction, and medication plan. Discussed A1c goal of <7%. Discussed glucose goals of 90-130 before meals. If blood sugars are greater than 250 or less than 70 for 3 tests, call the clinic for an appointment.Follow up in 3 months for repeat A1c and office visit. Anxiety Insomnia JOSE-7 is 11. Prescription for mirtazapine sent to the pharmacy. Will follow-up in 1 month. Other orders - mirtazapine (REMERON) 7.5 mg tablet; Take 1 tablet (7.5 mg total) by mouth at bedtime. - Family Medicine office visit (clinic); Future documented in this encounter Plan of Treatment Upcoming Encounters Date Type Department Care Team (Latest Contact Info) Description 10/02/2023 1:30 PM TRADER FIXED INCOME Appointment Department of Radiology in [place], [place] [address] [place] [phone] Brennen Winchester M.D. [address] [place] [phone] Discharge Disposition: Home or Self Care 11/08/2023 10:00 AM CDT Office Visit Department of Family Medicine, [facility], in [place], [place] [address] [place] [phone] Brennen Winchester M.D. [address] [place] [phone] 11/22/2023 9:15 AM CDT Clinical Communication Virtual Review in [place], [place] [address] [place] [address] 11/25/2023 10:15 AM CDT Office Visit Department of Orthopedic Surgery in [place], [place] [address] [place] [phone] Latrell Antunez M.D. [address] [place] [phone] 11/28/2023 8:00 AM CDT Appointment Department of Laboratory Medicine and Pathology, [facility] in [place], [place] [address] [place] [phone] Sam Coburn M.D. [address] [place] [phone] 11/28/2023 8:45 AM CDT Appointment Department of Radiology, [facility] in [place], [place] [address] [place] [phone] Sam Coburn M.D. [address] [place] [phone] 11/28/2023 9:00 AM CDT Appointment Department of Radiology, [facility], in [place], [place] [address] [place] [phone] Sam Coburn M.D. [address] [place] [phone] 11/28/2023 10:00 AM CDT Office Visit Department of Orthopedic Surgery in [place], [place] [address] [place] [phone] Sam Coburn M.D. [address] [place] [phone] 11/29/2023 10:48 AM CDT Hospital Encounter RST RO 02 4 AM ADMIT [address] [place] [phone] Sam Coburn M.D. [address] [place] [phone] 11/29/2023 10:48 AM CDT - 11/29/2023 1:43 PM CDT Surgery [facility] MAIN OR [address] [place] [phone] Sam Coburn M.D. [address] [place] [phone] ARTHROPLASTY REPLACEMENT TOTAL KNEE Scheduled Procedures Name Priority Associated Diagnoses Date/Ti me ARTHROPLASTY REPLACEMENT TOTAL KNEE Primary Osteoarthritis Knee Right 11/29/2023 10:48 AM CDT documented as of this encounter Results * (ABNORMAL) Basic Metabolic [...] CDT Brennen Winchester M.D. LAB BLOOD ADD-ON [facility] [address] [place] [address], [facility] OWAT [facility] in [place] [address], [place] [address] * CBC with Differential, Blood (11/22/2022 7:39 [...] M.D. LAB BLOOD ADD-ON Performing Organization Address City/State/RUST Co de Phone Number [facility] [address] [place] [address], [facility] FB60 [facility] in [place] [address] [place] [address] * (ABNORMAL) Hemoglobin A1c (11/22/2022 7:39 AM [...] CDT Brennen Winchester M.D. LAB BLOOD ADD-ON [facility] [address] [place] [address], [place] OWAT [facility] in [place] [address] [place] [address] * Lipid Panel (11/22/2022 7:39 AM CDT) [...] CDT Brennen Winchester M.D. LAB BLOOD ADD-ON [facility] [address] [place] [address], [facility]AT [facility] in [place] [address] [place] [address] documented in this encounter Visit Diagnoses Diagnosis Hyperlipidemia- Primary Diabetes Mellitus Type 2 With Diabetic Chronic Kidney Disease (HCC) Anxiety Insomnia Primary Osteoarthritis Knee Right documented in this encounter Additional Health Concerns Assessment Noted Time PHQ-9 Depression Total Score: 0 11/22/19 17 8:37 AM CDT documented as of this encounter Care Teams Autocad Technician Relationship Specialty Start Date End Date Brennen Winchester M.D. [address] [place] [phone] PCP - General 04/05/22 documented as of this encounter
--- OUTSIDE RECORDS SUMMARY | 2023-09-30 11:42 | XMS_ITS | Encounter Summary ---
Author Name Unknown Organization [facility] Address [address] [place] [address] Care Team Providers Care Brim Pouncer Name Role Phone Brennen Winchester M.D. Primary Care Provider [phone] Reason for Referral * Outpatient (Routine) - Closed Specialty Diagnoses / Procedures Referred By Sara schmid Referred To Contact Diagnoses Primary Osteoarthritis Knee Right Procedures DX Knee Right 4+ Views Beka Arndt M.D. 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 [address] [place] [phone] Discharge Disposition: Home or Self Care 11/08/2023 10:00 AM CDT Office Visit Department of Family Medicine, [facility], in [place], [place] [address] [place] [phone] Brennen Winchester M.D. [address] [place] [phone] 11/22/2023 9:15 AM CDT Clinical Communication Virtual Review in [place], [place] [address] [place] [address] 11/25/2023 10:15 AM CDT Office Visit Department of Orthopedic Surgery in [place], [place] [address] [place] [phone] Latrell Antunez M.D. [address] [place] [phone] 11/28/2023 8:00 AM CDT Appointment Department of Laboratory Medicine and Pathology, [facility] in [place], [place] [address] [place] [phone] Sam Coburn M.D. [address] [place] [phone] 11/28/2023 8:45 AM CDT Appointment Department of Radiology, [facility] in [place], [place] [address] [place] [phone] Sam Coburn M.D. [address] [place] [phone] 11/28/2023 9:00 AM CDT Appointment Department of Radiology, [facility], in [place], [place] [address] [place] [phone] Sam Coburn M.D. [address] [place] [phone] 11/28/2023 10:00 AM CDT Office Visit Department of Orthopedic Surgery in [place], [place] [address] [place] [phone] Sam Coburn M.D. [address] [place] [phone] 11/29/2023 10:48 AM CDT Hospital Encounter RST [facility] 02 4 AM ADMIT [address] [place] [phone] Sam Coburn M.D. [address] [place] [phone] 11/29/2023 10:48 AM CDT - 11/29/2023 1:43 PM CDT Surgery [facility]ST [facility] MAIN OR [address] [place] [phone] Sam Coburn M.D. [address] [place] [phone] ARTHROPLASTY REPLACEMENT TOTAL KNEE Scheduled Procedures Name Priority Associated Diagnoses Date/Ti me ARTHROPLASTY REPLACEMENT TOTAL KNEE Primary Osteoarthritis Knee Right 11/29/2023 10:48 AM CDT documented as of this encounter Results * DX Knee Right [...] encounter Visit Diagnoses Diagnosis Primary Osteoarthritis Knee Right- Primary Primary Osteoarthritis Knee Right Primary Osteoarthritis Knee Right documented in this encounter Additional Health Concerns Assessment Noted Time PHQ-9 Depression Total Score: 0 11/22/19 17 8:37 AM CDT documented as of this encounter Care Teams Brim Pouncer Relationship Specialty Start Date End Date Brennen Winchester M.D. [address] [place] [phone] PCP - General 04/05/22 documented as of this encounter
--- OUTSIDE RECORDS SUMMARY | 2023-09-30 11:42 | XMS_ITS | Encounter Summary ---
Author Name Unknown Organization [facility] Address [address] [place] [address] Care Team Providers Care Supervisor Special Education Name Role Phone Brennen Winchester M.D. Primary Care Provider Reason for Referral * Outpatient (Routine) - Closed Specialty Diagnoses / Procedures Referred By Sara schmid Referred To Contact Orthopedic Surgery Latrell Antunez M.D. 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 [address] [place] [phone] Social History Tobacco Use Types Packs/Day Years [...] often do you attend chur ch or mandaen services? 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 [address] [place] [phone] Discharge Disposition: Home or Self Care 11/08/2023 10:00 AM CDT Office Visit Department of Family Medicine, [facility], in [place], [place] [address] [facility] [phone] Brennen Winchester M.D. [address] [place] [phone] 11/22/2023 9:15 AM CDT Clinical Communication Virtual Review in [place], [place] 200 [place] [address] 11/25/2023 10:15 AM CDT Office Visit Department of Orthopedic Surgery in [place], [place] [address] [place] [phone] Latrell Antunez M.D. [address] [place] [phone] 11/28/2023 8:00 AM CDT Appointment Department of Laboratory Medicine and Pathology, [facility] in [place], [place] [address] [place] [phone] Sam Coburn M.D. [address] [place] [phone] 11/28/2023 8:45 AM CDT Appointment Department of Radiology, [facility] in [place], [place] [address] [place] [phone] Sam Coburn M.D. [address] [place] [phone] 11/28/2023 9:00 AM CDT Appointment Department of Radiology, [facility], in [place], [place] [address] [place] [phone] Sam Coburn M.D. [address] [place] [phone] 11/28/2023 10:00 AM CDT Office Visit Department of Orthopedic Surgery in [place], [place] [address] [place] [phone] Sam Coburn M.D. [address] [place] [phone] 11/29/2023 10:48 AM CDT Hospital Encounter RST RO 02 4 AM ADMIT [address] [place] [phone] Sam Coburn M.D. [address] [place] [phone] 11/29/2023 10:48 AM CDT - 11/29/2023 1:43 PM CDT Surgery RST RO MAIN OR [address] [place] [phone] Sam Coburn M.D. [address] [place] [phone] ARTHROPLASTY REPLACEMENT TOTAL KNEE Scheduled Procedures Name Priority Associated Diagnoses Date/Ti me ARTHROPLASTY REPLACEMENT TOTAL KNEE Primary Osteoarthritis Knee Right 11/29/2023 10:48 AM CDT Scheduled Referrals Name Type Priority Associated Diagnoses Order Schedule Orthopedic Surgery office visit (clinic) Outpatient Referral Routine Expected: 10/14/2022 (Approximate), Expires: 01/12/2024 documented as of this encounter Visit Diagnoses Not on filedocumented in this encounter Additional Health Concerns Assessment Noted Time PHQ-9 Depression Total Score: 0 11/22/19 17 8:37 AM CDT documented as of this encounter Care Teams Supervisor Special Education Relationship Specialty Start Date End Date Brennen Winchester M.D. [address] [place] [phone] PCP - General 04/05/22 documented as of this encounter
== END 2023-09-30 07:43 | disposition home or self-care (01) ==
LOC: NFLDREF 11:34
PROVIDERS: Visit Provider Internal Medicine Nephrology
DX: D50.9 Iron deficiency anemia, unspecified (principal); E11.22 Type 2 diabetes mellitus with diabetic chronic kidney disease; N18.32 Chronic kidney disease, stage 3b; E78.00 Pure hypercholesterolemia, unspecified; Z79.84 Long term (current) use of oral hypoglycemic drugs
CPT/HCPCS: 80061; 80069; 82043; 82570; 82728; 83540; 83550; 84550; 87086

== ENCOUNTER 2024-03-26 07:57 | Outpatient (CLI) | payer MEDICARE, BC, SELFPAY ==
--- OUTSIDE RECORDS SUMMARY | 2024-03-31 07:24 | XMS_ITS | Clinical Summary ---
Author Organization [facility] Address [address] [place] [address] Care Team Providers Care Decontamination Technician Name Role Phone Brennen Winchester M.D. Primary Care Provider [phone] Source Comments Patient records contain information from all sites at [facility]. For routine questions regarding patient records, call [phone] during business hours, M-F 8:00 AM - 5:00 PM Central Time. Record requests for emergency care only can be directed to [phone] at any time.[facility] Allergies Active Allergy Reactions Criticality Noted Date Comments Crab Nausea And Vomiting 09/16/2013 Sulfa (Sulfonamide Antibiotics) Hives (Reselect Reaction) 10/13/2013 Medications Medication Sig Dispensed Refills Start Date End Date Status blood-glucose meter miscIndications: Diabetes Mellitus Type 2 With Diabetic Chronic Kidney Disease (HCC) Contour Next One meter. Test once daily. 1 each 08/22/2020 Active blood glucose ctl high,nml,low solutionIndicati ons:Diabetes Mellitus Type 2 With Diabetic Chronic Kidney Disease (HCC) Glucose control solution provides an easy way to ensure accurate blood glucose testing. 1 each 08/22/2020 Active lisinopril-hydro CHLOROthiazide (PRINZIDE,ZESTOR ETIC) 10-12.5 mg per tabletIndication s:Hypertension And Chronic Kidney Disease Stage 4 Take 1 tablet by mouth at bedtime. HOLD until follow up with primary care provider 90 tablet 3 01/31/2023 Active metFORMIN XR (GLUCOPHAGE-XR) 500 mg 24 hr tabletIndication s:Diabetes Mellitus Type 2 With Diabetic Chronic Kidney Disease (HCC) Take 2 tablets (1,000 mg total) by mouth daily with breakfast. 180 tablet 3 08/20/2023 Active Contour Next Test StripsIndication s:Diabetes Mellitus Type 2 With Diabetic Chronic Kidney Disease (HCC) TEST 1 TIME PER DAY 90 strip 3 10/14/2023 Active acetaminophen (TYLENOL) 500 mg tablet Take 2 tablets (1,000 mg total) by mouth every 6 (six) hours as needed for pain. 11/29/2023 Active amoxicillin (AMOXIL) 500 mg capsule Take 4 capsules (2,000 mg total) by mouth as directed. Prior to dental procedures 4 capsule 1 12/24/2023 Active simvastatin (Zocor) 20 mg tabletIndication s:Hypercholester olemia TAKE ONE TABLET BY MOUTH AT BEDTIME . 90 tablet 3 02/19/2024 Active lancets (Microlet Lancet)Indicatio ns:Diabetes Mellitus Type 2 With Diabetic Chronic Kidney Disease (HCC) USE TO TEST BLOOD SUGAR ONCE DAILY 100 each 3 02/27/2024 Active aspirin 81 mg chewable tablet Chew 1 tablet (81 mg total) 2 (two) times a day for 30 days. 72 tablet 11/29/2023 03/24/2024 Discontinue d(Therapy completed) pantoprazole (PROTONIX) 40 mg EC tablet Take 1 tablet (40 mg total) by mouth every morning before breakfast. 30 tablet 11/29/2023 03/24/2024 Discontinue d(Therapy completed) sennosides (SENOKOT) 8.6 mg tablet Take 1 tablet (8.6 mg total) by mouth 2 (two) times a day as needed for constipation. 11/29/2023 03/24/2024 Discontinue d(Therapy completed) traMADoL (ULTRAM) 50 mg tabletIndication s:Acute Pain Exception Take 1 tablet (50 mg total) by mouth every 6 (six) hours as needed for moderate pain or score 4-6 of 10 Indications: Acute Pain Exception. 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 10/11/2020 Spondylosis Lumbar Without Myelopathy 09/26/2020 Anxiety 03/30/2020 Constipation 03/30/2020 History Of Falling 03/08/2020 Trigger Finger Ring Right 08/09/2019 Primary Osteoarthritis Knee Bilateral 08/03/2019 Primary Osteoarthritis Knee Right 03/23/2019 Anemia Iron Deficiency 12/09/2018 Hypertensive Chronic Kidney Disease With Stage 1 Through Stage 4 Chronic Kidney Disease, Or Unspecified Chronic Kidney Disease 11/21/2016 Diabetes Mellitus Type 2 Wit h Diabetic Chronic Kidney Disease 11/21/2016 Hypercholesterolemia 11/21/2016 Keratosis Seborrheic 08/10/2016 Vitiligo 08/10/2016 Loss Hearing Sensorineural Bilateral 10/26/2015 Tinnitus Bilateral 10/20/2015 Stenosis Spinal 12/30/2013 Overview (08/27/2017): epidural injections Arthropathy 10/17/2011 Osteopenia 09/27/2009 Pain Low Back Unspecified Resolved Problems Problem Noted Date Diagnosed Date Resolved Date Alzheimer's Disease 09/07/2021 04/01/20 23 Diabetes Mellitus Type 2 03/23/202009/2020 Unspecified Dislocation Of Right Hip Initial 0 02/17/2020 Fracture Femur Trochanteric Closed Initial Right 02/10/2020 03/08/2020 Fracture Femur Neck Closed Initial Right 01/18/2020 02/09/2020 Tear Knee Lateral Meniscus C urrent Subsequent Right 06/01/2019 02/01/2020 Encounters Date Type Department Care Team Description 03/31/2024 8:00 AM CDT External Outreach Division of Nephrology and Hypertension in [place], [place] [address] [place] [address] Checo Aguirre Jr., D.O. Arrived 03/24/2024 11:00 AM CDT Telemedicine Department of Family Medicine, [facility], in [place], [place] [address] [place] [phone] Brennen Winchester M.D. Simon, Keri J, RJuanN. Annual Medicare Examination Return (Primary Dx) 03/23/2024 3:30 PM CDT Office Visit Department of Orthopedic Surgery in [place], [place] [address] [place] [address] Sam Coburn M.D. Arthroplasty Total Knee Replacement Status Post Right (Primary Dx) 03/23/2024 2:12 PM CDT - 03/23/2024 11:59 PM CDT Hospital Encounter Department of Radiology, [facility], in [place], [place] [address] [place] [phone] Pierre Del Real M.D. Primary Osteoarthritis Knee Right Discharge Disposition: Home or Self Care 03/20/2024 1:15 PM CDT Clinical Communication Virtual Review in [place], [place] [address] [place] [address] Pre-visit Intake 03/06/2024 12:00 PM CDT Office Visit Department of Orthopedic Surgery in [place], [place] [address] [place] [phone] Latrell Antunez M.D. Trigger Finger Thumb Right (Primary Dx); Pain Shoulder Right 03/05/2024 9:15 AM CDT Clinical Communication Virtual Review in [place], [place] [address] [place] [address] Pre-visit Intake 02/25/2024 Refill Department of Family Medicine, [facility], in [place], [place] [address] [place] [address] Brennen Winchester M.D. Med Refill 02/25/2024 Orders Only [facility] Brennen Winchester M.D. 02/18/2024 Refill Department of Family [facility], [facility], in [place], [place] [address] [place] [address] Brennen Winchester M.D. Med Refill 02/03/2024 Clinical Communication Department of [facility], [facility], in [place], [place] [address] [place] [address] Brennen Winchester M.D. Health Maintenance 01/23/2024 4:00 PM CDT Office Visit Department of Orthopedic Surgery in [place], [place] [address] [place] [phone] Latrell Antunez M.D. Pain Shoulder Right (Primary Dx) from Last 3 Months Immunizations Name Administration Dates Next Due DT, Pediatric 09/25/2004 H1N1 All Forms 07/03/2009 HZV (ZOSTAVAX) 03/30/2013 Influenza high dose QV(65 ye ars or older) (PF) 05/10/2020 Influenza, Quadrivalent, Adj uvanted, Preservative Free 05/06/2023,04/30/2022 Influenza, Seasonal, Injectable 05/14/20 11,05/19/2010,07/12/2008,2006 Influenza, Unspecified 05/22/2017,2015,05/03/2016,2014,05/09/2015,05/28/2014,06/02/2013,1 ,06/02/2011,07/03/2010, 010,07/03/2009 PCV13 04/13/2015 PPSV23 11/25/2017,10/14/2007 RSV: respiratory syncytial v irus (AREXVY) recombinant vaccine 05/14/2023 RZV (SHINGRIX) 01/07/2019,05/01/2018 SARS-COV-2 (COVID-19) - MODE RNA BIVALENT(Discontinued) 12/15/2022 SARS-COV-2 (COVID-19) - MODERNA(Discontinued) 11/18/2020,10/19/2020 Td (Adult), adsorbed 12/08/1988 Tdap 01/31/2023,12/06/2012 influenza high dose (65 year s or older) (PF) 05/28/2018 influenza vaccine quad (FLUZONE/FLUARIX) (6 months and older)(PF) 05/19/2021,05/27/2019,05/20/2014,2012 Family History Medical History Relation Name Comments Arthritis Brother Richie Hamrum Diabetes Brother Richie Hamrum Hyperlipidemia Brother Richie Hamrum Hypertension Brother Richie Hamrum Knee replacement Brother Richie Hamrum Arthritis Father Clark Crespo Coronary artery disease Father Clark Crespo ca use of Dementia Father Clark Crespo Heart attack Father Clark Crespo Tobacco dependence, continuous Father Clark Panchal mrum Arthritis Mother Damaris Crespo Back pain Mother Damaris Crespo Breast cancer Mother Damaris Crespo age 63 Depression Mother Damaris Crespo Hypertension Mother Damaris Crespo Lung cancer Mother Damaris Crespo Cause of jesus th Nicotine dependence Mother Damaris Crespo smoke r Ovarian cancer Paternal Grandmother Britney Crespo ca use of ADD Son 1 Justin Sands shoulder surgery Son 2 Emeka Relation Name Status Comments Brother Richie Crespo Alive Father Clark Crespo Mother Damaris Crespo Paternal Grandmother Britney Crespo Son 1 Justin Sands Alive Son 2 Emeka Alive Social History Tobacco Use Types Packs/Day Years Used Date Smoking Tobacco: Never Smokeless Tobacco: Never Tobacco Cessation:Counseling Given: Not Answered Comments:none Alcohol Use Standard Drinks/Week Comments No 0 (1 standard drink = 0.6 oz pur e alcohol) [facility] Utilities Answer Date Recorded In the past 12 months has th e electric, gas, oil, or water company threatened to shut off services in your home? No 11/29/2023 Humiliation, Afraid, Rape, and Kick questionnair e Answer Date Recorded Within the last year, have y ou been afraid of your partner or ex-partner? No 11/29/2023 Within the last year, have y ou been humiliated or emotionally abused in other ways by your partner or ex-partner? No Within the last year, have y ou been kicked, hit, slapped, or otherwise physically hurt by your partner or ex-partner? No 11/29/2023 Within the last year, have y ou been raped or forced to have any kind of sexual activity by your partner or ex-partner? No 11/29/2023 Social Connection and Isolat ion Panel [NHANES] [...] PHQ-2 Answer Date Recorded PHQ-2 Score 0 03/24/2024 [facility] [place] - Occupational Stress Questionnaire Answer Date Recorded [...] exercise (like a brisk walk)? 5 days 11/01/2023 On average, how many minutes do you engage in exercise at this level? 30 min 11/01/2023 Hunger Vital Sign Answer Date Recorded Within the past 12 months, y ou worried that your food would run out before you got the money to buy more. Never true 11/29/19 24 Within the past 12 months, t he food you bought just didn't last and you didn't have money to get more. Never true 11/29/2023 PRAPARE - Transportation Answer Date Re corded In the past 12 months, has l ack of transportation kept you from medical appointments or from getting medications? No 11/17 In the past 12 months, has l ack of transportation kept you from meetings, work, or from getting things needed for daily living? No 11/29/2023 Depression Answer Date Recor ded PHQ-9 Total Score (max 27) 0 03/24 Nutrition Answer Date Recorded On average, how many serving s of fruits and vegetables do you eat per day (serving size is equal to 1 cup or approximately the size of a tennis ball)? 3-5 11/01/2023 Dental Answer Date Recorded Dental: Regular Dentist Yes 10/10/19 Employment Answer Date Recorded Employment status Retired 11/01/2023 Housing Stability Answer Date Recorded What is your living situation today? I have a [facility] place to live 11/30/2023 Education Answer Date Recorded What is the [...] Sign Reading Time Taken Comments Blood Pressure 120/80 03/24/2024 11:05 AM CDT Pulse 90 11/30/2023 8:34 AM CDT Temperature 36.2 ??C (97.2 ??F) 11/30/2023 8 :34 AM CDT Respiratory Rate 14 11/30/2023 8:34 AM CDT Oxygen Saturation 96% 11/30/2023 8:3 4 AM CDT Inhaled Oxygen Concentration - - Weight 56.7 kg (125 lb) 03/24/2024 11:0 5 AM CDT home weight Height 165.1 cm (5' 5) 03/24/2024 11:0 5 AM CDT Home measurement Body Mass Index 20.8 03/24/2024 11:05 AM CDT Plan of Treatment Upcoming Encounters Date Type Department Care Team (Late st Contact Info) Description 03/31/2024 8:00 AM CDT External Outreach Division of Nephrology and Hypertension in [place], [place] [address] [place] [address] Checo Aguirre Jr., D.O. [address] [place] [phone] Arrived 04/24/2024 10:15 AM CDT Office Visit Department of Orthopedic Surgery in [place], [place] [address] [place] [phone] Latrell Antunez M.D. [address] [place] [phone] Health Maintenance Due Date Last Done Comments CT Colonography 1950 Cologuard 1950 Hepatitis C Screening 1950 Hepatitis B Vaccines (1 of 3 - Risk 3-dose series) 2009 FIT 03/10/2019 03/10/2018 Diabetic Office Visit with F oot Exam 10/19/2023 10/18/2022, 08/08/2021, 07/18/2020, Additional history exists Urine Albumin 01/31/2024 01/30/2023, 06/0 01/2022, 01/18/2021, Additional history exists Diabetes Education 02/01/2024 01/31/2023, 1 10/09/2020, 07/18/2020, Additional history exists COVID-19 Vaccine (2022-09 4 season) 2024 10/25/2023, 12/15/2022, 04/30/2022, Additional history exists Influenza Vaccine (#1) 2024 , 04/30/2022, 05/19/2021, Additional history exists Hemoglobin A1C 05/29/2024 11/28/2023, 08/19, 05/03/2023, Additional history exists Dilated Eye Exam 09/12/2024 09/12/2023 (Per formed elsewhere), 09/10/2022 (Performed elsewhere), 09/07/2021 (Performed elsewhere), Additional history exists Mammogram 10/02/2024 10/02/2023, 07/19, 07/25/2021, Additional history exists Visit: Chronic Disease, age 18+ 11/07/2024 , 11/08/2023 Potassium Level 11/27/2024 11/28/2023, 10/18, 01/30/2023, Additional history exists Sodium Level 11/27/2024 11/28/2023, 10/18, 01/30/2023, Additional history exists Creatinine Level (Kidney Fun ction Test) 11/29/2024 11/30/2023, 11/28/2023, 11/08/2023, Additional history exists Office Visit for Blood Press ure Check / Re-check 03/24/2025 03/24/2024 Visit: Medicare Annual Wellness 03/25/2025 Lipid (Cholesterol) Screening 11/23/2027, 06/16/2019, 11/25/2017, Additional history exists Colonoscopy 10/03/2031 10/03/2021, 12/11/2007 Colorectal Cancer Screening 10/03/2031 DTaP,Tdap,and Td Vaccines (4 - Td or Tdap) 01/31/2033 01/31/2023, 12/06/2012, 09/25/2004, Additional history exists Pneumococcal vaccine (65+ years) Completed 11/25/2017, 04/13/2015, 10/14/2007 Zoster Vaccines Completed 01/07/2019, 04/19, 03/30/2013 RSV vaccine - (32-3 6 weeks) or 60+ years Completed 05/14/2023 Fall Risk Screen (Annual) Completed 03/24/2024 Medical Devices Implanted Type Area Educational Speech Language Clinician Device Identifier Shelf Expiration Date Model / Serial / Lot Cmnt Bn Smp 40gm - [id number] Implanted:Qty: 1 on 12/07/2022 by Sam Coburn M.D. at [facility] Bone Cement Left: Knee Goyo 6191-1-00 1 / / Cmnt Bn Smp 20gm - [id number] Implanted:Qty: 1 on 12/07/2022 by Sam Coburn M.D. at [facility] Bone Cement Left: Knee Goyo 6188-1-00 1 / / Cmnt Bn Smp 40gm - [id number] Implanted:Qty: 1 on 11/29/2023 by Sam Coburn M.D. at [facility] Bone Cement Right: Knee Goyo 6191-1-00 1 / / Cmnt Bn Smp 20gm - [id number] Implanted:Qty: 1 on 11/29/2023 by Sam Coburn M.D. at [facility] Bone Cement Right: Knee Novi 6188-1- 1 / / K-Wire-Ss 4 Smooth .045 - [id number] Implanted:Qty: 1 on 01/05/2014 Hardware e.g. pins/screws /rods Mouth Novi Description:Device Manufactu rer - Goyo Jr.. Device Status Text - HARDWARE-872. Hip Implant Hip Implant Right: Hip Description:2019 Kn Stm Prs Cmnt 14x30 - [id number] Implanted:Qty: 1 on 12/07/2022 by Sam Coburn M.D. at [facility] Knee Implant Left: Knee [employer] 10/30/2032 42-5570-0 09-01 [id number] Persona Viavacit E Highly Crosslinked Polyethylene Left 10mm Use With Tibia E-F Cr Femur 8-11 Implanted:Qty: 1 on 12/07/2022 by Sam Coburn M.D. at [facility] Knee Implant Left: Knee [employer] [id number] 05/15/2027 42-5121-0 08 [id number] Pat Prs 8.5x32 - [id number] Implanted:Qty: 1 on 12/07/2022 by Sam Coburn M.D. at [facility] Knee Implant Left: Knee [employer] 10/01/2027 42-5400-0 [id number] Kn Fem Prs Lt Cmnt Jensen Sz-10 - [id number] Implanted:Qty: 1 on 12/07/2022 by Sam Coburn M.D. at [facility] Knee Implant Left: Knee [employer] 05/09/2031 42-5020-0 68- [id number] Bsplt Tib Prs Lt 5d Rosalie - [id number] Implanted:Qty: 1 on 12/07/2022 by Sam Coburn M.D. at [facility] Knee Implant Left: Knee [employer] 05/14/2032 42-5320-0 71- [id number] Pat Prs 8.5x32 - [id number] Implanted:Qty: 1 on 11/29/2023 by Sam Coburn M.D. at [facility] Knee Implant Right: Patella [employer] 01/08/2028 42-5400-0 00-32 / / [id number] Kn Fem Prs Rt Cmnt Jensen Sz-10 - [id number] Implanted:Qty: 1 on 11/29/2023 by Sam Coburn M.D. at [facility] Knee Implant Right: Patella [employer] 07/01/2033 42-5020-0 68-02 / / [id number] Kn Stm Prs Cmnt 14x30 - [id number] Implanted:Qty: 1 on 11/29/2023 by Sam Coburn M.D. at [facility] Knee Implant Right: Patella [employer] 09/01/2033 42-5570-0 01-14 / [id number] Bsplt Tib Prs Rt 5d Rosalie - [id number] Implanted:Qty: 1 on 11/29/2023 by Sam Coburn M.D. at [facility] Knee Implant Right: Patella [employer] 12/18/2032 42-5320-0 71-02 / / [id number] Ins Tib Prs Rm Sz8-11ef 10 - [id number] Implanted:Qty: 1 on 11/29/2023 by Sam Coburn M.D. at [facility] Knee Implant Right: Patella [employer] 08/20/2028 42-5221-0 08-10 / / [id number] Ocular Lens Ocular Lens Bilateral: Eye Procedures Procedure Name Priority Date/Time Associated Diagnosis Comments DX KNEE RIGHT 3 VIEWS RAD - Routine (most inpatients and all outpatients) 03/23/2024 2:28 PM CDT Primary Osteoarthritis Knee Right SMALL JOINT INJECTION HAND/WRIST Routine 03/06/2024 12:00 PM CDT Trigger Finger Thumb Right ID ARTHCS ASP/INJ MJR JT WO US Routine 01/23/2024 4:00 PM CDT Pain Shoulder Right CREATININE WITH EGFR, S/P Routine 11/30/2023 4:27 AM CDT HEMOGLOBIN A1C, B Routine 11/28/2023 7:4 3 AM CDT Primary Osteoarthritis Knee Right Preprocedural Lab Exam Diabetes Mellitus Type 2 (HCC) BASIC METABOLIC PANEL, S/P Routine 11/28/2023 7:42 AM CDT Primary Osteoarthritis Knee Right Preprocedural Lab Exam BI BREAST SCREENING BILATERAL WITH TOMOSYNTHESIS RAD - Routine (most inpatients and all outpatients) 10/02/2023 1:08 PM RIGGING SUPERVISOR Screening Mammogram Breast Cancer ALBUMIN, RANDOM, U Routine 01/30/2023 8: 27 AM CDT Diabetes Mellitus Type 2 With Diabetic Chronic Kidney Disease (HCC) LIPID PANEL, S Routine 11/22/2022 7:39 AM CDT Hyperlipidemia from Last 3 Months or Most Recently Relevant to Health Maintenance Results * DX Knee Right 3 Views (03/23/2024 2:28 PM CDT) Anatomical Region Laterality Modality Lower Extremity, Knee, Muscu loskeletal RST LOS, Musculoskeletal ARZ LOS, Muskuloskeletal FLA LOS Right Compu alissa Tomography Impressions 03/23/2024 3:11 PM CDT Right TKA with patellar resurfacing, similar in alignment to 11/29/23. No radiographic evidence of loosening. Moderate knee joint effusion. Soft tissue swelling. Vascular calcifications. Left TKA. Narrative 03/23/2024 3:11 PM CDT EXAM: ??DX KNEE RIGHT 3 VIEWS Procedure Note Brandon Guajardo M.D. - 03/23/2024 EXAM: DX KNEE RIGHT 3 VIEWS IMPRESSION: Right TKA with patellar resurfacing, similar in alignment to 11/29/23. Noradiographic evidence of loosening. Moderate knee joint effusion. Softtissue swelling. Vascular calcifications. Left TKA. Pierre Del Real M.D. IMG DIAGNOSTIC IMAGI NG PROCEDURES * hand-wrist: R thumb A1 sheath (03/06/2024 12:00 PM CDT) Narrative Latrell Antunez M.D. - 03/06/2024 12:00 PM CDT Latrell Antunez M.D. ? 03/07/2024 10:35 AM R thumb A1 sheath tendon sheath injection, Hand-wrist: R thumb A1 sheath Performed by: Latrell Antunez M.D. Authorized by: Latrell Antunez M.D. ?? Hand-Wrist procedure site: ?? R thumb A1 sheath tendon sheath injection, PROCEDURE MEDICATIONS Local anesthetics: [...] Latrell Antunez M.D. PROCEDURE/MINOR SURG ICAL ORDERABLES * ID ARTHCS ASP/INJ MJR JT WO US (01/23/2024 4:00 PM CDT) Narrative MMODAL - 01/23/2024 4:00 PM CDT Latrell Antunez M.D. ? 01/25/2024 ??2:37 PM Shoulder site - R subacromial bursa : injection only Performed by: Latrell Antunez M.D. Authorized by: Latrell Antunez M.D. ?? PROCEDURE DETAILS Procedure Location shoulder Shoulder site: [...] Latrell Antunez M.D. PROCEDURE/MINOR SURG ICAL ORDERABLES Performing Organization Address City/[facility]/ZIP Co de Phone Number MMODAL NA * (ABNORMAL) Creatinine with Estimated GFR (11/30/2023 4:27 AM CDT) Creatinine 1.58(H) 0.59 - 1.04 mg/dL 11/30/2023 5:21 AM CDT DTL Estimated GFR (eGFR) 34(L) >=60 mL/min/BSA 11/30/2023 5:21 AM CDT DTL Comment: Estimated GFR calculated using the 2020 CKD_EPI creatinine equation. Blood (Blood, Venous) 11/30/2023 4:27 AM CDT 11/30/2023 5:06 AM CDT Braeden Peterson M.D. LAB BLOOD ADD-ON Performing Organization Address City/State/[facility] Co de Phone Number [facility] [address] [place] [address], [facility] DTL [facility] [address] [place] [address] * (ABNORMAL) Hemoglobin A1c (11/28/2023 7:43 AM CDT) Hemoglobin A1c, B 6.5(H) 4.0 - 5.6 % 11/28/2023 9:00 AM CDT DTL Comment: Hemoglobin A1c values greater than or equal to 6.5 percent are diagnostic for diabetes mellitus. ??Diagnosis should be confirmed by repeat testing. ??In diabetic patients, HbA1c goals should be discussed with healthcare provider. Blood (Blood, Venous) 11/28/2023 7:43 AM CDT 11/28/2023 8:27 AM CDT Sam Coburn M.D. LAB BLOOD ADD-ON [facility] [address] [place] [address], [facility] DTL [facility] [address] [place] [address] * (ABNORMAL) Basic Metabolic Panel (11/28/2023 7:42 AM CDT) Potassium, S 5.0 3.6 - 5.2 mmol/L 11/28/2023 8:53 AM CDT DTL Sodium, S 138 135 - 145 mmol/L 11/28/2023 8:53 AM CDT DTL Chloride, S 103 98 - 107 mmol/L 11/28/2023 8:53 AM CDT DTL Bicarbonate, S 23 22 - 29 mmol/L 11/28/2023 8:53 AM CDT DTL Anion Gap 12 7 - 15 11/28/2023 8:53 AM CDT DTL BUN (Blood Urea Nitrogen), S 38(H) 6 - 21 mg/dL 11/28/2023 8:53 AM CDT DTL Creatinine 1.75(H) 0.59 - 1.04 mg/dL 11/28/2023 8:53 AM CDT DTL Estimated GFR (eGFR) 30(L) >=60 mL/min/BSA 11/28/2023 8:53 AM CDT DTL Comment: Estimated GFR calculated using the 2020 CKD_EPI creatinine equation. Calcium, Total, S 9.6 8.8 - 10.2 mg/dL 11/28/2023 8:53 AM CDT DTL Glucose, S 126 70 - 140 mg/dL 11/28/2023 8:53 AM CDT DTL Blood (Blood, Venous) 11/28/2023 7:42 AM CDT 11/28/2023 8:35 AM CDT Sam Coburn M.D. LAB BLOOD ADD-ON [facility] [place] [address] [place] [address], [facility] DTL [facility] [address] [place] [address] * BI Breast Screening Bilateral with Tomosynthesis (10/02/2023 1:08 PM RIGGING SUPERVISOR) Anatomical Region Laterality Modality Breast, Breast Imaging RST L OS, Breast Imaging ARZ LOS, Breast Imaging FLA LOS Bilateral Mammography Impressions 10/02/2023 1:35 PM RIGGING SUPERVISOR Negative. RECOMMENDATION: ??Annual Screening Mammogram ASSESSMENT: ??BI-RADS: 1: Negative. Narrative 10/02/2023 1:35 PM RIGGING SUPERVISOR EXAM: ??BI BREAST SCREENING BILATERAL WITH TOMOSYNTHESIS Current study was evaluated with a Computer Aided Detection (CAD) system. INDICATION: ??Screening mammogram. COMPARISON: ??Prior exam(s) were available and reviewed for comparison. DENSITY: ??b. There are scattered areas of fibroglandular density. FINDINGS: ??No mammographic findings of malignancy. Procedure Note Shane Taylor M.D. - 10/02/2023 EXAM: BI BREAST SCREENING BILATERAL WITH TOMOSYNTHESIS Current study was evaluated with a Computer Aided Detection (CAD) system. INDICATION: Screening mammogram. COMPARISON: Prior exam(s) were available and reviewed for comparison. DENSITY: b. There are scattered areas of fibroglandular density. FINDINGS: No mammographic findings of malignancy. IMPRESSION: Negative. RECOMMENDATION: Annual Screening Mammogram ASSESSMENT: BI-RADS: 1: Negative. Brennen Winchester M.D. IMG BI PROCEDURES * Albumin, Random, Urine (01/30/2023 8:27 AM CDT) Microalbumin 20.0 mg/L 01/30/2023 2:34 PM CDT OW[facility] Creatinine 94 mg/dL 01/30/2023 2:34 PM CDT OW[facility] Albumin/Creatinin e Ratio 21 <25 mg/g 01/30/2023 2:34 PM CDT [facility] Urine (Urine, Midstream) 01/30/2023 8:27 AM CDT 01/30/2023 11:21 AM CDT Natacha Marciano Casillas APRN, C.N.P., R.N. LAB UR INE ORDERABLES [facility] [address] [place] [address], [facility] [place] [address] [place] [address] * Lipid Panel (11/22/2022 7:39 AM CDT) [...] CDT Brennen Winchester M.D. LAB BLOOD ADD-ON [facility] [address] [place] [address], [place] [facility] [place] [address] [place] [address] from Last 3 Months or Most Recently Relevant to Health Maintenance Care Teams Decontamination Technician Relationship Specialty Start Date End Date Brennen Winchester M.D. [address] [place] [phone] PCP - General 04/05/22
--- OUTSIDE RECORDS SUMMARY | 2024-03-31 07:25 | XMS_ITS | Encounter Summary ---
Author Organization [facility] Address [address] [place] [address] Care Team Providers Care Financial Aid Officer Name Role Phone Brennen Winchester M.D. Primary Care Provider Reason for Visit * Outpatient (Routine) - Closed Specialty Diagnoses / Procedures Referred By Sara schmid Referred To Contact Orthopedic Surgery Pierre Del Real M.D. [facility] Referral ID Status Reason Start Date Expiration Date Visits Re quested Visits Authorized [id number] Closed 11/29/2023 05/30/2025 1 1 Encounter Details Date Type Department Care Team (Late st Contact Info) Description 03/23/2024 3:30 PM CDT Office Visit Department of Orthopedic Surgery in [place], [place] [address] [place] [phone] Sam Coburn M.D. 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 More than 4 times per year 09/07/2022 Do you belong to any clubs o r organizations such as baptism groups, unions, fraternal or athletic groups, or [...] Answer Date Recorded PHQ-2 Score 0 03/24/2024 [facility] of Occupat ional Health - Occupational Stress [...] your living situation today? I have a [facility] place to live 11/30/2023 Education Answer [...] Progress Notes * Sam Coburn M.D. - 03/23/2024 3:30 PM CDT SUBJECTIVE REASON FOR VISIT Total knee arthroplasty follow-up evaluation HISTORY OF PRESENT ILLNESS Ekta Sands is a 73 y.o. female who presents almost four months out from primary right total knee replacement. Overall, the knee seems to be doing quite well for her. After the first few weeks, itseems like the knee has come along nicely from a pain and function standpoint. She is still workingback to her pre surgical distances for walking. OBJECTIVE PHYSICAL EXAM General: Awake and alert. No acute distress Skin: Well-healed incision Extremities: She has full active extension and flexion to at least 120?? with excellent stability. Neurologic: Good quadriceps strength LABORATORY STUDIES / IMAGING Plain radiographs show well-fixed implants in good position. ASSESSMENT / PLAN #1 Arthroplasty Total Knee Replacement Status Post Right We had a good discussion regarding ongoing care, activity recommendations, and time intervals for routine follow-up. The patient knows how to reach us [...] Outreach Division of Nephrology and Hypertension in [place], [place] [address] [place] [phone] Cehco Aguirre Jr., D.OJuan [address] [place] [phone] Arrived 04/24/2024 10:15 AM CDT Office Visit Department of Orthopedic Surgery in [place], [place] [address] [place] [phone] Latrell Antunez M.D. [address] [place] [phone] documented as of this encounter Visit Diagnoses Diagnosis Arthroplasty Total Knee Replacement Status Post Right- Primary documented in this encounter Additional Health Concerns Assessment Noted Time PHQ-9 Depression Total Score: 0 11/22/19 17 8:37 AM CDT documented as of this encounter Care Teams Financial Aid Officer Relationship Specialty Start Date End Date Brennen Winchester M.D. [address] [place] [phone] PCP - General 04/05/22 documented as of this encounter
--- OUTSIDE RECORDS SUMMARY | 2024-03-31 07:25 | XMS_ITS | Encounter Summary ---
Author Organization [facility] Address [address] [place] [address] Care Team Providers Care Control Cabinet Assembler Name Role Phone Brennen Winchester M.D. Primary Care Provider Encounter Details Date Type Department Care Team (Late st Contact Info) Description 12/03/2023 Clinical Communication Department of Orthopedic Surgery in [place], [place] [address] [place] [address] Sam Coburn M.D. [address] [place] [address] Social History Tobacco Use Types Packs/Day Years Used Date Smoking Tobacco: Never Smokeless Tobacco: Never Comments:none Alcohol Use Standard Drinks/Week Comments No 0 (1 standard drink = 0.6 oz pur e alcohol) [facility] Utilities Answer Date Recorded In the past [address] [facility] [employer], gas, oil, or water [employer] threatened to shut off services in your [...] often do you attend chur ch or samaritan services? More than 4 times per year [...] Answer Date Recorded PHQ-2 Score 0 01/18/2021 [facility] of Occupat ional Health - Occupational [...] things needed for daily living? No 11/29/2023 Nutrition Answer Date Recorded On average, how [...] your living situation today? I have a [facility] place to live 11/30/2023 Education Answer [...] Outreach Division of Nephrology and Hypertension in [place], [place] [address] [place] [address] Checo Aguirre Jr., D.O. [address] [place] [phone] Arrived 04/24/2024 10:15 AM CDT Office Visit Department of Orthopedic Surgery in [place], [place] [address] [place] [phone] Latrell Antunez M.D. [address] [place] [phone] documented as of this encounter Visit Diagnoses Not on filedocumented in this encounter Additional Health Concerns Assessment Noted Time PHQ-9 Depression Total Score: 0 11/22/19 17 8:37 AM CDT documented as of this encounter Care Teams Control Cabinet Assembler Relationship Specialty Start Date End Date Brennen Winchester M.D. [address] [place] [address] [place] [phone] PCP - General 04/05/22 documented as of this encounter
--- OUTSIDE RECORDS SUMMARY | 2024-03-31 07:25 | XMS_ITS | Encounter Summary ---
Author Organization [facility] Address [address] [place] [address] Care Team Providers Care Waiter/Waitress Tavern Name Role Phone Brennen Winchester M.D. Primary Care Provider [phone] Reason for Referral * Outpatient (Routine) - Authorized Specialty Diagnoses / Procedures Referred By Contac t Referred To Contact Diagnoses Trigger Finger Thumb Right Procedures hand-wrist: R thumb A1 sheath Latrell Antunez M.D. [address] [place] [phone] [facility] Referral ID Status Reason Start Date Expiration Date V isits Requested Visits Authorized [id number] Authorized 03/07/2024 03/07/2025 1 1 * Outpatient (Routine) - Authorized Specialty Diagnoses / Procedures Referred By Contac t Referred To Contact Orthopedic Surgery Latrell Antunez M.D. [address] [place] [address] [facility] Referral ID Status Reason Start Date Expiration Date V isits Requested Visits Authorized [id number] Authorized 03/06/2024 09/05/2025 1 1 Reason for Visit * Outpatient (Routine) - Closed Specialty Diagnoses / Procedures Referred By Contac t Referred To Contact Orthopedic Surgery Latrell Antunez M.D. [address] [place] [address] [facility] Referral ID Status Reason Start Date Expiration Date Visits Re quested Visits Authorized [id number] Closed 01/23/2024 07/24/2025 1 1 Encounter Details Date Type Department Care Team (Late st Contact Info) Description 03/06/2024 12:00 PM CDT Office Visit Department of Orthopedic Surgery in [place], [place] [address] [place] [address] Latrell Antunez M.D. [address] [place] [address] Trigger Finger Thumb Right (Primary Dx); Pain Shoulder Right Social History Tobacco Use Types Packs/Day Years Used Date Smoking Tobacco: Never Smokeless Tobacco: Never Comments:none Alcohol Use Standard Drinks/Week Comments No 0 (1 standard drink = 0.6 oz pur e alcohol) [facility] Utilities Answer Date Recorded In the past 12 months has e [employer], gas, oil, or water [employer] threatened to shut off services in your [...] week 09/07/2022 How often do you attend [facility] or gnosticist services? More than 4 times per year 09/07/2022 Do you belong to any clubs o r organizations such as taoist groups, unions, fraternal or athletic groups, or [...] Date Recorded PHQ-2 Score 0 01/18/2021 [facility] - Occupational Stress Questionnaire Answer [...] your living situation today? I have a [facility] place to live 11/30/2023 Education Answer Date [...] Progress Notes * Latrell Antunez M.D. - 03/06/2024 12:00 PM CDT SUBJECTIVE CHIEF COMPLAINT/REASON FOR VISIT HISTORY OF PRESENT ILLNESS Ms. Sands is a very pleasant 73 y.o. female who returns follow-up of her more recent shoulder injection. She is quite pleased with her outcome and feels that her shoulder's well. She has some difficulties of the right thumb and triggering. OBJECTIVE PHYSICAL EXAMINATION General: NAD, follows commands. HEENT: NCAT. CV: Skin warm, dry, well perfused. Pulm: Unlabored. Neuro: Alert, appropriate. Upper Extremity: Her shoulder has excellent range of motion and no pain. She does have tenderness at the A1 polina of the right thumb with a palpable click. DIAGNOSTICS LABORATORY STUDIES: No results for input(s): HGB, HCT, PTT, INR in the last 72 hours. No lab exists for component: WBCR, PLTR, PTI No results for input(s): NA, K, CL, CO2, GLU, CA, MG in the last 72 hours. No lab exists for component: UN, CREAT, PHOS No results for input(s): CRP in the last 72 hours. No lab exists for component: ESR, URIC IMAGING: Relevant imaging, where available, was reviewed. X-ray No results found. ELECTRODIAGNOSTIC STUDIES: Relevant EMG/NCV studies were reviewed. ASSESSMENT / PLAN #1 Trigger Finger Thumb Right #2 Pain Shoulder Right We did discuss another injection for the right thumb and Ms. Rutz was interested in pursuing this. I injected her uneventfully. We will plan to see her back in about 6 weeks for follow-up but I have asked her to call for questions or concerns in the meantime. Thank you for the opportunity to participate in this patient's care. Please contact us with questions or concerns. All questions and concerns were answered on today's visit. There were no communication barriers present. Electronically signed by: Latrell Antunez M.D. 03/07/24 10:34 AM CDT documented in this encounter Procedure Notes * Latrell Antunez M.D. - 03/06/2024 12:00 PM CDTAssociated Order(s): hand-wrist: R thumb A1 sheath Post-Procedure Diagnose(s): Trigger Finger Thumb Right R thumb A1 sheath tendon sheath injection, Hand-wrist: R thumb A1 sheath Performed by: Latrell Antunez M.D. Authorized by: Latrell Antunez M.D. Hand-Wrist procedure site: R thumb A1 sheath tendon sheath injection, [...] Outreach Division of Nephrology and Hypertension in [place], [place] [address] [place] [address] Checo Aguirre Jr., D.O. [address] [place] [address] Arrived 04/24/2024 10:15 AM CDT Office Visit Department of Orthopedic Surgery in [place], [place] [address] [place] [address] Latrell Antunez M.D. [address] [place] [address] Scheduled Referrals Name Type Priority Associated Diagnoses Order Schedule Orthopedic Surgery office visit (clinic) Outpatient Referral Routine Expected: 04/24/2024, Expires: 06/06/2025 documented as of this encounter Procedures Procedure Name Priority Date/Time Associated Diagnosis Comments SMALL JOINT INJECTION HAND/WRIST Routine 03/06/2024 12:00 PM CDT Trigger Finger Thumb Right documented in this encounter Results * hand-wrist: R thumb A1 sheath (03/06/2024 [...] this encounter Visit Diagnoses Diagnosis Trigger Finger Thumb Right- Primary Pain Shoulder Right documented in this encounter Administered Medications Inactive Administered Medications - up to 3 most recent administrations Medication Order MAR Action Action Date Dose Rate Site lidocaine 10 mg/mL (1 %) injection 2 mL (Xylocaine) 2 mL, injection, One-Time Injection, Starting on Sat03/06/24 at 1200, For 1 dose Given 03/06/2024 12:00 PM CDT 2 mL triamcinolone acetonide injection 10 mg (Kenalog) 10 mg, intra-articular, One-Time Injection, Starting on Sat03/06/24 at 1200, For 1 dose Given 03/06/2024 12:00 PM CDT 10 mg documented in this encounter Additional Health Concerns Assessment Noted Time PHQ-9 Depression Total Score: 0 11/22/19 17 8:37 AM CDT documented as of this encounter Care Teams Waiter/Waitress Tavern Relationship Specialty Start Date End Date Brennen Winchester M.D. [address] [place] [phone] PCP - General 04/05/22 documented as of this encounter
--- OUTSIDE RECORDS SUMMARY | 2024-03-31 07:25 | XMS_ITS | Encounter Summary ---
Author Organization [facility] Address [address] [place] [address] Care Team Providers Care Manager Of Case Name Role Phone Brennen Winchester M.D. Primary Care Provider [phone] Reason for Visit * Outpatient (Routine) - Closed Specialty Diagnoses / Procedures Referred By Sara schmid Referred To Contact Diagnoses Primary Osteoarthritis Knee Right Procedures DX Knee Right 3 Views DX Knee Right 2 View Pierre Del Real M.D. [facility] Referral ID Status Reason Start Date Expiration Date Visits Re quested Visits Authorized [id number] Closed 11/29/2023 11/28/2024 1 1 Encounter Details Date Type Department Care Team (Latest Contact Info) Description 03/23/2024 2:12 PM CDT - 03/23/2024 11:59 PM CDT Hospital Encounter Department of Radiology, [facility], in [place], [place] [address] [place] [address] Pierre Del Real M.D. Primary Osteoarthritis Knee Right Discharge Disposition: Home or Self Care Social History Tobacco Use Types Packs/Day Years Used Date Smoking Tobacco: Never Smokeless Tobacco: Never Comments:none Alcohol Use Standard Drinks/Week Comments No 0 (1 standard drink = 0.6 oz pur e alcohol) [facility] Utilities Answer Date Recorded In the [...] How often do you attend chur or episcopalian services? More than 4 times per year 09/07/2022 Do you belong to any clubs o r organizations such as mu-ism groups, unions, fraternal or athletic groups, or [...] Answer Date Recorded PHQ-2 Score 0 03/24/2024 [facility] of [facility]at ionpa Health - Occupational Stress Questionnaire Answer Date [...] your living situation today? I have a [facility] place to live 11/30/2023 Education Answer Date [...] Sig Dispensed Refills Start Date End Date amoxicillin (AMOXIL) 500 mg capsule Take 4 capsules (2,000 mg total) by mouth as directed. Prior to dental procedures 4 capsule 1 12/24/2023 blood glucose ctl high,nml,low solutionIndications:D iabetes Mellitus Type 2 With Diabetic Chronic Kidney Disease (HCC) Glucose control solution provides an easy way to ensure accurate blood glucose testing. 1 each 08/22/2020 blood-glucose meter miscIndications:Diabe yousuf Mellitus Type 2 With Diabetic Chronic Kidney Disease (HCC) Contour Next One meter. Test once daily. 1 each 08/22/2020 Contour Next Test StripsIndications:Karlee arboleda Mellitus Type 2 With Diabetic Chronic Kidney Disease (HCC) TEST 1 TIME PER DAY 90 strip 3 10/14/2023 lancets (Microlet Lancet)Indications:Di abetes Mellitus Type 2 With Diabetic Chronic Kidney Disease (HCC) USE TO TEST BLOOD SUGAR ONCE DAILY 100 each 3 02/27/2024 lisinopril-hydroCHLOR Othiazide (PRINZIDE,ZESTORETIC) 10-12.5 mg per tabletIndications:Hyp ertension And Chronic Kidney Disease Stage 4 Take 1 tablet by mouth at bedtime. HOLD until follow up with primary care provider 90 tablet 3 01/31/2023 metFORMIN XR (GLUCOPHAGE-XR) 500 mg 24 hr tabletIndications:Karlee arboleda Mellitus Type 2 With Diabetic Chronic Kidney Disease (HCC) Take 2 tablets (1,000 mg total) by mouth daily with breakfast. 180 tablet 3 08/20/2023 simvastatin (Zocor) 20 mg tabletIndications:Hyp ercholesterolemia TAKE ONE TABLET BY MOUTH AT BEDTIME . 90 tablet 3 02/19/2024 aspirin 81 mg chewable tablet Chew 1 tablet (81 mg total) 2 (two) times a day for 30 days. 72 tablet 11/29/2023 03/24/2024 pantoprazole (PROTONIX) 40 mg EC tablet Take 1 tablet (40 mg total) by mouth every morning before breakfast. 30 tablet 11/29/2023 03/24/2024 sennosides (SENOKOT) 8.6 mg tablet Take 1 tablet (8.6 mg total) by mouth 2 (two) times a day as needed for constipation. 11/29/2023 03/24/2024 traMADoL (ULTRAM) 50 mg tabletIndications:Acu te Pain Exception Take 1 tablet (50 mg total) by mouth every 6 (six) hours as needed for moderate pain or score 4-6 of 10 Indications: Acute Pain Exception. 20 tablet 12/12/2023 03/24/2024 documented as of this encounter Plan of Treatment Upcoming Encounters Date Type Department Care Team (Late st Contact Info) Description 03/31/2024 8:00 AM CDT External Outreach Division of Nephrology and Hypertension in [place], [place] [address] [place] [address] Checo Aguirre Jr., D.O. [address] [place] [address] Arrived 04/24/2024 10:15 AM CDT Office Visit Department of Orthopedic Surgery in [place], [place] [address] [place] [address] Latrell Antunez M.D. [address] [place] [address] documented as of this encounter Procedures Procedure Name Priority Date/Time Associated Diagnosis Comments DX KNEE RIGHT 3 VIEWS RAD - Routine (most inpatients and all outpatients) 03/23/2024 2:28 PM CDT Primary Osteoarthritis Knee Right documented in this encounter Results * DX Knee Right 3 Views [...] Real M.D. IMG DIAGNOSTIC IMAGI NG PROCEDURES documented in this encounter Visit Diagnoses Diagnosis Primary Osteoarthritis Knee Right documented in this encounter Additional Health Concerns Assessment Noted Time PHQ-9 Depression Total Score: 0 11/22/19 17 8:37 AM CDT documented as of this encounter Care Teams Manager Of Case Relationship Specialty Start Date End Date Brennen Winchester M.D. NPJohn: [id number] [address] [place] [address] [place] [address] PCP - General 04/05/22 documented as of this encounter
--- OUTSIDE RECORDS SUMMARY | 2024-03-31 07:25 | XMS_ITS | Encounter Summary ---
Author Organization [facility] Address [address] [place] [address] Care Team Providers Care Government Relations Director Name Role Phone Brennen Winchester M.D. Primary Care Provider Reason for Visit * Reason Comments Med Refill Encounter Details Date Type Department Care Team (Late st Contact Info) Description 02/25/2024 Refill Department of Family Medicine, [facility], in [address] [address] Brennen Winchester M.D. [address] [place] [address] Med Refill Social History Tobacco Use Types Packs/Day Years Used Date Smoking Tobacco: Never Smokeless Tobacco: Never Comments:none Alcohol Use Standard Drinks/Week Comments No 0 (1 standard drink = 0.6 oz pur e alcohol) [facility] Utilities Answer Date Recorded In the past 12 months has [facility] [employer], oil, or water [employer] threatened to shut off services in your [...] any clubs o r organizations such as latter day groups, unions, fraternal or athletic groups, or [...] Answer Date Recorded PHQ-2 Score 0 01/18/2021 [facility] of Occupat ional Health [...] your living situation today? I have a [facility] place to live 11/30/2023 Education Answer [...] encounter Miscellaneous Notes * Telephone Encounter - Rosie Lora - 02/27/2024 9:21 AM CDT Lab Results Component Value Date HGBA1C 6.5 (H) 11/28/2023 documented in this encounter Plan of Treatment Upcoming Encounters Date Type Department Care Team (Late st Contact Info) Description 03/31/2024 8:00 AM CDT External Outreach Division of Nephrology and Hypertension in [place], [place] [address] [place] [address] Checo Aguirre Jr., D.O. [address] [place] [address] Arrived 04/24/2024 10:15 AM CDT Office Visit Department of Orthopedic Surgery in [place], [place] [address] [place] [address] Latrell Antunez M.D. [address] [place] [address] documented as of this encounter Visit Diagnoses Diagnosis Diabetes Mellitus Type 2 With Diabetic Chronic Kidney Disease (HCC) documented in this encounter Additional Health Concerns Assessment Noted Time PHQ-9 Depression Total Score: 0 11/22/19 17 8:37 AM CDT documented as of this encounter Care Teams Government Relations Director Relationship Specialty Start Date End Date Brennen Winchester M.D. [address] [place] [phone] PCP - General 04/05/22 documented as of this encounter
--- OUTSIDE RECORDS SUMMARY | 2024-03-31 07:25 | XMS_ITS | Encounter Summary ---
Author Organization [facility] Address [address] [place] [address] Care Team Providers Care Track Sweeper Name Role Phone Brennen Winchester M.D. Primary Care Provider Reason for Visit * Reason Onset Date Comments Med Question 12/20/2023 ABX s/p R TKA wi th diabetes mellitus 2 with chronic kidney disease Encounter Details Date Type Department Care Team (Latest Contact Info) Description 12/20/2023 Clinical Communication Department of Orthopedic Surgery in [place], [place] [address] [place] [phone] Sam Coburn M.D. [address] [place] [phone] Med Question (ABX s/p R TKA with diabetes mellitus 2 with chronic kidney disease) Social History Tobacco Use Types Packs/Day Years Used Date Smoking Tobacco: Never Smokeless Tobacco: Never Comments:none Alcohol Use Standard Drinks/Week Comments No 0 (1 standard drink = 0.6 oz pur e alcohol) [facility] Utilities Answer Date Recorded In the past 12 months has th e [employer], gas, oil, or water [employer] threatened to shut off services in your [...] any clubs o r organizations such as christian groups, unions, fraternal or athletic groups, or [...] your living situation today? I have a [facility] place to live 11/30/2023 Education Answer [...] Outreach Division of Nephrology and Hypertension in [place], [place] [address] [place] [address] Checo Aguirre Jr., Sukhi.O. [address] [place] [phone] Arrived 04/24/2024 10:15 AM CDT Office Visit Department of Orthopedic Surgery in [place], [place] [address] [place] [address] Latrell Antunez M.D. [address] [place] [phone] documented as of this encounter Visit Diagnoses Not on filedocumented in this encounter Additional Health Concerns Assessment Noted Time PHQ-9 Depression Total Score: 0 11/22/19 17 8:37 AM CDT documented as of this encounter Care Teams Track Sweeper Relationship Specialty Start Date End Date Brennen Winchester M.D. [address] [place] [address] [place] [address] PCP - General 04/05/22 documented as of this encounter
--- OUTSIDE RECORDS SUMMARY | 2024-03-31 07:25 | XMS_ITS | Encounter Summary ---
Author Organization [facility] Address [address] [place] [id number] Care Team Providers Care Handbag Parts Cutter Name Role Phone Brennen Winchester M.D. Primary Care Provider Reason for Visit * Reason Onset Date Comments Pre-visit Intake 03/20/2024 Encounter Details Date Type Department Care Team (Latest Contact Info) Description 03/20/2024 1:15 PM CDT Clinical Communication Virtual Review in [place], [place] [address] [place] [address] Pre-visit Intake Social History Tobacco Use Types Packs/Day Years Used Date Smoking Tobacco: Never Smokeless Tobacco: Never Comments:none Alcohol Use Standard Drinks/Week Comments No 0 (1 standard drink = 0.6 oz pur e alcohol) [facility] Utilities Answer Date Recorded In the past 12 months has e [employer], gas, oil, or water [employer] threatened to shut off services in your [...] Answer Date Recorded PHQ-2 Score 0 01/18/2021 [facility] - Occupational Stress Questionnaire Answer Date [...] your living situation today? I have a [facility] place to live 11/30/2023 Education Answer [...] Outreach Division of Nephrology and Hypertension in [place], [place] [address] [place] [address] Checo Aguirre Jr., D.O. [address] [place] [phone] Arrived 04/24/2024 10:15 AM CDT Office Visit Department of Orthopedic Surgery in [place], [place] [address] [place] [phone] Latrell Antunez M.D. [address] [place] [phone] documented as of this encounter Visit Diagnoses Not on filedocumented in this encounter Additional Health Concerns Assessment Noted Time PHQ-9 Depression Total Score: 0 11/22/19 17 8:37 AM CDT documented as of this encounter Care Teams Handbag Parts Cutter Relationship Specialty Start Date End Date Brennen Winchester M.D. NPJohn: [phone] [address] [place] [address] [place] [phone] PCP - General 04/05/22 documented as of this encounter
--- OUTSIDE RECORDS SUMMARY | 2024-03-31 07:25 | XMS_ITS | Encounter Summary ---
Author Organization [facility] Address [address] [place] [address] Care Team Providers Care Restorative Art Embalmer Name Role Phone Brennen Winchester M.D. Primary Care Provider Reason for Referral * Outpatient (Routine) - Authorized Specialty Diagnoses / Procedures Referred By Contac t Referred To Contact Diagnoses Pain Shoulder Right Procedures [id number]-[id number]-elbow: R subacromial bursa Latrell Antunez M.D. 200 [place] [address] [facility] Referral ID Status Reason Start Date Expiration Date V isits Requested Visits Authorized [id number] Authorized 01/25/2024 01/24/2025 1 1 * Outpatient (Routine) - Closed Specialty Diagnoses / Procedures Referred By Contac t Referred To Contact Orthopedic Surgery Latrell Antunez M.D. 200 [place] [address] [facility] Referral ID Status Reason Start Date Expiration Date Visits Re quested Visits Authorized [id number] Closed 01/23/2024 07/24/2025 1 1 Reason for Visit * Outpatient (Routine) - Closed Specialty Diagnoses / Procedures Referred By Contac t Referred To Contact Orthopedic Surgery Latrell Antunez M.D. 200 [place] [address] [facility] Referral ID Status Reason Start Date Expiration Date Visits Re quested Visits Authorized [id number] Closed 12/18/2023 06/18/2025 1 1 Encounter Details Date Type Department Care Team (Late st Contact Info) Description 01/23/2024 4:00 PM CDT Office Visit Department of Orthopedic Surgery in [place], [place] [address] [place] [address] Latrell Antunez M.D. [address] [place] [phone] Pain Shoulder Right (Primary Dx) Social History Tobacco Use Types Packs/Day Years Used Date Smoking Tobacco: Never Smokeless Tobacco: Never Comments:none Alcohol Use Standard Drinks/Week Comments No 0 (1 standard drink = 0.6 oz pur e alcohol) [facility] Utilities Answer Date Recorded In the past 12 months has e [employer], gas, oil, or water [employer] threatened to shut off services in your [...] week 09/07/2022 [facility]? More than 4 times per year [...] Answer Date Recorded PHQ-2 Score 0 01/18/2021 [facility] - Occupational Stress Questionnaire Answer Date [...] Progress Notes * Latrell Antunez M.D. - 01/23/2024 4:00 PM CDT SUBJECTIVE CHIEF COMPLAINT/REASON FOR VISIT HISTORY OF PRESENT ILLNESS Ms. Sands is a very pleasant 73 y.o. female returns follow-up of her previous trigger finger treatments which are doing well. She does have some right shoulder pain in his here in hopes of an injection today. OBJECTIVE PHYSICAL EXAMINATION General: NAD, follows commands. HEENT: NCAT. CV: Skin warm, dry, well perfused. Pulm: Unlabored. Neuro: Alert, appropriate. Upper Extremity: She does have pain with attempted forward flexion and abduction of the shoulder. She does have also a positive Stover sign. She is tender at the supraspinatus. DIAGNOSTICS LABORATORY STUDIES: No results for input(s): [...] Shoulder Right We did move forward with another injection for Ms. Sands and she tolerated the injection well. We will plan to see her back in about 6 weeks for follow-up but I have asked her to call for questions orconcerns in the meantime. Thank you for the opportunity to participate in this patient's care. Please contact us with questions or concerns. All questions and concerns were answered on today's visit. There were no communication barriers present. Electronically signed by: Latrell Antunez M.D. 01/25/24 2:36 PM CDT documented in this encounter Procedure Notes * Latrell Antunez M.D. - 01/23/2024 4:00 PM CDTAssociated Order(s): [id number]-gpbb-qztyqa-elbow: R subacromial bursa Post-Procedure Diagnose(s): Pain Shoulder [...] Outreach Division of Nephrology and Hypertension in [place], [place] [address] [place] [address] Checo Aguirre Jr., D.O. [address] [place] [address] Arrived 04/24/2024 10:15 AM CDT Office Visit Department of Orthopedic Surgery in [place], [place] [address] [place] [address] Latrell Antunez M.D. [address] [place] [address] Scheduled Referrals Name Type Priority Associated Diagnoses Order Schedule Orthopedic Surgery office visit (clinic) Outpatient Referral Routine Expected: 03/06/2024 (Approximate), Expires: 04/24/2025 documented as of this encounter Procedures Procedure Name Priority Date/Time Associated Diagnosis Comments MT ARTHCS ASP/INJ MJR JT WO US Routine 01/23/2024 4:00 PM CDT Pain Shoulder Right documented in this encounter Results * MT ARTHCS ASP/INJ MJR JT WO US (01/23/2024 [...] Visit Diagnoses Diagnosis Pain Shoulder Right- Primary documented in this encounter Administered Medications Inactive Administered Medications - up to 3 most recent administrations Medication Order MAR Action Action Date Dose Rate Site lidocaine 10 mg/mL (1 %) injection 10 mL (XYLOCAINE) 10 mL, injection, One-Time Injection, Starting on Bonny 01/23/24 at 1600, For 1 dose Given 01/23/2024 4:00 PM CDT 10 mL triamcinolone acetonide injection 40 mg (KENALOG-40) 40 mg, intra-articular, One-Time Injection, Starting on Bonny 01/23/24 at 1600, For 1 dose Given 01/23/2024 4:00 PM CDT 40 mg documented in this encounter Additional Health Concerns Assessment Noted Time PHQ-9 Depression Total Score: 0 11/22/19 17 8:37 AM CDT documented as of this encounter Care Teams Restorative Art Embalmer Relationship Specialty Start Date End Date Brennen Winchester M.D. [address] [place] [phone] PCP - General 04/05/22 documented as of this encounter
--- OUTSIDE RECORDS SUMMARY | 2024-03-31 07:25 | XMS_ITS | Clinical Summary ---
Author Organization [employer] [facility] Address [place], [place] [address] Care Team Providers Care Hammer Shop Supervisor Name Role Phone Natacha Casillas NP Primary Care Provider Allergies Active Allergy Reactions Criticality Noted Date Comments Crab Nausea And Vomiting 09/16/2013 Sulfa (Sulfonamide Antibiotics) Hives 09/20 Medications Medication Sig Dispensed Refills Start Date End Date Status acetaminophen (TYLENOL EXTRA STRGTH) 500 mg tablet Take 1,000 mg by mouth every 6 hours if needed. Max acetaminophen dose: 4000mg in 24 hrs. Active simvastatin (ZOCOR) 20 mg tablet Take 20 mg by mouth at bedtime. Active lisinopril-hydroc hlorothiazide (10-12.5 mg) tablet (PRINZIDE; ZESTORETIC) Take 1 Tablet by mouth once daily. 05/05/2021 Active metFORMIN (GLUCOPHAGE XR) 500 mg Extended-Release tablet Take 1,000 mg by mouth once daily. 08/16/2021 Active lancets Use to test glucose once daily 01/16/2023 Active mirtazapine (REMERON) 7.5 mg tablet Take 7.5 mg by mouth. 10/18/2022 Active amoxicillin (AMOXIL) 500 mg capsuleIndication s:Status post total hip replacement, right TAKE FOUR CAPSULES BY MOUTH ONE HOUR BEFORE DENTAL APPOINTMENT DIRECTED 12 Capsule 3 11/11/2023 Active Active Problems Problem Noted Date Diagnosed [...] 165 cm (5' 4.96) 10/03/2021 7:11 AM WEAVE DEFECT CHARTING CLERK Body Mass Index 21.94 10/03/2021 7:11 AM WEAVE DEFECT CHARTING CLERK Plan of Treatment Health Maintenance Due Date [...] for age 65+ 2014 COVID-19 vaccine series (2022- season) 2023 04/30/2022, 11/23/2021, 06/13/2021, Additional history exists Influenza for age 65+ 04/19/2024 Colonoscopy through age 75 10/03/2031 10/03/2021 Medical Devices Implanted Type Area Client Service Associate Device Identifier Shelf Expiration Date Model / Serial / Lot [id number] - [id number] - Spencer Head Bipolar Component Implanted:Qty: 1 on 01/18/2020 by Rangel Humphries MD at [facility] Ortho Total Joint Right: Hip [employer] 05/27/2024 [id number] / / [id number] - [id number] - Accolade Ii 127 Degree Neck Angle Hip Stem Implanted:Qty: 1 on 01/18/2020 by Rangel Humphries MD at [facility] Ortho Total Joint Right: Hip [employer] 05/12/2024 [id number] / / [id number] - [id number] - [employer] Delta Ceramic V40 Femoral Head Implanted:Qty: 1 on 01/18/2020 by Rangel Humphries MD at [facility] Ortho Total Joint Right: Hip [employer] 11/20/2022 6570-0-22 8 / / [id number] Screw Hip 6.5x15mm [employer]oyo Lowprofile Hex - [id number] Implanted:Qty: 1 on 03/23/2020 by Checo Phillips MD at [facility] Right: Hip [employer] 03/23/20242720-7087 # / / [id number] Screw Hip 6.5x15mm [employer]oyo Lowprofile Hex - [id number] Implanted:Qty: 1 on 03/23/2020 by Checo Phillips MD at [facility] Right: Hip [employer] [id number] # / / 49HD Screw Hip 6.5x15mm [employer] Lowprofile Hex - [id number] Implanted:Qty: 1 on 03/23/2020 by Checo Phillips MD at [facility] Right: Hip [employer] 04/04/[id number] # / / 4CD Trident Ii Tritanium Multihole Acet Shell [id number] Implanted:Qty: 1 on 03/23/2020 by Checo Phillips MD at [facility] Right: Hip 03/16/2024 709-04-54 E / / [id number] Description:TRIDENT II TRITA NIUM MULTIHOLE ACET SHELL [id number] Liner Hip Id42mm Szb Mdmx3 Co Cr - [id number] Implanted:Qty: 1 on 03/23/2020 by Checo Phillips MD at [facility] Right: Hip [employer] 02/02/2025 626-00-42 E# / / [id number] Head Hip Od28mm +8 V40 Co Cr - [id number] Implanted:Qty: 1 on 03/23/2020 by Checo Phillips MD at [facility] Right: Hip [employer] 11/11/2022 6260-5-32 8# / / [id number] Liner Hip Id28 Od48mm Adm X3 Pe - [id number] Implanted:Qty: 1 on 03/23/2020 by Checo Phillips MD at [facility] Right: Hip [employer] 02/13/2025 1236-2-84 8# / / [id number] Screw Hip 6.5x40mm [employer] Low Profile Hex - [id number] Implanted:Qty: 1 on 03/23/2020 by Checo Phillips MD at [facility] Right: Hip [employer] 03/18/2024 [id number] # / / [id number] Screw Hip 6.5x40mm [employer] Low Profile Hex - [id number] Implanted:Qty: 1 on 03/23/2020 by Checo Phillips MD at [facility] Right: Hip [employer] 03/28/2024 [id number] # / / [id number] Explanted Type Area Client Service Associate Device Identifier Shelf Expiration Date Model / Serial / Lot Explant Explanted:Qty: 1 on 03/23/2020 by Checo Phillips MD at [facility] Right: Hip Description:HEAD Procedures Procedure Name Priority Date/Time Associated Diagnosis Comments COLONOSCOPY 10/03/2021 8:13 AM WEAVE DEFECT CHARTING CLERK from Last 3 Months or Most Recently Relevant to Health Maintenance Results * COLONOSCOPY (10/03/2021 8:13 AM WEAVE DEFECT CHARTING CLERK) 10/03/2021 8:13 AM WEAVE DEFECT CHARTING CLERK Narrative Transcriptions FromJoon carbone MD - 10/03/2021 8:42 AM CST Patient Name: Ekta Sands Procedure Date: 10/03/2021 Gender: Female Date of : 1950 Admit Type: Ambulatory Procedure: Colonoscopy Proceduralist: Tyrel Funes MD [facility] Indications/Pre-Op Diagnosis: Screening for colorectal malignantneoplasm Medications: Propofol per Anesthesia Procedure Description: The procedure, indications, potential complications, (bleeding, perforation, infection, adverse medication reaction, missed lesionsor polyps) and alternatives available were explained to the patient, who appeared to understand and indicated this. Opportunity for questionswas provided and informed consent obtained. The colonoscopy was passed through the anus and advanced to 4 cm into the ileum. The colonoscopy was performed with ease. The patient tolerated the procedure well. The quality of the bowel preparationwas evaluated using the BBPS ([place] Bowel Preparation Scale) with scores of: Right Colon = 3, Transverse Colon = 3 and Left Colon = 3 (entire mucosa seen well with no residual staining, small fragments of stoolor opaque liquid). The total BBPS score equals 9. Complications: No immediate complications. Estimated Blood Loss & Specimen: Estimated blood loss was minimal. Specimen collected: Yes and sent to Laboratory Findings: The perianal and digital rectal examinations were normal. Pertinent negatives include normal sphincter tone. The terminal ileum appeared normal. Normal mucosa was found in the entire colon. Biopsies for histologywere taken with a cold forceps from the ascending colon, descending colonand rectum for evaluation of microscopic colitis. A 5 mm polyp was found in the cecum. The polyp was sessile. The polyp was removed with a cold snare. Resection and retrieval werecomplete. The exam was otherwise without abnormality on direct and retroflexion views. Impressions/Post-Op Diagnosis: - The examined portion of the ileum was normal. - Normal mucosa in the entire examined colon. Biopsied. - One 5 mm polyp in the cecum, removed with a cold snare. Resectedand retrieved. - The examination was otherwise normal on direct and retroflexionviews. Recommendation: - Await pathology results. - Dr. Funes's office will contact you with biopsy/pathology results when available. Moderate Sedation: Deep sedation per anesthesia. Tyrel Funes MD 10/03/2021 8:42:03 AM This report has been signed electronically. Note Initiated On: 10/03/2021 8:13 AM Joon Funes MD PROCEDURE ORD from Last 3 Months or Most Recently Relevant to Health Maintenance Advance Directives * Full Code (Latest Code Status on File) Date Activated Date Inactivated Comments 10/03/2021 6:54 AM 10/03/2021 11:49 AM Question Answer Comments Code Status Discussion: Reviewed Preferences * Full Code Date Activated Date Inactivated Comments 03/23/2020 7:33 AM 03/28/2020 2:04 PM * Full Code Date Activated Date Inactivated Comments 02/16/2020 12:16 AM 02/16/2020 1:25 PM * Full Code Date Activated Date Inactivated Comments 02/13/2020 4:28 PM 02/15/2020 4:52 PM Question Answer Comments Code Status Discussion: Discussed * Full Code Date Activated Date Inactivated Comments 01/18/2020 1:06 AM 01/20/2020 5:02 PM Care Teams Hammer Shop Supervisor Relationship Specialty Start Date End Date Natacha Casillas NP [address] [facility] [place] [address] PCP - General Nurse Practitioner 05/25/19
--- OUTSIDE RECORDS SUMMARY | 2024-03-31 07:25 | XMS_ITS | Referral Summary ---
Author Organization [facility] Address [address] [place] [address] Care Team Providers Care Bullet Assembly Press Setter Operator Name Role Phone Brennen Winchester M.D. Primary Care Provider Source Comments Patient records contain information from all sites at [facility]. For routine questions regarding patient records, call [phone] during business hours, M-F 8:00 AM - 5:00 PM Central Time. Record requests for emergency care only can be directed to [phone] at any time.[facility] Encounters Date Type Department Care Team Description 03/31/2024 8:00 AM CDT External Outreach Division of Nephrology and Hypertension in [place], [place] [address] [place] [phone] Checo Aguirre Jr., D.O. Arrived 03/24/2024 11:00 AM CDT Telemedicine Department of Family Medicine, [facility], in [place] [address] [place] [phone] Brennen Winchester M.D. Simon, Keri J, R.N. Annual Medicare Examination Return (Primary Dx) 03/23/2024 2:12 PM CDT - 03/23/2024 11:59 PM CDT Hospital Encounter Department of Radiology, [facility], in [place], [place] [address] [place] [phone] Pierre Del Real M.D. Primary Osteoarthritis Knee Right Discharge Disposition: Home or Self Care 03/23/2024 3:30 PM CDT Office Visit Department of Orthopedic Surgery in [place], [place] [address] [place] [phone] Sam Coburn M.D. Arthroplasty Total Knee Replacement Status Post Right (Primary Dx) 03/20/2024 1:15 PM CDT Clinical Communication Virtual Review in [place], [place] 200 [place] [address] Pre-visit Intake 03/06/2024 12:00 PM CDT Office Visit Department of Orthopedic Surgery in [place], [place] [address] [place] [phone] Latrell Antunez M.D. Trigger Finger Thumb Right (Primary Dx); Pain Shoulder Right 03/05/2024 9:15 AM CDT Clinical Communication Virtual Review in [place], [place] 200 [place] [address] Pre-visit Intake 02/25/2024 Refill Department of Family Medicine, [facility], in [address] [phone] Brennen Winchetser M.D. Med Refill 02/25/2024 Orders Only [facility] Brennen Winchester M.D. 02/18/2024 Refill Department of Family [facility], [facility], in [place], [place] 300 [place] [address] Brennen Winchester M.D. Med Refill 02/03/2024 Clinical Communication Department of Family [facility], [facility], in [place], [place] 300 [place] [address] Brennen Winchester M.D. Health Maintenance 01/23/2024 4:00 PM CDT Office Visit Department of Orthopedic Surgery in [place], [place] [address] [place] [phone] Latrell Antunez M.D. Pain Shoulder Right (Primary [...] Meniscus C urrent Subsequent Right 06/01/2019 02/01/2020 Immunizations Name Administration Dates Next Due [...] drink = 0.6 oz pur e alcohol) [facility] Utilities Answer Date Recorded In the past 12 months has e [employer], gas, oil, or water company threatened to [...] week 09/07/2022 How often do you attend [facility] or worship services? More than 4 times per year 09/07/2022 Do you belong to any clubs o r organizations such as episcopalian groups, unions, fraternal or athletic groups, or [...] Answer Date Recorded PHQ-2 Score 0 03/24/2024 [facility] [place] of Occupat ional Health - Occupational Stress [...] your living situation today? I have a [facility] place to live 11/30/2023 Education Answer Date [...] Outreach Division of Nephrology and Hypertension in [place], [place] [address] [place] [address] Checo Aguirre Jr., D.O. [address] [place] [address] Arrived 04/24/2024 10:15 AM CDT Office Visit Department of Orthopedic Surgery in [place], [place] [address] [place] [address] Latrell Antunez M.D. [address] [place] [address] Medical Devices Implanted Type Area Piano Maker Device Identifier Shelf Expiration Date Model / Serial / Lot Cmnt Bn Smp 40gm - [id number] Implanted:Qty: 1 on 12/07/2022 by Sam Coburn M.D. at [facility] Bone Cement Left: Knee Guion 6191- 1 / / Cmnt Bn Smp 20gm - [id number] Implanted:Qty: 1 on 12/07/2022 by Sam Coburn M.D. at [facility] Bone Cement Left: Knee Guion 6188-1 1 / / Cmnt Bn Smp 40gm - [id number] Implanted:Qty: 1 on 11/29/2023 by Sam Coburn M.D. at [facility] Bone Cement Right: Knee Guion 6191- 1 / / Cmnt Bn Smp 20gm - [id number] Implanted:Qty: 1 on 11/29/2023 by Sam Coburn M.D. at [facility] Bone Cement Right: Knee Guion 6188-1-00 1 / / K-Wire-Ss 4 Smooth .045 - [id number] Implanted:Qty: 1 on 01/05/2014 Hardware e.g. pins/screws /rods Mouth Goyo Description:Device Manufactu rer - Guion Jr.. Device Status Text - HARDWARE-872. Hip Implant Hip Implant Right: Hip Description:2019 Kn Stm Prs Cmnt 14x30 - [id number] Implanted:Qty: 1 on 12/07/2022 by Sam Coburn M.D. at [facility] Knee Implant Left: Knee [employer] 10/30/2032 42-5570-0 09-01 [id number] Persona Viavacit E Highly Crosslinked Polyethylene Left 10mm Use With Tibia E-F Cr Femur 8-11 Implanted:Qty: 1 on 12/07/2022 by Sam Coburn M.D. at [facility] Knee Implant Left: Knee [employer] [id number] 05/15/2027 42-5121-0 08- [id number] Pat Prs 8.5x32 - [id number] Implanted:Qty: 1 on 12/07/2022 by Sam Coburn M.D. at [facility] Knee Implant Left: Knee [employer] 10/01/2027 42-5400-0 [id number] Kn Fem Prs Lt Cmnt Jensen Sz-10 - [id number] Implanted:Qty: 1 on 12/07/2022 by Sam Coburn M.D. at [facility] Knee Implant Left: Knee [employer] 05/09/2031 42-5020-0 68- [id number] Bsplt Tib Prs Lt 5d Rosalie - [id number] Implanted:Qty: 1 on 12/07/2022 by Sam Coburn M.D. at [facility] Knee Implant Left: Knee [employer] 05/14/2032 42-5320-0 71- / [id number] Pat Prs 8.5x32 - [id number] Implanted:Qty: 1 on 11/29/2023 by Sam Coburn M.D. at [facility] Knee Implant Right: Patella [employer] 01/08/2028 42-5400-0 00-32 / [id number] Kn Fem Prs Rt Cmnt Jensen Sz-10 - [id number] Implanted:Qty: 1 on 11/29/2023 by Sam Coburn M.D. at [facility] Knee Implant Right: Patella [employer] 07/01/2033 42-5020-0 68- / [id number] Kn Stm Prs Cmnt 14x30 - [id number] Implanted:Qty: 1 on 11/29/2023 by Sam Coburn M.D. at [facility] Knee Implant Right: Patella [employer] 09/01/2033 42-5570-0 09-01 [id number] Bsplt Tib Prs Rt 5d Rosalie - [id number] Implanted:Qty: 1 on 11/29/2023 by Sam Coburn M.D. at [facility] Knee Implant Right: Patella [employer] 12/18/2032 42-5320-0 71 [id number] Ins Tib Prs [facility] Sz8-11ef 10 - [id number] Implanted:Qty: 1 on 11/29/2023 by Sam Coburn M.D. at [facility] Knee Implant Right: Patella [employer] 08/20/2028 42-5221-0 08- [id number] Ocular Lens Ocular Lens Bilateral: Eye Procedures Procedure Name Priority Date/Time Associated Diagnosis Comments DX KNEE RIGHT 3 VIEWS RAD - Routine (most inpatients and all outpatients) 03/23/2024 2:28 PM CDT Primary Osteoarthritis Knee Right SMALL JOINT INJECTION HAND/WRIST Routine 03/06/2024 12:00 PM CDT Trigger Finger Thumb Right IA ARTHCS ASP/INJ MJR JT WO US Routine [...] inpatients and all outpatients) 10/02/2023 1:08 PM NIBBLER OPERATOR Screening Mammogram Breast Cancer ALBUMIN, RANDOM, U [...] Antunez M.D. PROCEDURE/MINOR SURG ICAL ORDERABLES * IA ARTHCS ASP/INJ MJR JT WO US (01/23/2024 [...] PROCEDURE/MINOR SURG ICAL ORDERABLES Performing Organization Address City/[facility]/ZIP Co de Phone Number MMODAL NA * [...] CDT Braeden Peterson M.D. LAB BLOOD ADD-ON [facility] [address] [place] [address], [facility] [place] [address] [place] [address] * (ABNORMAL) Hemoglobin A1c (11/28/2023 7:43 AM [...] 7:43 AM CDT 11/28/2023 8:27 AM CDT Narrative Authorizing Provider Result Yue Coburn M.D. LAB BLOOD ADD-ON [facility] [address] [place] [address], [facility] [place] [address] [place] [address] * (ABNORMAL) Basic Metabolic Panel (11/28/2023 7:42 AM CDT) Pathologist [facility] Potassium, S 5.0 3.6 - 5.2 mmol/L [...] CDT Sam Coburn M.D. LAB BLOOD ADD-ON [facility] [address] [place] [address], [facility] DTL [facility] [address] [place] [address] * BI Breast Screening Bilateral with Tomosynthesis (10/02/2023 1:08 PM NIBBLER OPERATOR) Anatomical Region Laterality Modality Breast, Breast Imaging RST L OS, Breast Imaging ARZ LOS, Breast Imaging FLA LOS Bilateral Mammography Impressions 10/02/2023 1:35 PM NIBBLER OPERATOR Negative. RECOMMENDATION: ??Annual Screening Mammogram ASSESSMENT: ??BI-RADS: 1: Negative. Narrative 10/02/2023 1:35 PM NIBBLER OPERATOR EXAM: ??BI BREAST SCREENING BILATERAL WITH TOMOSYNTHESIS [...] 8:27 AM CDT 01/30/2023 11:21 AM CDT Natcaha Casillas APRN C.N.P., R.N. LAB UR INE ORDERABLES [facility] [address], [place] [address], [facility] OWAT [facility] [place] [address], [place] [address] * Lipid Panel (11/22/2022 7:39 AM CDT) [...] CDT Brennen Winchester M.D. LAB BLOOD ADD-ON [facility] [address] [place] [address], [place] [facility] [place] [address] [place] [address] from Last 3 Months or Most Recently Relevant to Health Maintenance Care Teams Bullet Assembly Press Setter Operator Relationship Specialty Start Date End Date Brennen Winchester M.D. [address] [place] [address] [place] [address] PCP - General 04/05/22
--- OUTSIDE RECORDS SUMMARY | 2024-03-31 07:25 | XMS_ITS | Encounter Summary ---
Author Organization [facility] Address [address] [place] [address] Care Team Providers Care Rural Mail Contractor Name Role Phone Brennen Winchester M.D. Primary Care Provider [phone] Reason for Referral * Outpatient (Routine) - Authorized Specialty Diagnoses / Procedures Referred By Sara schmid Referred To Contact Brennen Winchester M.D. [address] [place] [address] [facility] Referral ID Status Reason Start Date Expiration Date V isits Requested Visits Authorized [id number] Authorized 03/24/2024 09/23/2025 1 1 Scheduling Instructions 12-Month Medicare Visit Reason for Visit * Reason Comments Medicare Annual Wellness Visit Subsequen t * Outpatient (Routine) - Closed Specialty Diagnoses / Procedures Referred By Sara schmid Referred To Contact Brennen Winchester M.D. [address] [place] [address] [facility] Referral ID Status Reason Start Date Expiration Date Visits Re quested Visits Authorized [id number] Closed 02/25/2024 08/26/2025 1 1 Encounter Details Date Type Department Care Team (Late st Contact Info) Description 03/24/2024 11:00 AM CDT Telemedicine Department of Family Medicine, [facility], in [place], [place] [address] [place] [address] Brennen Winchester M.D. [address] [place] [address] [place] [phone] Preeti Flowers R.N. Annual Medicare Examination Return (Primary Dx) Social History Tobacco Use Types Packs/Day Years Used Date Smoking Tobacco: Never Smokeless Tobacco: Never Comments:none Alcohol Use Standard Drinks/Week Comments No 0 (1 standard drink = 0.6 oz pur e alcohol) [facility] Utilities Answer Date Recorded In the past 12 months has e electric, gas, oil, or water [employer] threatened to shut off services in your [...] any clubs o r organizations such as advent groups, unions, fraternal or athletic groups, or [...] Answer Date Recorded PHQ-2 Score 0 03/24/2024 [facility] of Occupat ional [...] living situation today? I have a [facility] [employer] place to live 11/30/2023 Education Answer Date [...] Pressure 120/80 03/24/2024 11:05 AM CDT Pulse - - Temperature - - Respiratory Rate - - Oxygen Saturation - - Inhaled Oxygen Concentration - - Weight 56.7 kg (125 lb) 03/24/2024 11:0 5 AM CDT home weight Height 165.1 cm (5' 5) 03/24/2024 11:0 5 AM CDT Home measurement Body Mass Index 20.8 03/24/2024 11:05 AM CDT documented in this encounter Patient Instructions * Patient Instructions* Preeti Flowers R.N. - 03/24/2024 11:00 AM CDT Thank you for coming in today! Consider: - Preventative immunizations; consider the Covid booster & influenza vaccine in the fall. - Preventative testing; AAA, hepatitis C (if qualify), colonoscopy, etc - Reviewing and completing an Advanced Health Care Directive and bringing in a copy to scan for your health record - Yearly dental cleanings - Yearly eye exams - Contact the clinic if/when you need any resources. Continue: - Eating a healthy diet; a variety of fruits and vegetables, minimizing processed foods and eating out - Keeping your home free of clutter, minimizing fall risks - Remaining physically active, following an exercise routine if you have one, or being up and moving frequently throughout the day - Remaining active in your community; group activities, volunteering - Staying up to date with your provider, keeping annual exams or follow ups, communicating health changes Reminder: If you have not done so, please schedule an appointment with your provider for annual physical and medication check if physical not covered by insurance documented in this encounter Progress Notes * Preeti Flowers R.N. - 03/24/2024 11:00 AM CDT HEALTH ASSESSMENT Reason For Visit Patient presents with Medicare Annual Wellness Visit Subsequent Video Consult conducted via real-time audio/video technology by Preeti Flowers R.N. in [facility] to the patient in [facility] The following portions of the patient's history were reviewed and updated as appropriate: allergies, medications, family history, social history, surgical history and care team/suppliers. VITALS Blood Pressure: 120/80 (03/24/2024 11:05 AM) BMI (Calculated): 20.8 kg/m?? (03/24/2024 11:05 AM) Height: 165.1 cm (Home measurement) (03/24/2024 11:05 AM) Weight: 56.7 kg (home weight) (03/24/2024 11:05 AM) Blood Pressure: 120/80 (03/24/2024 11:05 AM) BMI (Calculated): 20.8 kg/m?? (03/24/2024 11:05 AM) Height: 165.1 cm (Home measurement) (03/24/2024 11:05 AM) Weight: 56.7 kg (home weight) (03/24/2024 11:05 AM) Health Risk Assessment and Social Determinants of Health Health Risk Assessment (HRA) completed and reviewed: Yes Social Determinants of Health (SDOH) questionnaires were reviewed during this visit. The following concerns were prioritized to be addressed: No concerns identified. Depression Screening PHQ-2 Score: 0 PHQ-9 Total Score (max 27): 0 03/24/2024 11:13 AM PHQ9 Score PHQ-9 Total Score (max 27) 0 Cognitive Assessment Cognitive function assessed by direct observation without concerns. Current Opioid Use None Outpatient Pain Assessment Pain Score: 1 Pain Loc: Knee Education regarding non-opioid options for pain management not applicable at this time. - patient had TKR 11/29/23 and stated is healing well. FUNCTIONAL/HOME ENVIRONMENT History of falls: Have you fallen within the last year or do you fear you might fall?: No (1:08 AM) Do you use an assisted device to walk? (Walker, cane, wheelchair, crutch): No (03/24/2024 11:08 AM) Today, do you feel any of the following? Weak, dizzy, shaky, or unsteady?: No (03/24/2024 11:08 AM) Have you taken any medication within the last 6 hours which may make you feel drowsy? Such as sleep, pain, or anxiety medication: No (03/24/2024 11:08 AM) Home Safety Patient's home contains the following: Throw Rugs No. Adequate lighting: Yes. Slippery bathtub and/or shower surfaces: No. Grab bars installed in the bathroom: Yes. Handrails on steps/stairs: Yes. Functional smoke/carbon monoxide alarms: Yes. Patient is reminded to change the batteries every 6 months if device is not A/C powered or hard-wired into the home. Advance Directive Advance Directives: Not Received Advance directive completed previously but patient does not have a copy on file in our system. Patient/family is instructed to bring in a copy and/or upload to a patient portal message for scanning to the chart. - patient is actively working with an bankruptcy attorney to update advanced directive at this time. Preventive Services Schedule Health Maintenance Topic Date Due Hepatitis C Screening Never done Hepatitis B Vaccines (1 of 3 - Risk 3-dose series) Never done Diabetic Office Visit with Foot Exam 10/19/2023 Urine Albumin 01/31/2024 Diabetes Education 02/01/2024 COVID-19 Vaccine ( season) 2024 Hemoglobin A1C 05/29/2024 Influenza Vaccine (1) 05/19/2024 Dilated Eye Exam 09/12/2024 Mammogram 10/02/2024 Visit: Chronic Disease, age 18+ 11/07/2024 Potassium Level 11/27/2024 Sodium Level 11/27/2024 Creatinine Level (Kidney Function Test) 11/29/2024 Office Visit for Blood Pressure Check / Re-check 03/24/2025 Visit: Medicare Annual Wellness 03/25/2025 Lipid (Cholesterol) Screening 11/23/2027 Colorectal Cancer Screening 10/03/2031 DTaP,Tdap,and Td Vaccines (4 - Td or Tdap) 01/31/2033 Fall Risk Screen (Annual) Completed RSV vaccine - (32-36 weeks) or 60+ years Completed Pneumococcal vaccine (65+ years) Completed Zoster Vaccines Completed After Visit Summary (AVS) reviewed and patient will access via patient online services documented in this encounter Plan of Treatment Upcoming Encounters Date Type Department Care Team (Late st Contact Info) Description 03/31/2024 8:00 AM CDT External Outreach Division of Nephrology and Hypertension in [place], [place] [address] [place] [address] Checo Aguirre Jr., D.O. [address] [place] [phone] Arrived 04/24/2024 10:15 AM CDT Office Visit Department of Orthopedic Surgery in [place], [place] [address] [place] [address] Latrell Antunez M.D. [address] [place] [phone] Scheduled Referrals Name Type Priority Associated Diagnoses Orde r Schedule Primary Care nurse visit (clinic) - [facility] Region; Medicare Annual Wellness Outpatient Referral Routine Expected: 03/24/2025 (Approximate), Expires: 06/24/2025 documented as of this encounter Visit Diagnoses Diagnosis Annual Medicare Examination Return- Primary documented in this encounter Additional Health Concerns Assessment Noted Time PHQ-9 Depression Total Score: 0 03/24/20 24 11:13 AM CDT documented as of this encounter Care Teams Rural Mail Contractor Relationship Specialty Start Date End Date Brennen Winchester M.D. [address] [place], [place] [address] [place] [address] PCP - General 04/05/22 documented as of this encounter
--- OUTSIDE RECORDS SUMMARY | 2024-03-31 07:25 | XMS_ITS ---
Author Organization [facility] Address [address] [place] [address] Care Team Providers Care Adult Crossing Guard Name Role Phone Unavailable Unavailable Unavailable Surgery Details Not on file Complications Check Surgery Details section. Procedure Estimated Blood Loss Check Surgery Details section. Procedure Findings Check Surgery Details section. Procedure Specimens Taken Check Surgery Details section.
--- OUTSIDE RECORDS SUMMARY | 2024-03-31 07:25 | XMS_ITS | Encounter Summary ---
Author Organization [facility] Address [address] [place] [address] Care Team Providers Care Operations Research Scientist Name Role Phone Brennen Winchester M.D. Primary Care Provider Reason for Visit * Reason Comments Med Refill Encounter Details Date Type Department Care Team (Late st Contact Info) Description 02/18/2024 Refill Department of Family Medicine, [facility], in [address] [address] Brennen Winchester M.D. [address] [place] [address] Med Refill Social History Tobacco Use Types Packs/Day Years Used Date Smoking Tobacco: Never Smokeless Tobacco: Never Comments:none Alcohol Use Standard Drinks/Week Comments No 0 (1 standard drink = 0.6 oz pur e alcohol) [facility] Utilities Answer Date Recorded In the past 12 months has [facility] [employer], oil, or water [employer] threatened to shut off services in your [...] often do you attend chur ch or restorationism services? More than 4 times [...] Answer Date Recorded PHQ-2 Score 0 01/18/2021 [facility] of Occupat ional Health - [...] your living situation today? I have a [employer] place to live 11/30/2023 Education Answer Date [...] Outreach Division of Nephrology and Hypertension in [place], [place] [address] [place] [phone] Checo Aguirre Jr., RiccardoO. [address] [place] [phone] Arrived 04/24/2024 10:15 AM CDT Office Visit Department of Orthopedic Surgery in [place], [place] [address] [place] [phone] Ltarell Antunez M.D. [address] [place] [phone] documented as of this encounter Visit Diagnoses Diagnosis Hypercholesterolemia documented in this encounter Additional Health Concerns Assessment Noted Time PHQ-9 Depression Total Score: 0 11/22/19 17 8:37 AM CDT documented as of this encounter Care Teams Operations Research Scientist Relationship Specialty Start Date End Date Brennen Winchester M.D. [address] [place] [phone] PCP - General 04/05/22 documented as of this encounter
--- OUTSIDE RECORDS SUMMARY | 2024-03-31 07:25 | XMS_ITS | Encounter Summary ---
Author Organization [facility] Address [address] [place] [address] Care Team Providers Care Foxing Closer Name Role Phone Brennen Winchester M.D. Primary Care Provider [phone] Reason for Visit * Reason Onset Date Comments Health Maintenance 02/03/2024 Encounter Details Date Type Department Care Team (Latest Contact Info) Description 02/03/2024 Clinical Communication Department of Family Medicine, [facility], in [place], [place] [address] [place] [address] Brennen Winchester M.D. [address] [place] [address] Health Maintenance Social History Tobacco Use Types Packs/Day Years Used Date Smoking Tobacco: Never Smokeless Tobacco: Never Comments:none Alcohol Use Standard Drinks/Week Comments No 0 (1 standard drink = 0.6 oz pur e alcohol) [facility] Utilities Answer Date Recorded In the past 12 months has [facility] [employer] gas, oil, or water [employer] threatened to shut off services in your [...] How often do you attend chur or anabaptism services? More than 4 times [...] Answer Date Recorded PHQ-2 Score 0 01/18/2021 [facility] - [...] your living situation today? I have a [facility] place to live 11/30/2023 [...] encounter Miscellaneous Notes * Telephone Encounter - Talya Lizarraga - 02/03/2024 8:39 AM CDT I reached out to the patient today via portal message and I was able to reach the patient. This is the 1st contact by the PHS team to schedule preventive care services. The preventive care topics we discussed include: Annual Wellness Visit The outcome of this communication includes: Patient Unavailable at Time of Call, [facility] Will Call Back The PHS team will contact the patient again in 2 months. Additional services offered: None Talya Andrew Preventative Health Specialist documented in this encounter Plan of Treatment Upcoming Encounters Date Type Department Care Team (Late st Contact Info) Description 03/31/2024 8:00 AM CDT External Outreach Division of Nephrology and Hypertension in [place], [place] [address] [place] [address] Checo Aguirre Jr., Sukhi.O. [address] [place] [phone] Arrived 04/24/2024 10:15 AM CDT Office Visit Department of Orthopedic Surgery in [place], [place] [address] [place] [address] Latrell Antunez M.D. [address] [place] [phone] documented as of this encounter Visit Diagnoses Not on filedocumented in this encounter Additional Health Concerns Assessment Noted Time PHQ-9 Depression Total Score: 0 11/22/19 17 8:37 AM CDT documented as of this encounter Care Teams Foxing Closer Relationship Specialty Start Date End Date Brennen Winchester M.D. [address] [place] [phone] PCP - General 04/05/22 documented as of this encounter
--- OUTSIDE RECORDS SUMMARY | 2024-03-31 07:25 | XMS_ITS | Encounter Summary ---
Author Organization [facility] Address [address] [place] [address] Care Team Providers Care Webfocus Developer Name Role Phone Brennen Winchester M.D. Primary Care Provider Reason for Visit * Reason Onset Date Comments Med Refill 12/12/2023 tramadol Encounter Details Date Type Department Care Team (Latest Contact Info) Description 12/12/2023 Clinical Communication Department of Orthopedic Surgery in [place], [place] [address] [place] [phone] Sam Coburn M.D. [address] [place] [phone] Med Refill (tramadol) Social History Tobacco Use Types Packs/Day Years Used Date Smoking Tobacco: Never Smokeless Tobacco: Never Comments:none Alcohol Use Standard Drinks/Week Comments No 0 (1 standard drink = 0.6 oz pur e alcohol) [facility] Utilities Answer Date Recorded In the past 12 months has [facility] [employer] oil, or water [employer] threatened to shut off services in your [...] often do you attend chur ch or taoist services? More than 4 times [...] Answer Date Recorded PHQ-2 Score 0 01/18/2021 [facility] - Occupational [...] your living situation today? I have a [facility] place to live 11/30/2023 Education Answer [...] Outreach Division of Nephrology and Hypertension in [place], [place] [address] [place] [phone] Checo Aguirre Jr., DJuanO. [address] [place] [phone] Arrived 04/24/2024 10:15 AM CDT Office Visit Department of Orthopedic Surgery in [place], [place] [address] [place] [phone] Latrell Antunez M.D. [address] [place] [phone] documented as of this encounter Visit Diagnoses Not on filedocumented in this encounter Additional Health Concerns Assessment Noted Time PHQ-9 Depression Total Score: 0 11/22/19 17 8:37 AM CDT documented as of this encounter Care Teams Webfocus Developer Relationship Specialty Start Date End Date Brennen Winchester M.D. [address] [place] [phone] PCP - General 04/05/22 documented as of this encounter
--- OUTSIDE RECORDS SUMMARY | 2024-03-31 07:25 | XMS_ITS | Encounter Summary ---
Author Organization [facility] Address [address] [place] [address] Care Team Providers Care Office Aide Name Role Phone Brennen Winchester M.D. Primary Care Provider Reason for Visit * Reason Onset Date Comments Pre-visit Intake 03/05/2024 Encounter Details Date Type Department Care Team (Latest Contact Info) Description 03/05/2024 9:15 AM CDT Clinical Communication Virtual Review in [place], [place] [address] [place] [address] Pre-visit Intake Social History Tobacco Use Types Packs/Day Years Used Date Smoking Tobacco: Never Smokeless Tobacco: Never Comments:none Alcohol Use Standard Drinks/Week Comments No 0 (1 standard drink = 0.6 oz pur e alcohol) [facility] Utilities Answer Date Recorded In the past 12 months has e [email or web address], gas, oil, or water [employer] threatened to shut off services in your [...] any clubs o r organizations such as yarsani groups, unions, fraternal or athletic groups, or [...] Answer Date Recorded PHQ-2 Score 0 01/18/2021 [facility] Questionnaire Answer Date [...] your living situation today? I have a [facility] place to live 11/30/2023 Education Answer Date [...] Outreach Division of Nephrology and Hypertension in [place], [place] [address] [place] [address] Checo Aguirre Jr., D.O. [address] [place] [phone] Arrived 04/24/2024 10:15 AM CDT Office Visit Department of Orthopedic Surgery in [place], [place] [address] [place] [phone] Latrell Antunez M.D. [address] [place] [phone] documented as of this encounter Visit Diagnoses Not on filedocumented in this encounter Additional Health Concerns Assessment Noted Time PHQ-9 Depression Total Score: 0 11/22/19 17 8:37 AM CDT documented as of this encounter Care Teams Office Aide Relationship Specialty Start Date End Date Brennen Winchester M.D. NPJohn: [phone] [address] [place] [address] [place] [phone] PCP - General 04/05/22 documented as of this encounter
--- OUTSIDE RECORDS SUMMARY | 2024-03-31 07:25 | XMS_ITS | Encounter Summary ---
Author Organization [facility] Address [address] [place] [address] Care Team Providers Care Licensed Retail Supervisor Name Role Phone Brennen Winchester M.D. Primary Care Provider Encounter Details Date Type Department Care Team (Late st Contact Info) Description 12/18/2023 Clinical Communication Department of Orthopedic Surgery in [place], [place] [address] [place] [address] Latrell Antunez M.D. [address] [place] [address] Social History Tobacco Use Types Packs/Day Years Used Date Smoking Tobacco: Never Smokeless Tobacco: Never Comments:none Alcohol Use Standard Drinks/Week Comments No 0 (1 standard drink = 0.6 oz pur e alcohol) [facility] Utilities Answer Date Recorded In the past 12 months has [facility] [employer], gas, oil, or water [employer] threatened to shut off services in your [...] any clubs o r organizations such as lutheran groups, unions, fraternal or athletic groups, or [...] Date Recorded PHQ-2 Score 0 01/18/2021 [facility] Occupat ional Health - [...] your living situation today? I have a [facility] place to live 11/30/2023 Education Answer [...] Outreach Division of Nephrology and Hypertension in [place], [place] [address] [place] [address] Checo Aguirre Jr., D.O. [address] [place] [phone] Arrived 04/24/2024 10:15 AM CDT Office Visit Department of Orthopedic Surgery in [place], [place] [address] [place] [phone] Latrell Antunez M.D. [address] [place] [phone] documented as of this encounter Visit Diagnoses Not on filedocumented in this encounter Additional Health Concerns Assessment Noted Time PHQ-9 Depression Total Score: 0 11/22/19 17 8:37 AM CDT documented as of this encounter Care Teams Licensed Retail Supervisor Relationship Specialty Start Date End Date Brennen Winchester M.D. NPJohn: [phone] [address] [place] [address] [place] [phone] PCP - General 04/05/22 documented as of this encounter
--- OUTSIDE RECORDS SUMMARY | 2024-03-31 07:25 | XMS_ITS | Encounter Summary ---
Author Organization [facility] Address [address] [place] [address] Care Team Providers Care Traffic Reporter Name Role Phone Brennen Winchester M.D. Primary Care Provider [phone] Encounter Details Date Type Department Care Team (Late st Contact Info) Description 12/24/2023 Orders Only Department of Orthopedic Surgery in [place], [place] [address] [place] [address] Sam Coburn M.D. [address] [place] [address] Social History Tobacco Use Types Packs/Day Years Used Date Smoking Tobacco: Never Smokeless Tobacco: Never Comments:none Alcohol Use Standard Drinks/Week Comments No 0 (1 standard drink = 0.6 oz pur e alcohol) [facility] Utilities Answer Date Recorded In the past 12 months has [facility] [employer], gas, oil, or water [employer] threatened to shut off services in your [...] any clubs o r organizations such as bahai groups, unions, fraternal or athletic groups, or [...] Answer Date Recorded PHQ-2 Score 0 01/18/2021 [facility] Occupat ional Health - [...] living situation today? I have a [facility] place to live 11/30/2023 Education Answer [...] Outreach Division of Nephrology and Hypertension in [place], [place] [address] [place] [address] Checo Aguirre Jr., D.O. [address] [place] [phone] Arrived 04/24/2024 10:15 AM CDT Office Visit Department of Orthopedic Surgery in [place], [place] [address] [place] [phone] Latrell Antunez M.D. [address] [place] [phone] documented as of this encounter Visit Diagnoses Not on filedocumented in this encounter Additional Health Concerns Assessment Noted Time PHQ-9 Depression Total Score: 0 11/22/19 17 8:37 AM CDT documented as of this encounter Care Teams Traffic Reporter Relationship Specialty Start Date End Date Brennen Winchester M.D. [address] [place] [address] [place] [phone] PCP - General 04/05/22 documented as of this encounter
--- OUTSIDE RECORDS SUMMARY | 2024-03-31 07:25 | XMS_ITS | Encounter Summary ---
Author Organization [facility] Address [address] [place] [address] Care Team Providers Care Technology Adoption Manager Name Role Phone Brennen Winchester M.D. Primary Care Provider Reason for Referral * Outpatient (Routine) - Closed Specialty Diagnoses / Procedures Referred By Sara schmid Referred To Contact Brennen Winchester M.D. [address] [place] [address] [facility] Referral ID Status Reason Start Date Expiration Date Visits Re quested Visits Authorized [id number] Closed 02/25/2024 08/26/2025 1 1 Scheduling Instructions Nurse AWV Do not schedule prior to due date to ensure insurance coverage Visit: Medicare Annual Wellness Never done. Encounter Details Date Type Department Care Team (Late st Contact Info) Description 02/25/2024 Orders Only [facility] PCP TH MNT Brennen Winchester M.D. [address] [place] [address] Social History Tobacco Use Types Packs/Day Years Used Date Smoking Tobacco: Never Smokeless Tobacco: Never Comments:none Alcohol Use Standard Drinks/Week Comments No 0 (1 standard drink = 0.6 oz pur e alcohol) [facility] Utilities Answer Date Recorded In the past 12 months has [employer], gas, oil, or water company threatened [...] week 09/07/2022 How often do you attend [facility] or religion services? More than 4 times per year [...] Answer Date Recorded PHQ-2 Score 0 01/18/2021 [facility]at ional Health [...] your living situation today? I have a [facility] place to live 11/30/2023 Education Answer [...] Outreach Division of Nephrology and Hypertension in [place], [place] [address] [place] [address] Checo Aguirre Jr., D.O. [address] [place] [address] Arrived 04/24/2024 10:15 AM CDT Office Visit Department of Orthopedic Surgery in [place], [place] [address] [place] [address] Latrell Antunez M.D. [address] [place] [address] Scheduled Referrals Name Type Priority Associated Diagnoses Orde r Schedule Primary Care nurse visit (clinic) - [facility]; Medicare Annual Wellness Outpatient Referral Routine Expected: 03/24/2024, Expires: 08/23/2024 documented as of this encounter Visit Diagnoses Not on filedocumented in this encounter Additional Health Concerns Assessment Noted Time PHQ-9 Depression Total Score: 0 11/22/19 17 8:37 AM CDT documented as of this encounter Care Teams Technology Adoption Manager Relationship Specialty Start Date End Date Brennen Winchester M.D. [address] [place] [phone] PCP - General 04/05/22 documented as of this encounter
--- OUTSIDE RECORDS SUMMARY | 2024-03-31 07:26 | XMS_ITS | Continuity of Care Document ---
Author Organization [facility] Address [address] [place] [address] Phone Care Team Providers Care Supervisor Title Name Role Phone Cory Horner MD Unavailable Unavailable Procedures Procedure Date Office/Outpatient Visit,[facility] 2019 Advance Directives Directive Yes / No Effective Date File Name No Information Encounters Encounter Description Practice Location Reason(s) For Visit Diagnoses Date Provider Providers Copied on Encounter [facility], [address], [place], [place], [id number], [place] tel:[phone] [facility] No Information 2 Mehbod Amir. [facility], [address] [place] [address] [address], [place], [place], [id number] , [place]. tel:[phone] Office/Outpat ient Visit, [facility], [address], [place], [place], [id number], [place] tel:[phone] [facility] - [place] Spondylolisth esis, lumbar regionSpinal stenosis, lumbar region with neurogenic claudication 0 Mehbod Amir. [facility], [address], [place], [place], [id number] , [place]. tel:[phone] Referring Provider: Checo Jimenez, [facility] [address] [place] [address], [address]. tel:[phone] Family History Family Member Type Diagnosis Age At Onset No Information Payers Payer name Insurance type Covered libertarian ID Authorjared power(s) [facility] [id number] Medicare [facility] [id number] 1 Social History Type Description Quantity Date [...]
== END 2024-03-26 07:58 | disposition home or self-care (01) ==
LOC: NFLDREF 03-31 07:22
PROVIDERS: Visit Provider Internal Medicine Nephrology
DX: E11.22 Type 2 diabetes mellitus with diabetic chronic kidney disease (principal); I12.9 Hypertensive chronic kidney disease with stage 1 through stage 4 chronic kidney disease, or unspecified chronic kidney disease; N18.32 Chronic kidney disease, stage 3b
CPT/HCPCS: 80061; 80069; 82043; 82306; 82570; 82728; 83540; 83550; 84450; 84460; 84550; 85610; 86140

== ENCOUNTER 2024-03-30 10:25 | Outpatient (CLI) | payer BC, SELFPAY ==
--- OUTSIDE RECORDS SUMMARY | 2024-04-02 12:56 | XMS_ITS | Clinical Summary ---
Author Organization [facility] Address [address] [place] [address] Care Team Providers Care Bottle Washer Name Role Phone Brennen Winchester M.D. Primary Care Provider [phone] Source Comments Patient records contain information from all sites at [facility]. For routine questions regarding patient records, call [phone] during business hours, M-F 8:00 AM - 5:00 PM Central Time. Record requests for emergency care only can be directed to [phone] at any time.[facility] Allergies Active Allergy Reactions Criticality [...] Active Problems Problem Noted Date Diagnosed Date Chronic Kidney Disease (CKD) , Stage 3b Glomerular Filtration Rate (GFR) 30 To 44 03/31/2024 Diabetes Mellitus Type 2 2023 Primary Osteoarthritis [...] Outreach Division of Nephrology and Hypertension in [place], [place] [address] [place] [address] Checo Aguirre Jr., D.O. Chronic Kidney Disease (CKD), Stage 3b Glomerular Filtration Rate (GFR) 30 To 44 (HCC) (Primary Dx); Hypertensive Chronic Kidney Disease With Stage 1 Through Stage 4 Chronic Kidney Disease, Or Unspecified Chronic Kidney Disease; Diabetes Mellitus Type 2 With Diabetic Chronic Kidney Disease (HCC); Hyperparathyroidism Renal Secondary (HCC) 03/24/2024 11:00 AM CDT Telemedicine Department of Family Medicine, [facility], in [place] [address] [place] [phone] Brennen Winchester M.D. Simon, Keri J, R.N. Annual Medicare Examination Return (Primary Dx) 03/23/2024 3:30 PM CDT Office Visit Department of Orthopedic Surgery in [place], [place] [address] [place] [phone] Sam Coburn M.D. Arthroplasty Total Knee Replacement Status Post Right (Primary Dx) 03/23/2024 2:12 PM CDT - 03/23/2024 11:59 PM CDT Hospital Encounter Department of Radiology, [facility] in [place], [place] [address] [place] [phone] Pierre Del Real M.D. Primary Osteoarthritis Knee Right Discharge Disposition: Home or Self Care 03/20/2024 1:15 PM CDT Clinical Communication Virtual Review in [address] [address] Pre-visit Intake 03/06/2024 12:00 PM CDT Office Visit Department of Orthopedic Surgery in [address] [address] Latrell Antunez M.D. Trigger Finger Thumb Right (Primary Dx); Pain Shoulder Right 03/05/2024 9:15 AM CDT Clinical Communication Virtual Review in [address] [phone] Pre-visit Intake 02/25/2024 Refill Department of [facility], in [place], [place] [address] [place] [address] Brennen Winchester M.D. Med Refill 02/25/2024 Orders Only [facility] Brennen Winchester M.D. 02/18/2024 Refill Department of [facility], [facility], in [place], [place] [address] [place] [address] Brennen Winchester M.D. Med Refill 02/03/2024 Clinical Communication Department of [facility], in [address] [address] Brennen Winchester M.D. Health Maintenance 01/23/2024 4:00 PM CDT Office Visit Department of Orthopedic Surgery in [place], [place] [address] [place] [address] Latrell Antunez M.D. Pain Shoulder Right (Primary [...] Diabetes Brother Richie Hamrum Hyperlipidemia Brother Richie Crespo Hypertension Brother Richie Crespo Knee replacement Brother Richie Crespo Arthritis Father Clark Crespo [...] 0.6 oz pur e alcohol) [facility] Utilities Answer Date Recorded In the [...] often do you attend chur ch or druze services? More than 4 times per year 09/07/2022 Do you belong to any clubs o r organizations such as tenriism groups, unions, fraternal or athletic groups, or [...] Answer Date Recorded PHQ-2 Score 0 03/24/2024 [facility] - Occupational [...] your living situation today? I have a [facility] [facility] [employer] place to live 11/30/2023 Education Answer Date [...] Sign Reading Time Taken Comments Blood Pressure 122/60 03/31/2024 7:56 AM CDT Pulse 77 03/31/2024 7:56 AM CDT Temperature 36.2 ??C (97.2 ??F) 11/30/2023 8:34 AM CD T Respiratory Rate 14 11/30/2023 8:34 AM CDT Oxygen Saturation 96% 11/30/2023 8:34 AM CDT Inhaled Oxygen Concentration - - Weight 57.8 kg (127 lb 6.8 oz) 03/31/2024 7:56 A M CDT Height 167.6 cm (5' 6) 03/31/2024 7:56 AM CDT Body Mass Index 20.57 03/31/2024 7:56 AM CDT Plan of Treatment Upcoming Encounters Date Type Department Care Team (Late st Contact Info) Description 04/24/2024 10:15 AM CDT Office Visit Department of Orthopedic Surgery in [place], [place] [address] [place] [address] Latrell Antunez M.D. [address] [place] [address] Health Maintenance Due Date Last Done Comments [...] Additional history exists Influenza Vaccine (#1) 2024 3, 04/30/2022, 05/19/2021, Additional history exists Hemoglobin A1C [...] 11/29/2024 11/30/2023, 11/28/2023, 11/08/2023, Additional history exists Visit: Medicare Annual Wellness 03/25/2025 Office Visit for Blood Press ure Check / Re-check 03/31/2025 03/31/2024 Lipid (Cholesterol) Screening 11/23/2027, 06/16/2019, 11/25/2017, Additional [...] Completed 03/24/2024 Medical Devices Implanted Type Area Adoption Agent Device Identifier Shelf Expiration Date Model / Serial / Lot Cmnt Bn Smp 40gm - [id number] Implanted:Qty: 1 on 12/07/2022 by Sam Coburn M.D. at [facility] Bone Cement Left: Knee Goyo 6191-100 1 / / Cmnt Bn Smp 20gm - [id number] Implanted:Qty: 1 on 12/07/2022 by Sam Coburn M.D. at [facility] Bone Cement Left: Knee [place] 6188-1-00 1 / / Cmnt Bn Smp 40gm - [id number] Implanted:Qty: 1 on 11/29/2023 by Sam Coburn M.D. at [facility] Bone Cement Right: Knee [place] 6191-1- 1 / / Cmnt Bn Smp 20gm - [id number] Implanted:Qty: 1 on 11/29/2023 by Sam Coburn M.D. at [facility] Bone Cement Right: Knee [place] 6188- 1 / / K-Wire-Ss 4 Smooth .045 - [id number] Implanted:Qty: 1 on 01/05/2014 Hardware e.g. pins/screws /rods Mouth [place] Description:Device Manufactu rer - Goyo Jr.. Device Status Text - HARDWARE-872. Hip Implant Hip Implant Right: Hip Description:2019 Kn Stm Prs Cmnt 14x30 - [id number] Implanted:Qty: 1 on 12/07/2022 by Sam Coburn M.D. at [facility] Knee Implant Left: Knee [employer] 10/30/2032 42-5570-0 09-01 [id number] Persona Viavacit E Highly Crosslinked Polyethylene Left 10mm Use With Tibia E-F Cr Femur 8-11 Implanted:Qty: 1 on 12/07/2022 by Sam Coburn M.D. at [facility] Knee Implant Left: Knee [employer] [id number] 05/15/2027 42-5121-0 08 [id number] Pat Prs 8.5x32 - [id number] Implanted:Qty: 1 on 12/07/2022 by Sam Coburn M.D. at [facility] Knee Implant Left: Knee [employer] 10/01/2027 42-5400-0 [id number] Kn Fem Prs Lt Cmnt Jensen Sz-10 - [id number] Implanted:Qty: 1 on 12/07/2022 by Sam Coburn M.D. at [facility] Knee Implant Left: Knee [employer] 05/09/2031 42-5020-0 68- [id number] Bsplt Tib Prs Lt 5d Rosalie - [id number] Implanted:Qty: 1 on 12/07/2022 by Sam Coburn M.D. at [facility] Knee Implant Left: Knee [employer] 05/14/2032 42-5320-0 71- [id number] Pat Prs 8.5x32 - [id number] Implanted:Qty: 1 on 11/29/2023 by Sam Coburn M.D. at [facility] Knee Implant Right: Patella [employer] 01/08/2028 42-5400-0 00-32 / / [id number] Kn Fem Prs Rt Cmnt Jensen Sz-10 - [id number] Implanted:Qty: 1 on 11/29/2023 by Sam Coburn M.D. at [facility] Knee Implant Right: Patella [employer] 07/01/2033 42-5020-0 68-02 / / [id number] Kn Stm Prs Cmnt 14x30 - [id number] Implanted:Qty: 1 on 11/29/2023 by Sam Coburn M.D. at [facility] Knee Implant Right: Patella [employer] 09/01/2033 42-5570-0 01-14 / / [id number] Bsplt Tib Prs Rt 5d Rosalie - [id number] Implanted:Qty: 1 on 11/29/2023 by Sam Coburn M.D. at [facility] Knee Implant Right: Patella [employer] 12/18/2032 42-5320-0 71-02 / / [id number] Ins Tib Prs Mc Rm Sz8-11ef 10 - [id number] Implanted:Qty: 1 on 11/29/2023 by Sam Coburn M.D. at [facility] Knee Implant Right: Patella [employer] 08/20/2028 42-5221-0 08-10 / / [id number] Ocular Lens Ocular Lens Bilateral: Eye Procedures Procedure Name Priority Date/Time Associated Diagnosis Comments DX KNEE RIGHT 3 VIEWS RAD - Routine (most inpatients and all outpatients) 03/23/2024 2:28 PM CDT Primary Osteoarthritis Knee Right SMALL JOINT INJECTION HAND/WRIST Routine 03/06/2024 12:00 PM CDT Trigger Finger Thumb Right TX ARTHCS ASP/INJ MJR JT WO US Routine [...] inpatients and all outpatients) 10/02/2023 1:08 PM CLOTHING MANAGER Screening Mammogram Breast Cancer ALBUMIN, RANDOM, U [...] Antunez M.D. PROCEDURE/MINOR SURG ICAL ORDERABLES * TX ARTHCS ASP/INJ MJR JT WO US (01/23/2024 [...] PROCEDURE/MINOR SURG ICAL ORDERABLES Performing Organization Address City/[facility]/ZIP Co de Phone Number MMODAL NA [...] M.D. LAB BLOOD ADD-ON Performing Organization Address City/[facility] Co de Phone Number [facility] [address] [place] [address], [facility] DTL [facility] [address] [place] [address] * (ABNORMAL) Hemoglobin A1c (11/28/2023 7:43 AM [...] CDT Sam Coburn M.D. LAB BLOOD ADD-ON [facility] [address] [place] [address], [facility] DTL [facility] [address] [place] [address] * (ABNORMAL) Basic Metabolic Panel (11/28/2023 7:42 [...] CDT Sam Coburn M.D. LAB BLOOD ADD-ON [facility] [address] [place] [address], [place] DTL [facility] [address] [place] [address] * BI Breast Screening Bilateral with Tomosynthesis (10/02/2023 1:08 PM CLOTHING MANAGER) Anatomical Region Laterality Modality Breast, Breast Imaging RST L OS, Breast Imaging ARZ LOS, Breast Imaging FLA LOS Bilateral Mammography Impressions 10/02/2023 1:35 PM CLOTHING MANAGER Negative. RECOMMENDATION: ??Annual Screening Mammogram ASSESSMENT: ??BI-RADS: 1: Negative. Narrative 10/02/2023 1:35 PM CLOTHING MANAGER EXAM: ??BI BREAST SCREENING BILATERAL WITH TOMOSYNTHESIS [...] APRN, C.N.P., R.N. LAB UR INE ORDERABLES [facility] [address] [place] [address], [facility] OWAT [facility] [place] [address] [place] [address] * Lipid Panel (11/22/2022 7:39 AM CDT) [...] M.D. LAB BLOOD ADD-ON [facility] [address] [place] [address], [place] [facility] in [place] [address] [place] [address] from Last 3 Months or Most Recently Relevant to Health Maintenance Care Teams Bottle Washer Relationship Specialty Start Date End Date Brennen Winchester M.D. [address] [place] [phone] PCP - General 04/05/22
--- OUTSIDE RECORDS SUMMARY | 2024-04-02 12:57 | XMS_ITS | Encounter Summary ---
Author Organization [facility] Address [address] [place] [address] Care Team Providers Care Disc Pad Plate Filler Name Role Phone Brennen Winchester M.D. Primary Care Provider [phone] Reason for Visit * Reason Comments Med Refill Encounter Details Date Type Department Care Team (Late st Contact Info) Description 02/18/2024 Refill Department of Family Medicine, [facility], in [address] [address] Brennen Winchester M.D. [address] [place] [address] Med Refill Social History Tobacco Use Types Packs/Day Years Used Date Smoking Tobacco: Never Smokeless Tobacco: Never Comments:none Alcohol Use Standard Drinks/Week Comments No 0 (1 standard drink = 0.6 oz pur e alcohol) [facility] Utilities Answer Date Recorded In the past 12 months has [facility] [employer], oil, or water [employer] threatened to shut off services in your [...] Answer Date Recorded PHQ-2 Score 0 01/18/2021 [facility] - Occupational [...] living situation today? I have a [facility] place to live 11/30/2023 Education [...] Office Visit Department of Orthopedic Surgery in [place], [place] [address] [place] [address] Latrell Antunez M.D. [address] [place] [address] documented as of this encounter Visit Diagnoses Diagnosis Hypercholesterolemia documented in this encounter Additional Health Concerns Assessment Noted Time PHQ-9 Depression Total Score: 0 11/22/19 17 8:37 AM CDT documented as of this encounter Care Teams Disc Pad Plate Filler Relationship Specialty Start Date End Date Brennen Winchester M.D. [address] [place] [phone] PCP - General 04/05/22 documented as of this encounter
--- OUTSIDE RECORDS SUMMARY | 2024-04-02 12:57 | XMS_ITS | Encounter Summary ---
Author Organization [facility] Address [address] [place] [address] Care Team Providers Care Seat Scooper Machine Name Role Phone Brennen Winchester M.D. Primary Care Provider [phone] Reason for Visit * Appointment Request (Routine) - Closed Specialty Diagnoses / Procedures Referred By Sara schmid Referred To Contact Nephrology and Hypertension Referral ID Status Reason Start Date Expiration Date Visits Re quested Visits Authorized [id number] Closed 02/28/2024 02/27/2025 1 1 Encounter Details Date Type Department Care Team (Latest Contact Info) Description 03/31/2024 8:00 AM CDT External Outreach Division of Nephrology and Hypertension in [place], [place] [address] [place] [address] Checo Aguirre Jr., D.O. [address] [place] [address] Chronic Kidney Disease (CKD), Stage 3b Glomerular Filtration Rate (GFR) 30 To 44 (HCC) (Primary Dx); Hypertensive Chronic Kidney Disease With Stage 1 Through Stage 4 Chronic Kidney Disease, Or Unspecified Chronic Kidney Disease; Diabetes Mellitus Type 2 With Diabetic Chronic Kidney Disease (HCC); Hyperparathyroidism Renal Secondary (HCC) Social History Tobacco Use Types Packs/Day Years Used Date Smoking Tobacco: Never Smokeless Tobacco: Never Comments:none Alcohol Use Standard Drinks/Week Comments No 0 (1 standard drink = 0.6 oz pur e alcohol) [facility] Utilities Answer Date Recorded In the past 12 months has [employer], gas, oil, or water company threatened [...] How often do you attend [facility] or spiritism services? More than 4 times per year 09/07/2022 Do you belong to any clubs o r organizations such as religious groups, unions, fraternal or athletic groups, or [...] Date Recorded PHQ-2 Score 0 03/24/2024 [facility] of Occupat ional Health - Occupational Stress [...] your living situation today? I have a [facility] place to live 11/30/2023 Education Answer [...] Pulse 77 03/31/2024 7:56 AM CDT Temperature - - Respiratory Rate - - Oxygen Saturation - - Inhaled Oxygen Concentration - - Weight 57.8 kg (127 lb 6.8 oz) 03/31/2024 7:56 A M CDT Height 167.6 cm (5' 6) 03/31/2024 7:56 AM CDT Body Mass Index 20.57 03/31/2024 7:56 AM CDT documented in this encounter Progress Notes * Checo Aguirre Jr., D.Erika - 03/31/2024 8:00 AM CDT Referring Provider: Brennen Winchester M.D. 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 Sands is a 73 y.o. female who presents with CKD stage IIIB on the background of longstanding hypertension, diabetes mellitus type 2, who has had multiple orthopedic issues. Her hemoglobin A1c has been excellent she has been free of any hypoglycemic events. She is still troubled quite a bit by her back pain, but her knees are much better, in her trigger fingers have not been nearly as problematic. Her blood pressure has been excellent, she has had no orthostatic symptoms no lower extremity swelling, she is adherent to a low-sodium diet. She is not a vegan. Past Medical History: Diagnosis Date Cataract 2013 Diabetes Mellitus Type 2 (HCC) 11/21/2016 DM II (or NOS), controlled Diabetes Mellitus Type 2 With Diabetic Chronic Kidney Disease (HCC) 11/21/2016 DM II (or NOS), controlled Gallbladder Disorder cholecystectomy 06/2010 Hypercholesterolemia 11/21/2016 Hypertension And Chronic Kidney Disease Stage 4 11/21/2016 Hypertension (HTN) Essential Primary NOS Hypertension Essential Primary 11/21/2016 Hypertension (HTN) Essential Primary NOS Loss Hearing Sensorineural Bilateral 10/26/2015 Osteopenia 09/27/2009 Other Injury Of Unspecified Body Region Right hip, 01/17/20 JACKIE Other Specified Health Status arthritis Post Operative Nausea/Vomiting Vitiligo 08/10/2016 Current Outpatient Medications: acetaminophen (TYLENOL) 500 mg tablet, Take 2 tablets (1,000 mg total) by mouth every 6 (six) hoursas needed for pain., Disp: , Rfl: amoxicillin (AMOXIL) 500 mg capsule, Take 4 capsules (2,000 mg total) by mouth as directed. Prior to dental procedures, Disp: 4 capsule, Rfl: 1 blood glucose ctl high,nml,low solution, Glucose control solution provides an easy way to ensure accurate blood glucose testing., Disp: 1 each, Rfl: 0 blood-glucose meter misc, Contour Next One meter. Test once daily., Disp: 1 each, Rfl: 0 Contour Next Test Strips, TEST 1 TIME PER DAY, Disp: 90 strip, Rfl: 3 lancets (Microlet Lancet), USE TO TEST BLOOD SUGAR ONCE DAILY, Disp: 100 each, Rfl: 3 lisinopril-hydroCHLOROthiazide (PRINZIDE,ZESTORETIC) 10-12.5 mg per tablet, Take 1 tablet by mouth at bedtime. HOLD until follow up with primary care provider, Disp: 90 tablet, Rfl: 3 metFORMIN XR (GLUCOPHAGE-XR) 500 mg 24 hr tablet, Take 2 tablets (1,000 mg total) by mouth daily with breakfast., Disp: 180 tablet, Rfl: 3 simvastatin (Zocor) 20 mg tablet, TAKE ONE TABLET BY MOUTH AT BEDTIME ., Disp: 90 tablet, Rfl: 3 REVIEW OF SYSTEMS All other systems reviewed and are negative. OBJECTIVE BP 122/60 Pulse 77 Ht 167.6 cm Wt 57.8 kg BMI 20.57 kg/m?? PHYSICAL EXAMINATION General: Awake alert oriented HEENT: NEHEMIAS, EOMI, Mucous membranes moist, no oral lesions Neck: No Masses, No Bruits Lungs: Clear to ascultation Heart: Regular Rate and Rhythm, No ectopy Murmurs or rubs Abdomen: Soft, Non-tender Extremities: No cyanosis, No clubbing: No edema Neuro: Cranial Nerves intact, Gait is normal, strength grossly normal Skin: no suspicious lesions identified Psychiatric: Normal affect DIAGNOSTICS Note hemoglobin A1c 6.7%, creatinine 1.6 mg/dL, microalbumin to creatinine ratio is 20 milligrams/gram hemoglobin is 12.0 ASSESSMENT / PLAN #1 Chronic Kidney Disease (CKD), Stage 3b Glomerular Filtration Rate (GFR) 30 To 44 (HCC) I congratulated her on the stability of her renal function. Going forward: 1. Goal blood pressures less than 130/80-achieved 2. Goal glycosylated hemoglobin less than 8%, achieved 3. Low-sodium diet less than 2500 mg sodium per day 4. No NSAIDs or [place] 2 inhibitors 5. I will see her back in November of 2024 to coordinate care with her primary care team based out of [place]. #2 Hypertensive Chronic Kidney Disease With Stage 1 Through Stage 4 Chronic Kidney Disease, Or Unspecified Chronic Kidney Disease Her goal blood pressures have been achieved we will continue with lisinopril/hydrochlorothiazide, low-sodium diet. #3 Diabetes Mellitus Type 2 With Diabetic Chronic Kidney Disease (HCC) Excellent glycemic control we will continue with her current metformin therapy. While she may be a candidate for GLP 1 agonist, or SG LT 2 antagonist, at this point I believe we should continue with the current regimen. #4 Hyperparathyroidism Renal Secondary (HCC) I am satisfied with her calcium and phosphorus. Total time: 30 minutes Counseling Time: 20 minutes Checo Aguirre Jr., D.O. documented in this encounter Plan of Treatment Upcoming Encounters Date Type Department Care Team (Late st Contact Info) Description 04/24/2024 10:15 AM CDT Office Visit Department of Orthopedic Surgery in [place], [place] [address] [place] [phone] Latrell Antunez M.D. [address] [place] [address] Scheduled Orders Name Type Priority Associated Diagnoses Orde r Schedule CBC with Differential, Blood Lab Routine Chronic Kidney Disease (CKD), Stage 3b Glomerular Filtration Rate (GFR) 30 To 44 (HCC) Hypertension And Chronic Kidney Disease Stage 1 To 4 Diabetes Mellitus Type 2 With Diabetic Chronic Kidney Disease (HCC) Hyperparathyroidism Renal Secondary (HCC) Expected: 11/29/2024, Expires: 03/31/2025 Ferritin Lab Routine Chronic Kidney Disease (CKD), Stage 3b Glomerular Filtration Rate (GFR) 30 To 44 (HCC) Hypertension And Chronic Kidney Disease Stage 1 To 4 Diabetes Mellitus Type 2 With Diabetic Chronic Kidney Disease (HCC) Hyperparathyroidism Renal Secondary (HCC) Expected: 11/29/2024, Expires: 03/31/2025 Hemoglobin A1c Lab Routine Chronic Kidney Disease (CKD), Stage 3b Glomerular Filtration Rate (GFR) 30 To 44 (HCC) Hypertension And Chronic Kidney Disease Stage 1 To 4 Diabetes Mellitus Type 2 With Diabetic Chronic Kidney Disease (HCC) Hyperparathyroidism Renal Secondary (HCC) Expected: 11/29/2024, Expires: 03/31/2025 Iron and Total Iron-Binding Capacity Lab Routine Chronic Kidney Disease (CKD), Stage 3b Glomerular Filtration Rate (GFR) 30 To 44 (HCC) Hypertension And Chronic Kidney Disease Stage 1 To 4 Diabetes Mellitus Type 2 With Diabetic Chronic Kidney Disease (HCC) Hyperparathyroidism Renal Secondary (HCC) Expected: 11/29/2024, Expires: 03/31/2025 Albumin, Random, Urine Lab Routine Chronic Kidney Disease (CKD), Stage 3b Glomerular Filtration Rate (GFR) 30 To 44 (HCC) Hypertension And Chronic Kidney Disease Stage 1 To 4 Diabetes Mellitus Type 2 With Diabetic Chronic Kidney Disease (HCC) Hyperparathyroidism Renal Secondary (HCC) Expected: 11/29/2024, Expires: 03/31/2025 Lipid Panel Lab Routine Chronic Kidney Disease (CKD), Stage 3b Glomerular Filtration Rate (GFR) 30 To 44 (HCC) Hypertension And Chronic Kidney Disease Stage 1 To 4 Diabetes Mellitus Type 2 With Diabetic Chronic Kidney Disease (HCC) Hyperparathyroidism Renal Secondary (HCC) Expected: 11/29/2024, Expires: 07/01/2025 Parathyroid Hormone (PTH) Lab Routine Chronic Kidney Disease (CKD), Stage 3b Glomerular Filtration Rate (GFR) 30 To 44 (HCC) Hypertension And Chronic Kidney Disease Stage 1 To 4 Diabetes Mellitus Type 2 With Diabetic Chronic Kidney Disease (HCC) Hyperparathyroidism Renal Secondary (HCC) Expected: 11/29/2024, Expires: 03/31/2025 Renal Function Panel Lab Routine Chronic Kidney Disease (CKD), Stage 3b Glomerular Filtration Rate (GFR) 30 To 44 (HCC) Hypertension And Chronic Kidney Disease Stage 1 To 4 Diabetes Mellitus Type 2 With Diabetic Chronic Kidney Disease (HCC) Hyperparathyroidism Renal Secondary (HCC) Expected: 11/29/2024, Expires: 03/31/2025 Urinalysis, with Microscopic: Urine, Voided Lab Routine Chronic Kidney Disease (CKD), Stage 3b Glomerular Filtration Rate (GFR) 30 To 44 (HCC) Hypertension And Chronic Kidney Disease Stage 1 To 4 Diabetes Mellitus Type 2 With Diabetic Chronic Kidney Disease (HCC) Hyperparathyroidism Renal Secondary (HCC) Expected: 11/29/2024, Expires: 03/31/2025 documented as of this encounter Visit Diagnoses Diagnosis Chronic Kidney Disease (CKD), Stage 3b Glomerular Filtration Rate (GFR) 30 To 44 (HCC)- Primary Hypertensive Chronic Kidney Disease With Stage 1 Through Stage 4 Chronic Kidney Disease, Or Unspecified Chronic Kidney Disease Diabetes Mellitus Type 2 With Diabetic Chronic Kidney Disease (HCC) Hyperparathyroidism Renal Secondary (HCC) documented in this encounter Additional Health Concerns Assessment Noted Time PHQ-9 Depression Total Score: 0 03/24/20 24 11:13 AM CDT documented as of this encounter Care Teams Seat Scooper Machine Relationship Specialty Start Date End Date Brennen Winchester M.D. [address] [place] [phone] PCP - General 04/05/22 documented as of this encounter
--- OUTSIDE RECORDS SUMMARY | 2024-04-02 12:57 | XMS_ITS | Encounter Summary ---
Author Organization [facility] Address [address] [place] [address] Care Team Providers Care Nurse Head Name Role Phone Brennen Winchester M.D. Primary Care Provider Reason for Visit * Reason Onset Date Comments Med Refill 12/12/2023 tramadol Encounter Details Date Type Department Care Team (Latest Contact Info) Description 12/12/2023 Clinical Communication Department of Orthopedic Surgery in [place], [place] [address] [place] [phone] Sam Coburn M.D. [address] [place] [phone] Med Refill (tramadol) Social History Tobacco Use Types Packs/Day Years Used Date Smoking Tobacco: Never Smokeless Tobacco: Never Comments:none Alcohol Use Standard Drinks/Week Comments No 0 (1 standard drink = 0.6 oz pur e alcohol) [facility] Utilities Answer Date Recorded In the past 12 months has [facility] [employer], oil, or water [employer] threatened to shut off services in your [...] often do you attend chur ch or moravian services? More than 4 times per year 09/07/2022 Do you belong to any clubs o r organizations such as caodaism groups, unions, fraternal or athletic groups, or [...] Answer Date Recorded PHQ-2 Score 0 01/18/2021 [facility] - Occupational [...] your living situation today? I have a [facility] place to live 11/30/2023 Education Answer [...] Office Visit Department of Orthopedic Surgery in [place], [place] [address] [place] [address] Latrell Antunez M.D. [address] [place] [address] documented as of this encounter Visit Diagnoses Not on filedocumented in this encounter Additional Health Concerns Assessment Noted Time PHQ-9 Depression Total Score: 0 11/22/19 17 8:37 AM CDT documented as of this encounter Care Teams Nurse Head Relationship Specialty Start Date End Date Brennen Winchester M.D. [address] [place] [phone] PCP - General 04/05/22 documented as of this encounter
--- OUTSIDE RECORDS SUMMARY | 2024-04-02 12:57 | XMS_ITS | Encounter Summary ---
Author Organization [facility] Address [address] [place] [address] Care Team Providers Care Pipe Fitter Helper Name Role Phone Brennen Winchester M.D. Primary Care Provider [phone] Reason for Visit * Outpatient (Routine) - Closed Specialty Diagnoses / Procedures Referred By Sara schmid Referred To Contact Diagnoses Primary Osteoarthritis Knee Right Procedures DX Knee Right 3 Views DX Knee Right 2 View Pierre Del Real M.D. [facility] Referral ID Status Reason Start Date Expiration Date Visits Re quested Visits Authorized [id number] Closed 11/29/2023 11/28/2024 1 1 Encounter Details Date Type Department Care Team (Latest Contact Info) Description 03/23/2024 2:12 PM CDT - 03/23/2024 11:59 PM CDT Hospital Encounter Department of Radiology, [facility], in [place], [place] [address] [place] [address] Pierre Del Real M.D. Primary Osteoarthritis Knee Right Discharge Disposition: Home or Self Care Social History Tobacco Use Types Packs/Day Years Used Date Smoking Tobacco: Never Smokeless Tobacco: Never Comments:none Alcohol Use Standard Drinks/Week Comments No 0 (1 standard drink = 0.6 oz pur e alcohol) [facility] Utilities Answer Date Recorded In the past [...] How often do you attend chur or scientologist services? More than 4 times per year [...] Answer Date Recorded PHQ-2 Score 0 03/24/2024 [facility] - Occupational Stress Questionnaire Answer Date [...] your living situation today? I have a [facility] place to live 11/30/2023 Education [...] Office Visit Department of Orthopedic Surgery in [place], [place] [address] [place] [address] Latrell Antunez M.D. [address] [place] [address] documented as of this encounter Procedures Procedure [...] calcifications. Left TKA. Pierre Del Real M.D. [facility] PROCEDURES documented in this encounter Visit Diagnoses Diagnosis Primary Osteoarthritis Knee Right documented in this encounter Additional Health Concerns Assessment Noted Time PHQ-9 Depression Total Score: 0 11/22/19 17 8:37 AM CDT documented as of this encounter Care Teams Pipe Fitter Helper Relationship Specialty Start Date End Date Brennen Winchester M.D. [address] [place] [phone] PCP - General 04/05/22 documented as of this encounter
--- OUTSIDE RECORDS SUMMARY | 2024-04-02 12:57 | XMS_ITS | Encounter Summary ---
Author Organization [facility] Address [address] [place] [address] Care Team Providers Care Lens Molder Name Role Phone Brennen Winchester M.D. Primary Care Provider [phone] Reason for Referral * Outpatient (Routine) - Closed Specialty Diagnoses / Procedures Referred By Sara schmid Referred To Contact Brennen Winchester M.D. [address] [place] [address] [facility] Referral ID Status Reason Start Date Expiration Date Visits Re quested Visits Authorized [id number] Closed 02/25/2024 08/26/2025 1 1 Scheduling Instructions Nurse AWV Do not schedule prior to due date to ensure insurance coverage Visit: Medicare Annual Wellness Never done. Encounter Details Date Type Department Care Team (Late st Contact Info) Description 02/25/2024 Orders Only [facility] PCP TH MNT Brennen Winchester M.D. [address] [place] [address] Social History Tobacco Use Types Packs/Day Years Used Date Smoking Tobacco: Never Smokeless Tobacco: Never Comments:none Alcohol Use Standard Drinks/Week Comments No 0 (1 standard drink = 0.6 oz pur e alcohol) [facility] Utilities Answer Date Recorded In the past 12 months has [employer], gas, oil, or water company threatened [...] week 09/07/2022 How often do you attend [facility] or yarsanism services? More than 4 times [...] Answer Date Recorded PHQ-2 Score 0 01/18/2021 [facility] of Occupat ional Health - Occupational [...] your living situation today? I have a [facility] place to live 11/30/2023 Education Answer [...] Office Visit Department of Orthopedic Surgery in [place], [place] [address] [place] [address] Latrell Antunez M.D. [address] [place] [address] Scheduled Referrals Name Type Priority Associated Diagnoses Orde r Schedule Primary Care nurse visit (clinic) - [facility]; Medicare Annual Wellness Outpatient Referral Routine Expected: 03/24/2024, Expires: 08/23/2024 documented as of this encounter Visit Diagnoses Not on filedocumented in this encounter Additional Health Concerns Assessment Noted Time PHQ-9 Depression Total Score: 0 11/22/19 17 8:37 AM CDT documented as of this encounter Care Teams Lens Molder Relationship Specialty Start Date End Date Brennen Winchester M.D. [address] [place] [phone] PCP - General 04/05/22 documented as of this encounter
--- OUTSIDE RECORDS SUMMARY | 2024-04-02 12:57 | XMS_ITS | Encounter Summary ---
Author Organization [facility] Address [address] [place] [address] Care Team Providers Care Nutrition And Dietetics Instructor Name Role Phone Brennen Winchester M.D. Primary Care Provider Reason for Visit * Reason Onset Date Comments Health Maintenance 02/03/2024 Encounter Details Date Type Department Care Team (Latest Contact Info) Description 02/03/2024 Clinical Communication Department of Family Medicine, [facility], in [place], [place] [address] [place] [address] Brennen Winchester M.D. [address] [place] [address] Health Maintenance Social History Tobacco Use Types Packs/Day Years Used Date Smoking Tobacco: Never Smokeless Tobacco: Never Comments:none Alcohol Use Standard Drinks/Week Comments No 0 (1 standard drink = 0.6 oz pur e alcohol) [facility] Utilities Answer Date Recorded In the past 12 months has [facility] [employer] gas, oil, or water [employer] threatened to shut off services in your [...] How often do you attend chur or lutheran services? More than 4 times per year [...] your living situation today? I have a [facility] place to live 11/30/2023 Education [...] includes: Patient Unavailable at Time of Call, [facility] Will Call Back The [facility] team will contact the patient again in 2 months. Additional services offered: None Talya Andrew Preventative Health Specialist documented in this encounter Plan of Treatment Upcoming Encounters Date Type Department Care Team (Late st Contact Info) Description 04/24/2024 10:15 AM CDT Office Visit Department of Orthopedic Surgery in [place], [place] [address] [place] [address] Latrell Antunez M.D. [address] [place] [address] documented as of this encounter Visit Diagnoses Not on filedocumented in this encounter Additional Health Concerns Assessment Noted Time PHQ-9 Depression Total Score: 0 11/22/19 17 8:37 AM CDT documented as of this encounter Care Teams Nutrition And Dietetics Instructor Relationship Specialty Start Date End Date Brennen Winchester M.D. [address] [place] [phone] PCP - General 04/05/22 documented as of this encounter
--- OUTSIDE RECORDS SUMMARY | 2024-04-02 12:57 | XMS_ITS | Encounter Summary ---
Author Organization [facility] Address [address] [place] [address] Care Team Providers Care Facs Teacher Name Role Phone Brennen Winchester M.D. Primary Care Provider [phone] Encounter Details Date Type Department Care Team (Late st Contact Info) Description 12/24/2023 Orders Only Department of Orthopedic Surgery in [place], [place] [address] [place] [address] Sam Coburn M.D. [address] [place] [address] Social History Tobacco Use Types Packs/Day Years Used Date Smoking Tobacco: Never Smokeless Tobacco: Never Comments:none Alcohol Use Standard Drinks/Week Comments No 0 (1 standard drink = 0.6 oz pur e alcohol) [facility] Utilities Answer Date Recorded In the past 12 months has [facility] [employer], gas, oil, or water [employer] threatened to shut off services in your [...] Answer Date Recorded PHQ-2 Score 0 01/18/2021 [facility] of Occupat ional Health - Occupational [...] your living situation today? I have a [facility] place to live 11/30/2023 Education Answer [...] Office Visit Department of Orthopedic Surgery in [place], [place] [address] [place] [address] Latrell Antunez M.D. [address] [place] [address] documented as of this encounter Visit Diagnoses Not on filedocumented in this encounter Additional Health Concerns Assessment Noted Time PHQ-9 Depression Total Score: 0 11/22/19 17 8:37 AM CDT documented as of this encounter Care Teams Facs Teacher Relationship Specialty Start Date End Date Brennen Winchester M.D. [address] [place] [phone] PCP - General 04/05/22 documented as of this encounter
--- OUTSIDE RECORDS SUMMARY | 2024-04-02 12:57 | XMS_ITS | Encounter Summary ---
Author Organization [facility] Address [address] [place] [address] Care Team Providers Care Real Estate Listing Consultant Name Role Phone Brennen Winchester M.D. Primary Care Provider [phone] Reason for Referral * Outpatient (Routine) - Authorized Specialty Diagnoses / Procedures Referred By Contac t Referred To Contact Diagnoses Trigger Finger Thumb Right Procedures hand-wrist: R thumb A1 sheath Latrell Antunez M.D. [address] [place] [phone] [facility] Referral ID Status Reason Start Date Expiration Date V isits Requested Visits Authorized [id number] Authorized 03/07/2024 03/07/2025 1 1 * Outpatient (Routine) - Authorized Specialty Diagnoses / Procedures Referred By Contac t Referred To Contact Orthopedic Surgery Latrell Antunez M.D. [address] [place] [address] [facility] Referral ID Status Reason Start Date Expiration Date V isits Requested Visits Authorized [id number] Authorized 03/06/2024 09/05/2025 1 1 Reason for Visit * Outpatient (Routine) - Closed Specialty Diagnoses / Procedures Referred By Contac t Referred To Contact Orthopedic Surgery Latrell Antunez M.D. [address] [place] [address] [facility] Referral ID Status Reason Start Date Expiration Date Visits Re quested Visits Authorized [id number] Closed 01/23/2024 07/24/2025 1 1 Encounter Details Date Type Department Care Team (Late st Contact Info) Description 03/06/2024 12:00 PM CDT Office Visit Department of Orthopedic Surgery in [place], [place] [address] [place] [address] Latrell Antunez M.D. [address] [place] [address] Trigger Finger Thumb Right (Primary Dx); Pain Shoulder Right Social History Tobacco Use Types Packs/Day Years Used Date Smoking Tobacco: Never Smokeless Tobacco: Never Comments:none Alcohol Use Standard Drinks/Week Comments No 0 (1 standard drink = 0.6 oz pur e alcohol) [facility] Utilities Answer Date Recorded In the past 12 months has e [employer], gas, oil, or water [employer] threatened to shut off services in your [...] week 09/07/2022 How often do you attend [facility] or yarsanism services? More than 4 times [...] Score 0 01/18/[address] [facility] - Occupational Stress Questionnaire Answer Date Recorded [...] Office Visit Department of Orthopedic Surgery in [place], [place] [address] [place] [address] Lartell Antunez M.D. [address] [place] [address] Scheduled Referrals Name Type Priority Associated Diagnoses [...] documented as of this encounter Care Teams Real Estate Listing Consultant Relationship Specialty Start Date End Date Brennen Winchester M.D. [address] [place] [address] [place] [address] PCP - General 04/05/22 documented as of this encounter
--- OUTSIDE RECORDS SUMMARY | 2024-04-02 12:57 | XMS_ITS | Encounter Summary ---
Author Organization [facility] Address [address] [place] [address] Care Team Providers Care Medication Aide Name Role Phone Brennen Winchester M.D. Primary Care Provider [phone] Reason for Visit * Reason Onset Date Comments Med Question 12/20/2023 ABX s/p R TKA wi th diabetes mellitus 2 with chronic kidney disease Encounter Details Date Type Department Care Team (Latest Contact Info) Description 12/20/2023 Clinical Communication Department of Orthopedic Surgery in [place], [place] [address] [place] [phone] Sam Coburn M.D. [address] [place] [phone] Med Question (ABX s/p R TKA with diabetes mellitus 2 with chronic kidney disease) Social History Tobacco Use Types Packs/Day Years Used Date Smoking Tobacco: Never Smokeless Tobacco: Never Comments:none Alcohol Use Standard Drinks/Week Comments No 0 (1 standard drink = 0.6 oz pur e alcohol) [facility] Utilities Answer Date Recorded In the past 12 months has th e [employer], gas, oil, or water [employer] threatened to shut off services in your [...] often do you attend chur ch or islam services? More than 4 times per year [...] your living situation today? I have a [facility] place to live 11/30/2023 Education Answer [...] Office Visit Department of Orthopedic Surgery in [place], [place] [address] [place] [address] Latrell Antunez M.D. [address] [place] [phone] documented as of this encounter Visit Diagnoses Not on filedocumented in this encounter Additional Health Concerns Assessment Noted Time PHQ-9 Depression Total Score: 0 11/22/19 17 8:37 AM CDT documented as of this encounter Care Teams Medication Aide Relationship Specialty Start Date End Date Brennen Winchester M.D. [address] [place] [address] Zenia Coronado, [place] [phone] PCP - General 04/05/22 documented as of this encounter
--- OUTSIDE RECORDS SUMMARY | 2024-04-02 12:57 | XMS_ITS | Referral Summary ---
Author Organization [facility] Address [address] [place] [address] Care Team Providers Care Composing Room Machinist Apprentice Name Role Phone Brennen Winchester M.D. Primary Care Provider Source Comments Patient records contain information from all sites at [facility]. For routine questions regarding patient records, call [phone] during business hours, M-F 8:00 AM - 5:00 PM Central Time. Record requests for emergency care only can be directed to [phone] at any time.[facility] Encounters Date Type Department Care Team Description 03/31/2024 8:00 AM CDT External Outreach Division of Nephrology and Hypertension in [place], [place] [address] [place] [phone] Checo Aguirre Jr., D.O. Chronic Kidney Disease (CKD), Stage 3b Glomerular Filtration Rate (GFR) 30 To 44 (HCC) (Primary Dx); Hypertensive Chronic Kidney Disease With Stage 1 Through Stage 4 Chronic Kidney Disease, Or Unspecified Chronic Kidney Disease; Diabetes Mellitus Type 2 With Diabetic Chronic Kidney Disease (HCC); Hyperparathyroidism Renal Secondary (HCC) 03/24/2024 11:00 AM CDT Telemedicine Department of Family Medicine, [facility], in [place], [place] [address] [place] [address] Brennen Winchester M.D. Simon, Keri J, RLiang Annual Medicare Examination Return (Primary Dx) 03/23/2024 2:12 PM CDT - 03/23/2024 11:59 PM CDT Hospital Encounter Department of Radiology, [facility], in [place], [place] [address] [place] [phone] Pierre Del Real M.D. Primary Osteoarthritis Knee Right Discharge Disposition: Home or Self Care 03/23/2024 3:30 PM CDT Office Visit Department of Orthopedic Surgery in [place], [place] [address] [place] [phone] Sam Coburn M.D. 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 Trigger Finger Thumb Right (Primary Dx); Pain Shoulder Right 03/05/2024 9:15 AM CDT Clinical Communication Virtual Review in [place], [place] 200 [place] [address] Pre-visit Intake 02/25/2024 Refill Department of Family Medicine, [facility], in [place], [place] 300 [place] [address] Brennen Winchester M.D. Med Refill 02/25/2024 Orders Only [facility] Brennen Winchester M.D. 02/18/2024 Refill Department of Family Medicine, [facility], in [place], [place] [address] [place] [address] Brennen Winchester M.D. Med Refill 02/03/2024 Clinical Communication Department of Family [facility], [facility], in [place], [place] [address] [place] [address] Brennen Winchester M.D. Health Maintenance 01/23/2024 4:00 PM CDT Office Visit Department of Orthopedic Surgery in [place], [place] [address] [place] [phone] Latrell Antunez M.D. Pain Shoulder Right (Primary [...] Diagnosed Date Resolved Date Alzheimer's Disease 09/07/2021 08/14/20 23 Diabetes Mellitus Type 2 03/23/202009/2020 Unspecified [...] often do you attend chur ch or tenriism services? More than 4 times per year 09/07/2022 Do you belong to any clubs o r organizations such as jainism groups, unions, fraternal or athletic groups, or [...] Answer Date Recorded PHQ-2 Score 0 03/24/2024 [facility] [place] of Occupat ional Health - Occupational Stress [...] your living situation today? I have a [facility] place to live 11/30/2023 Education Answer Date [...] Office Visit Department of Orthopedic Surgery in [place], [place] [address] [place] [address] Latrell Antunez M.D. [address] [place] [address] Medical Devices Implanted Type Area Thermodynamics Professor Device Identifier Shelf Expiration Date Model / Serial / Lot Cmnt Bn Smp 40gm - [id number] Implanted:Qty: 1 on 12/07/2022 by Sam Coburn M.D. at [facility] Bone Cement Left: Knee [place] 6191-100 1 / / Cmnt Bn Smp 20gm - [id number] Implanted:Qty: 1 on 12/07/2022 by Sam Coburn M.D. at [facility] Bone Cement Left: Knee Goyo 6188-1-00 1 / / Cmnt Bn Smp 40gm - [id number] Implanted:Qty: 1 on 11/29/2023 by Sam Coburn M.D. at [facility] Bone Cement Right: Knee Goyo 6191-1 1 / / Cmnt Bn Smp 20gm - [id number] Implanted:Qty: 1 on 11/29/2023 by Sam Coburn M.D. at [facility] Bone Cement Right: Knee Goyo 6188-1-00 / / K-Wire-Ss 4 Smooth .045 - [id number] Implanted:Qty: 1 on 01/05/2014 Hardware e.g. pins/screws /rods Mouth [place] Description:Device Manufactu rer - Goyo Jr.. Device Status Text - HARDWARE-872. Hip Implant Hip Implant Right: Hip Description:2019 Kn Stm Prs Cmnt 14x30 - [id number] Implanted:Qty: 1 on 12/07/2022 by Sam Coburn M.D. at [facility] Knee Implant Left: Knee [employer] 10/30/2032 42-5570-0 09-01 [id number] Persona Viavacit E Highly Crosslinked Polyethylene Left 10mm Use With Tibia E-F Cr Femur 8-11 Implanted:Qty: 1 on 12/07/2022 by Sam Coburn M.D. at [facility] Knee Implant Left: Knee [employer] [id number] 05/15/2027 42-5121-0 08- [id number] Pat Prs 8.5x32 - [id number] Implanted:Qty: 1 on 12/07/2022 by Sam Coburn M.D. at [facility] Knee Implant Left: Knee [employer] 10/01/2027 42-5400-0 - / [id number] Kn Fem Prs Lt Cmnt Jensen Sz-10 - [id number] Implanted:Qty: 1 on 12/07/2022 by Sam Coburn M.D. at [facility] Knee Implant Left: Knee [employer] 05/09/2031 42-5020-0 68- / [id number] Bsplt Tib Prs Lt 5d Rosalie - [id number] Implanted:Qty: 1 on 12/07/2022 by Sam Coburn M.D. at [facility] Knee Implant Left: Knee [employer] 05/14/2032 42-5320-0 71- / [id number] Pat Prs 8.5x32 - [id number] Implanted:Qty: 1 on 11/29/2023 by Sam Coburn M.D. at [facility] Knee Implant Right: Patella [employer] 01/08/2028 42-5400-0 00-32 / [id number] Kn Fem Prs Rt Cmnt Jensen Sz-10 - [id number] Implanted:Qty: 1 on 11/29/2023 by Sam Coburn M.D. at [facility] Knee Implant Right: Patella [employer] 07/01/2033 42-5020-0 68- / [id number] Kn Stm Prs Cmnt 14x30 - [id number] Implanted:Qty: 1 on 11/29/2023 by Sam Coburn M.D. at [facility] Knee Implant Right: Patella [employer] 09/01/2033 42-5570-0 09-01 [id number] Bsplt Tib Prs Rt 5d Rosalie - [id number] Implanted:Qty: 1 on 11/29/2023 by Sam Coburn M.D. at [facility] Knee Implant Right: Patella [employer] 12/18/2032 42-5320-0 71 [id number] Ins Tib Prs [facility] Sz8-11ef 10 - [id number] Implanted:Qty: 1 on 11/29/2023 by Sam Coburn M.D. at [facility] Knee Implant Right: Patella [employer] 08/20/2028 42-5221-0 08- [id number] Ocular Lens Ocular Lens Bilateral: Eye Procedures Procedure Name Priority Date/Time Associated Diagnosis Comments DX KNEE RIGHT 3 VIEWS RAD - Routine (most inpatients and all outpatients) 03/23/2024 2:28 PM CDT Primary Osteoarthritis Knee Right SMALL JOINT INJECTION HAND/WRIST Routine 03/06/2024 12:00 PM CDT Trigger Finger Thumb Right SD ARTHCS ASP/INJ MJR JT WO US Routine [...] inpatients and all outpatients) 10/02/2023 1:08 PM AMMUNITION COMPONENTS INSPECTOR Screening Mammogram Breast Cancer ALBUMIN, RANDOM, U [...] Antunez M.D. PROCEDURE/MINOR SURG ICAL ORDERABLES * SD ARTHCS ASP/INJ MJR JT WO US (01/23/2024 [...] PROCEDURE/MINOR SURG ICAL ORDERABLES Performing Organization Address City/[facility] Co de Phone Number MMODAL NA * [...] M.D. LAB BLOOD ADD-ON Performing Organization Address City/[facility] Co de Phone Number [facility] [address] [place] [address], [facility] [address] [place] [address] * (ABNORMAL) Hemoglobin A1c (11/28/2023 7:43 AM [...] CDT Sam Coburn M.D. LAB BLOOD ADD-ON [facility] [address] [place] [address], [facility] [address] [place] [address] * (ABNORMAL) Basic Metabolic Panel (11/28/2023 7:42 AM CDT) Pathologist [facility] Potassium, S 5.0 3.6 - 5.2 mmol/L [...] CDT Sam Coburn M.D. LAB BLOOD ADD-ON [facility] [address] [place] [address], [facility] DTL [facility] [address] [place] [address] * BI Breast Screening Bilateral with Tomosynthesis (10/02/2023 1:08 PM AMMUNITION COMPONENTS INSPECTOR) Anatomical Region Laterality Modality Breast, Breast Imaging RST L OS, Breast Imaging ARZ LOS, Breast Imaging FLA LOS Bilateral Mammography Impressions 10/02/2023 1:35 PM AMMUNITION COMPONENTS INSPECTOR Negative. RECOMMENDATION: ??Annual Screening Mammogram ASSESSMENT: ??BI-RADS: 1: Negative. Narrative 10/02/2023 1:35 PM AMMUNITION COMPONENTS INSPECTOR EXAM: ??BI BREAST SCREENING BILATERAL WITH TOMOSYNTHESIS [...] APRN, C.N.P., R.N. LAB UR INE ORDERABLES [facility] [address] [address], [facility] [address] [address] * Lipid Panel (11/22/2022 7:39 AM CDT) [...] CDT Brennen Winchester M.D. LAB BLOOD ADD-ON [facility] [address] [place] [address], [place] [facility] [address] [place] [address] from Last 3 Months or Most Recently Relevant to Health Maintenance Care Teams Composing Room Machinist Apprentice Relationship Specialty Start Date End Date Brennen Winchester M.D. [address] [place] [phone] PCP - General 04/05/22
--- OUTSIDE RECORDS SUMMARY | 2024-04-02 12:57 | XMS_ITS | Encounter Summary ---
Author Organization [facility] Address [address] [place] [address] Care Team Providers Care Technology Infusion Specialist Name Role Phone Brennen Winchester M.D. Primary Care Provider Encounter Details Date Type Department Care Team (Late st Contact Info) Description 12/18/2023 Clinical Communication Department of Orthopedic Surgery in [place], [place] [address] [place] [address] Latrell Antunez M.D. [address] [place] [address] Social History Tobacco Use Types Packs/Day Years Used Date Smoking Tobacco: Never Smokeless Tobacco: Never Comments:none Alcohol Use Standard Drinks/Week Comments No 0 (1 standard drink = 0.6 oz pur e alcohol) [facility] Utilities Answer Date Recorded In the past 12 months has [facility] [employer], gas, oil, or water [employer] threatened to shut off services in your [...] often do you attend chur ch or quaker services? More than 4 times per year [...] Answer Date Recorded PHQ-2 Score 0 01/18/2021 [facility] [place] of Occupat ional Health - Occupational Stress [...] your living situation today? I have a [facility] place to live 11/30/2023 Education Answer [...] Office Visit Department of Orthopedic Surgery in [place], [place] [address] [place] [address] Latrell Antunez M.D. [address] [place] [address] documented as of this encounter Visit Diagnoses Not on filedocumented in this encounter Additional Health Concerns Assessment Noted Time PHQ-9 Depression Total Score: 0 11/22/19 17 8:37 AM CDT documented as of this encounter Care Teams Technology Infusion Specialist Relationship Specialty Start Date End Date Brennen Winchester M.D. [address] [place] [phone] PCP - General 04/05/22 documented as of this encounter
--- OUTSIDE RECORDS SUMMARY | 2024-04-02 12:57 | XMS_ITS | Encounter Summary ---
Author Organization [facility] Address [address] [place] [address] Care Team Providers Care Agricultural Sciences Professor Name Role Phone Brennen Winchester M.D. Primary Care Provider [phone] Reason for Visit * Reason Onset Date Comments Pre-visit Intake 03/20/2024 Encounter Details Date Type Department Care Team (Latest Contact Info) Description 03/20/2024 1:15 PM CDT Clinical Communication Virtual Review in [place], [place] 200 [place] [address] Pre-visit Intake Social History Tobacco Use Types Packs/Day Years Used Date Smoking Tobacco: Never Smokeless Tobacco: Never Comments:none Alcohol Use Standard Drinks/Week Comments No 0 (1 standard drink = 0.6 oz pur e alcohol) [facility] Utilities Answer Date Recorded In the past 12 months has e [employer], gas, oil, or water [employer] threatened to shut off services in your [...] any clubs o r organizations such as nondenominational groups, unions, fraternal or athletic groups, or [...] Answer Date Recorded PHQ-2 Score 0 01/18/2021 [facility] - [facility]ational [facility] Questionnaire Answer Date [...] your living situation today? I have a [facility] place to live 11/30/2023 Education Answer [...] Office Visit Department of Orthopedic Surgery in [place], [place] [address] [place] [address] Latrell Antunez M.D. [address] [place] [address] documented as of this encounter Visit Diagnoses Not on filedocumented in this encounter Additional Health Concerns Assessment Noted Time PHQ-9 Depression Total Score: 0 11/22/19 17 8:37 AM CDT documented as of this encounter Care Teams Agricultural Sciences Professor Relationship Specialty Start Date End Date Brennen Winchester M.D. [address] [place] [phone] PCP - General 04/05/22 documented as of this encounter
--- OUTSIDE RECORDS SUMMARY | 2024-04-02 12:57 | XMS_ITS | Encounter Summary ---
Author Organization [facility] Address [address] [place] [address] Care Team Providers Care Neurology Physician Assistant Name Role Phone Brennen Winchester M.D. Primary Care Provider [phone] Reason for Visit * Outpatient (Routine) - Closed Specialty Diagnoses / Procedures Referred By Sara schmid Referred To Contact Orthopedic Surgery Pierre Del Real M.D. [facility] Referral ID Status Reason Start Date Expiration Date Visits Re quested Visits Authorized [id number] Closed 11/29/2023 05/30/2025 1 1 Encounter Details Date Type Department Care Team (Late st Contact Info) Description 03/23/2024 3:30 PM CDT Office Visit Department of Orthopedic Surgery in [place], [place] [address] [place] [phone] Sam Coburn M.D. 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 More than 4 times per year 09/07/2022 Do you belong to any clubs o r organizations such as sabianist groups, unions, fraternal or athletic groups, or [...] Answer Date Recorded PHQ-2 Score 0 03/24/2024 [facility] [place] of Occupat ional Health - Occupational Stress [...] your living situation today? I have a [facility] place to live 11/30/2023 Education Answer [...] Office Visit Department of Orthopedic Surgery in [place], [place] [address] [place] [address] Latrell Antunez M.D. [address] [place] [address] documented as of this encounter Visit Diagnoses Diagnosis Arthroplasty Total Knee Replacement Status Post Right- Primary documented in this encounter Additional Health Concerns Assessment Noted Time PHQ-9 Depression Total Score: 0 11/22/19 17 8:37 AM CDT documented as of this encounter Care Teams Neurology Physician Assistant Relationship Specialty Start Date End Date Brennen Winchester M.D. [address] [place] [phone] PCP - General 04/05/22 documented as of this encounter
--- OUTSIDE RECORDS SUMMARY | 2024-04-02 12:57 | XMS_ITS | Encounter Summary ---
Author Organization [facility] Address [address] [place] [address] Care Team Providers Care Assistant Producer Name Role Phone Brennen Winchester M.D. Primary Care Provider [phone] Reason for Referral * Outpatient (Routine) - Authorized Specialty Diagnoses / Procedures Referred By Contac t Referred To Contact Diagnoses Pain Shoulder Right Procedures vzd-ahqv-njzmix-elbow: R subacromial bursa Latrell Antunez M.D. [address] [place] [address] [facility] Referral ID Status Reason Start Date Expiration Date V isits Requested Visits Authorized [id number] Authorized 01/25/2024 01/24/2025 1 1 * Outpatient (Routine) - Closed Specialty Diagnoses / Procedures Referred By Contac t Referred To Contact Orthopedic Surgery Latrell Antunez M.D. [address] [place] [address] [facility] Referral ID Status Reason Start Date Expiration Date Visits Re quested Visits Authorized [id number] Closed 01/23/2024 07/24/2025 1 1 Reason for Visit * Outpatient (Routine) - Closed Specialty Diagnoses / Procedures Referred By Contac t Referred To Contact Orthopedic Surgery Latrell Antunez M.D. [address] [place] [address] [facility] Referral ID Status Reason Start Date Expiration Date Visits Re quested Visits Authorized [id number] Closed 12/18/2023 06/18/2025 1 1 Encounter Details Date Type Department Care Team (Late st Contact Info) Description 01/23/2024 4:00 PM CDT Office Visit Department of Orthopedic Surgery in [place], [place] [address] [place] [address] Latrell Antunez M.D. [address] [place] [phone] Pain Shoulder Right (Primary Dx) Social History Tobacco Use Types Packs/Day Years Used Date Smoking Tobacco: Never Smokeless Tobacco: Never Comments:none Alcohol Use Standard Drinks/Week Comments No 0 (1 standard drink = 0.6 oz pur e alcohol) [facility] Utilities Answer Date Recorded In the past 12 months has e [employer], gas, oil, or water [employer] threatened to shut off services in your [...] week 09/07/2022 How often do you attend [facility] or shinto services? More than 4 times per year 09/07/2022 Do you belong to any clubs o r organizations such as protestant groups, unions, fraternal or athletic groups, or [...] Answer Date Recorded PHQ-2 Score 0 01/18/2021 [facility] - Occupational Stress Questionnaire Answer [...] M.D. - 01/23/2024 4:00 PM CDTAssociated Order(s): xho-afbf-rjzphd-elbow: R subacromial bursa Post-Procedure Diagnose(s): Pain Shoulder [...] Office Visit Department of Orthopedic Surgery in [place], [place] [address] [place] [address] Latrell Antunez M.D. [address] [place] [address] Scheduled Referrals Name Type Priority Associated Diagnoses Order Schedule Orthopedic Surgery office visit (clinic) Outpatient Referral Routine Expected: 03/06/2024 (Approximate), Expires: 04/24/2025 documented as of this encounter Procedures Procedure Name Priority Date/Time Associated Diagnosis Comments [place] ARTHCS ASP/INJ MJR JT WO US Routine 01/23/2024 4:00 PM CDT Pain Shoulder Right documented in this encounter Results * [place] ARTHCS ASP/INJ MJR JT WO US (01/23/2024 [...] documented as of this encounter Care Teams Assistant Producer Relationship Specialty Start Date End Date Brennen Winchester M.D. [address] [place] [address] [place] [address] PCP - General 04/05/22 documented as of this encounter
--- OUTSIDE RECORDS SUMMARY | 2024-04-02 12:57 | XMS_ITS | Encounter Summary ---
Author Organization [facility] Address [address] [place] [address] Care Team Providers Care Automobile Accessories Salesperson Name Role Phone Brennen Winchester M.D. Primary Care Provider [phone] Reason for Referral * Outpatient (Routine) - Authorized Specialty Diagnoses / Procedures Referred By Sara schmid Referred To Contact Brennen Winchester M.D. [address] [place] [address] [facility] Referral ID Status Reason Start Date Expiration Date V isits Requested Visits Authorized [id number] Authorized 03/24/2024 09/23/2025 1 1 Scheduling Instructions 12-Month Medicare Visit Reason for Visit * Reason Comments Medicare Annual Wellness Visit Subsequen t * Outpatient (Routine) - Closed Specialty Diagnoses / Procedures Referred By Sara schmid Referred To Contact Brennen Winchester M.D. [address] [place] [address] [facility] Referral ID Status Reason Start Date Expiration Date Visits Re quested Visits Authorized [id number] Closed 02/25/2024 08/26/2025 1 1 Encounter Details Date Type Department Care Team (Late st Contact Info) Description 03/24/2024 11:00 AM CDT Telemedicine Department of Family Medicine, [facility], in [place], [place] [address] [place] [address] Brennen Winchester M.D. [address] [place] [address] [place] [phone] Preeti Flowers R.N. Annual Medicare Examination Return (Primary Dx) Social History Tobacco Use Types Packs/Day Years Used Date Smoking Tobacco: Never Smokeless Tobacco: Never Comments:none Alcohol Use Standard Drinks/Week Comments No 0 (1 standard drink = 0.6 oz pur e alcohol) [facility] Utilities Answer Date Recorded In the past 12 months has e electric, gas, oil, or water [employer] threatened to shut off services in your [...] often do you attend chur ch or faith services? More than 4 times [...] audio/video technology by Preeti Flowers R.N. in [facility] to the patient in [facility] The following portions of the patient's [...] - patient is actively working with an automated access systems technician to update advanced directive at this time. [...] Office Visit Department of Orthopedic Surgery in [place], [place] [address] [place] [address] Latrell Antunez M.D. [address] [place] [address] Scheduled Referrals Name Type Priority Associated Diagnoses Orde r Schedule Primary Care nurse visit (clinic) - [facility] Region; Medicare Annual Wellness Outpatient Referral Routine Expected: 03/24/2025 (Approximate), Expires: 06/24/2025 documented as of this encounter Visit Diagnoses Diagnosis Annual Medicare Examination Return- Primary documented in this encounter Additional Health Concerns Assessment Noted Time PHQ-9 Depression Total Score: 0 03/24/20 24 11:13 AM CDT documented as of this encounter Care Teams Automobile Accessories Salesperson Relationship Specialty Start Date End Date Brennen Winchester M.D. [address] [place] [phone] PCP - General 04/05/22 documented as of this encounter
--- OUTSIDE RECORDS SUMMARY | 2024-04-02 12:57 | XMS_ITS ---
Author Organization [facility] Address [address] [place] [address] Care Team Providers Care Porcelain Enamel Sprayer Name Role Phone Unavailable Unavailable Unavailable Surgery Details Not on file Complications Check Surgery Details section. Procedure Estimated Blood Loss Check Surgery Details section. Procedure Findings Check Surgery Details section. Procedure Specimens Taken Check Surgery Details section.
--- OUTSIDE RECORDS SUMMARY | 2024-04-02 12:57 | XMS_ITS | Encounter Summary ---
Author Organization [facility] Address [address] [place] [address] Care Team Providers Care Cannery Worker Name Role Phone Brennen Winchester M.D. Primary Care Provider [phone] Reason for Visit * Reason Comments Med Refill Encounter Details Date Type Department Care Team (Late st Contact Info) Description 02/25/2024 Refill Department of Family Medicine, [facility], in [address] [address] Brennen Winchester M.D. [address] [place] [address] Med Refill Social History Tobacco Use Types Packs/Day Years Used Date Smoking Tobacco: Never Smokeless Tobacco: Never Comments:none Alcohol Use Standard Drinks/Week Comments No 0 (1 standard drink = 0.6 oz pur e alcohol) [facility] Utilities Answer Date Recorded In the past [address] [facility] [employer], oil, or water [employer] threatened to shut off services in your [...] often do you attend chur ch or hindu services? More than 4 times per year [...] Date Recorded PHQ-2 Score 0 01/18/2021 [facility] - Occupational [...] your living situation today? I have a [facility] place to live 11/30/2023 Education [...] Office Visit Department of Orthopedic Surgery in [place], [place] [address] [place] [id number] Latrell Antunez M.D. [address] [place] [phone] documented as of this encounter Visit Diagnoses Diagnosis Diabetes Mellitus Type 2 With Diabetic Chronic Kidney Disease (HCC) documented in this encounter Additional Health Concerns Assessment Noted Time PHQ-9 Depression Total Score: 0 11/22/19 17 8:37 AM CDT documented as of this encounter Care Teams Cannery Worker Relationship Specialty Start Date End Date Brennen Winchester M.D. [address] [place] [phone] PCP - General 04/05/22 documented as of this encounter
--- OUTSIDE RECORDS SUMMARY | 2024-04-02 12:57 | XMS_ITS | Encounter Summary ---
Author Organization [facility] Address [address] [place] [address] Care Team Providers Care Hearing Aid Assembly Supervisor Name Role Phone Brennen Winchester M.D. Primary Care Provider Reason for Visit * Reason Onset Date Comments Pre-visit Intake 03/05/2024 Encounter Details Date Type Department Care Team (Latest Contact Info) Description 03/05/2024 9:15 AM CDT Clinical Communication Virtual Review in [place], [place] [address] [place] [address] Pre-visit Intake Social History Tobacco Use Types Packs/Day Years Used Date Smoking Tobacco: Never Smokeless Tobacco: Never Comments:none Alcohol Use Standard Drinks/Week Comments No 0 (1 standard drink = 0.6 oz pur e alcohol) [facility] Utilities Answer Date Recorded In the past 12 months has e [employer], gas, oil, or water [employer] threatened to shut off services in your [...] often do you attend chur ch or synagogue services? More than 4 times per year [...] Date Recorded PHQ-2 Score 0 01/18/2021 [facility] - [facility] Stress Questionnaire Answer Date [...] your living situation today? I have a [facility] place to live 11/30/2023 Education Answer [...] Visit Department of Orthopedic Surgery in [place], [place] [address] [place] [address] Latrell Antunez M.D. [address] [place] [address] documented as of this encounter Visit Diagnoses Not on filedocumented in this encounter Additional Health Concerns Assessment Noted Time PHQ-9 Depression Total Score: 0 11/22/19 17 8:37 AM CDT documented as of this encounter Care Teams Hearing Aid Assembly Supervisor Relationship Specialty Start Date End Date Brennen Winchester M.D. [address] [place] [phone] PCP - General 04/05/22 documented as of this encounter
--- OUTSIDE RECORDS SUMMARY | 2024-04-02 12:58 | XMS_ITS | Encounter Summary ---
Author Organization [facility] Address [address] [place] [address] Care Team Providers Care Core Microarchitect Name Role Phone Brennen Winchester M.D. Primary Care Provider Encounter Details Date Type Department Care Team (Late st Contact Info) Description 12/03/2023 Clinical Communication Department of Orthopedic Surgery in [place], [place] [address] [place] [address] Sam Coburn M.D. [address] [place] [address] Social History Tobacco Use Types Packs/Day Years Used Date Smoking Tobacco: Never Smokeless Tobacco: Never Comments:none Alcohol Use Standard Drinks/Week Comments No 0 (1 standard drink = 0.6 oz pur e alcohol) [facility] Utilities Answer Date Recorded In the past 12 months has [facility] [employer], gas, oil, or water [employer] threatened to shut off services in your [...] any clubs o r organizations such as gnosticist groups, unions, fraternal or athletic groups, or [...] Office Visit Department of Orthopedic Surgery in [place], [place] [address] [place] [address] Latrell Antunez M.D. [address] [place] [address] documented as of this encounter Visit Diagnoses Not on filedocumented in this encounter Additional Health Concerns Assessment Noted Time PHQ-9 Depression Total Score: 0 11/22/19 17 8:37 AM CDT documented as of this encounter Care Teams Core Microarchitect Relationship Specialty Start Date End Date Brennen Winchester M.D. [address] [place] [phone] PCP - General 04/05/22 documented as of this encounter
--- OUTSIDE RECORDS SUMMARY | 2024-04-02 12:58 | XMS_ITS | Clinical Summary ---
Author Organization [employer] [facility] Address [place], [place] [address] Care Team Providers Care Dining Service Supervisor Name Role Phone Natacha Casillas NP [...] 165 cm (5' 4.96) 10/03/2021 7:11 AM ACCOUNTING CLERKS SUPERVISOR Body Mass Index 21.94 10/03/2021 7:11 AM ACCOUNTING CLERKS SUPERVISOR Plan of Treatment Health Maintenance Due Date [...] 10/03/2031 10/03/2021 Medical Devices Implanted Type Area Belt Loop Machine Operator Device Identifier Shelf Expiration Date Model / Serial / Lot [id number] - [id number] - [place] Head Bipolar Component Implanted:Qty: 1 on 01/18/2020 by Rangel Humphries MD at [facility] Ortho Total Joint Right: Hip [employer] 05/27/2024 [id number] / / [id number] - [id number] - Accolade Ii 127 Degree Neck Angle Hip Stem Implanted:Qty: 1 on 01/18/2020 by Rangel Humphries MD at [facility] Ortho Total Joint Right: Hip [employer] 05/12/2024 2830-1800 / / [id number] - [id number] - [employer] Delta Ceramic V40 Femoral Head Implanted:Qty: 1 on 01/18/2020 by Rangel Humphries MD at [facility] Ortho Total Joint Right: Hip [employer] 11/20/2022 6570-0-22 8 / / [id number] Screw Hip 6.5x15mm [employer] Lowprofile Hex - [id number] Implanted:Qty: 1 on 03/23/2020 by Checo Phillips MD at [facility] Right: Hip [employer] 03/23/[id number] # / / [id number] Screw Hip 6.5x15mm [employer]oyo Lowprofile Hex - [id number] Implanted:Qty: 1 on 03/23/2020 by Checo Phillips MD at [facility] Right: Hip [employer] [id number] # / / [id number] Screw Hip 6.5x15mm [employer]oyal Lowprofile Hex - [id number] Implanted:Qty: 1 on 03/23/2020 by Checo Phillips MD at [facility] Right: Hip [employer] 04/04/[id number] # / / 4CD Trident Ii Tritanium Multihole Acet Shell [id number] Implanted:Qty: 1 on 03/23/2020 by Checo Phillips MD at [facility] Right: Hip 03/16/2024 709-04-54 E / / [id number] Description:TRIDENT II TRITA NIUM MULTIHOLE ACET SHELL [id number] Liner Hip Id42mm Szb Mdmx3 Co Cr - [id number] Implanted:Qty: 1 on 03/23/2020 by Checo Phillips MD at [facility] Right: Hip [employer] 02/02/2025 626-00-42 E# / / [id number] Head Hip Od28mm +8 V40 Co Cr - [id number] Implanted:Qty: 1 on 03/23/2020 by Checo Phillips MD at [facility] Right: Hip [employer] 11/11/2022 6260-5-32 8# / / [id number] Liner Hip Id28 Od48mm Adm X3 Pe - [id number] Implanted:Qty: 1 on 03/23/2020 by Checo Phillips MD at [facility] Right: Hip [employer] 02/13/2025 1236-2-84 8# / / [id number] Screw Hip 6.5x40mm [employer] Low Profile Hex - [id number] Implanted:Qty: 1 on 03/23/2020 by Checo Phillips MD at [facility] Right: Hip [employer] 03/18/2024 1426-9410 # / / [id number] Screw Hip 6.5x40mm [employer]oyal Low Profile Hex - [id number] Implanted:Qty: 1 on 03/23/2020 by Checo Phillips MD at [facility] Right: Hip [employer] 03/28/2024 [id number] # / / [id number] Explanted Type Area Belt Loop Machine Operator Device Identifier Shelf Expiration Date Model / Serial / Lot Explant Explanted:Qty: 1 on 03/23/2020 by Checo Phillips MD at [facility] Right: Hip Description:HEAD Procedures Procedure Name Priority Date/Time Associated Diagnosis Comments COLONOSCOPY 10/03/2021 8:13 AM ACCOUNTING CLERKS SUPERVISOR from Last 3 Months or Most Recently Relevant to Health Maintenance Results * COLONOSCOPY (10/03/2021 8:13 AM ACCOUNTING CLERKS SUPERVISOR) 10/03/2021 8:13 AM ACCOUNTING CLERKS SUPERVISOR Narrative Transcriptions FromJoon carbone MD - 10/03/2021 8:42 AM CST Patient Name: Ekta Sands Procedure Date: 10/03/2021 Gender: Female Date of : 1950 Admit Type: Ambulatory Procedure: Colonoscopy Proceduralist: Tyrel Funes MD [facility] Indications/Pre-Op Diagnosis: Screening for colorectal malignantneoplasm Medications: [...] the bowel preparationwas evaluated using the BBPS ([place] Bowel Preparation Scale) with scores of: Right [...] 1:06 AM 01/20/2020 5:02 PM Care Teams Dining Service Supervisor Relationship Specialty Start Date End Date Natacha Casillas NP [address] [facility] [place] [address] PCP - General Nurse Practitioner 05/25/19
--- OUTSIDE RECORDS SUMMARY | 2024-04-02 12:58 | XMS_ITS | Continuity of Care Document ---
Author Organization [facility] Address [address] [place] [address] Phone Care Team Providers Care Head Porter Baggage Name Role Phone Cory Horner MD Unavailable Unavailable Procedures Procedure Date Office/Outpatient Visit,[facility] 2019 Advance Directives Directive Yes / No Effective Date File Name No Information Encounters Encounter Description Practice Location Reason(s) For Visit Diagnoses Date Provider Providers Copied on Encounter [facility], [address], [place], [place], [id number], [place] tel:[phone] [facility] No Information 2 Mehbod Amir. [facility], [address] [place] [address] [address], [place], [place], [id number] , [place]. tel:[phone] Office/Outpat ient Visit, [facility], [address], [place], [place], [id number], [place] tel:[phone] [facility] - [place] Spondylolisth esis, lumbar regionSpinal stenosis, lumbar region with neurogenic claudication 0 Mehbod Amir. [facility], [address], [place], [place], [id number] , [place]. tel:[phone] Referring Provider: Checo Jimenez, [facility] [address] [place] [address], [address]. tel:[phone] Family History Family Member Type Diagnosis Age At Onset No Information Payers Payer name Insurance type Covered libertarian ID Authorjared power(s) [facility] [id number] Medicare [facility] [id number] 1 Social History Type Description Quantity Date [...]
== END 2024-03-30 10:26 | disposition home or self-care (01) ==
LOC: NFLDREF 04-02 12:54
PROVIDERS: Visit Provider Internal Medicine Nephrology
DX: E11.22 Type 2 diabetes mellitus with diabetic chronic kidney disease (principal); I12.9 Hypertensive chronic kidney disease with stage 1 through stage 4 chronic kidney disease, or unspecified chronic kidney disease; N18.32 Chronic kidney disease, stage 3b
CPT/HCPCS: 82043; 82570